=== PATIENT | female | born 1970 | race African-American/Black ===

== ENCOUNTER 2018-02-03 10:16 | Emergency (ER) | payer OTHER ==
[2018-02-03 12:20] LABS: Absolute Lymphocytes (CBC) 2.9 K/uL (0.7-4.9); Absolute Monocytes 0.7 K/uL (0.1-1.3); Absolute Neutrophil 9.2 K/uL (1.8-8.0); Eosinophils % 3.3 % (0-4.4); Hematocrit 40.4 % (36.0-45.0); Lymphocytes % 21.8 % (15.3-44.8); MCH 28.2 pg (27.0-35.0); MCV 86.5 fL (80-100); Monocytes % 5.2 % (3.3-12.3); RBC Red Blood Cell Count 4.67 M/uL (3.86-4.86)
[2018-02-03 12:21] LABS: Urine Blood 2+ (NEG); Urine Glucose NEGATIVE (NEG); Urine Protein 1+ (NEG); Urine Specific Gravity 1.025 (1.005-1.030)
[2018-02-03] MEDS ORDERED: NA CHLORIDE 0.9% 500 ML ONE (12:31)
[2018-02-03 12:46] LABS: Bicarbonate 29 mEq/L (21-31); Glucose Level 138 mg/dL (65-120); Potassium 3.8 mEq/L (3.6-5.0); Sodium Level 140 mEq/L (135-145)
[2018-02-03 12:52] LABS: ALT/SGPT 38 IU/L (10-60); AST/SGOT 28 IU/L (10-42); Albumin 4.3 g/dL (3.2-5.5); Alkaline Phosphatase 82 IU/L (42-121); BUN Blood Urea Nitrogen 13 mg/dL (6-20); Bilirubin Direct 0.1 mg/dL (0-0.2); Bilirubin Total 0.5 mg/dL (0.3-1.2); Creatine Phosphokinase 772 IU/L (22-269); Magnesium 1.8 mg/dL (1.8-2.5); Protein, Total 8.1 g/dL (6.0-8.3); Protime INR 1.03
[2018-02-03 12:54] LABS: CKMB Creatine Kinase MB 4.7 ng/ml (0.3-4.0)
--- NOTE | 2018-02-03 12:56 | RAD REPORT ---
EXAM DESCRIPTION: RAD - Chest Single View - 02/03/2018 12:38 pm CLINICAL HISTORY: Persistent cough, shortness of breath COMPARISON: December 09 TECHNIQUE: AP portable chest image was obtained 1225 hour . FINDINGS: Lungs are clear. Heart and vasculature are normal. No measurable pleural effusion and no p neumothorax. No gross bony abnormality seen. No acute aortic findings suspected. IMPRESSION: No acute cardiopulmonary process. No significant change from the comparison study.
--- NOTE | 2018-02-03 13:17 | EDPHYS ---
Physician Documentation [facility] Name: Sherri Best Age: 47 yrs Sex: Female : 1970 Arrival Date: 02/03/2018 Time: 10:17 Bed 15 Private MD: ED Physician Bay Olmstead HPI: 02/03 11:44 This 47 yrs old Black Female presents to ER via Ambulatory with complaints of Cough. leigh ann 11:44 The patient or guardian reports cough. Onset: The symptoms/episode began/occurred 2 leigh ann day(s) ago. Severity of symptoms: At their worst the symptoms were mild, in the emergency department the symptoms are unchanged. Modifying factors: The symptoms are alleviated by nothing, the symptoms are aggravated by nothing. Associated signs and symptoms: The patient has no apparent associated signs or symptoms. The patient has not experienced similar symptoms in the past. 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 - Social history:: Smoking status: Patient/guardian denies using tobacco. - Family history:: not pertinent. ROS: 11:44 Constitutional: Negative for fever, chills, and weight loss, Eyes: Negative for injury, leigh ann pain, redness, and discharge, ENT: Negative for injury, pain, and discharge, Neck: Negative for injury, pain, and swelling, Abdomen/GI: Negative for abdominal pain, nausea, vomiting, diarrhea, and constipation, Back: Negative for injury and pain, : Negative for injury, bleeding, discharge, and swelling, MS/Extremity: Negative for injury and deformity, Skin: Negative for injury, rash, and discoloration, Neuro: Negative for headache, weakness, numbness, tingling, and seizure. 11:44 Cardiovascular: Positive for chest pain. 11:44 Respiratory: Positive for cough, shortness of breath. Exam: 11:44 Constitutional: This is a well developed, well nourished patient who is awake, alert, leigh ann and in no acute distress. Head/Face: Normocephalic, atraumatic. Eyes: Pupils equal round and reactive to light, extra-ocular motions intact. Lids and lashes normal. Conjunctiva and sclera are non-icteric and not injected. Cornea within normal limits. Periorbital areas with no swelling, redness, or edema. ENT: Nares patent. No nasal discharge, no septal abnormalities noted. Tympanic membranes are normal and external auditory canals are clear. Oropharynx with no redness, swelling, or masses, exudates, or evidence of obstruction, uvula midline. Mucous membranes moist. Neck: Trachea midline, no thyromegaly or masses palpated, and no cervical lymphadenopathy. Supple, full range of motion without nuchal rigidity, or vertebral point tenderness. No Meningismus. Chest/axilla: Normal chest wall appearance and motion. Nontender with no deformity. No lesions are appreciated. Abdomen/GI: Soft, non-tender, with normal bowel sounds. No distension or tympany. No guarding or rebound. No evidence of tenderness throughout. Back: No spinal tenderness. No costovertebral tenderness. Full range of motion. Female : Normal external genitalia. Skin: Warm, dry with normal turgor. Normal color with no rashes, no lesions, and no evidence of cellulitis. MS/ Extremity: Pulses equal, no cyanosis. Neurovascular intact. Full, normal range of motion. Neuro: Awake and alert, GCS 15, oriented to person, place, time, and situation. Cranial nerves II-XII grossly intact. Motor strength 5/5 in all extremities. Sensory grossly intact. Cerebellar exam normal. Normal gait. Psych: Awake, alert, with orientation to person, place and time. Behavior, mood, and affect are within normal limits. 11:44 Cardiovascular: Rate: tachycardic, Rhythm: regular, Pulses: Pulses are 4+ in bilateral radial, brachial, femoral, popliteal, posterior tibial and and dorsalis pedis arteries.. Heart sounds: normal, Edema: is not appreciated, JVD: is not appreciated. Vital Signs: 10:29 BP 159 / 97; Pulse 109; Resp 20; Temp 97.8; Pulse Ox 98% on R/A; Weight 81.65 kg; aj Height 5 ft. 2 in. (157.48 cm); 11:29 BP 129 / 84; Pulse 91; Resp 19; Pulse Ox 99% on R/A; rb1 12:17 BP 122 / 88; Pulse 85; Resp 18; Pulse Ox 99% on R/A; rb1 13:15 BP 127 / 79; Pulse 71; Resp 14; Pulse Ox 100% on R/A; rb1 14:00 BP 132 / 80; Pulse 96; Resp 19; Pulse Ox 99% on R/A; rb1 10:29 Body Mass Index 32.92 (81.65 kg, 157.48 cm) aj MDM: 11:19 Patient medically screened. [facility] 11:46 Data reviewed: vital signs, nurses notes, lab test result(s), EKG, radiologic studies, leigh ann plain films. 02/03 11:44 Order name: Basic Metabolic Panel; Complete Time: 13:13 [facility] 02/03 11:44 Order name: BNP; Complete Time: 13:13 [facility] 02/03 11:44 Order name: CBC with Diff; Complete Time: 12:41 [facility] 02/03 11:44 Order name: Ckmb; Complete Time: 13:13 [facility] 02/03 11:44 Order name: CPK; Complete Time: 13:13 [facility] 02/03 11:44 Order name: LFT's; Complete Time: 13:13 [facility] 02/03 11:44 Order name: Magnesium; Complete Time: 13:13 [facility] 02/03 11:44 Order name: PT-INR; Complete Time: 13:13 [facility] 02/03 11:44 Order name: Ptt, Activated; Complete Time: 13:13 [facility] 02/03 11:44 Order name: Troponin (emerg Dept Use Only); Complete Time: 13:13 [facility] 02/03 11:44 Order name: XRAY Chest (1 view); Complete Time: 13:13 [facility] 02/03 11:44 Order name: Blood Culture Adult (2) [facility] 02/03 11:44 Order name: Flu; Complete Time: 12:41 [facility] 02/03 12:16 Order name: Urine Dipstick--Ancillary (enter results); Complete Time: 12:41 02/03 11:44 Order name: EKG; Complete Time: 11:45 [facility] 02/03 11:44 Order name: Cardiac monitoring; Complete Time: 12:21 leigh ann 02/03 11:44 Order name: EKG - Nurse/Tech; Complete Time: 12:12 leigh ann 02/03 11:44 Order name: IV Saline Lock; Complete Time: 12:12 [facility] 02/03 11:44 Order name: Labs collected and sent; Complete Time: 12:12 [facility] 02/03 11:44 Order name: O2 Per Protocol; Complete Time: 12:12 [facility] 02/03 11:44 Order name: O2 Sat Monitoring; Complete Time: 12:12 [facility] 02/03 11:44 Order name: Urine Dipstick-Ancillary (obtain specimen); Complete Time: 12:12 [facility] Administered Medications: 12:20 Drug: NS 0.9% 500 ml Route: IV; Rate: bolus; Site: right antecubital; rb1 13:00 Follow up: IV Status: Completed infusion rb1 14:00 Drug: Aspirin 81 mg Route: PO; rb1 14:00 Follow up: Response: Medication administered at discharge. rb1 14:00 Drug: Zithromax 500 mg Route: PO; rb1 14:00 Follow up: Response: Medication administered at discharge. rb1 Disposition: 02/03/18 13:16 Discharged to Home. Impression: Acute upper respiratory infection, unspecified, Cough, Other chest pain, Vomiting. - Condition is Stable. - Discharge Instructions: Nonspecific Chest Pain, Upper Respiratory Infection, Adult, Cool Mist Vaporizers, Upper Respiratory Infection, Adult, [id number], Cough, Adult, [id number], Aspirin and Your Heart, Cough, Adult. - Prescriptions for Cheratussin AC 10- 100 mg/5 mL Oral liquid - take 10 milliliter by ORAL route every 4 hours; 120 milliliter. Zithromax Z- Yaya 250 mg Oral Tablet - take 1 tablet by ORAL route as directed for 5 days Day 1 - take two (2) tablets one time. Day 2, 3, 4 , 5 take one (1) tablet once daily.; 6 tablet. Albuterol Sulfate 90 mcg/actuation - inhale 1-2 puff by INHALATION route every 4-6 hours; 1 Inhaler. Zofran 4 mg Oral Tablet - take 1 tablet by ORAL route every 12 hours As needed; 20 tablet. - Medication Reconciliation Form, Thank You Letter, Antibiotic Education, Prescription Opioid Use, Work release form form. - Follow up: Private Physician; When: 2 - 3 days; Reason: Recheck today's complaints, Continuance of care, Re-evaluation by your physician. - Problem is new. - Symptoms have improved. Signatures: Dispatcher [employer] EDMS Dan, Ana, RN RN aj Ishan, Bay, MD MD leigh ann Rouse, Sugey, RN RN rb1
--- NOTE | 2018-02-03 13:17 | ER ---
Nurse's Notes [facility] Name: Sherri Best Age: 47 yrs Sex: Female : 1970 Arrival Date: 02/03/2018 Time: 10:17 Bed 15 Private MD: Diagnosis: Acute upper respiratory infection, unspecified;Cough;Other chest pain;Vomiting Presentation: 02/03 10:28 Presenting complaint: Patient states: Cough for 1 month. Patient reports cough is aj triggering her to vomit. Transition of care: patient was not received from another setting of care. Onset of symptoms was January 2018. Care prior to arrival: None. 10:28 Method Of Arrival: Ambulatory aj 10:28 Acuity: LUIS A 4 aj Triage Assessment: 10:29 General: Appears in no apparent distress. comfortable, Behavior is calm, cooperative, aj appropriate for age. Pain: Denies pain. EENT: Reports nasal congestion nasal discharge. Neuro: Level of Consciousness is awake, alert, obeys commands, Oriented to person, place, time, situation. Cardiovascular: Capillary refill < 3 seconds in bilateral fingers Patient's skin is warm and dry. Respiratory: Reports cough that is pain with cough. Derm: Skin is intact, is healthy with good turgor, Skin is pink, warm \\T\\ dry. normal. 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 - Social history:: Smoking status: Patient/guardian denies using tobacco. - Family history:: not pertinent. Screenin:18 Abuse screen: Denies threats or abuse. Nutritional screening: No deficits noted. rb1 Tuberculosis screening: No symptoms or risk factors identified. Fall Risk None identified. Assessment: 11:18 General: Appears uncomfortable, Behavior is calm, cooperative, Denies fever. Neuro: rb1 Level of Consciousness is awake, alert, obeys commands, Oriented to person, place, time, situation. Cardiovascular: Capillary refill < 3 seconds is brisk in bilateral fingers. Respiratory: Reports cough that is Airway is patent Respiratory effort is even, unlabored, Respiratory pattern is regular, symmetrical. GI: Reports nausea, vomiting, vomits after coughing. : No signs and/or symptoms were reported regarding the genitourinary system. Derm: Skin is dry, Skin is normal, Skin temperature is warm. 11:18 Pain: Pain began a month ago. rb1 11:18 Pain: Complains of pain in chest Pain does not radiate. pt. stated, "it hurts when I rb1 cough.". 12:15 Reassessment: Patient appears in no apparent distress at this time. Patient and/or rb1 family updated on plan of care and expected duration. Pain level reassessed. Patient is alert, oriented x 3, equal unlabored respirations, skin warm/dry/pink. 13:10 Reassessment: Patient appears in no apparent distress at this time. No changes from [facility] previously documented assessment. 14:00 Reassessment: Patient appears in no apparent distress at this time. Patient and/or rb1 family updated on plan of care and expected duration. Pain level reassessed. Patient is alert, oriented x 3, equal unlabored respirations, skin warm/dry/pink. Vital Signs: 10:29 BP 159 / 97; Pulse 109; Resp 20; Temp 97.8; Pulse Ox 98% on R/A; Weight 81.65 kg; aj Height 5 ft. 2 in. (157.48 cm); 11:29 BP 129 / 84; Pulse 91; Resp 19; Pulse Ox 99% on R/A; rb1 12:17 BP 122 / 88; Pulse 85; Resp 18; Pulse Ox 99% on R/A; rb1 13:15 BP 127 / 79; Pulse 71; Resp 14; Pulse Ox 100% on R/A; rb1 14:00 BP 132 / 80; Pulse 96; Resp 19; Pulse Ox 99% on R/A; rb1 10:29 Body Mass Index 32.92 (81.65 kg, 157.48 cm) ED Course: 10:17 Patient arrived in ED. as 10:28 Triage completed. 10:29 Arm band placed on right wrist. Patient placed in waiting room, Patient notified of wait time. EKG completed in triage. Results shown to MD. 11:18 Patient has correct armband on for positive identification. Bed in low position. Call rb1 light in reach. Side rails up X 1. Pulse ox on. NIBP on. 11:18 Patient maintains SpO2 saturation greater than 95% on room air. rb1 11:19 Bay Olmstead MD is Attending Physician. leigh ann 11:43 Sugey Rouse, RN is Primary Nurse. rb1 12:03 Inserted saline lock: 20 gauge in right antecubital area, using aseptic technique. Blood collected. 12:12 Flu Sent. ss 12:12 Basic Metabolic Panel Sent. ss 12:13 BNP Sent. ss 12:13 CBC with Diff Sent. ss 12:13 CPK Sent. ss 12:13 Ckmb Sent. ss 12:13 LFT's Sent. ss 12:13 Magnesium Sent. ss 12:13 PT-INR Sent. ss 12:13 Ptt, Activated Sent. ss 12:13 Troponin (emerg Dept Use Only) Sent. ss 12:27 X-ray completed. Portable x-ray completed in exam room. jr1 12:28 XRAY Chest (1 view) In Process Unspecified. EDMS 14:00 No provider procedures requiring assistance completed. IV discontinued, intact, rb1 bleeding controlled, No redness/swelling at site. Pressure dressing applied. Administered Medications: 12:20 Drug: NS 0.9% 500 ml Route: IV; Rate: bolus; Site: right antecubital; rb1 13:00 Follow up: IV Status: Completed infusion rb1 14:00 Drug: Aspirin 81 mg Route: PO; rb1 14:00 Follow up: Response: Medication administered at discharge. rb1 14:00 Drug: Zithromax 500 mg Route: PO; rb1 14:00 Follow up: Response: Medication administered at discharge. rb1 Outcome: 13:16 Discharge ordered by . [facility] 14:00 Discharged to home ambulatory. rb1 14:00 Condition: stable 14:00 Discharge instructions given to patient, Instructed on discharge instructions, follow up and referral plans. medication usage, Demonstrated understanding of instructions, follow-up care, medications, Prescriptions given X 4. 14:00 Patient left the ED. rb1 Signatures: Dispatcher [employer] EDAR Ana Dan, RN Bay Orozco MD MD cha Ringgold, Jennifer jr1 Nesha Moralse Shelby, RN RN ss Sugey Rouse, RN RN rb1 Corrections: (The following items were deleted from the chart) 14:18 14:17 Patient left the ED. rb1 rb1
[2018-02-03] MEDS ORDERED: AZITHROMYCIN 250 MG TAB ONE (14:20)
[2018-02-03] MEDS ORDERED: ASPIRIN EC 81 MG TAB PO ONE (14:20)
--- NOTE | 2018-02-04 07:38 | EKG ---
Test Date: 2018-02-03 Test Time: 10:28:09 Residential Case Manager: ZAN MEASUREMENT RESULTS: Intervals: Rate: 97 NJ: 124 QRSD: 68 QT: 360 QTc: 457 [place]: P: 42 NJ: 124 QRS: 52 T: 27 INTERPRETIVE STATEMENTS: Normal sinus rhythm Normal ECG Compared to ECG 08/04/2017 07:08:06 T-wave abnormality no longer present Electronically Signed On 02-04-18 07:35:11 CDT by Bronson Victor
== END 2018-02-03 14:17 | disposition home or self-care (01) ==
LOC: ER 10:16
DX: J06.9 Acute upper respiratory infection, unspecified (principal); R07.89 Other chest pain; R11.10 Vomiting, unspecified; F41.9 Anxiety disorder, unspecified
CPT/HCPCS: 36415; 71045; 80048; 80076; 81003; 82550; 82553; 83735; 83880; 84484; 85025; 85610; 85730; 87040; 87804; 93005; 96360; 99284

== ENCOUNTER 2018-03-09 10:51 | Emergency (ER) | payer OTHER ==
--- NOTE | 2018-03-09 11:35 | ER ---
Nurse's Notes [facility] Name: Sherri Best Age: 47 yrs Sex: Female : 1970 Arrival Date: 03/09/2018 Time: 10:55 Bed Treatment Private MD: None, None Diagnosis: Impacted cerumen, right ear Presentation: 03/09 10:56 Presenting complaint: Patient states: R ear pain started Friday, denies discharges; 03/12;. Transition of care: patient was not received from another setting of care. Onset of symptoms was March 09, 2018. Initial Sepsis Screen: Does the patient meet any 2 criteria? No. Patient's initial sepsis screen is negative. Does the patient have a suspected source of infection? No. Patient's initial sepsis screen is negative. Care prior to arrival: None. 10:56 Method Of Arrival: Ambulatory 10:56 Acuity: LUIS A 4 hj Triage Assessment: 10:58 General: Appears in no apparent distress. uncomfortable, Behavior is calm, cooperative, hj appropriate for age. Pain: Complains of pain in right ear. EENT: Reports pain in right ear. 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 - Social history:: Smoking status: Patient/guardian denies using tobacco. Screenin:32 Abuse screen: Denies threats or abuse. Denies injuries from another. Nutritional iw screening: No deficits noted. Tuberculosis screening: No symptoms or risk factors identified. Fall Risk None identified. Assessment: 11:31 General: Appears in no apparent distress. Behavior is calm, cooperative. Pain: iw Complains of pain in right ear. Neuro: Level of Consciousness is awake, alert, Oriented to person, place, time, Moves all extremities. Full function. Cardiovascular: Patient's skin is warm and dry. Respiratory: Respiratory effort is even, unlabored, Respiratory pattern is regular. GI: No signs and/or symptoms were reported involving the gastrointestinal system. Derm: Skin is pink, warm \T\ dry. normal. Musculoskeletal: Range of motion: intact in all extremities. Vital Signs: 10:58 BP 126 / 76; Pulse 86; Resp 18; Temp 98.2(TE); Pulse Ox 100% on R/A; Weight 84.82 kg; hj Height 5 ft. 2 in. (157.48 cm); Pain 5/10; 10:58 Body Mass Index 34.20 (84.82 kg, 157.48 cm) hj ED Course: 10:55 Patient arrived in ED. mr 10:55 None, None is Private Physician. mr 10:57 Triage completed. hj 10:59 Arm band placed on right wrist. hj 11:18 Ric Garrett MD is Attending Physician. gs 11:31 Meka Murray, RN is Primary Nurse. iw 11:32 Patient has correct armband on for positive identification. iw 11:32 No provider procedures requiring assistance completed. Patient did not have IV access iw during this emergency room visit. 11:34 Lanette Garcia MD is Referral Physician. gs Administered Medications: No medications were administered Outcome: 11:34 Discharge ordered by MD. gs 11:54 Discharged to home ambulatory. iw 11:54 Condition: good 11:54 Discharge instructions given to patient, Instructed on discharge instructions, follow up and referral plans. Demonstrated understanding of instructions, follow-up care. 11:55 Patient left the ED. iw Signatures: Angie Anguiano mr Meka Murray, ALMA RN iw Pato Lopez RN RN Ric Garrett MD MD Corrections: (The following items were deleted from the chart) 10:59 10:58 Pulse 86bpm; Resp 18bpm; Pulse Ox 100% RA; Temp 98.2F Temporal; 84.82 kg; Height hj 5 ft. 2 in.; BMI: 34.2; Pain 5/10; hj 10:59 10:58 BP 130 / 87; Pulse 86bpm; Resp 18bpm; Pulse Ox 100% RA; Temp 98.2F Temporal; hj 84.82 kg; Height 5 ft. 2 in.; BMI: 34.2; Pain 5/10; hj
--- NOTE | 2018-03-09 11:36 | EDPHYS ---
Physician Documentation [facility] Name: Sherri Best Age: 47 yrs Sex: Female : 1970 Arrival Date: 03/09/2018 Time: 10:55 Bed Treatment Private MD: None, None ED Physician Ric Garrett HPI: 03/09 11:33 This 47 yrs old Black Female presents to ER via Ambulatory with complaints of Ear Pain. gs 11:33 The patient presents with pain. The complaints affect the right ear. Onset: The gs symptoms/episode began/occurred 3 day(s) ago. Modifying factors: The symptoms are alleviated by nothing, the symptoms are aggravated by nothing. Associated signs and symptoms: Pertinent negatives: sore throat, tinnitus. Severity of symptoms: At their worst the symptoms were moderate in the emergency department the symptoms are unchanged. The patient has experienced similar episodes in the past, a few times. 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 - Social history:: Smoking status: Patient/guardian denies using tobacco. ROS: 11:33 All other systems are negative. gs Exam: 11:33 Head/Face: Normocephalic, atraumatic. Eyes: Pupils equal round and reactive to light, gs extra-ocular motions intact. Lids and lashes normal. Conjunctiva and sclera are non-icteric and not injected. Cornea within normal limits. Periorbital areas with no swelling, redness, or edema. Neck: Trachea midline, no thyromegaly or masses palpated, and no cervical lymphadenopathy. Supple, full range of motion without nuchal rigidity, or vertebral point tenderness. No Meningismus. Chest/axilla: Normal chest wall appearance and motion. Nontender with no deformity. No lesions are appreciated. Cardiovascular: Regular rate and rhythm with a normal S1 and S2. No gallops, murmurs, or rubs. Normal PMI, no JVD. No pulse deficits. Respiratory: Lungs have equal breath sounds bilaterally, clear to auscultation and percussion. No rales, rhonchi or wheezes noted. No increased work of breathing, no retractions or nasal flaring. Abdomen/GI: Soft, non-tender, with normal bowel sounds. No distension or tympany. No guarding or rebound. No evidence of tenderness throughout. 11:33 Constitutional: The patient appears in no acute distress, alert, awake. 11:33 ENT: Ear canal(s): cerumen impaction, that is severe, that is hard, occluding the right ear canal, Posterior pharynx: is normal. Vital Signs: 10:58 BP 126 / 76; Pulse 86; Resp 18; Temp 98.2(TE); Pulse Ox 100% on R/A; Weight 84.82 kg; hj Height 5 ft. 2 in. (157.48 cm); Pain 5/10; 10:58 Body Mass Index 34.20 (84.82 kg, 157.48 cm) MDM: 11:24 Patient medically screened. 11:33 Differential diagnosis: acute otalgia, cerumen impaction. Data reviewed: vital signs, nurses notes. Counseling: I had a detailed discussion with the patient and/or guardian regarding: the need for outpatient follow up, an ENT specialist. Response to treatment: There is no appreciated change of the patient's symptoms at this time, and as a result, I will discharge patient. Administered Medications: No medications were administered Disposition: 03/09/18 11:34 Discharged to Home. Impression: Impacted cerumen, right ear. - Condition is Stable. - Discharge Instructions: Cerumen Impaction, Ear Drops, Adult. - Work release form, Medication Reconciliation Form, Thank You Letter, Antibiotic Education, Prescription Opioid Use form. - Follow up: Lanette Garcia MD; When: 2 - 3 days; Reason: Re-evaluation by your physician. Signatures: Meka Murray RN RN iw Pato Lopez RN RN hj Starr, Gregory, MD MD Corrections: (The following items were deleted from the chart) 11:55 11:34 03/09/2018 11:34 Discharged to Home. Impression: Impacted cerumen, right ear. iw Condition is Stable. Forms are Medication Reconciliation Form, Thank You Letter, Antibiotic Education, Prescription Opioid Use. Follow up: Lanette Garcia; When: 2 - 3 days; Reason: Re-evaluation by your physician. gs
== END 2018-03-09 11:55 | disposition home or self-care (01) ==
LOC: ER 10:51
DX: H61.21 Impacted cerumen, right ear (principal)
CPT/HCPCS: 99281

== ENCOUNTER 2018-05-04 05:46 | Emergency (ER) | payer OTHER ==
[2018-05-04] MEDS ORDERED: PHENAZOPYRIDINE 100MG TAB PO ONE (06:20)
[2018-05-04] MEDS ORDERED: DICYCLOMINE HCL 10 MG CAP ONE (06:20)
[2018-05-04] MEDS ORDERED: KETOROLAC 30 MG/ML INJ ONE (06:20)
[2018-05-04] MEDS ORDERED: ONDANSETRON 4 MG/2 ML VIAL ONE (06:20)
[2018-05-04] MEDS ORDERED: NA CHLORIDE 0.9% 1,000 ML ONE (06:20)
[2018-05-04 06:41] LABS: Absolute Lymphocytes (CBC) 2.7 K/uL (0.7-4.9); Absolute Neutrophil 8.8 K/uL (1.8-8.0); Basophils % 0.7 % (0-1.3); Eosinophils % 3.4 % (0-4.4); Lymphocytes % 21.1 % (15.3-44.8); MCV 87.3 fL (80-100); MPV 8.2 fL (7.6-11.3); Monocytes % 7.5 % (3.3-12.3); RBC Red Blood Cell Count 4.24 M/uL (3.86-4.86)
[2018-05-04 06:55] LABS: BUN Blood Urea Nitrogen 14 mg/dL (7-18); Bicarbonate 26 mmol/L (21-32); Calcium Oxalate Crystals- Ur MODERATE (NONE SEEN); Glucose Level 158 mg/dL (74-106); Lipase 84 U/L (73-393); Potassium 3.6 mmol/L (3.5-5.1); Sodium Level 140 mmol/L (136-145); Urine Amorphous Sediment 1+ /HPF (NONE SEEN); Urine Bacteria <20 /HPF (<20); Urine Culture Reflex Order REFLEXED; Urine Mucus 1+ /HPF (NONE SEEN)
[2018-05-04 06:56] LABS: Urine Blood 1+ (NEG); Urine Glucose NEGATIVE (NEG); Urine Protein NEGATIVE (NEG); Urine Specific Gravity 1.025 (1.005-1.030); Urine pH 6.5 (5.0-7.0)
--- NOTE | 2018-05-04 07:41 | RAD REPORT ---
EXAM DESCRIPTION: CT - Abdomen Pelvis Wo Contrast - 05/04/2018 7:26 am CLINICAL HISTORY: Abdominal pain, suprapubic pain, dysuria COMPARISON: CT study February 2009 TECHNIQUE: Axial [address] imaging of the abdomen and pelvis was performed without IV contrast. No IV contrast was given because of allergy, abnormal renal function, patient refusal or physician re quest. No oral contrast administered. All CT scans are performed using dose optimization technique as appropriate and may include automated exposure control or mA/KV adjustment according to patient size. FINDINGS: No suspicious findings in the lung bases. The liver, spleen and pancreas show no suspicious findings on non-contrast imaging. Gallbladder and b iliary tree are also without suspicious finding. No hydronephrosis or suspicious renal mass. No significant adrenal finding. Isodense renal masses an d pyelonephritis cannot be excluded in the absence of IV contrast. The urinary bladder is without sig nificant finding. No adrenal abnormality. No significant uterine abnormality. Right ovary and right adnexa are unremarkable. No gastric dilatation or gastric wall thickening. No small bowel abnormality. No colon dilatation or colon wall mass identifiable. No free air, free fluid or inflammatory stranding. A 19 millimeter area of hyperdensity is present measuring 1400 Hounsfield units. This is positioned between the left ovar y and the proximal sigmoid colon. This is new from the remote comparison. Etiology is nonspecific. Th is could be a fully calcified ovarian cyst or mass. Calcification and enlargement of a diverticulum w ould be possible. There is no stranding in this region. The full calcification pattern and absence of any soft tissue component would favor a benign etiology. No mass or bulky lymphadenopathy. Small left inguinal lymph nodes are present. No acute or destructive bone process identified. IMPRESSION: Non-contrast enhanced CT abdomen and pelvis imaging show no acute finding. A 19 millimeter homogeneous calcification has developed between the left ovary and sigmoid colon sinc e the 2008 study. No soft tissue mass component, stranding or other active process in this region. Et iology of this mass is not definitive but may be calcified ovarian cyst. Imaging characteristics are nonaggressive and benign etiology is very strongly favored. Full abdominal and pelvic assessment are limited in the absence of IV contrast.
[2018-05-04] MEDS ORDERED: MORPHINE 4 MG/ML SYR ONE (07:42)
--- NOTE | 2018-05-04 07:59 | ER ---
Nurse's Notes [facility] Name: Sherri Best Age: 47 yrs Sex: Female : 1970 Arrival Date: 05/04/2018 Time: 05:51 Bed 8 Private MD: Diagnosis: Viral Gastroenteritis;Nausea/Vomiting/Diarrhea;Dysuria;Calcified ovarian cyst Presentation: 05/04 06:08 Presenting complaint: Patient states: nausea and diarrhea since friday. Transition of rv care: patient was not received from another setting of care. Onset of symptoms was May 02, 2018 at 08:00. Risk Assessment: Do you want to hurt yourself or someone else? Patient reports no desire to harm self or others. Initial Sepsis Screen: Does the patient meet any 2 criteria? No. Patient's initial sepsis screen is negative. Does the patient have a suspected source of infection? No. Patient's initial sepsis screen is negative. Care prior to arrival: None. 06:08 Method Of Arrival: Ambulatory rv 06:08 Acuity: LUIS A 3 rv Triage Assessment: 06:11 General: Appears in no apparent distress. comfortable, Behavior is calm, cooperative. rv Pain: Complains of pain in abdomen Pain began 2-3 days ago. EENT: No deficits noted. Neuro: Level of Consciousness is awake, alert, obeys commands, Oriented to person, place, time, situation. Cardiovascular: Capillary refill < 3 seconds. Respiratory: Airway is patent. GI: Abdomen is round non-distended. : Reports burning with urination. Derm: Skin is intact. 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 - Social history:: Smoking status: Patient/guardian denies using tobacco, never smoked, Patient/guardian denies using alcohol, street drugs. - Ebola Screening: : Patient negative for fever greater than or equal to 101.5 degrees Fahrenheit, and additional compatible Ebola Virus Disease symptoms Patient denies exposure to infectious person Patient denies travel to an Ebola-affected area in the 21 days before illness onset. Screenin:11 Abuse screen: Denies threats or abuse. Denies injuries from another. Nutritional rv screening: No deficits noted. Tuberculosis screening: No symptoms or risk factors identified. Fall Risk None identified. Assessment: 06:13 GI: Bowel sounds present X 4 quads. Abd is soft and non tender X 4 quads. rv 07:09 General: Appears in no apparent distress. uncomfortable, Behavior is calm, cooperative, hj appropriate for age. Pain: Complains of pain in abdomen Pain currently is 4 out of 10 on a pain scale. Neuro: Level of Consciousness is awake, alert, obeys commands, Oriented to person, place, time, situation, Appropriate for age. Cardiovascular: Capillary refill < 3 seconds Patient's skin is warm and dry. Respiratory: Airway is patent Respiratory effort is even, unlabored, Respiratory pattern is regular, symmetrical. : No signs and/or symptoms were reported regarding the genitourinary system. EENT: No signs and/or symptoms were reported regarding the EENT system. Derm: No signs and/or symptoms reported regarding the dermatologic system. Musculoskeletal: No signs and/or symptoms reported regarding the musculoskeletal system. 07:37 Reassessment: pt complained of pain 4/10; MD notified; awaiting orders;. hj 08:08 Reassessment: Patient and/or family updated on plan of care and expected duration. Pain hj level reassessed. Patient is alert, oriented x 3, equal unlabored respirations, skin warm/dry/pink. D/C instruction given; awaiting for ride;. Vital Signs: 06:12 BP 113 / 97; Pulse 92; Resp 16; Pulse Ox 100% on R/A; Weight 81.65 kg (R); Height 5 ft. rv 2 in. (157.48 cm) (R); 06:39 Temp 98.1(O); rv 07:10 BP 131 / 86; Pulse 90; Resp 18; Pulse Ox 99% on R/A; hj 08:18 BP 133 / 83; Pulse 89; Resp 18; Temp 98.1(TE); Pulse Ox 100% on R/A; hj 06:12 Body Mass Index 32.92 (81.65 kg, 157.48 cm) rv ED Course: 05:51 Patient arrived in ED. es 06:05 Alvin Mendoza MD is Attending Physician. ps1 06:09 Triage completed. rv 06:13 Arm band placed on left wrist. rv 06:13 Patient has correct armband on for positive identification. Bed in low position. Call rv light in reach. Side rails up X 1. Pulse ox on. NIBP on. 06:14 Inserted saline lock: 20 gauge in right antecubital area, using aseptic technique. rv 06:46 Volodymyr Boateng, RN is Primary Nurse. bp 07:08 Primary Nurse role handed off by Volodymyr Boateng, ALMA ag 07:09 Pato Lopez, ALMA is Primary Nurse. hj 07:26 CT Abd/Pelvis - Without Cont In Process Unspecified. EDMS 07:26 CT completed. Patient tolerated procedure well. Patient moved back from CT. vr 08:15 No provider procedures requiring assistance completed. IV discontinued, intact, hj bleeding controlled, No redness/swelling at site. Pressure dressing applied. Administered Medications: 06:30 Drug: NS 0.9% 1000 ml Route: IV; Rate: 1 bolus; Site: right antecubital; rv 08:09 Follow up: IV Status: Completed infusion hj 06:30 Drug: TORadol 30 mg Route: IVP; Site: right antecubital; rv 06:56 Follow up: Response: No adverse reaction lp1 06:30 Drug: Bentyl 10 mg Route: PO; rv 06:56 Follow up: Response: No adverse reaction lp1 06:30 Drug: Zofran 4 mg Route: IVP; Site: right antecubital; rv 06:56 Follow up: Response: No adverse reaction lp1 06:30 Drug: Pyridium 100 mg Route: PO; rv 06:56 Follow up: Response: No adverse reaction lp1 07:38 Drug: morphine 4 mg Route: IVP; Site: right antecubital; hj 08:00 Follow up: Response: No adverse reaction; Pain is decreased hj Outcome: 07:58 Discharge ordered by MD. ps1 08:15 Discharged to home ambulatory, with family. hj 08:15 Condition: stable 08:15 Discharge instructions given to patient, Instructed on discharge instructions, follow up and referral plans. medication usage, Demonstrated understanding of instructions, follow-up care, medications, Prescriptions given X 3. 08:21 Patient left the ED. hj Signatures: Dispatcher [employer] EDMS Roseline Nelson Victoria vr Geovanna Card, RN RN lp1 Carina Rodriguez Henry RN RN hj Volodymyr Boateng, RN RN bp Alvin Mendoza MD MD ps1 Dieter Schwab RN RN rv
--- NOTE | 2018-05-04 07:59 | EDPHYS ---
Physician Documentation [facility] Name: Sherri Best Age: 47 yrs Sex: Female : 1970 Arrival Date: 05/04/2018 Time: 05:51 Bed 8 Private MD: ED Physician Alvin Mendoza HPI: 05/04 06:10 This 47 yrs old Black Female presents to ER via Ambulatory with complaints of Abdominal ps1 Pain, Nausea, Diarrhea, Pain With Urination. 06:10 onset was 2 days ago. Had 6 episodes of diarrhea and took and immodium and got better. ps1 Had recurrence of diarrhea last night. Associated with nausea and vomiting. Now having suprapubic pain and dysuria described as burning sensation. Pain as moderate. No fever or chills. . 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 - Social history:: Smoking status: Patient/guardian denies using tobacco, never smoked, Patient/guardian denies using alcohol, street drugs. - Ebola Screening: : Patient negative for fever greater than or equal to 101.5 degrees Fahrenheit, and additional compatible Ebola Virus Disease symptoms Patient denies exposure to infectious person Patient denies travel to an Ebola-affected area in the 21 days before illness onset. ROS: 06:10 Constitutional: Negative for fever, chills, and weight loss, Eyes: Negative for injury, ps1 pain, redness, and discharge, Cardiovascular: Negative for chest pain, palpitations, and edema, Respiratory: Negative for shortness of breath, cough, wheezing, and pleuritic chest pain, Back: Negative for injury and pain, Skin: Negative for injury, rash, and discoloration, Neuro: Negative for headache, weakness, numbness, tingling, and seizure. 06:10 Abdomen/GI: Positive for nausea, vomiting, and diarrhea, abdominal cramps. 06:10 : Positive for urinary symptoms, urinary frequency. Exam: 06:10 Constitutional: This is a well developed, well nourished patient who is awake, alert, ps1 and in no acute distress. Head/Face: Normocephalic, atraumatic. Eyes: Pupils equal round and reactive to light, extra-ocular motions intact. Lids and lashes normal. Conjunctiva and sclera are non-icteric and not injected. Chest/axilla: Normal chest wall appearance and motion. Nontender with no deformity. No lesions are appreciated. Cardiovascular: Regular rate and rhythm. No gallops, murmurs, or rubs. Normal PMI, no JVD. No pulse deficits. Respiratory: Lungs have equal breath sounds bilaterally, clear to auscultation and percussion. No rales, rhonchi or wheezes noted. No increased work of breathing, no retractions or nasal flaring. Abdomen/GI: Soft, non-tender, with normal bowel sounds. No distension or tympany. No guarding or rebound. No evidence of tenderness throughout. Skin: Warm, dry with normal turgor. Normal color with no rashes, no lesions, and no evidence of cellulitis. MS/ Extremity: Pulses equal, no cyanosis. Neurovascular intact. Full, normal range of motion. Neuro: Awake and alert, GCS 15, oriented to person, place, time, and situation. Cranial nerves II-XII grossly intact. Sensory grossly intact. Vital Signs: 06:12 BP 113 / 97; Pulse 92; Resp 16; Pulse Ox 100% on R/A; Weight 81.65 kg (R); Height 5 ft. rv 2 in. (157.48 cm) (R); 06:39 Temp 98.1(O); rv 07:10 BP 131 / 86; Pulse 90; Resp 18; Pulse Ox 99% on R/A; hj 08:18 BP 133 / 83; Pulse 89; Resp 18; Temp 98.1(TE); Pulse Ox 100% on R/A; hj 06:12 Body Mass Index 32.92 (81.65 kg, 157.48 cm) rv MDM: 07:06 Patient medically screened. ps1 08:00 Data reviewed: vital signs, nurses notes, lab test result(s), radiologic studies, CT ps1 scan. Counseling: I had a detailed discussion with the patient and/or guardian regarding: the historical points, exam findings, and any diagnostic results supporting the discharge/admit diagnosis, lab results, radiology results, to return to the emergency department if symptoms worsen or persist or if there are any questions or concerns that arise at home. Medication response:. Special discussion: Based on the patient's Hx, exam, and Dx evaluation, there is no indication for emergent surgery or inpatient Tx. It is understood by the patient/guardian that if the Sx's persist or worsen they need to return immediately for re-evaluation. 05/04 06:15 Order name: Basic Metabolic Panel; Complete Time: 07:07 ps1 05/04 06:15 Order name: CBC with Diff; Complete Time: 07:07 ps1 05/04 06:15 Order name: Lipase; Complete Time: 07:07 ps1 05/04 06:15 Order name: Urine Microscopic Only; Complete Time: 07:07 ps1 05/04 06:20 Order name: Urine Dipstick--Ancillary (enter results); Complete Time: 07:07 eb 05/04 06:20 Order name: Urine --Ancillary (enter results); Complete Time: 07:07 eb 05/04 06:56 Order name: Urine Culture EDMS 05/04 07:08 Order name: CT Abd/Pelvis - Without Cont; Complete Time: 07:56 ps1 05/04 06:15 Order name: IV Saline Lock; Complete Time: 06:15 ps1 02 06:15 Order name: Labs collected and sent; Complete Time: 06:15 ps1 02 06:15 Order name: Urine Dipstick-Ancillary (obtain specimen); Complete Time: 06:15 ps1 Administered Medications: 06:30 Drug: NS 0.9% 1000 ml Route: IV; Rate: 1 bolus; Site: right antecubital; rv 08:09 Follow up: IV Status: Completed infusion hj 06:30 Drug: TORadol 30 mg Route: IVP; Site: right antecubital; rv 06:56 Follow up: Response: No adverse reaction lp1 06:30 Drug: Bentyl 10 mg Route: PO; rv 06:56 Follow up: Response: No adverse reaction lp1 06:30 Drug: Zofran 4 mg Route: IVP; Site: right antecubital; rv 06:56 Follow up: Response: No adverse reaction lp1 06:30 Drug: Pyridium 100 mg Route: PO; rv 06:56 Follow up: Response: No adverse reaction lp1 07:38 Drug: morphine 4 mg Route: IVP; Site: right antecubital; hj 08:00 Follow up: Response: No adverse reaction; Pain is decreased Disposition: 05/04/18 07:58 Discharged to Home. Impression: Viral Gastroenteritis, Nausea/Vomiting/Diarrhea, Dysuria, Calcified ovarian cyst. - Condition is Stable. - Discharge Instructions: Viral Gastroenteritis, [id number]. - Prescriptions for Bentyl 10 mg Oral Capsule - take 1 capsule by ORAL route every 6 hours As needed; 40 capsule. Zofran 4 mg Oral Tablet - take 1 tablet by ORAL route every 12 hours As needed; 20 tablet. Bactrim DS 800- 160 mg Oral Tablet - take 1 tablet by ORAL route every 12 hours for 3 days; 6 tablet. - Work release form, Medication Reconciliation Form, Thank You Letter, Antibiotic Education, Prescription Opioid Use form. - Follow up: Private Physician; When: As needed; Reason: Recheck today's complaints, Continuance of care, Re-evaluation by your physician. Follow up: Emergency Department; When: As needed; Reason: Worsening of condition. - Problem is new. - Symptoms have improved. Signatures: Dispatcher [employer] EDMS Pato Lopez RN RN Alvin Mendoza MD MD ps1 Dieter Schwab RN RN rv Geovanna Card RN lp1 Corrections: (The following items were deleted from the chart) 08:21 07:58 05/04/2018 07:58 Discharged to Home. Impression: Viral Gastroenteritis; hj Nausea/Vomiting/Diarrhea; Dysuria; Calcified ovarian cyst. Condition is Stable. Forms are Medication Reconciliation Form, Thank You Letter, Antibiotic Education, Prescription Opioid Use. Follow up: Private Physician; When: As needed; Reason: Recheck today's complaints, Continuance of care, Re-evaluation by your physician. Follow up: Emergency Department; When: As needed; Reason: Worsening of condition. Problem is new. Symptoms have improved. ps1
== END 2018-05-04 08:21 | disposition home or self-care (01) ==
LOC: ER 05:46
DX: A08.4 Viral intestinal infection, unspecified (principal); R30.0 Dysuria; N83.299 Other ovarian cyst, unspecified side
CPT/HCPCS: 36415; 74176; 80048; 81003; 81015; 81025; 83690; 85025; 87086; 87088; 96361; 96374; 96375; 99284; J2405; J7030

== ENCOUNTER 2018-06-16 05:23 | Inpatient (IN) | payer OTHER ==
[2018-06-16] MEDS ORDERED: ONDANSETRON 4 MG/2 ML VIAL ONE ×2 (06:20→07:47)
[2018-06-16] MEDS ORDERED: PANTOPRAZOLE 40 MG INJ ONE (06:20)
[2018-06-16] MEDS ORDERED: NA CHLORIDE 0.9% 1,000 ML ONE ×2 (06:20→12:02)
[2018-06-16 06:32] LABS: Absolute Lymphocytes (CBC) 2.7 K/uL (0.7-4.9); Absolute Monocytes 0.8 K/uL (0.1-1.3); Basophils % 0.5 % (0-1.3); Eosinophils % 2.1 % (0-4.4); Hematocrit 38.8 % (36.0-45.0); Lymphocytes % 21.1 % (15.3-44.8); MCH 29.5 pg (27.0-35.0); MCV 86.4 fL (80-100); Monocytes % 6.4 % (3.3-12.3); RBC Red Blood Cell Count 4.49 M/uL (3.86-4.86)
[2018-06-16 06:49] LABS: ALT/SGPT 32 U/L (12-78); AST/SGOT 19 U/L (15-37); Albumin 3.7 g/dL (3.4-5.0); Alkaline Phosphatase 98 U/L (45-117); Amylase Level 48 U/L (25-115); BUN Blood Urea Nitrogen 13 mg/dL (7-18); Bicarbonate 29 mmol/L (21-32); Bilirubin Direct < 0.1 mg/dL (0-0.2); Bilirubin Total 0.3 mg/dL (0.2-1.0); Glucose Level 123 mg/dL (74-106); Lipase 115 U/L (73-393); Potassium 3.7 mmol/L (3.5-5.1); Protein, Total 7.9 g/dL (6.4-8.2); Sodium Level 140 mmol/L (136-145)
[2018-06-16 07:13] LABS: Urine Blood 1+ (NEG); Urine Glucose NEGATIVE (NEG); Urine Protein NEGATIVE (NEG); Urine Specific Gravity >1.030 (1.005-1.030); Urine pH 5.5 (5.0-7.0)
--- NOTE | 2018-06-16 08:20 | RAD REPORT ---
EXAM DESCRIPTION: CT - Abdomen Pelvis W Contrast - 06/16/2018 7:51 am CLINICAL HISTORY: Abdominal pain COMPARISON: CT study May 04, 2018 TECHNIQUE: Biphasic, helical CT imaging of the abdomen and pelvis was performed following 100 ml non -ionic IV contrast. Oral contrast was given. All CT scans are performed using dose optimization technique as appropriate and may include automated exposure control or mA/KV adjustment according to patient size. FINDINGS: No suspicious findings in the lung bases. The liver, spleen, and pancreas show no suspicious findings. Gallbladder is only partially filled. Ga llbladder wall appears thickened/edematous. This is a new finding from May 04. Stones and sludge ca n be occult. No biliary tree dilatation. Symmetric renal function is seen with no hydronephrosis or suspicious renal mass. No pyelonephritis o r acute renal parenchymal process. No urinary bladder abnormality. Uterus and ovaries show no new or suspicious findings. Large coarse calcification in the left adnexa has not changed. No dilated bowel loops or bowel wall thickening. Appendix is normal. No active GI process seen. No fr ee air, free fluid or inflammatory stranding. No hernia, mass or bulky lymphadenopathy. No adrenal a bnormality. No suspicious bony findings. IMPRESSION: Gallbladder wall thickening or edema evident. Gallstones can be occult. Biliary tree wit hin normal limits. Correlation is needed with any cholecystitis or right upper quadrant symptoms. Followup gallbladder s onography may be helpful. No other significant or suspicious findings. Exam is otherwise stable from May 04.
--- NOTE | 2018-06-16 09:03 | RAD REPORT ---
EXAM DESCRIPTION: US - Abdomen Exam Limited - 06/16/2018 8:41 am CLINICAL HISTORY: Right upper quadrant pain COMPARISON: CT study June 16 FINDINGS: In the fundus of the contracted gallbladder there are 3 clustered gallstone 6-11 mm in siz e. The contracted state makes it difficult to evaluate artifact from true gallbladder wall thickening . Gallbladder adams do appear to be edematous. There is no wall thickening or pericholecystic fluid. No common duct stone or biliary tree dilatation identified. IMPRESSION: Multi stone cholelithiasis. Gallbladder wall does appear to be edematous. Wall thicknes s is difficult to accurately assess due to contracted state. Collective CT and ultrasound findings are concerning for acute cholecystitis and need correlation wit h clinical and lab findings. No biliary tree abnormality identifiable.
--- NOTE | 2018-06-16 11:36 | ER ---
Nurse's Notes [facility] Name: Sherri Best Age: 47 yrs Sex: Female : 1970 Arrival Date: 06/16/2018 Time: 05:24 Bed 18 Private MD: Diagnosis: Cholecystitis;Cholelithiasis Presentation: 06/16 05:33 Presenting complaint: Patient states: "I started having stomach pain at about 0400 and jd3 feeling very nauseous.". Transition of care: patient was not received from another setting of care. Onset of symptoms was June 16, 2018. Risk Assessment: Do you want to hurt yourself or someone else? Patient reports no desire to harm self or others. Initial Sepsis Screen: Does the patient meet any 2 criteria? No. Patient's initial sepsis screen is negative. Does the patient have a suspected source of infection? No. Patient's initial sepsis screen is negative. Care prior to arrival: Medication(s) given: pt took a Bentyl and 81 mg Aspirin X 2 before arrival. 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 jd3 Historical: - Allergies: 05:34 NKA; jd3 - Home Meds: 05:34 aspirin 81 mg Oral chew [Active]; jd3 - PMHx: 05:34 Depression; jd3 - PSHx: 05:34 None; jd3 - Immunization history:: Adult Immunizations up to date. - Social history:: Smoking status: Patient/guardian denies using tobacco. - Ebola Screening: : Patient negative for fever greater than or equal to 101.5 degrees Fahrenheit, and additional compatible Ebola Virus Disease symptoms. Screenin:40 Abuse screen: Denies threats or abuse. Nutritional screening: No deficits noted. jd3 Tuberculosis screening: No symptoms or risk factors identified. Fall Risk Ambulatory Aid- None/Bed Rest/Nurse Assist (0 pts). Gait- Normal/Bed Rest/Wheelchair (0 pts) Mental Status- Oriented to own ability (0 pts). Total Pastor Fall Scale indicates No Risk (0-24 pts). Assessment: 05:39 General: Appears in no apparent distress. uncomfortable, Behavior is calm, cooperative, jd3 appropriate for age. Pain: Complains of pain in abdomen Pain currently is 5 out of 10 on a pain scale. Quality of pain is described as sharp, Pain began 1 hour ago. Is continuous, Also complains of nausea. Neuro: Level of Consciousness is awake, alert, obeys commands, Oriented to person, place, time, situation, Appropriate for age. Cardiovascular: Capillary refill < 3 seconds Patient's skin is warm and dry. Respiratory: Airway is patent Respiratory effort is even, unlabored, Respiratory pattern is regular, symmetrical, Denies cough, shortness of breath. GI: Abdomen is round Bowel sounds present X 4 quads. Abd is soft and non tender X 4 quads. Reports nausea. : No signs and/or symptoms were reported regarding the genitourinary system. EENT: No signs and/or symptoms were reported regarding the EENT system. Derm: Skin is intact, Skin is dry, Skin is normal, Skin temperature is warm. Musculoskeletal: Circulation, motion, and sensation intact. Range of motion: intact in all extremities. 06:38 Reassessment: Patient appears in no apparent distress at this time. Patient and/or jd3 family updated on plan of care and expected duration. Pain level reassessed. Patient is alert, oriented x 3, equal unlabored respirations, skin warm/dry/pink. 07:10 Reassessment: Patient appears in no apparent distress at this time. Patient and/or ch family updated on plan of care and expected duration. Pain level reassessed. Patient is alert, oriented x 3, equal unlabored respirations, skin warm/dry/pink. Patient states feeling better. Patient states symptoms have improved. 07:50 Reassessment: pt coughing and gagging in room, dry heaves. pt medicated per orders then ch sent to CT. 08:11 Reassessment: Patient appears in no apparent distress at this time. Patient and/or ch family updated on plan of care and expected duration. Pain level reassessed. Patient is alert, oriented x 3, equal unlabored respirations, skin warm/dry/pink. Patient states feeling better. Patient states symptoms have improved. nausea gone, states there is only a little pain now, around her belly button. 09:17 Reassessment: Patient appears in no apparent distress at this time. Patient and/or ch family updated on plan of care and expected duration. Pain level reassessed. Patient is alert, oriented x 3, equal unlabored respirations, skin warm/dry/pink. Patient states symptoms have not improved. 10:45 Reassessment: Patient appears in no apparent distress at this time. Patient and/or ch family updated on plan of care and expected duration. Pain level reassessed. Patient is alert, oriented x 3, equal unlabored respirations, skin warm/dry/pink. AWAITING DR. SHAFER TO COLT ASSESS PT. 12:08 Reassessment: Patient appears in no apparent distress at this time. No changes from ch previously documented assessment. Patient and/or family updated on plan of care and expected duration. Pain level reassessed. Patient is alert, oriented x 3, equal unlabored respirations, skin warm/dry/pink. Patient states feeling better. Patient states symptoms have improved. 12:57 Reassessment: Patient appears in no apparent distress at this time. Patient and/or ch family updated on plan of care and expected duration. Pain level reassessed. Patient is alert, oriented x 3, equal unlabored respirations, skin warm/dry/pink. Vital Signs: 05:34 BP 142 / 99; Pulse 71; Resp 16 S; Temp 97.8(O); Pulse Ox 99% on R/A; Weight 83.01 kg jd3 (R); Height 5 ft. 2 in. (157.48 cm) (R); Pain 5/10; 06:38 BP 131 / 77; Pulse 59; Resp 17 S; Pulse Ox 98% on R/A; jd3 07:10 BP 122 / 64; Pulse 71; Resp 16; Temp 98.3; Pulse Ox 99% on R/A; Pain 3/10; ch 08:10 BP 124 / 77; Pulse 76; Resp 15; Temp 98.5; Pulse Ox 99% on R/A; Pain 3/10; ch 09:17 BP 133 / 79; Pulse 67; Pulse Ox 100% on R/A; Pain 0/10; ch 10:45 BP 114 / 72; Pulse 70; Resp 15; Temp 98.3; Pulse Ox 99% on R/A; Pain 0/10; ch 12:09 BP 122 / 58; Pulse 65; Resp 14; Temp 98.6; Pulse Ox 99% on R/A; Pain 0/10; ch 05:34 Body Mass Index 33.47 (83.01 kg, 157.48 cm) jd3 10:45 PT SLEEPING IN ROOM NOW ED Course: 05:24 Patient arrived in ED. am2 05:27 Quirino Rowell RN is Primary Nurse. jd3 05:34 Triage completed. jd3 05:38 Arm band placed on. jd3 05:40 Patient has correct armband on for positive identification. Bed in low position. Call jd3 light in reach. Side rails up X 1. 05:50 [facility] kb 05:50 Ric Garrett MD is Attending Physician. kb 06:08 Inserted saline lock: 20 gauge in right antecubital area, using aseptic technique. jd3 Blood collected. 07:05 Primary Nurse role handed off by Quirino Rowell RN bd 07:51 CT Abd/Pelvis - W/Contrast In Process Unspecified. EDMS 07:54 CT completed. Patient tolerated procedure well. Patient moved to CT via wheelchair. vr Patient moved back from CT. Patient moved back from radiology. 08:04 Yi Cabezas, ALMA is Primary Nurse. ch 08:41 US Abdomen Limited In Process Unspecified. EDMS 11:35 Pato Shafer MD is Hospitalizing Provider. kb 12:57 No provider procedures requiring assistance completed. Patient admitted, IV remains in place. Administered Medications: 06:28 Drug: NS 0.9% 1000 ml Route: IV; Rate: 1000 ml; Site: right antecubital; jd3 08:11 Follow up: IV Status: Completed infusion; IV Intake: 1000ml ch 06:28 Drug: Zofran 4 mg Route: IVP; Site: right antecubital; jd3 08:11 Follow up: Response: No adverse reaction ch 06:28 Drug: ProTONIX 40 mg Route: IVP; Site: right antecubital; jd3 08:11 Follow up: Response: No adverse reaction ch 07:50 Drug: Zofran 4 mg Route: IVP; Site: right antecubital; ch 08:12 Follow up: Response: No adverse reaction; Marked relief of symptoms ch 12:11 Follow up: Response: No adverse reaction; Marked relief of symptoms ch 12:10 Drug: Zosyn 3.375 grams Route: IVPB; Infused Over: 60 mins; Site: right antecubital; ch 12:39 Follow up: IV Status: Completed infusion 12:11 Drug: NS 0.9% 1000 ml Route: IV; Rate: 125 ml/hr; Site: right antecubital; 12:39 Follow up: IV Status: Infusion continued upon transfer Intake: 08:11 IV: 1000ml; Total: 1000ml. Outcome: 11:35 Decision to Hospitalize by Provider. kb 12:57 Admitted to Med/surg accompanied by tech, via wheelchair, room 229, Report called to rn 12:57 Condition: stable 12:57 Instructed on the need for admit. 12:58 Patient left the ED. Signatures: Dispatcher [employer] EDMS Susu Lim, CAKE PUNCHER-C CAKE PUNCHER-Karen Nicholas Christina, RN RN Flores Ashton Amanda am2 Davies, Jonathon RN RN jd3 Corrections: (The following items were deleted from the chart) 05:39 05:33 Care prior to arrival: None. glen jd3
--- NOTE | 2018-06-16 11:36 | EDPHYS ---
Physician Documentation [facility] Name: Sherri Best Age: 47 yrs Sex: Female : 1970 Arrival Date: 06/16/2018 Time: 05:24 Bed 18 Private MD: ED Physician Ric Garrett HPI: 06/16 05:53 This 47 yrs old Black Female presents to ER via Ambulatory with complaints of Abdominal kb Pain, Nausea. 05:53 The patient presents with abdominal pain in the upper abdomen. Onset: The kb symptoms/episode began/occurred this morning, at 04:00. The symptoms do not radiate. Associated signs and symptoms: Pertinent positives: nausea, Pertinent negatives: chest pain, constipation, diarrhea, fever, vomiting. The symptoms are described as crampy. Modifying factors: The symptoms are alleviated by nothing, the symptoms are aggravated by pressure. Severity of pain: At its worst the pain was mild moderate in the emergency department the pain is unchanged. The patient has not experienced similar symptoms in the past. The patient has not recently seen a physician. 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 jd3 Historical: - Allergies: 05:34 NKA; jd3 - Home Meds: 05:34 aspirin 81 mg Oral chew [Active]; jd3 - PMHx: 05:34 Depression; jd3 - PSHx: 05:34 None; jd3 - Immunization history:: Adult Immunizations up to date. - Social history:: Smoking status: Patient/guardian denies using tobacco. - Ebola Screening: : Patient negative for fever greater than or equal to 101.5 degrees Fahrenheit, and additional compatible Ebola Virus Disease symptoms. ROS: 05:55 Constitutional: Negative for fever, chills, and weight loss, Cardiovascular: Negative kb for chest pain, palpitations, and edema, Respiratory: Negative for shortness of breath, cough, wheezing, and pleuritic chest pain, Back: Negative for injury and pain, : Negative for injury, bleeding, discharge, and swelling, MS/Extremity: Negative for injury and deformity, Skin: Negative for injury, rash, and discoloration, Neuro: Negative for headache, weakness, numbness, tingling, and seizure. 05:55 Abdomen/GI: Positive for abdominal pain, nausea, Negative for vomiting, diarrhea, constipation. Exam: 05:55 Constitutional: This is a well developed, well nourished patient who is awake, alert, kb and in no acute distress. Head/Face: Normocephalic, atraumatic. Chest/axilla: Normal chest wall appearance and motion. Nontender with no deformity. No lesions are appreciated. Cardiovascular: Regular rate and rhythm with a normal S1 and S2. No gallops, murmurs, or rubs. Normal PMI, no JVD. No pulse deficits. Respiratory: Lungs have equal breath sounds bilaterally, clear to auscultation and percussion. No rales, rhonchi or wheezes noted. No increased work of breathing, no retractions or nasal flaring. Back: No spinal tenderness. No costovertebral tenderness. Full range of motion. Skin: Warm, dry with normal turgor. Normal color with no rashes, no lesions, and no evidence of cellulitis. MS/ Extremity: Pulses equal, no cyanosis. Neurovascular intact. Full, normal range of motion. Neuro: Awake and alert, GCS 15, oriented to person, place, time, and situation. Cranial nerves II-XII grossly intact. Motor strength 5/5 in all extremities. Sensory grossly intact. Cerebellar exam normal. Normal gait. 05:55 Abdomen/GI: Inspection: abdomen appears normal, Bowel sounds: normal, in all quadrants, Palpation: soft, in all quadrants, mild abdominal tenderness, in the right lower quadrant and left lower quadrant, moderate abdominal tenderness, in the right upper quadrant and left upper quadrant. Vital Signs: 05:34 BP 142 / 99; Pulse 71; Resp 16 S; Temp 97.8(O); Pulse Ox 99% on R/A; Weight 83.01 kg jd3 (R); Height 5 ft. 2 in. (157.48 cm) (R); Pain 5/10; 06:38 BP 131 / 77; Pulse 59; Resp 17 S; Pulse Ox 98% on R/A; jd3 07:10 BP 122 / 64; Pulse 71; Resp 16; Temp 98.3; Pulse Ox 99% on R/A; Pain 3/10; ch 08:10 BP 124 / 77; Pulse 76; Resp 15; Temp 98.5; Pulse Ox 99% on R/A; Pain 3/10; ch 09:17 BP 133 / 79; Pulse 67; Pulse Ox 100% on R/A; Pain 0/10; ch 10:45 BP 114 / 72; Pulse 70; Resp 15; Temp 98.3; Pulse Ox 99% on R/A; Pain 0/10; ch 12:09 BP 122 / 58; Pulse 65; Resp 14; Temp 98.6; Pulse Ox 99% on R/A; Pain 0/10; ch 05:34 Body Mass Index 33.47 (83.01 kg, 157.48 cm) jd3 10:45 PT SLEEPING IN ROOM NOW ch MDM: 05:50 Patient medically screened. kb 05:55 Data reviewed: vital signs, nurses notes. Data interpreted: Pulse oximetry: on room air kb is 99 %. Interpretation: normal. 09:40 Physician consultation: Pato Morales MD was contacted at 09:40, regarding patient's kb condition, and will see patient in ED, shortly. 11:30 Physician consultation: Pato Morales MD in the emergency department to see patient at kb 11:30. 11:34 Counseling: I had a detailed discussion with the patient and/or guardian regarding: the kb historical points, exam findings, and any diagnostic results supporting the discharge/admit diagnosis, lab results, radiology results, the need for further work-up and treatment in the hospital. 06/16 05:53 Order name: Amylase, Serum; Complete Time: 07:06 kb 06/16 05:53 Order name: Basic Metabolic Panel; Complete Time: 07:06 kb 06/16 05:53 Order name: CBC with Diff; Complete Time: 07:06 kb 06/16 05:53 Order name: Hepatic Function; Complete Time: 07:06 kb 06/16 05:53 Order name: Lipase; Complete Time: 07:06 kb 06/16 06:18 Order name: Urine Dipstick--Ancillary (enter results); Complete Time: 07:20 mw2 06/16 06:18 Order name: Urine --Ancillary (enter results); Complete Time: 07:20 mw2 06/16 07:07 Order name: CT Abd/Pelvis - W/Contrast; Complete Time: 08:21 kb 06/16 08:22 Order name: US Abdomen Limited; Complete Time: 09:03 kb 06/16 05:53 Order name: Urine Test (obtain specimen); Complete Time: 06:28 kb 06/16 05:53 Order name: IV Saline Lock; Complete Time: 06:28 kb 06/16 05:53 Order name: Labs collected and sent; Complete Time: 06:28 kb 06/16 05:53 Order name: Urine Dipstick-Ancillary (obtain specimen); Complete Time: 06:28 kb Administered Medications: 06:28 Drug: NS 0.9% 1000 ml Route: IV; Rate: 1000 ml; Site: right antecubital; jd3 08:11 Follow up: IV Status: Completed infusion; IV Intake: 1000ml ch 06:28 Drug: Zofran 4 mg Route: IVP; Site: right antecubital; jd3 08:11 Follow up: Response: No adverse reaction ch 06:28 Drug: ProTONIX 40 mg Route: IVP; Site: right antecubital; jd3 08:11 Follow up: Response: No adverse reaction ch 07:50 Drug: Zofran 4 mg Route: IVP; Site: right antecubital; ch 08:12 Follow up: Response: No adverse reaction; Marked relief of symptoms ch 12:11 Follow up: Response: No adverse reaction; Marked relief of symptoms ch 12:10 Drug: Zosyn 3.375 grams Route: IVPB; Infused Over: 60 mins; Site: right antecubital; ch 12:39 Follow up: IV Status: Completed infusion ch 12:11 Drug: NS 0.9% 1000 ml Route: IV; Rate: 125 ml/hr; Site: right antecubital; ch 12:39 Follow up: IV Status: Infusion continued upon transfer ch Disposition: 06/16/18 11:35 Hospitalization ordered by Pato Morales for Inpatient Admission. Preliminary diagnosis are Cholecystitis, Cholelithiasis. - Bed requested for Telemetry/MedSurg (Inpatient). - Status is Inpatient Admission. ch - Condition is Stable. - Problem is new. - Symptoms are unchanged. UTI on Admission? No Addendum: 06/18/2018 18:38 Co-signature as Attending Physician, Ric Garrett MD. g s Signatures: Dispatcher [employer] EDSusu Mireles FNP-C FNP-Ckb Dirrim, Barbara bd Hammond, Christina, RN RN ch Starr, Gregory, MD MD gs Davies, Jonathon, RN RN jd3 Corrections: (The following items were deleted from the chart) 06/16 12:18 11:35 Hospitalization Ordered by Pato Morales MD for Inpatient Admission. Preliminary bd diagnosis is Cholecystitis; Cholelithiasis. Bed requested for Telemetry/MedSurg (Inpatient). Status is Inpatient Admission. Condition is Stable. Problem is new. Symptoms are unchanged. UTI on Admission? No. kb 12:58 12:18 06/16/2018 11:35 Hospitalization Ordered by Pato Morales MD for Inpatient ch Admission. Preliminary diagnosis is Cholecystitis; Cholelithiasis. Bed requested for Telemetry/MedSurg (Inpatient). Status is Inpatient Admission. Condition is Stable. Problem is new. Symptoms are unchanged. UTI on Admission? No. bd
[2018-06-16] MEDS ORDERED: PIPER/TAZO/NS 3.375gm 3.375 GM/100 ML BAG ONE (12:02)
[2018-06-16] MEDS: NA CHLORIDE 0.9% 1,000 ML IV SCH ×2 (13:03→20:19)
[2018-06-16] MEDS ORDERED: ACETAMINOPHEN 500 MG TAB PO PRN (13:03)
[2018-06-16] MEDS ORDERED: PIPER/TAZO/NS 3.375gm 3.375 GM/100 ML BAG IVPB SCH (13:03)
[2018-06-16] MEDS: MORPHINE 4 MG/ML SYR IV PRN ×2 (14:37→20:08)
[2018-06-16] MEDS: PIPER/TAZO/NS 3.375gm 3.375 GM/100 ML BAG IV SCH (17:18)
[2018-06-17] MEDS: MORPHINE 4 MG/ML SYR IV PRN (01:07)
[2018-06-17] MEDS: NA CHLORIDE 0.9% 1,000 ML IV SCH ×2 (01:07→13:03)
[2018-06-17] MEDS: PIPER/TAZO/NS 3.375gm 3.375 GM/100 ML BAG IV SCH ×2 (01:11→09:14)
[2018-06-17 05:22] LABS: Absolute Lymphocytes (CBC) 2.5 K/uL (0.7-4.9); Absolute Monocytes 0.7 K/uL (0.1-1.3); Absolute Neutrophil 6.6 K/uL (1.8-8.0); Basophils % 0.7 % (0-1.3); Eosinophils % 2.2 % (0-4.4); Hematocrit 37.4 % (36.0-45.0); Lymphocytes % 24.6 % (15.3-44.8); MCV 87.9 fL (80-100); MPV 8.3 fL (7.6-11.3); Monocytes % 6.8 % (3.3-12.3); RBC Red Blood Cell Count 4.25 M/uL (3.86-4.86)
[2018-06-17 05:40] LABS: Albumin 3.3 g/dL (3.4-5.0); Bilirubin Direct 0.1 mg/dL (0-0.2); Bilirubin Total 0.4 mg/dL (0.2-1.0); Potassium 3.8 mmol/L (3.5-5.1)
[2018-06-17] MEDS: ONDANSETRON 4 MG/2 ML VIAL IV PRN ×2 (06:06→13:38)
[2018-06-17] MEDS ORDERED: Ringers Lactate 1,000 ML IV ONE (09:16)
[2018-06-17] MEDS ORDERED: ROCURONIUM 50 MG/5 ML VIAL IV ONE (09:42)
[2018-06-17] MEDS ORDERED: MIDAZOLAM HCL 2 MG/2 ML INJ ONE (09:42)
[2018-06-17] MEDS ORDERED: PROPOFOL 200 MG/20 ML VIAL IV ONE (09:42)
[2018-06-17] MEDS ORDERED: FENTANYL CITR 100 MCG/2 ML ONE (09:42)
[2018-06-17] MEDS ORDERED: LIDOCAINE 1% MPF 5 ML VIAL ONE (09:42)
[2018-06-17] MEDS ORDERED: BUPIVACAINE 0.5% PF 10 ML VIAL ONE (09:47)
[2018-06-17] MEDS ORDERED: FENTANYL CITR 250 MCG/5 ML ONE (09:51)
[2018-06-17] MEDS ORDERED: LANO/MINERAL OIL/PETRO 3.5 GM ONE (10:20)
[2018-06-17] MEDS ORDERED: KETOROLAC 30 MG/ML INJ ONE (10:51)
[2018-06-17] MEDS ORDERED: GLYCOPYRROLATE 0.2 MG/ML SYR ONE (10:51)
[2018-06-17] MEDS ORDERED: NEOSTIGMINE 1 MG/ML -5 ML SYRINGE ONE (10:52)
[2018-06-17] MEDS ORDERED: ONDANSETRON HCL 40 MG/20 ML VIAL ONE (10:52)
--- NOTE | 2018-06-17 10:56 | P.BOP ---
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
[2018-06-17] MEDS ORDERED: HYDROCODONE/APAP 7.5/325 MG TAB PO PRN (11:18)
[2018-06-17] MEDS: MEPERIDINE HCL 50 MG/ML AMP ONE ×2 (11:33→11:40)
--- NOTE | 2018-06-17 20:23 | OP ---
Date of Procedure: 06/17/2018 Surgeon: Pato Morales MD Biztalk Developer: Hailey Patrick. Preoperative Diagnoses: Acute cholecystitis, symptomatic cholelithiasis. Postoperative Diagnoses: Acute cholecystitis, symptomatic cholelithiasis plus incarcerated umbilical hernia. Procedures: 1.Laparoscopic cholecystectomy. 2.Open repair of incarcerated umbilical hernia. Estimated Blood Loss: Less than 20 cc. Specimen: Gallbladder. Findings: The patient has incarcerated omentum and umbilical hernia,and also patient has above diagn osis for the gallbladder. Indications: This is a case of a 47-year-old patient, who comes to us with above diagnosis. Fully e xplained the benefits, alternatives, and risks of laparoscopic, possible open cholecystectomy, which include, but not limited to infection, bleeding, damage to adjacent structures, anesthesia complicati on, choledocholithiasis, bile leak, pancreatitis, MS, and even . She also understands this may not relieve any symptoms. She might need more than one surgical intervention. She understood, cameron d a consent. Description Of Procedure: The patient was brought to the operating room, placed in supine position. Anesthesia was done without complication. Abdominal area was prepped and draped in a sterile fashio n. Marcaine 0.5% injected for local anesthetic, followed by sharp incision of the skin in the infrau mbilical region. Incision was carried down to fascia, which was opened under direct vision. Periton eum was encountered, opened under direct vision. Vicryl #1 placed inside the fascia. We noticed at that moment, patient has an umbilical hernia with incarcerated omentum not allowing us to put the tro car in, so at that moment we proceeded to reduce carefully the omentum from umbilical hernia after re moving some adhesions. The sac was removed and the fascial edges were connected with the incision an d this allowed me then to place Vicryl #1 inside the fascia. Silvia trocar was carefully introduced. Pneumoperitoneum was obtained. I placed 3 more trocars, 5 mm each one of them in the right upper q uadrant under direct visualization. The patient has multiple adhesions of omentum to the liver that had to be lysed before the surgery started since it will start to rip off the liver capsule, so caref ully with Endo mitchell and Bovie cauterizer, we proceeded with that before the capsule was damaged. N o bleeding. At that moment, I put a grasper in the fundus of the gallbladder, another grasper in the infundibulum, retracted the gallbladder in the inferolateral fashion exposing the triangle of Calot and obtaining the critical view of safety. The cystic duct and cystic artery were clearly isolated f ree circumferentially and a connection between those and the gallbladder was clearly identified. I p roceeded to ligate those by using at least 3 clips proximal, 1 clip distal, ligation in middle. Same was done with the cystic artery. No bile leak. No bleeding. The gallbladder was removed from live r using Bovie cauterizer and removed from abdominal cavity using an EndoCatch through the umbilical i ncision. The area was inspected once again. Clips were intact. Gallbladder fossa was intact. No b ile leak. No bleeding. At that moment, I proceeded to remove the trocars under direct vision. Defl ated the pneumoperitoneum. Closed the fascia and umbilical hernia with #1 Vicryl. Irrigated subcuta neous tissue, closed that with 3-0 chromic and skin in a subcuticular fashion with 3-[address] julia-Strips on top. Sponge count and instrument counts were correct. The patient tolerated the proce dure well. The patient was sent to recovery room in stable condition. ADELE/BHARATH Voice ID: [id number] Report ID: [id number]
--- NOTE | 2018-06-17 20:23 | DS ---
Date of Discharge: 06/17/2018 Diagnoses: Acute cholecystitis, symptomatic cholelithiasis, and incarcerated umbilical hernia. Disposition: Home. Activity: As tolerated. No heavy lifting. Followup: Follow up in my office in 1 week. Call for appointment [phone]. Keep the area dry for 4 8 hours then shower. Keep Steri-Strips intact. GUY Voice ID: [id number] Report ID: [id number]
--- NOTE | 2018-06-17 20:56 | HP ---
Date of Admission: 06/16/2018 Diagnoses: Symptomatic cholelithiasis, acute cholecystitis. History Of Present Illness: This is a case of a 47-year-old patient, who has been complaining for ab dominal pain for about a week already, on and off epigastric and right upper quadrant pain and bloati ng, but this morning at 4 o'clock, she developed some abdominal pain to the point that togood basilio she decided to come to the ER since she was not getting better. She denies any dysuria, hematuria , hematochezia, or melena. Denies any recent travelling out of the country. Denies any family membe r sick at home. Review of Systems: Constitutional: Denies any fever, any chills. Respiratory: Denies any shortness of breath. Gastrointestinal: As above. Genitourinary: Denies any dysuria, hematuria. Allergies: NONE. Medical History: Depression. Surgical History: None. Medication: Aspirin and she took 2 of them this morning. She does not smoke. She does not drink al cohol. Physical Examination: General: The patient is awake and alert. HEENT: Pupils are equal and reactive, anicteric. Neck: Supple. Chest: Clear. Abdomen: Epigastric and right upper quadrant pain with Farr's sign positive. Breasts, Rectal, and Pelvic: Deferred. Extremities: Good capillary refill. Laboratory Data: Blood work shows WBC count of 12, hemoglobin of 13, platelets of 361, glucose 123, total bilirubin 0.3, lipase 115. UA: Nitrites and ketones are negative. Abdominal ultrasound inter preted by Dr. Erickson as multi-stone cholelithiasis with gallbladder wall edematous. CAT scan of the abdomen and pelvis interpreted by Dr. Erickson as gallbladder wall thickening with gallstones and ayo iary tree within normal limits. Assessment: This is a 47-year-old patient with acute cholecystitis, symptomatic cholelithiasis. Tad efits, alternatives, and risks of laparoscopic, possible open cholecystectomy were fully explained wh ich include, but are not limited to infection, bleeding, damage to adjacent structures, anesthesia co mplication, choledocholithiasis, bile leak, pancreatitis, [place], even . She also understands this may not relieve the symptoms. She might need more than one surgical intervention. HM/MARTHAL Voice ID: [id number]
--- NOTE | 2018-06-17 22:41 | OP ---
Date of Procedure: 06/17/2018 Surgeon: Pato Morales MD Moving Van Driver: Hailey Patrick. Preoperative Diagnoses: Acute cholecystitis, symptomatic cholelithiasis. Postoperative Diagnoses: Acute cholecystitis, symptomatic cholelithiasis. Procedure: Laparoscopic cholecystectomy. Estimated Blood Loss: Less than 10 cc. Specimen: Gallbladder. Anesthesia: General plus local. Indications: This is a case of a 47-year-old patient with acute cholecystitis, intractable abdominal pain with edematous gallbladder and stones. Benefits, alternatives, and risks of laparoscopic, poss ible open cholecystectomy were fully explained which include but are not limited to infection, bleedi ng, damage to adjacent structures, anesthesia complication, choledocholithiasis, bile leak, pancreati tis, AL, and even . She also understands this may not relieve any symptoms. She might need mor e than one surgical intervention. She understood. Signed consent. Description Of Procedure: The patient was brought to the operating room, placed in supine position. Anesthesia was without complication. Abdominal area was prepped and draped in a sterile fashion. M arcaine 0.5% injected for local anesthetic, followed by sharp incision of the skin in the infraumbili chata region. Incision was carried down to fascia, which was opened under direct vision. Peritoneum w as encountered, opened under direct vision. Vicryl #1 placed inside the fascia. Silvia trocar was c arefully introduced. No bleeding was obtained. I placed 3 more trocars in the right upper quadrant under direct visualization. The grasper was placed in the fundus of the gallbladder, another grasper in the infundibulum, retracted the gallbladder in the inferolateral fashion exposing the triangle of Calot and obtaining critical view of safety. The cystic duct and cystic artery were clearly isolate d free circumferentially and connection between those and the gallbladder was clearly identified. I proceeded to ligate those by using at least 2 clips proximal, 1 clip distally, ligation in middle. S sabi was done with the cystic artery. No bile leak. No bleeding. The gallbladder was removed from l iver using Bovie cauterizer and removed from abdominal cavity using EndoCatch through umbilical incis ion. The area was inspected once again. Clips were intact. Gallbladder fossa was intact. No bleed ing. At that moment, I proceeded to remove the trocars under direct vision. Deflated the pneumoperi toneum, closed the fascia with #1 Vicryl. Irrigated subcutaneous tissue, closed that with 3-0 chromi c and skin in a subcuticular fashion with 3-0 chromic and Steri-Strip on top. Sponge count and instr ument counts were correct. The patient tolerated the procedure well. The patient was sent to recove ry in stable condition. ADELE/BHARATH Voice ID: [id number] Report ID: [id number]
--- NOTE | 2018-06-17 22:46 | DS ---
Date of Discharge: 06/17/2018 Diagnoses: Acute cholecystitis, symptomatic cholelithiasis. Procedure: Laparoscopic cholecystectomy. If she tolerates diet today, she may be able to go home. Otherwise tomorrow morning, depends how she feels and how she is tolerating her pain. If she goes home, then she was advised to follow up in my office in 1 week. Call for appointment [phone]. Keep area dry for 48 hours, then may shower. Taye maribeth Steri-Strips intact. Medications: Tylenol No. 3 q.4 hours p.r.n. pain and Phenergan 25 p.o. q.6 hours p.r.n. nausea. Followup: Follow up in my office in 1 week. Call for appointment [phone]. GUY Voice ID: [id number] Report ID: [id number]
== END 2018-06-17 18:05 | disposition home or self-care (01) | DRG 418 ==
LOC: ER 05:23 → ERHOLD 12:14 → 2ND 12:44
PROVIDERS: ADMIT Surgery; ATTEND Surgery
PROC: 0WQF0ZZ Repair Abdominal Wall, Open Approach (ICD-10-PCS; 2018-06-17)
PROC: 0FT44ZZ Resection of Gallbladder, Percutaneous Endoscopic Approach (ICD-10-PCS; principal; 2018-06-17 11:00)
DX: K80.00 Calculus of gallbladder with acute cholecystitis without obstruction (principal); K42.0 Umbilical hernia with obstruction, without gangrene; F32.9 Major depressive disorder, single episode, unspecified; Z79.82 Long term (current) use of aspirin
CPT/HCPCS: 36415; 74177; 76705; 80048; 80076; 81003; 81025; 82150; 83690; 85025; 88304; 96361; 96365; 96375; 99285; C9113; J2175; J2250; J2405; J2543; J2710; J3010; J7030; Q9967

== ENCOUNTER 2018-07-07 12:54 | Emergency (ER) | payer OTHER ==
[2018-07-07] MEDS ORDERED: HYDROCODONE/APAP 5/325 MG TAB ONE (14:50)
--- NOTE | 2018-07-07 14:58 | RAD REPORT ---
EXAM DESCRIPTION: CT - Stone Protocol - 07/07/2018 2:41 pm CLINICAL HISTORY: Abdominal pain, periumbilical pain, recent cholecystectomy COMPARISON: Ultrasound June 16, CT study June 16 TECHNIQUE: CT imaging of the abdomen and pelvis was performed without IV contrast. No IV contrast wa s given because of allergy, abnormal renal function, patient refusal or physician request. Oral contr ast All CT scans are performed using dose optimization technique as appropriate and may include automated exposure control or mA/KV adjustment according to patient size. FINDINGS: No suspicious findings in the lung bases. The liver, spleen and pancreas show no suspicious findings. Cholecystectomy clips are present. No ayo iary tree dilatation. Trace amount of fluid or stranding in the gallbladder fossa is well within norm al limits for the recent surgical procedure. No hydronephrosis or suspicious renal mass. No urinary bladder abnormality. No significant adrenal fi nding. Isodense masses and pyelonephritis cannot be excluded in the absence of IV contrast. Uterus an d ovaries show no suspicious findings. No dilated bowel loops or bowel wall thickening. No free air, free fluid or inflammatory stranding. N o omental thickening, mass or bulky lymphadenopathy. No abdominal wall hematoma is seen. Postsurgical changes are seen from placement of instruments in the periumbilical soft tissues and in the right up per quadrant. At the umbilicus there is a small hernia 15 mm in diameter with a 5-6 mm neck. This is not clearly evident on the pre-surgical examination and may be a small hernia related to the recent l ifting injury. No suspicious bony findings. IMPRESSION: Patient has a small 15 millimeter diameter umbilical hernia with a 5 millimeter neck. No congestion or edema at this site. The umbilical hernia was not clearly seen on the pre-surgical examination and may be related to the r ecent lifting injury. No abdominal wall hematoma. No other acute findings seen. Full assessment is limited is the absence of IV contrast.
[2018-07-07 15:05] LABS: Absolute Lymphocytes (CBC) 2.8 K/uL (0.7-4.9); Absolute Monocytes 0.8 K/uL (0.1-1.3); Absolute Neutrophil 5.6 K/uL (1.8-8.0); Basophils % 0.9 % (0-1.3); Eosinophils % 8.1 % (0-4.4); Hematocrit 36.8 % (36.0-45.0); Lymphocytes % 28.2 % (15.3-44.8); MCH 29.8 pg (27.0-35.0); MCV 86.6 fL (80-100); MPV 8.3 fL (7.6-11.3); Monocytes % 7.8 % (3.3-12.3); RBC Red Blood Cell Count 4.25 M/uL (3.86-4.86)
[2018-07-07 15:15] LABS: Potassium 4.1 mmol/L (3.5-5.1)
--- NOTE | 2018-07-07 15:43 | EDPHYS ---
Physician Documentation [facility] Name: Sherri Best Age: 47 yrs Sex: Female : 1970 Arrival Date: 07/07/2018 Time: 12:58 Bed 5 Private MD: Pato Morales ED Physician Ric Garrett HPI: 07/07 16:45 This 47 yrs old Black Female presents to ER via Ambulatory with complaints of Post gs Surgical Pain. 16:45 The patient presents with abdominal pain in the lower abdomen. Onset: The gs symptoms/episode began/occurred acutely, just prior to arrival, lifted something heavy, had cholecystectomy 3 weeks ago. The symptoms do not radiate. Associated signs and symptoms: Pertinent negatives: nausea and vomiting, chest pain, constipation, diarrhea. The symptoms are described as sharp. Modifying factors: The symptoms are alleviated by nothing, the symptoms are aggravated by nothing. Severity of pain: At its worst the pain was moderate in the emergency department the pain is unchanged. The patient has not experienced similar symptoms in the past. 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 ROS: 16:45 All other systems are negative. gs Exam: 16:45 Head/Face: Normocephalic, atraumatic. Eyes: Pupils equal round and reactive to light, gs extra-ocular motions intact. Lids and lashes normal. Conjunctiva and sclera are non-icteric and not injected. Cornea within normal limits. Periorbital areas with no swelling, redness, or edema. ENT: Nares patent. No nasal discharge, no septal abnormalities noted. Tympanic membranes are normal and external auditory canals are clear. Oropharynx with no redness, swelling, or masses, exudates, or evidence of obstruction, uvula midline. Mucous membranes moist. Neck: Trachea midline, no thyromegaly or masses palpated, and no cervical lymphadenopathy. Supple, full range of motion without nuchal rigidity, or vertebral point tenderness. No Meningismus. Chest/axilla: Normal chest wall appearance and motion. Nontender with no deformity. No lesions are appreciated. Cardiovascular: Regular rate and rhythm with a normal S1 and S2. No gallops, murmurs, or rubs. Normal PMI, no JVD. No pulse deficits. Respiratory: Lungs have equal breath sounds bilaterally, clear to auscultation and percussion. No rales, rhonchi or wheezes noted. No increased work of breathing, no retractions or nasal flaring. Back: No spinal tenderness. No costovertebral tenderness. Full range of motion. Skin: Warm, dry with normal turgor. Normal color with no rashes, no lesions, and no evidence of cellulitis. MS/ Extremity: Pulses equal, no cyanosis. Neurovascular intact. Full, normal range of motion. Neuro: Awake and alert, GCS 15, oriented to person, place, time, and situation. Cranial nerves II-XII grossly intact. Motor strength 5/5 in all extremities. Sensory grossly intact. Cerebellar exam normal. Normal gait. 16:45 Constitutional: The patient appears alert, awake. 16:45 Abdomen/GI: Palpation: mild abdominal tenderness, in the suprapubic area, right lower quadrant and left lower quadrant, rebound tenderness, is not appreciated, Hernia: noted in the umbilical area, incarceration, is not appreciated, tenderness, is not appreciated. Vital Signs: 13:15 BP 137 / 90; Pulse 85; Resp 18; Temp 97.5; Pulse Ox 100% on R/A; Weight 84.37 kg; dm5 Height 5 ft. 2 in. (157.48 cm); Pain 5/10; 14:44 BP 116 / 86; Pulse 69; Resp 17; Pulse Ox 100% on R/A; hb 15:33 BP 115 / 79; Pulse 74; Resp 16; Pulse Ox 100% on R/A; hb 13:15 Body Mass Index 34.02 (84.37 kg, 157.48 cm) dm5 MDM: 14:24 Patient medically screened. gs 16:45 Differential diagnosis: bowel obstruction, non-specific abd pain, urinary tract gs infection, strain. Data reviewed: vital signs, nurses notes. Data reviewed: lab test result(s), radiologic studies. Counseling: I had a detailed discussion with the patient and/or guardian regarding: the historical points, exam findings, and any diagnostic results supporting the discharge/admit diagnosis. Counseling: I had a detailed discussion with the patient and/or guardian regarding: lab results, radiology results, the need for outpatient follow up. Physician consultation: Pato Morales MD and will see patient in office, tomorrow. 07/07 14:25 Order name: CBC with Diff; Complete Time: 15:41 07/07 14:25 Order name: Basic Metabolic Panel; Complete Time: 15:41 07/07 14:25 Order name: CT Stone Protocol; Complete Time: 15:02 07/07 14:56 Order name: Urine Dipstick--Ancillary (enter results) 07/07 14:56 Order name: Urine --Ancillary (enter results) 07/07 14:25 Order name: Urine Test (obtain specimen); Complete Time: 14:51 07/07 14:25 Order name: Urine Dipstick-Ancillary (obtain specimen); Complete Time: 14:51 Administered Medications: 14:51 Drug: [place] 5 mg-325 mg 1 tabs Route: PO; hb Disposition: 07/07/18 15:42 Discharged to Home. Impression: Umbilical hernia without obstruction or gangrene. - Condition is Stable. - Discharge Instructions: Hernia, Adult. - Work release form, Family Work Release, Medication Reconciliation Form, Thank You Letter, Antibiotic Education, Prescription Opioid Use form. - Follow up: Pato Morales MD; When: 2 - 3 days; Reason: Re-evaluation by your physician. Signatures: Dispatcher [facility] Nikole Altamirano, RN RN dm5 Edith Bai RN RN ss Baxter, Heather, ALMA MARQUEZ Ric Garrett MD MD Corrections: (The following items were deleted from the chart) 14:29 13:20 Abdomen Pelvis W Con+CT.RAD.BRZ ordered. [facility] 16:19 15:42 07/07/2018 15:42 Discharged to Home. Impression: Umbilical hernia without ss obstruction or gangrene. Condition is Stable. Forms are Medication Reconciliation Form, Thank You Letter, Antibiotic Education, Prescription Opioid Use. Follow up: Pato Morales; When: 2 - 3 days; Reason: Re-evaluation by your physician.
--- NOTE | 2018-07-07 15:43 | ER ---
Nurse's Notes [facility] Name: Sherri Best Age: 47 yrs Sex: Female : 1970 Arrival Date: 07/07/2018 Time: 12:58 Bed 5 Private MD: Pato Morales Diagnosis: Umbilical hernia without obstruction or gangrene Presentation: 07/07 13:14 Presenting complaint: Patient states: recently had gallbladder surgery. was lifting a dm5 trash bag greater than 20 lbs into dumpster. now having pain in umbilical area, pain rated 5/10. 13:14 Method Of Arrival: Ambulatory dm5 13:14 Acuity: LUIS A 3 dm5 Triage Assessment: 13:15 General: Appears in no apparent distress. uncomfortable, Behavior is calm, cooperative. dm5 Pain: Complains of pain in umbilical area Pain currently is 5 out of 10 on a pain scale. 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 Screenin:34 Abuse screen: Denies threats or abuse. Denies injuries from another. Nutritional hb screening: No deficits noted. Tuberculosis screening: No symptoms or risk factors identified. Fall Risk None identified. Assessment: 14:35 General: Appears in no apparent distress. Pain: Pain currently is 6 out of 10 on a pain hb scale. Neuro: Level of Consciousness is awake, alert, obeys commands, Oriented to person, place, time, situation. Cardiovascular: Capillary refill < 3 seconds Patient's skin is warm and dry. Respiratory: Airway is patent Trachea midline Respiratory effort is even, unlabored, Respiratory pattern is regular, symmetrical, Breath sounds are clear bilaterally. GI: Abdomen is round Bowel sounds present X 4 quads. Abd is soft X 4 quads Abdomen is tender to palpation diffusely. : No signs and/or symptoms were reported regarding the genitourinary system. EENT: No signs and/or symptoms were reported regarding the EENT system. Derm: Skin is intact, is healthy with good turgor. Musculoskeletal: No signs and/or symptoms reported regarding the musculoskeletal system. 15:30 Reassessment: Patient appears in no apparent distress at this time. No changes from hb previously documented assessment. Patient and/or family updated on plan of care and expected duration. Pain level reassessed. Patient is alert, oriented x 3, equal unlabored respirations, skin warm/dry/pink. Vital Signs: 13:15 BP 137 / 90; Pulse 85; Resp 18; Temp 97.5; Pulse Ox 100% on R/A; Weight 84.37 kg; dm5 Height 5 ft. 2 in. (157.48 cm); Pain 5/10; 14:44 BP 116 / 86; Pulse 69; Resp 17; Pulse Ox 100% on R/A; hb 15:33 BP 115 / 79; Pulse 74; Resp 16; Pulse Ox 100% on R/A; hb 13:15 Body Mass Index 34.02 (84.37 kg, 157.48 cm) dm5 ED Course: 12:58 Patient arrived in ED. sb2 12:59 Pato Morales MD is Private Physician. sb2 13:15 Triage completed. dm5 13:15 Arm band placed on right wrist. Patient placed in waiting room. dm5 14:22 Ric Garrett MD is Attending Physician. gs 14:41 CT Stone Protocol In Process Unspecified. EDMS 14:43 Lacy Devlin, RN is Primary Nurse. hb 15:42 Pato Morales MD is Referral Physician. 16:19 No provider procedures requiring assistance completed. IV discontinued, intact, ss bleeding controlled, No redness/swelling at site. Pressure dressing applied. Administered Medications: 14:51 Drug: [place] 5 mg-325 mg 1 tabs Route: PO; hb Outcome: 15:42 Discharge ordered by MD. gs 16:19 Discharged to home ambulatory. ss 16:19 Condition: good 16:19 Discharge instructions given to patient, Instructed on discharge instructions, follow up and referral plans. Demonstrated understanding of instructions, follow-up care. 16:19 Patient left the ED. ss Signatures: Dispatcher [employer] [facility] Nikole Altamirano RN RN dm5 Edith Bai RN RN Lacy Devlin, RN RN hb Ric Garrett MD MD Zoey Tse sb2 Corrections: (The following items were deleted from the chart) 15:33 14:44 BP 115 / 79; Pulse 74bpm; Resp 16bpm; Pulse Ox 100% RA; hb hb
[2018-07-07 17:28] LABS: Urine Blood TRACE (NEG); Urine Glucose NEGATIVE (NEG); Urine Protein NEGATIVE (NEG); Urine pH 6.5 (5.0-7.0)
== END 2018-07-07 16:19 | disposition home or self-care (01) ==
LOC: ER 12:54
DX: K42.9 Umbilical hernia without obstruction or gangrene (principal)
CPT/HCPCS: 36415; 74176; 76377; 80048; 81003; 81025; 85025; 99283

== ENCOUNTER 2018-07-22 08:42 | Emergency (ER) | payer OTHER ==
[2018-07-22] MEDS ORDERED: HYDROCODONE/APAP 5/325 MG TAB ONE (09:11)
--- NOTE | 2018-07-22 11:50 | RAD REPORT ---
EXAM DESCRIPTION: CT - Head Brain Wo Cont - 07/22/2018 9:27 am CLINICAL HISTORY: Fall, head injury COMPARISON: CT head August 2017 TECHNIQUE: Axial 5 mm thick images of the head were obtained without IV contrast. All CT scans are performed using dose optimization technique as appropriate and may include automated exposure control or mA/KV adjustment according to patient size. FINDINGS: No intracranial hemorrhage, mass, edema or shift of mid-line structures. No acute infarcti on changes seen. No abnormal extra-axial fluid collections. Ventricles are normal. No atrophy or critical care cns [place] ischemic change. There are physiologic calcifications present. Mastoid air cells and visualized portions of the paranasal sinuses are clear. No acute bony findings. IMPRESSION: Negative non-contrast CT head examination.
--- NOTE | 2018-07-22 12:44 | EDPHYS ---
Physician Documentation [facility] Name: Sherri Best Age: 47 yrs Sex: Female : 1970 Arrival Date: 07/22/2018 Time: 08:44 Bed 10 Private MD: ED Physician Bobo Toure HPI: 07/22 09:04 This 47 yrs old Black Female presents to ER via Unassigned with complaints of Fall rn Injury. 09:04 Details of fall: The patient fell from an upright position, while walking. Onset: The rn symptoms/episode began/occurred yesterday. Associated injuries: The patient sustained injury to the head, neck injury, upper back injury, injury to the low back. Severity of symptoms: At their worst the symptoms were mild, in the emergency department the symptoms are unchanged. The patient has not experienced similar symptoms in the past. Reports slipped and fell backward yesterday at [place], refused EMS transport because she didn't have a ride for her son, denies LOC, reports headache and "all of back hurts".. - Family history:: not pertinent. - Hospitalizations: : No recent hospitalization is reported. ROS: 09:04 Constitutional: Negative for fever, chills, and weight loss, Eyes: Negative for injury, rn pain, redness, and discharge, Neck: Negative for swelling Cardiovascular: Negative for chest pain, palpitations, and edema, Respiratory: Negative for shortness of breath, cough, wheezing, and pleuritic chest pain, Abdomen/GI: Negative for abdominal pain, nausea, vomiting, diarrhea, and constipation, Back: + injury and pain MS/Extremity: Negative for injury and deformity, Skin: Negative for injury, rash, and discoloration, Neuro: + headache Exam: 09:04 Constitutional: This is a well developed, well nourished patient who is awake, alert, rn and in no acute distress. Head/Face: Normocephalic, atraumatic. Eyes: Pupils equal round and reactive to light, extra-ocular motions intact. Lids and lashes normal. Conjunctiva and sclera are non-icteric and not injected. Cornea within normal limits. Periorbital areas with no swelling, redness, or edema. Neck: Trachea midline, no thyromegaly or masses palpated, and no cervical lymphadenopathy. Supple, full range of motion without nuchal rigidity, or vertebral point tenderness. No Meningismus. Chest/axilla: Normal chest wall appearance and motion. Nontender with no deformity. No lesions are appreciated. Respiratory: Lungs have equal breath sounds bilaterally, clear to auscultation and percussion. No rales, rhonchi or wheezes noted. No increased work of breathing, no retractions or nasal flaring. Abdomen/GI: Soft, non-tender, with normal bowel sounds. No distension or tympany. No guarding or rebound. No evidence of tenderness throughout. Back: No spinal tenderness, + perispinal tenderness from neck to lumbar region Skin: Warm, dry with normal turgor. Normal color with no rashes, no lesions, and no evidence of cellulitis. MS/ Extremity: Pulses equal, no cyanosis. Neurovascular intact. Full, normal range of motion. Equal circumference. Neuro: Awake and alert, GCS 15, oriented to person, place, time, and situation. Cranial nerves II-XII grossly intact. Motor strength 5/5 in all extremities. Sensory grossly intact. Cerebellar exam normal. Normal gait. Ambulatory to room without assistance Vital Signs: 11:29 BP 139 / 85; Pulse 75; Resp 17; Pulse Ox 98% on R/A; dh3 MDM: 09:04 Patient medically screened. rn 12:39 Differential diagnosis: closed head injury, contusion, fracture, sprain, strain. Data rn reviewed: vital signs, nurses notes, radiologic studies, CT scan, plain films, and as a result, I will discharge patient. Counseling: I had a detailed discussion with the patient and/or guardian regarding: the historical points, exam findings, and any diagnostic results supporting the discharge/admit diagnosis, radiology results, the need for outpatient follow up, to return to the emergency department if symptoms worsen or persist or if there are any questions or concerns that arise at home. Special discussion: Based on the patient's history, exam and DX evaluation, there is no indication for emergent intervention or inpatient TX. It is understood by the patient/guardian that if the SXs persist or worsen they need to return immediately for re-evaluation. I discussed with the patient/guardian in detail that at this point there is no indication for admission to the hospital. It is understood, however, that if the symptoms persist or worsen the patient needs to return immediately for re-evaluation. 07/22 11:55 Order name: CT; Complete Time: 11:56 EDMS Administered Medications: No medications were administered Disposition: 07/22/18 12:43 Discharged to Home. Impression: Contusion of back wall of thorax, Contusion of lower back and pelvis, Superficial injury of head. - Condition is Stable. - Discharge Instructions: Contusion, Head Injury, Adult. - Work release form, Medication Reconciliation Form, Thank You Letter, Antibiotic Education, Prescription Opioid Use form. - Follow up: Private Physician; When: As needed; Reason: Recheck today's complaints, Re-evaluation by your physician. - Problem is new. - Symptoms have improved. Signatures: Meka Murray RN RN iw Bobo Toure MD MD creative intern: (The following items were deleted from the chart) 13:10 12:43 07/22/2018 12:43 Discharged to Home. Impression: Contusion of back wall of iw thorax; Contusion of lower back and pelvis; Superficial injury of head. Condition is Stable. Forms are Medication Reconciliation Form, Thank You Letter, Antibiotic Education, Prescription Opioid Use. Follow up: Private Physician; When: As needed; Reason: Recheck today's complaints, Re-evaluation by your physician. Problem is new. Symptoms have improved. rn
--- NOTE | 2018-07-22 12:44 | ER ---
Nurse's Notes [facility] Name: Sherri Best Age: 47 yrs Sex: Female : 1970 Arrival Date: 07/22/2018 Time: 08:44 Bed 10 Private MD: Diagnosis: Contusion of back wall of thorax;Contusion of lower back and pelvis;Superficial injury of head - Family history:: not pertinent. - Hospitalizations: : No recent hospitalization is reported. Vital Signs: 07/22 11:29 BP 139 / 85; Pulse 75; Resp 17; Pulse Ox 98% on R/A; dh3 ED Course: 08:44 Patient arrived in ED. mr 09:04 Bobo Toure MD is Attending Physician. rn 10:37 Vicente Chairez RN is Primary Nurse. zeus Administered Medications: No medications were administered Outcome: 12:43 Discharge ordered by . rn 13:10 Patient left the ED. iw Signatures: Angie Anguiano Irene, Bobo Reyes RN, MD MD rn Leal, Jahala, RN RN jlMónica Santos [facility]
--- NOTE | 2018-07-22 13:16 | RAD REPORT ---
EXAM DESCRIPTION: RAD - C Spine Ap/Lat - 07/22/2018 9:55 am CLINICAL HISTORY: Slip and fall, neck pain COMPARISON: None. FINDINGS: Cervical bodies are normal in height and alignment. No fracture or acute bony process seen . Mild disc space narrowing and endplate spurring seen at C5-6. No facet joint degenerative change or alignment abnormality. There is no prevertebral soft tissue thickening or other suspicious soft tissue finding. IMPRESSION: Mild degenerative change at the C5-6 disc level. No acute finding.
--- NOTE | 2018-07-22 13:19 | RAD REPORT ---
EXAM DESCRIPTION: RAD - Thoracic Spine Ap/Lat - 07/22/2018 9:56 am CLINICAL HISTORY: Slip and fall, back pain COMPARISON: October 2016 FINDINGS: AP & lateral views of the thoracic spine were obtained. Thoracic bodies are normal in heig ht and normal in AP alignment. There is no lateral subluxation. Patient has a very minimal left conve x curvature at the thoracolumbar junction. This could be a true minimal scoliosis, posture artifact o r possibly related to muscle spasm. Mild endplate spurring seen throughout the thoracic spine. Degene rative change and minimal concavity to superior endplate of a lower thoracic vertebrae is not clearly different from 2016. Acute compression fracture not currently identifiable and no destructive bone p rocess seen. No paraspinal masses are identified. IMPRESSION: Thoracic spine degenerative changes are present as detailed. No acute compression fract ure seen and no significant change from 2016. If the patient has continued, unexplained thoracic symptoms, MR imaging could be utilized to assess f or radiographically occult bony injury. Minimal left convex curvature at the thoracolumbar junction could be posture artifact, minimal scolio sis or secondary to muscle spasm.
--- NOTE | 2018-07-22 13:20 | RAD REPORT ---
EXAM DESCRIPTION: RAD - Lumbar Spine 3 Views - 07/22/2018 9:55 am CLINICAL HISTORY: Slip and fall, back pain COMPARISON: CT imaging June 2018 FINDINGS: A three-view lumbar spine examination was performed. Lumbar bodies are normal in height an d alignment. No fracture or acute bony process seen. No disc space narrowing. No significant facet katie int abnormality. No pars defects seen. Patient does appear to have some minimal facet degenerative ch sumi at L4-5 and L5-S1. Dense left adnexal calcification is seen matching the CT finding. IMPRESSION: No compression fracture or acute lumbar spine finding. Minimal facet degenerative change at L4-5 and L5-S1.
== END 2018-07-22 13:10 | disposition home or self-care (01) ==
LOC: ER 08:42
DX: S00.90XA Unspecified superficial injury of unspecified part of head, initial encounter (principal); S20.229A Contusion of unspecified back wall of thorax, initial encounter; S30.0XXA Contusion of lower back and pelvis, initial encounter; W01.0XXA Fall on same level from slipping, tripping and stumbling without subsequent striking against object, initial encounter; Y93.89 Activity, other specified; Y92.511 Restaurant or cafe as the place of occurrence of the external cause
CPT/HCPCS: 70450; 72040; 72070; 72100

== ENCOUNTER 2018-12-18 11:18 | Emergency (ER) | payer OTHER ==
--- NOTE | 2018-12-18 12:16 | RAD REPORT ---
EXAM DESCRIPTION: Amado Chairez (2 Views)12/18/2018 12:09 pm CLINICAL HISTORY: Cough COMPARISON: February 2018 FINDINGS: The lungs appear clear of acute infiltrate. The heart is normal size IMPRESSION: No acute abnormalities displayed
--- NOTE | 2018-12-18 12:20 | EDPHYS ---
Physician Documentation [facility] Name: Sherri Best Age: 48 yrs Sex: Female : 1970 Arrival Date: 12/18/2018 Time: 11:22 Bed 11 Private MD: ED Physician Bay Olmstead HPI: 12/18 12:03 This 48 yrs old Black Female presents to ER via Ambulatory with complaints of Cough. jr8 12:03 The patient or guardian reports cough, that is intermittent, described as mild, with no jr8 sputum. Onset: The symptoms/episode began/occurred acutely, 1 week(s) ago. Severity of symptoms: At their worst the symptoms were mild, in the emergency department the symptoms are unchanged. Modifying factors: The symptoms are alleviated by nothing, the symptoms are aggravated by nothing. Associated signs and symptoms: Pertinent positives: sore throat, vomiting. The patient has not experienced similar symptoms in the past. The patient has not recently seen a physician. Historical: - Allergies: 11:24 NKA; sv - PMHx: 11:24 Depression; sv - Ebola Screening: : No symptoms or risks identified at this time. ROS: 12:03 Eyes: Negative for injury, pain, redness, and discharge, Neck: Negative for injury, jr8 pain, and swelling, Cardiovascular: Negative for chest pain, palpitations, and edema, Abdomen/GI: Negative for abdominal pain, nausea, diarrhea, and constipation. Positive for vomiting Back: Negative for injury and pain, MS/Extremity: Negative for injury and deformity, Skin: Negative for injury, rash, and discoloration, Neuro: Negative for headache, weakness, numbness, tingling, and seizure. 12:03 ENT: Positive for sore throat. 12:03 Respiratory: Positive for cough, Negative for dyspnea on exertion, shortness of breath, sputum production, wheezing. Exam: 12:03 Eyes: Pupils equal round and reactive to light, extra-ocular motions intact. Lids and jr8 lashes normal. Conjunctiva and sclera are non-icteric and not injected. Cornea within normal limits. Periorbital areas with no swelling, redness, or edema. ENT: Nares patent. No nasal discharge, no septal abnormalities noted. Tympanic membranes are normal and external auditory canals are clear. Oropharynx with no redness, swelling, or masses, exudates, or evidence of obstruction, uvula midline. Mucous membranes moist. Neck: Trachea midline, no thyromegaly or masses palpated, and no cervical lymphadenopathy. Supple, full range of motion without nuchal rigidity, or vertebral point tenderness. No Meningismus. Cardiovascular: Regular rate and rhythm with a normal S1 and S2. No gallops, murmurs, or rubs. Normal PMI, no JVD. No pulse deficits. Abdomen/GI: Soft, non-tender, with normal bowel sounds. No distension or tympany. No guarding or rebound. No evidence of tenderness throughout. Back: No spinal tenderness. No costovertebral tenderness. Full range of motion. Skin: Warm, dry with normal turgor. Normal color with no rashes, no lesions, and no evidence of cellulitis. MS/ Extremity: Pulses equal, no cyanosis. Neurovascular intact. Full, normal range of motion. Neuro: Awake and alert, GCS 15, oriented to person, place, time, and situation. Cranial nerves II-XII grossly intact. Motor strength 5/5 in all extremities. Sensory grossly intact. Cerebellar exam normal. Normal gait. 12:03 Respiratory: the patient does not display signs of respiratory distress, Respirations: normal, symetrical, no use of accessory muscles, no grunting, no evidence of nasal flaring, no prolonged exhalations, no pursed lip breathing, no retractions, no shallow respirations, no splinting, no tachypnea, Breath sounds: wheezing: expiratory that is mild, is heard in the left posterior lower lobe. Vital Signs: 11:24 BP 146 / 87; Pulse 104; Resp 18; Temp 98.2; Pulse Ox 97% ; Weight 81.65 kg; Height 5 sv ft. 2 in. (157.48 cm); 11:24 Body Mass Index 32.92 (81.65 kg, 157.48 cm) sv MDM: 11:28 Patient medically screened. jr8 12:16 Data reviewed: vital signs, nurses notes, lab test result(s), radiologic studies, plain jr8 films. 12:19 Data interpreted: Pulse oximetry: on room air is 97 %. Interpretation: normal. jr8 Counseling: I had a detailed discussion with the patient and/or guardian regarding: the historical points, exam findings, and any diagnostic results supporting the discharge/admit diagnosis, lab results, radiology results, the need for outpatient follow up, a family practitioner, to return to the emergency department if symptoms worsen or persist or if there are any questions or concerns that arise at home. 12/18 11:26 Order name: Flu; Complete Time: 12:03 sv 12/18 11:26 Order name: Strep; Complete Time: 11:48 sv 12/18 11:45 Order name: XRAY Chest Pa And Lat (2 Views); Complete Time: 12:19 jr8 12/18 11:48 Order name: Throat Culture EDMS Administered Medications: No medications were administered Disposition: 12/18/18 12:19 Discharged to Home. Impression: Acute bronchitis. - Condition is Stable. - Discharge Instructions: Acute Bronchitis, Adult. - Prescriptions for Prednisone 20 mg Oral Tablet - take 1 tablet by ORAL route once daily for 5 days; 5 tablet. Albuterol Sulfate 90 mcg/actuation - inhale 1-2 puff by INHALATION route every 4-6 hours; 1 Inhaler. Guaifenesin AC 10- 100 mg/5 mL Oral Liquid - take 10 milliliter by ORAL route every 4 hours As needed; 240 milliliter. - Medication Reconciliation Form, Thank You Letter, Antibiotic Education, Prescription Opioid Use form. - Follow up: Private Physician; When: 2 - 3 days; Reason: Recheck today's complaints, Continuance of care, Re-evaluation by your physician. - Problem is new. - Symptoms have improved. Addendum: 12/21/2018 05:28 Co-signature as Attending Physician, Bay Olmstead MD I agree with the assessment and c barrios plan of care. Signatures: Dispatcher [employer] EDLanette Gabriel RN RN sv Anderson, Corey, MD MD cha Calderon, Audri RN RN aa5 Abdiel Resendiz PA PA jr8 Corrections: (The following items were deleted from the chart) 12/18 12:38 12:19 12/18/2018 12:19 Discharged to Home. Impression: Acute bronchitis. Condition is aa5 Stable. Forms are Medication Reconciliation Form, Thank You Letter, Antibiotic Education, Prescription Opioid Use. Follow up: Private Physician; When: 2 - 3 days; Reason: Recheck today's complaints, Continuance of care, Re-evaluation by your physician. Problem is new. Symptoms have improved. jr8
--- NOTE | 2018-12-18 12:20 | ER ---
Nurse's Notes [facility] Name: Sherri Best Age: 48 yrs Sex: Female : 1970 Arrival Date: 12/18/2018 Time: 11: Bed 11 Private MD: Diagnosis: Acute bronchitis Presentation: 12/18 11:23 Presenting complaint: Patient states: productive clear cough x 1 week. Transition of sv care: patient was not received from another setting of care. Onset of symptoms was December 11, 2018. Care prior to arrival: None. 11:23 Method Of Arrival: Ambulatory sv 11:23 Acuity: LUIS A 4 sv 11:40 Risk Assessment: Do you want to hurt yourself or someone else? Patient reports no aa5 desire to harm self or others. Initial Sepsis Screen: Does the patient meet any 2 criteria? No. Patient's initial sepsis screen is negative. Does the patient have a suspected source of infection? No. Patient's initial sepsis screen is negative. Historical: - Allergies: 11:24 NKA; sv - PMHx: 11:24 Depression; sv - Ebola Screening: : No symptoms or risks identified at this time. Screenin:40 Abuse screen: Denies threats or abuse. Nutritional screening: No deficits noted. aa5 Tuberculosis screening: No symptoms or risk factors identified. Fall Risk None identified. Assessment: 11:40 General: Appears comfortable, Behavior is calm, cooperative. Pain: Denies pain. Neuro: aa5 Level of Consciousness is awake, alert, obeys commands, Oriented to person, place, time, situation. Cardiovascular: Heart tones S1 S2 present Rhythm is regular. Respiratory: Airway is patent Respiratory effort is even, unlabored, Respiratory pattern is regular, symmetrical, Breath sounds are clear bilaterally. GI: No signs and/or symptoms were reported involving the gastrointestinal system. : No signs and/or symptoms were reported regarding the genitourinary system. EENT: No signs and/or symptoms were reported regarding the EENT system. Musculoskeletal: Range of motion: intact in all extremities. 11:40 Derm: Skin is dry, Skin is normal, Skin temperature is warm. aa5 12:35 Neuro: Level of Consciousness is awake, alert, obeys commands, Oriented to person, aa5 place, time, situation. Respiratory: Airway is patent Respiratory effort is even, unlabored, Respiratory pattern is regular, symmetrical. Derm: Skin is dry, Skin is normal, Skin temperature is warm. Vital Signs: 11:24 BP 146 / 87; Pulse 104; Resp 18; Temp 98.2; Pulse Ox 97% ; Weight 81.65 kg; Height 5 sv ft. 2 in. (157.48 cm); 11:24 Body Mass Index 32.92 (81.65 kg, 157.48 cm) sv ED Course: 11:22 Patient arrived in ED. mr 11:23 Triage completed. sv 11:25 Arm band placed on. sv 11:28 Abdiel Resendiz PA is PHCP. jr8 11:28 Bay Olmstead MD is Attending Physician. jr8 11:32 Karolyn Kitchen, RN is Primary Nurse. aa5 11:40 Patient has correct armband on for positive identification. aa5 11:54 Throat Culture Sent. sv 12:10 XRAY Chest Pa And Lat (2 Views) In Process Unspecified. EDMS 12:35 No provider procedures requiring assistance completed. Patient did not have IV access aa5 during this emergency room visit. Administered Medications: No medications were administered Outcome: 12:19 Discharge ordered by . jr8 12:35 Discharged to home ambulatory. aa5 12:35 Condition: good 12:35 Discharge instructions given to patient, Instructed on discharge instructions, follow up and referral plans. medication usage, Demonstrated understanding of instructions, follow-up care, medications, Prescriptions given X 3. 12:38 Patient left the ED. aa5 Signatures: Dispatcher [employer] EDMS Lanette Abreu RN RN Janette Anguiano mr Karolyn Kitchen RN RN aa5 Abdiel Resendiz PA PA jr8 Corrections: (The following items were deleted from the chart) 11:25 11:24 Pulse 104bpm; Resp 18bpm; Pulse Ox 97%; Temp 98.2F; 81.65 kg; Height 5 ft. 2 in.; sv BMI: 32.9; sv 13:14 11:40 Derm: Skin is pink, warm \T\ dry. aa5 aa5
== END 2018-12-18 12:38 | disposition home or self-care (01) ==
LOC: ER 11:18
DX: J20.9 Acute bronchitis, unspecified (principal)
CPT/HCPCS: 71046; 87070; 87081; 87804; 99283

== ENCOUNTER 2019-10-05 07:41 | Emergency (ER) | payer OTHER, SELFPAY ==
[2019-10-05] MEDS ORDERED: BENZONATATE 100 MG CAP PO ONE (08:22)
--- NOTE | 2019-10-05 08:22 | EDPHYS ---
Physician Documentation [facility] Name: Sherri Best Age: 48 yrs Sex: Female : 1970 Arrival Date: 10/05/2019 Time: 07:43 Bed 8 Private MD: ED Physician Bobo Toure HPI: 10/05 08:13 This 48 yrs old Black Female presents to ER via Ambulatory with complaints of Runny la1 Nose, Cough, Vomiting. 08:13 The patient or guardian reports cough, that is constant, described as moderate. Onset: la1 The symptoms/episode began/occurred 1 week(s) ago. Severity of symptoms: At their worst the symptoms were mild. Modifying factors: The symptoms are alleviated by nothing, the symptoms are aggravated by nothing. Associated signs and symptoms: Pertinent positives: vomiting. The patient has experienced similar episodes in the past. Pt reports persistent cough for one week, tried OTC meds without relief, denies fever or productive cough. Historical: - Allergies: 07:52 No Known Allergies; ss - Home Meds: 07:52 None [Active]; ss - PMHx: 07:52 Anxiety; ss - PSHx: 07:52 Cholecystectomy; ; uterine ablation; ss - Immunization history:: Adult Immunizations up to date. - Social history:: Smoking status: Patient/guardian denies using tobacco. - Ebola Screening: : Patient denies exposure to infectious person Patient denies travel to an Ebola-affected area in the 21 days before illness onset. ROS: 08:14 Constitutional: Negative for fever, chills, and weight loss, Eyes: Negative for injury, la1 pain, redness, and discharge, ENT: Negative for injury, pain, and discharge, Neck: Negative for injury, pain, and swelling, Cardiovascular: Negative for chest pain, palpitations, and edema, Respiratory: positive for cough Abdomen/GI: Negative for abdominal pain, nausea, diarrhea, and constipation, positive for post-tussive emesis MS/Extremity: Negative for injury and deformity, Neuro: Negative for headache, weakness, numbness, tingling, and seizure. Exam: 08:15 Constitutional: This is a well developed, well nourished patient who is awake, alert, la1 and in no acute distress. Head/Face: Normocephalic, atraumatic. Eyes: Pupils equal round and reactive to light, extra-ocular motions intact. ENT: cerumen obstructing view of right TMexternal auditory canals are clear. Oropharynx with no redness, swelling, or masses, exudates, or evidence of obstruction, uvula midline. Mucous membranes moist. Chest/axilla: Normal chest wall appearance and motion. Nontender with no deformity. No lesions are appreciated. Cardiovascular: Regular rate and rhythm with a normal S1 and S2. No gallops, murmurs, or rubs. Normal PMI, no JVD. No pulse deficits. Respiratory: Lungs have equal breath sounds bilaterally, clear to auscultation and percussion. No rales, rhonchi or wheezes noted. No increased work of breathing, no retractions or nasal flaring. Pt coughing persitently in room Abdomen/GI: Soft, non-tender, with normal bowel sounds. No distension or tympany. No guarding or rebound. No evidence of tenderness throughout. Vital Signs: 07:52 BP 142 / 87; Pulse 93; Resp 17; Pulse Ox 97% on R/A; Weight 81.65 kg; Height 5 ft. 2 ss in. (157.48 cm); Pain 6/10; 07:57 Temp 97.7(TE); ss 07:52 Body Mass Index 32.92 (81.65 kg, 157.48 cm) ss MDM: 07:54 Patient medically screened. la1 08:16 Differential Diagnosis: Bronchitis Influenza Upper Respiratory Infection Viral Syndrome la1 Pneumonia. Data reviewed: vital signs, nurses notes, and as a result, I will discharge patient. Data interpreted: Pulse oximetry: on room air is 97 %. Interpretation: normal. Counseling: I had a detailed discussion with the patient and/or guardian regarding: the historical points, exam findings, and any diagnostic results supporting the discharge/admit diagnosis, lab results, the need for outpatient follow up, a family practitioner, to return to the emergency department if symptoms worsen or persist or if there are any questions or concerns that arise at home. Administered Medications: 08:20 Drug: Tessalon Perle 200 mg Route: PO; sg 08:24 Follow up: Response: No adverse reaction; Medication administered at discharge. sv Disposition: 14:09 Co-signature as Attending Physician, Bobo Toure MD. rn Disposition: 10/05/19 08:21 Discharged to Home. Impression: Acute bronchitis. - Condition is Stable. - Discharge Instructions: Acute Bronchitis, Adult, Rehydration, Adult. - Prescriptions for Zofran 4 mg Oral Tablet - take 1 tablet by ORAL route every 12 hours As needed; 6 tablet. Tessalon Perles 100 mg Oral Capsule - take 1 capsule by ORAL route every 8 hours As needed; 15 capsule. Guaifenesin AC 10- 100 mg/5 mL Oral Liquid - take 10 milliliter by ORAL route every 4 hours As needed; 240 milliliter. - Medication Reconciliation Form, Thank You Letter form. - Follow up: Private Physician; When: 2 - 3 days; Reason: Recheck today's complaints, Re-evaluation by your physician. Follow up: Emergency Department; When: As needed; Reason: Trouble breathing, Worsening of condition. - Problem is new. - Symptoms are unchanged. Signatures: Lanette Abreu RN Shubham Davis RN RN sg Nieto, Roman, MD MD rn Smirch, Shelby, RN RN Willie Rivera, GENERAL DENTIST-C GENERAL DENTIST-Cla1 Corrections: (The following items were deleted from the chart) 08:24 08:21 10/05/2019 08:21 Discharged to Home. Impression: Acute bronchitis. Condition is sv Stable. Prescriptions for Zofran 4 mg Oral Tablet - take 1 tablet by ORAL route every 12 hours As needed; 6 tablet, Tessalon Perles 100 mg Oral Capsule - take 1 capsule by ORAL route every 8 hours As needed; 15 capsule, Guaifenesin AC 10-100 mg/5 mL Oral Liquid - take 10 milliliter by ORAL route every 4 hours As needed; 240 milliliter. and Forms are Medication Reconciliation Form, Thank You Letter, Antibiotic Education, Prescription Opioid Use. Follow up: Private Physician; When: 2 - 3 days; Reason: Recheck today's complaints, Re-evaluation by your physician. Follow up: Emergency Department; When: As needed; Reason: Trouble breathing, Worsening of condition. Problem is new. Symptoms are unchanged. la1
--- NOTE | 2019-10-05 08:22 | ER ---
Nurse's Notes [facility] Name: Sherri Best Age: 48 yrs Sex: Female : 1970 Arrival Date: 10/05/2019 Time: 07:43 Bed 8 Private MD: Diagnosis: Acute bronchitis Presentation: 10/05 07:49 Presenting complaint: Patient states: cough, runny nose and itchy throat x 1 week. ss Transition of care: patient was not received from another setting of care. Onset of symptoms was September 27, 2019. Risk Assessment: Do you want to hurt yourself or someone else? Patient reports no desire to harm self or others. Initial Sepsis Screen: Does the patient meet any 2 criteria? No. Patient's initial sepsis screen is negative. Does the patient have a suspected source of infection? No. Patient's initial sepsis screen is negative. Care prior to arrival: None. 07:49 Method Of Arrival: Ambulatory ss 07:49 Acuity: LUIS A 4 ss Historical: - Allergies: 07:52 No Known Allergies; ss - Home Meds: 07:52 None [Active]; ss - PMHx: 07:52 Anxiety; ss - PSHx: 07:52 Cholecystectomy; ; uterine ablation; ss - Immunization history:: Adult Immunizations up to date. - Social history:: Smoking status: Patient/guardian denies using tobacco. - Ebola Screening: : Patient denies exposure to infectious person Patient denies travel to an Ebola-affected area in the 21 days before illness onset. Screenin:55 Abuse screen: Denies threats or abuse. Denies injuries from another. Nutritional sv screening: No deficits noted. Tuberculosis screening: No symptoms or risk factors identified. Fall Risk None identified. Assessment: 07:58 General: Appears in no apparent distress. comfortable, well developed, Behavior is sv calm, cooperative, appropriate for age. Pain: Denies pain. Neuro: Level of Consciousness is awake, alert, obeys commands, Oriented to person, place, time, situation, Moves all extremities. Full function Gait is steady. Respiratory: Reports cough that is non-productive, dry, persistent Airway is patent Respiratory effort is even, unlabored, Respiratory pattern is regular, symmetrical. EENT: Reports nasal discharge that is watery "itchy throat". Derm: Skin is normal. 08:23 Reassessment: Patient appears in no apparent distress at this time. No changes from sv previously documented assessment. Patient and/or family updated on plan of care and expected duration. Pain level reassessed. Patient is alert, oriented x 3, equal unlabored respirations, skin warm/dry/pink. Vital Signs: 07:52 BP 142 / 87; Pulse 93; Resp 17; Pulse Ox 97% on R/A; Weight 81.65 kg; Height 5 ft. 2 ss in. (157.48 cm); Pain 6/10; 07:57 Temp 97.7(TE); ss 07:52 Body Mass Index 32.92 (81.65 kg, 157.48 cm) ED Course: 07:43 Patient arrived in ED. rg4 07:43 Willie Rivera FNP-C is [facility]. la1 07:43 Bobo Toure MD is Attending Physician. la1 07:50 Triage completed. ss 07:52 Arm band placed on left wrist. ss 07:54 Lanette Abreu RN is Primary Nurse. sv 07:55 Patient has correct armband on for positive identification. Bed in low position. Call sv light in reach. Door closed. Head of bed elevated. 08:01 Awaiting ED provider evaluation. sv 08:23 No provider procedures requiring assistance completed. Patient did not have IV access sv during this emergency room visit. Administered Medications: 08:20 Drug: Tessalon Perle 200 mg Route: PO; sg 08:24 Follow up: Response: No adverse reaction; Medication administered at discharge. sv Outcome: 08:21 Discharge ordered by . la1 08:24 Discharged to home ambulatory. sv 08:24 Condition: stable 08:24 Discharge instructions given to patient, Instructed on discharge instructions, follow up and referral plans. medication usage, Demonstrated understanding of instructions, follow-up care, medications, Prescriptions given X 3. 08:24 Patient left the ED. sv Signatures: Lanette Abreu RN RN Shubham Moneg RN RN Edith Bai RN RN Willie Rivera FNP-C FNP-Nicole Aldana rg4 Corrections: (The following items were deleted from the chart) 07:53 07:49 Acuity: LUIS A 5 [facility]
[2019-10-05 09:33] VITALS: BP 142/87; O2SAT 97
[2019-10-05 09:53] VITALS: TEMP 97.7
== END 2019-10-05 08:24 | disposition home or self-care (01) ==
LOC: ER 07:41
DX: J20.9 Acute bronchitis, unspecified (principal)
CPT/HCPCS: 99283

== ENCOUNTER 2019-10-11 08:37 | Emergency (ER) | payer SELFPAY ==
[2019-10-11] MEDS ORDERED: HYDROCODONE/CHLORPHEN 5 ML/OSYR ONE (09:20)
--- NOTE | 2019-10-11 10:45 | RAD REPORT ---
EXAM DESCRIPTION: RAD - Chest Pa And Lat (2 Views) - 10/11/2019 10:16 am CLINICAL HISTORY: COUGH Chest pain. COMPARISON: Chest Pa And Lat (2 Views) dated 12/18/2018; Chest Single View dated 02/03/2018; Chest Pa A nd Lat (2 Views) dated 12/09/2017; Chest Pa And Lat (2 Views) dated 10/03/2017 FINDINGS: The lungs are clear. The heart is mildly prominent in size. No displaced fractures.
--- NOTE | 2019-10-11 10:55 | ER ---
Nurse's Notes [facility] Name: Sherri Best Age: 48 yrs Sex: Female : 1970 Arrival Date: 10/11/2019 Time: 08:39 Bed 23 Private MD: Diagnosis: Cough Presentation: 10/11 09:05 Presenting complaint: Patient states: Friday I was here for cough and vomiting. I was ca1 prescribed cough medicine and Zofran. I am still coughing and it's been going on for 3 weeks now. I feel like I throw up from coughing and sometime it's hard to breathe. Denies fever and abdominal pain. Reports sweats and chills and feeling sick. Transition of care: patient was not received from another setting of care. Onset of symptoms was October 11, 2019. Risk Assessment: Do you want to hurt yourself or someone else? Patient reports no desire to harm self or others. Initial Sepsis Screen: Does the patient meet any 2 criteria? No. Patient's initial sepsis screen is negative. Does the patient have a suspected source of infection? No. Patient's initial sepsis screen is negative. Care prior to arrival: None. 09:05 Method Of Arrival: Ambulatory ca1 09:05 Acuity: LUIS A 3 ca1 Triage Assessment: 09:12 General: Appears in no apparent distress. comfortable, Behavior is calm, cooperative, ca1 appropriate for age. Pain: Complains of pain in throat Pain currently is 6 out of 10 on a pain scale. EENT: Throat is clear. Neuro: Level of Consciousness is awake, alert, obeys commands, Oriented to person, place, time, situation. Cardiovascular: Heart tones S1 S2 present Capillary refill < 3 seconds Pulses are all present. Edema is absent. Respiratory: Reports cough that is Airway is patent Respiratory effort is even, unlabored, Respiratory pattern is regular, symmetrical, Breath sounds are clear bilaterally. GI: Abdomen is round non-distended, Bowel sounds present X 4 quads. Abd is soft and non tender X 4 quads. Reports vomiting. : No deficits noted. No signs and/or symptoms were reported regarding the genitourinary system. Derm: Skin is intact, is healthy with good turgor, Skin is pink, warm \T\ dry. Musculoskeletal: Circulation, motion, and sensation intact. Capillary refill < 3 seconds, Range of motion: intact in all extremities. 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 - Social history:: Smoking status: Patient/guardian denies using tobacco. - Ebola Screening: : Patient negative for fever greater than or equal to 101.5 degrees Fahrenheit, and additional compatible Ebola Virus Disease symptoms Patient denies exposure to infectious person Patient denies travel to an Ebola-affected area in the 21 days before illness onset No symptoms or risks identified at this time. - Family history:: not pertinent. - Hospitalizations: : No recent hospitalization is reported. Screenin:15 Abuse screen: Denies threats or abuse. Denies injuries from another. Nutritional ca1 screening: No deficits noted. Tuberculosis screening: No symptoms or risk factors identified. Fall Risk None identified. Assessment: 09:15 Reassessment: See triage notes. Pain: Complains of pain in throat. GI: Abdomen is round ca1 non-distended, Bowel sounds present X 4 quads. Abd is soft and non tender X 4 quads. 10:04 Reassessment: Pt transported to [facility] via wheelchair. ca1 10:17 Reassessment: Patient appears in no apparent distress at this time. Patient is alert, ca1 oriented x 3, equal unlabored respirations, skin warm/dry/pink. 11:02 Reassessment: Patient appears in no apparent distress at this time. Patient is alert, ca1 oriented x 3, equal unlabored respirations, skin warm/dry/pink. Vital Signs: 09:12 BP 152 / 86; Pulse 105; Resp 19 S; Temp 97.6(TE); Pulse Ox 97% on R/A; Weight 81.65 kg ca1 (R); Height 5 ft. 2 in. (157.48 cm) (R); Pain 6/10; 10:18 BP 147 / 88; Pulse 78; Resp 16 S; Pulse Ox 98% on R/A; ca1 11:02 BP 154 / 90; Pulse 73; Resp 17 S; Pulse Ox 97% on R/A; ca1 09:12 Body Mass Index 32.92 (81.65 kg, 157.48 cm) ca1 ED Course: 08:39 Patient arrived in ED. as 08:56 Libby Burroughs, RN is Primary Nurse. ca1 08:59 Bobo Toure MD is Attending Physician. rn 09:08 Triage completed. ca1 09:12 Arm band placed on right wrist. ca1 09:15 Patient has correct armband on for positive identification. Placed in gown. Bed in low ca1 position. Call light in reach. Side rails up X 1. Pulse ox on. NIBP on. 09:15 No provider procedures requiring assistance completed. Patient did not have IV access ca1 during this emergency room visit. 09:17 Flu Sent. ca1 09:17 Strep Sent. ca1 10:16 XRAY Chest Pa And Lat (2 Views) In Process Unspecified. EDMS Administered Medications: 09:20 Drug: Tussionex Pennkinetic ER 5 ml Route: PO; ca1 10:50 Follow up: Response: No adverse reaction; No adverse reaction. coughing decreased ca1 Outcome: 10:54 Discharge ordered by MD. rn 11:03 Discharged to home ambulatory. ca1 11:03 Condition: stable 11:03 Discharge instructions given to patient, Instructed on discharge instructions, follow up and referral plans. medication usage, Demonstrated understanding of instructions, follow-up care, medications, Prescriptions given X 2. 11:04 Patient left the ED. ca1 Signatures: Dispatcher [employer] EDMS Nesha Morales Roman, MD MD rn Acob, Cheryl, RN RN ca1
--- NOTE | 2019-10-11 10:55 | EDPHYS ---
Physician Documentation [facility] Name: Sherri Best Age: 48 yrs Sex: Female : 1970 Arrival Date: 10/11/2019 Time: 08:39 Bed 23 Private MD: ED Physician Bobo Toure HPI: 10/11 09:14 This 48 yrs old Black Female presents to ER via Ambulatory with complaints of Cough, rn Vomiting. 09:14 The patient or guardian reports cough. Onset: The symptoms/episode began/occurred 2 rn week(s) ago. Severity of symptoms: At their worst the symptoms were moderate, in the emergency department the symptoms are unchanged. Modifying factors: The symptoms are alleviated by nothing, the symptoms are aggravated by exertion. Associated signs and symptoms: Pertinent negatives: chest pain, fever, rhinorrhea. The patient has experienced similar episodes in the past. Reports cough, congestion, for 2-3 weeks, multiple episodes of bronchitis in past, denies asthma or smoking/smoking exposure. Reports seen earlier last week, cough medication not helping. . 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 - Social history:: Smoking status: Patient/guardian denies using tobacco. - Ebola Screening: : Patient negative for fever greater than or equal to 101.5 degrees Fahrenheit, and additional compatible Ebola Virus Disease symptoms Patient denies exposure to infectious person Patient denies travel to an Ebola-affected area in the 21 days before illness onset No symptoms or risks identified at this time. - Family history:: not pertinent. - Hospitalizations: : No recent hospitalization is reported. ROS: 09:14 Constitutional: Negative for fever, chills, and weight loss, Eyes: Negative for injury, rn pain, redness, and discharge, Neck: Negative for injury, pain, and swelling, Cardiovascular: Negative for chest pain, palpitations, and edema, Respiratory: Negative for wheezing, and pleuritic chest pain, Abdomen/GI: Negative for abdominal pain, diarrhea, and constipation, MS/Extremity: Negative for injury and deformity, Skin: Negative for injury, rash, and discoloration, Neuro: Negative for headache, weakness, numbness, tingling, and seizure. Exam: 09:14 Constitutional: This is a well developed, well nourished patient who is awake, alert, rn and in no acute distress. Persistent coughing episodes. No stridor. Ambulatory to room without difficulty or assistance. Head/Face: Normocephalic, atraumatic. Eyes: Pupils equal round and reactive to light, extra-ocular motions intact. Lids and lashes normal. Conjunctiva and sclera are non-icteric and not injected. Cornea within normal limits. Periorbital areas with no swelling, redness, or edema. ENT: dry MM, no swelling or stridor Neck: Trachea midline, no thyromegaly or masses palpated, and no cervical lymphadenopathy. Supple, full range of motion without nuchal rigidity, or vertebral point tenderness. Cardiovascular: Tachycardic, regular, no murmur Respiratory: Diminished breath sounds bilateral bases. + frequent coughing. NO retractions. Abdomen/GI: soft, non-tender Skin: Warm, dry with normal turgor. Normal color with no rashes, no lesions, and no evidence of cellulitis. MS/ Extremity: Pulses equal, no cyanosis. Neurovascular intact. Full, normal range of motion. Equal circumference. Neuro: Awake and alert, GCS 15, oriented to person, place, time, and situation. Cranial nerves II-XII grossly intact. Motor strength 5/5 in all extremities. Sensory grossly intact. Cerebellar exam normal. Normal gait. Vital Signs: 09:12 BP 152 / 86; Pulse 105; Resp 19 S; Temp 97.6(TE); Pulse Ox 97% on R/A; Weight 81.65 kg ca1 (R); Height 5 ft. 2 in. (157.48 cm) (R); Pain 6/10; 10:18 BP 147 / 88; Pulse 78; Resp 16 S; Pulse Ox 98% on R/A; ca1 11:02 BP 154 / 90; Pulse 73; Resp 17 S; Pulse Ox 97% on R/A; ca1 09:12 Body Mass Index 32.92 (81.65 kg, 157.48 cm) ca1 MDM: 08:59 Patient medically screened. rn 10:53 Differential Diagnosis: Bronchitis Influenza Upper Respiratory Infection Sinusitis rn Allergic Rhinitis Viral Syndrome Pneumonia. Data reviewed: vital signs, nurses notes, lab test result(s), radiologic studies, plain films, and as a result, I will discharge patient. Counseling: I had a detailed discussion with the patient and/or guardian regarding: the historical points, exam findings, and any diagnostic results supporting the discharge/admit diagnosis, lab results, radiology results, the need for outpatient follow up, to return to the emergency department if symptoms worsen or persist or if there are any questions or concerns that arise at home. Response to treatment: the patient's symptoms have mildly improved after treatment, and as a result, I will discharge patient. Special discussion: I discussed with the patient/guardian in detail that at this point there is no indication for admission to the hospital. It is understood, however, that if the symptoms persist or worsen the patient needs to return immediately for re-evaluation. ED course: Pt improved, flu/strep neg, cxr clear, told patient could be infectious/viral vs allergic/acid related, recommended allergy treatment and acid meds as well as pcp f/u. . 10/11 09:06 Order name: Flu; Complete Time: 10:51 rn 10/11 09:06 Order name: Strep; Complete Time: 10:51 rn 10/11 09:06 Order name: XRAY Chest Pa And Lat (2 Views); Complete Time: 10:51 rn 10/11 10:00 Order name: Throat Culture EDMS Administered Medications: 09:20 Drug: Tussionex Pennkinetic ER 5 ml Route: PO; ca1 10:50 Follow up: Response: No adverse reaction; No adverse reaction. coughing decreased ca1 Disposition: 10/11/19 10:54 Discharged to Home. Impression: Cough. - Condition is Stable. - Discharge Instructions: Allergies, Adult, Cough, Adult. - Prescriptions for Zithromax Z- Yaya 250 mg Oral Tablet - take 1 tablet by ORAL route as directed for 5 days Day 1 - take two (2) tablets one time. Day 2, 3, 4 , 5 take one (1) tablet once daily.; 6 tablet. Guaifenesin AC 10- 100 mg/5 mL Oral Liquid - take 10 milliliter by ORAL route every 4 hours As needed; 240 milliliter. - Medication Reconciliation Form, Thank You Letter, Antibiotic Education, Prescription Opioid Use form. - Follow up: Private Physician; When: As needed; Reason: Recheck today's complaints, Re-evaluation by your physician. - Problem is new. - Symptoms have improved. Signatures: Dispatcher [employer] Bobo Upton MD MD rn Acob, ALMA Souza RN ca1 Corrections: (The following items were deleted from the chart) 11:04 10:54 10/11/2019 10:54 Discharged to Home. Impression: Cough. Condition is Stable. ca1 Forms are Medication Reconciliation Form, Thank You Letter, Antibiotic Education, Prescription Opioid Use. Follow up: Private Physician; When: As needed; Reason: Recheck today's complaints, Re-evaluation by your physician. Problem is new. Symptoms have improved. rn
[2019-10-11 11:51] VITALS: TEMP 97.6
[2019-10-11 11:55] VITALS: BP 154/90; O2SAT 97
== END 2019-10-11 11:04 | disposition home or self-care (01) ==
LOC: ER 08:37
DX: R05 Cough (principal)
CPT/HCPCS: 71046; 87070; 87081; 87804; 99284

== ENCOUNTER 2019-11-09 08:11 | Emergency (ER) | payer SELFPAY ==
[2019-11-09] MEDS ORDERED: FLUCONAZOLE 100 MG TAB ONE (09:01)
--- NOTE | 2019-11-09 09:21 | EDPHYS ---
Physician Documentation [facility] Name: Sherri Best Age: 48 yrs Sex: Female : 1970 Arrival Date: 11/09/2019 Time: 08:13 Bed 15 Private MD: None, None ED Physician Davi Garcia HPI: 11/09 09:10 This 48 yrs old Black Female presents to ER via Ambulatory with complaints of Pain With jmm Urination. 09:10 The patient presents with urinary symptoms, dysuria, urgency. Onset: The jmm symptoms/episode began/occurred gradually, 4 day(s) ago. Modifying factors: The symptoms are alleviated by the symptoms are aggravated by sexual intercourse. Associated signs and symptoms: Pertinent positives: cramping, Pertinent negatives: vomiting. This is a 48 year old female with a history of depression that presents to the ED with complaints of painful urination, vaginal irritation with painful intercourse for the past 4 days. Denies vomiting or flank pain. . 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 - Social history:: Smoking status: Patient/guardian denies using tobacco. - Ebola Screening: : Patient negative for fever greater than or equal to 101.5 degrees Fahrenheit, and additional compatible Ebola Virus Disease symptoms Patient denies exposure to infectious person Patient denies travel to an Ebola-affected area in the 21 days before illness onset No symptoms or risks identified at this time. ROS: 09:10 Constitutional: Negative for fever, chills, and weight loss, Cardiovascular: Negative jmm for chest pain, palpitations, and edema, Respiratory: Negative for shortness of breath, cough, wheezing, and pleuritic chest pain. 09:10 : Positive for urinary symptoms. 09:10 All other systems are negative. Exam: 09:10 Constitutional: This is a well developed, well nourished patient who is awake, alert, jmm and in no acute distress. Head/Face: atraumatic. Eyes: EOMI, no conjunctival erythema appreciated ENT: Moist Mucus Membranes Neck: Trachea midline, Supple Chest/axilla: Normal chest wall appearance and motion. Cardiovascular: Regular rate and rhythm. No edema appreciated Respiratory: Normal respirations, no respiratory distress appreciated 09:10 Skin: General appearance color normal MS/ Extremity: Moves all extremities, no obvious deformities appreciated, no edema noted to the lower extremities Neuro: Awake and alert, normal gait Psych: Behavior is normal, Mood is normal, Patient is cooperative and pleasant 09:10 Abdomen/GI: Inspection: abdomen appears normal, Bowel sounds: normal, Palpation: soft, mild abdominal tenderness, in the suprapubic area. Vital Signs: 08:29 BP 150 / 89; Pulse 94; Resp 16; Temp 97.9; Pulse Ox 100% on R/A; Weight 81.65 kg; iw Height 5 ft. 2 in. (157.48 cm); 09:29 BP 131 / 69; Pulse 96; Resp 18; Temp 98.0(O); Pulse Ox 100% on R/A; Pain 6/10; rb1 08:29 Body Mass Index 32.92 (81.65 kg, 157.48 cm) iw MDM: 08:54 Patient medically screened. [facility] 09:18 Data reviewed: vital signs, nurses notes. Counseling: I had a detailed discussion with [facility] the patient and/or guardian regarding: the historical points, exam findings, and any diagnostic results supporting the discharge/admit diagnosis. 09:18 Data reviewed: lab test result(s). Counseling: I had a detailed discussion with the [facility] patient and/or guardian regarding: lab results, the need for outpatient follow up, to return to the emergency department if symptoms worsen or persist or if there are any questions or concerns that arise at home. ED course: Patient is alert and non toxic in appearance in the ED. Patient given strict return precautions for fever, increased pain, vomiting, flank pain, ect. Patient understood and agrees with the plan of care.. 11/09 08:55 Order name: Urine Culture [facility] 11/09 09:29 Order name: Urine Dipstick--Ancillary (enter results); Complete Time: 09:37 bd 11/09 08:37 Order name: Urine Dipstick-Ancillary (obtain specimen); Complete Time: 08:55 [facility] Administered Medications: 09:00 Drug: DiFLUcan 150 mg Route: PO; rb1 09:40 Follow up: Response: No adverse reaction rb1 09:40 Drug: Rocephin (cefTRIAXone) 1 grams Route: IM; Site: right gluteus; rb1 09:55 Follow up: Response: No adverse reaction rb1 Disposition: 10:46 Co-signature as Attending Physician, Davi Garcia MD I agree with the assessment and kdr plan of care. Disposition: 11/09/19 09:20 Discharged to Home. Impression: Urinary tract infection, site not specified. - Condition is Stable. - Discharge Instructions: Urinary Tract Infection, Adult. - Prescriptions for Cephalexin 500 mg Oral Capsule - take 1 capsule by ORAL route every 12 hours for 10 days; 20 capsule. Ultracet 37.5- 325 mg Oral Tablet - take 1 tablet by ORAL route every 6 hours - for up to 5 days; do not exceed 8 tablets per day.; 20 tablet. - Medication Reconciliation Form, Thank You Letter, Antibiotic Education, Prescription Opioid Use form. - Follow up: Private Physician; When: 2 - 3 days; Reason: Recheck today's complaints, Continuance of care, Re-evaluation by your physician. Signatures: Dispatcher [employer] EDMS Davi Garcia MD MD kdr Mickail, Joel, PA PA jmm Williams, Irene, ALMA RN iw Sugey Rouse, RN RN rb1 Corrections: (The following items were deleted from the chart) 09:57 09:20 11/09/2019 09:20 Discharged to Home. Impression: Urinary tract infection, site rb1 not specified. Condition is Stable. Forms are Medication Reconciliation Form, Thank You Letter, Antibiotic Education, Prescription Opioid Use. Follow up: Private Physician; When: 2 - 3 days; Reason: Recheck today's complaints, Continuance of care, Re-evaluation by your physician. alfonso
--- NOTE | 2019-11-09 09:21 | ER ---
Nurse's Notes [facility] Name: Sherri Best Age: 48 yrs Sex: Female : 1970 Arrival Date: 11/09/2019 Time: 08:13 Bed 15 Private MD: None, None Diagnosis: Urinary tract infection, site not specified Presentation: 11/09 08:27 Presenting complaint: Patient states: thinks she might have UTI, is having burning with iw urination and itching since Friday. Transition of care: patient was not received from another setting of care. Onset of symptoms was November 06, 2019. Risk Assessment: Do you want to hurt yourself or someone else? Patient reports no desire to harm self or others. Initial Sepsis Screen: Does the patient meet any 2 criteria? No. Patient's initial sepsis screen is negative. Does the patient have a suspected source of infection? No. Patient's initial sepsis screen is negative. Care prior to arrival: None. 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 - Social history:: Smoking status: Patient/guardian denies using tobacco. - Ebola Screening: : Patient negative for fever greater than or equal to 101.5 degrees Fahrenheit, and additional compatible Ebola Virus Disease symptoms Patient denies exposure to infectious person Patient denies travel to an Ebola-affected area in the 21 days before illness onset No symptoms or risks identified at this time. Screenin:35 Abuse screen: Denies threats or abuse. Nutritional screening: No deficits noted. rb1 Tuberculosis screening: No symptoms or risk factors identified. Fall Risk None identified. Assessment: 08:35 General: Appears in no apparent distress. comfortable, Behavior is calm, cooperative. rb1 Neuro: Level of Consciousness is awake, alert, obeys commands, Oriented to person, place, time, situation. Cardiovascular: Capillary refill < 3 seconds is brisk in bilateral fingers. Respiratory: Airway is patent Respiratory effort is even, unlabored, Respiratory pattern is regular, symmetrical. : Reports burning with urination. Derm: Skin is dry, Skin is normal, Skin temperature is warm. 08:35 General: Pt. reports pain with sexual intercourse.. Pain: Complains of pain in rb1 suprapubic area Pain currently is 6 out of 10 on a pain scale. 09:45 Reassessment: Discharge pending due to shot time. rb1 Vital Signs: 08:29 BP 150 / 89; Pulse 94; Resp 16; Temp 97.9; Pulse Ox 100% on R/A; Weight 81.65 kg; iw Height 5 ft. 2 in. (157.48 cm); 09:29 BP 131 / 69; Pulse 96; Resp 18; Temp 98.0(O); Pulse Ox 100% on R/A; Pain 6/10; rb1 08:29 Body Mass Index 32.92 (81.65 kg, 157.48 cm) ED Course: 08:13 Patient arrived in ED. 5 08:13 None, None is Private Physician. [facility] 08:16 Jose Wharton PA is PHCP. [facility] 08:16 Davi Garcia MD is Attending Physician. [facility] 08:28 Triage completed. iw 08:29 Arm band placed on. iw 08:35 Patient has correct armband on for positive identification. Bed in low position. Call rb1 light in reach. Side rails up X 1. Pulse ox on. NIBP on. 08:49 Sugey Rouse, RN is Primary Nurse. rb1 09:56 No provider procedures requiring assistance completed. Patient did not have IV access rb1 during this emergency room visit. Administered Medications: 09:00 Drug: DiFLUcan 150 mg Route: PO; rb1 09:40 Follow up: Response: No adverse reaction rb1 09:40 Drug: Rocephin (cefTRIAXone) 1 grams Route: IM; Site: right gluteus; rb1 09:55 Follow up: Response: No adverse reaction rb1 Outcome: 09:20 Discharge ordered by . [facility] 09:56 Discharged to home ambulatory. rb1 09:56 Condition: stable 09:56 Discharge instructions given to patient, Instructed on discharge instructions, follow up and referral plans. medication usage, Demonstrated understanding of instructions, follow-up care, medications, Prescriptions given X 2. 09:57 Patient left the ED. rb1 Signatures: Jose Wharton PA PA jmm Williams, Irene, RN RN iw Sugey Rouse RN RN rb1 Mónica Garcia 3 Monique Crystal 5 Corrections: (The following items were deleted from the chart) 09:26 08:45 Diet: Patient given a regular meal tray. formerly [facility]3
[2019-11-09 09:35] LABS: Urine Blood 1+ (NEG); Urine Glucose TRACE (NEG); Urine Protein NEGATIVE (NEG)
[2019-11-09] MEDS ORDERED: CEFTRIAXONE 1000 MG/VIAL ONE (09:39)
[2019-11-09 10:09] VITALS: O2SAT 100
[2019-11-09 10:27] VITALS: BP 131/69; TEMP 98
== END 2019-11-09 09:57 | disposition home or self-care (01) ==
LOC: ER 08:11
DX: N39.0 Urinary tract infection, site not specified (principal)
CPT/HCPCS: 81003; 87086; 87088; 96372; 99283

== ENCOUNTER 2020-12-12 12:03 | Emergency (ER) | payer OTHER, SELFPAY ==
[2020-12-12 13:23] LABS: Urine Blood 1+ (NEG); Urine Glucose 2+ (NEG); Urine Protein NEGATIVE (NEG); Urine Specific Gravity 1.025 (1.005-1.030); Urine pH 5.5 (5.0-7.0)
[2020-12-12] MEDS ORDERED: NA CHLORIDE 0.9% 1,000 ML ONE (15:24)
--- NOTE | 2020-12-12 15:24 | RAD REPORT ---
EXAM DESCRIPTION: RAD - Chest Single View - 12/12/2020 3:06 pm CLINICAL HISTORY: COUGH COMPARISON: Two view chest October 2019 TECHNIQUE: AP portable chest image was obtained 12/12/2020 3:06 pm . FINDINGS: Lungs are clear. Heart and vasculature are normal. No measurable pleural effusion and no p neumothorax. No acute bony abnormality seen. No acute aortic findings suspected. IMPRESSION: No acute cardiopulmonary process. No significant change from comparison study.
[2020-12-12 15:27] LABS: Protime INR 0.98
[2020-12-12 15:31] LABS: Absolute Lymphocytes (CBC) 3.7 K/uL (0.7-4.9); Basophils % 0.7 % (0-1.3); Lymphocytes % 30.8 % (15.3-44.8); MPV 8.7 fL (7.6-11.3); RBC Red Blood Cell Count 4.69 M/uL (3.86-4.86)
[2020-12-12 15:58] LABS: ALT/SGPT 48 U/L (12-78); AST/SGOT 23 U/L (15-37); Albumin 3.8 g/dL (3.4-5.0); Alkaline Phosphatase 122 U/L (45-117); BUN Blood Urea Nitrogen 13 mg/dL (7-18); Bicarbonate 29 mmol/L (21-32); Bilirubin Direct 0.1 mg/dL (0-0.2); Bilirubin Total 0.3 mg/dL (0.2-1.0); Glucose Level 135 mg/dL (74-106); Magnesium 2.1 mg/dL (1.8-2.4); Potassium 3.7 mmol/L (3.5-5.1); Protein, Total 8.4 g/dL (6.4-8.2); Sodium Level 140 mmol/L (136-145); Troponin (Emerg Dept Use Only) < 0.02 ng/mL (0.0-0.045)
[2020-12-12 16:00] LABS: NT PRO-BNP < 5 pg/mL (<125)
[2020-12-12] MEDS ORDERED: ONDANSETRON 4 MG/2 ML VIAL ONE (16:48)
[2020-12-12] MEDS ORDERED: FAMOTIDINE 20 MG/2 ML VIAL IV ONE (16:48)
[2020-12-12] MEDS ORDERED: KETOROLAC 30 MG/ML INJ ONE (16:48)
--- NOTE | 2020-12-12 17:48 | RAD REPORT ---
EXAM DESCRIPTION: CT - Chest Abdomen Pelvis W Cont - 12/12/2020 5:29 pm CLINICAL HISTORY: Abdominal distention;Chest pain, flank pain COMPARISON: Chest Single View dated 12/12/2020; Stone Protocol dated 07/07/2018 TECHNIQUE: Following dynamic enhancement using 100 milliliters nonionic IV contrast, axial imaging o f the chest, abdomen and pelvis was performed. Biphasic technique was utilized through the abdomen. Oral contrast was administered. All CT scans are performed using dose optimization technique as appropriate and may include automated exposure control or mA/KV adjustment according to patient size. FINDINGS: Lungs are clear of mass and infiltrate. No pleural effusion, pleural thickening or pneumot horax. No significant aortic or pulmonary arterial tree finding. Mediastinal and hilar regions show n o mass or abnormal lymphadenopathy. No chest wall mass or axillary lymphadenopathy. Liver size has not change from prior imaging. There is diffuse fatty infiltration. No suspicious live r parenchymal finding. Portal vein enhances normally. Spleen and pancreas show no suspicious findings . Cholecystectomy clips are present. No biliary tree dilatation. Symmetric renal function is seen wit h no mass or hydronephrosis. No adrenal abnormalities. No acute uterine finding. No acute ovarian or adnexal process. There is a 2 centimeter densely calcified mass in the left adnexum probably ovarian or paraovarian in origin. Etiology is uncertain. 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 No dilated bowel loops or focal bowel wall thickening. No acute GI findings seen. Sigmoid diverticulo sis is minimal. Appendix is normal. No free air, free fluid or inflammatory stranding. No acute or destructive bony process. No significant vascular findings. IMPRESSION: CT chest, abdomen and pelvis imaging shows no acute or emergent finding. Nonacute findings are detailed in the body of the report. No significant change from July 2018 C T abdomen and pelvis.
--- NOTE | 2020-12-12 17:54 | ER ---
Nurse's Notes [facility] Name: Sherri Best Age: 50 yrs Sex: Female : 1970 Arrival Date: 12/12/2020 Time: 12:09 Bed 14 Private MD: Diagnosis: Chest pain, unspecified-wall;Abdominal tenderness;Type 2 diabetes mellitus Presentation: 12/12 12:26 Chief complaint: Patient states: Sent by Kassandra Pederson for further eval. Left flank pain with hb blood in urine for 2 months. Fingerstick 210 in triage. BP was elevated in the office today. Coronavirus screen: Client denies travel out of the [place] in the last 14 days. At this time, the client does not indicate any symptoms associated with coronavirus-19. Ebola Screen: Patient denies travel to an Ebola-affected area in the 21 days before illness onset. Initial Sepsis Screen: Does the patient meet any 2 criteria? No. Patient's initial sepsis screen is negative. Does the patient have a suspected source of infection? Yes: Acute abdominal pain. Risk Assessment: Do you want to hurt yourself or someone else? Patient reports no desire to harm self or others. Onset of symptoms was October 11, 2020. 12:26 Method Of Arrival: Ambulatory hb 12:26 Acuity: LUIS A 3 hb Historical: - Allergies: 12:28 NKA; hb - PMHx: 12:28 Depression; Hypertension; Diabetes - NIDDM; hb - PSHx: 12:28 Cholecystectomy; ; uterine ablation; hb - Immunization history:: Flu vaccine is not up to date. - Social history:: Smoking status: Patient denies any tobacco usage or history of. Screenin:07 Abuse screen: Denies threats or abuse. Nutritional screening: No deficits noted. vg1 Tuberculosis screening: No symptoms or risk factors identified. Fall Risk No fall in past 12 months (0 pts). No secondary diagnosis (0 pts). No IV (0 pts). Ambulatory Aid- None/Bed Rest/Nurse Assist (0 pts). Gait- Normal/Bed Rest/Wheelchair (0 pts) Mental Status- Oriented to own ability (0 pts). Total Pastor Fall Scale indicates No Risk (0-24 pts). Assessment: 14:05 General: Appears in no apparent distress. uncomfortable, Behavior is calm, cooperative. vg1 Pain: Complains of pain in left flank pain Pain currently is 7 out of 10 on a pain scale. Pain began for about two months. Noted to be grimacing, guarding. Neuro: Level of Consciousness is awake, alert, obeys commands, Oriented to person, place, time, situation. Cardiovascular: Patient's skin is warm and dry. Respiratory: Airway is patent Respiratory effort is even, unlabored, Respiratory pattern is regular, symmetrical. GI: No signs and/or symptoms were reported involving the gastrointestinal system. : Reports burning with urination, urinary frequency, blood in urine. EENT: No signs and/or symptoms were reported regarding the EENT system. Derm: Skin is intact, is healthy with good turgor. Musculoskeletal: Circulation, motion, and sensation intact. 15:22 Reassessment: Patient appears in no apparent distress at this time. No changes from vg1 previously documented assessment. Patient and/or family updated on plan of care and expected duration. Pain level reassessed. Patient is alert, oriented x 3, equal unlabored respirations, skin warm/dry/pink. 16:42 Reassessment: Patient appears in no apparent distress at this time. No changes from vg1 previously documented assessment. Patient and/or family updated on plan of care and expected duration. Pain level reassessed. Patient is alert, oriented x 3, equal unlabored respirations, skin warm/dry/pink. Vital Signs: 12:26 BP 165 / 96; Pulse 89; Resp 17; Temp 98.1; Pulse Ox 100% ; Weight 84.37 kg; Height 5 hb ft. 2 in. (157.48 cm); Pain 7/10; 14:07 BP 144 / 100; Pulse 90; Resp 16; Pulse Ox 100% on R/A; vg1 15:00 BP 118 / 83; Pulse 84; Resp 16; Pulse Ox 100% on R/A; vg1 16:00 BP 132 / 88; Pulse 86; Resp 16; Pulse Ox 98% on R/A; vg1 17:00 BP 126 / 88; Pulse 80; Resp 16; Pulse Ox 100% on R/A; vg1 18:00 BP 133 / 79; Pulse 84; Resp 16; Pulse Ox 100% on R/A; vg1 12:26 Body Mass Index 34.02 (84.37 kg, 157.48 cm) hb ED Course: 12:09 Patient arrived in ED. as 12:28 Triage completed. hb 12:28 Arm band placed on. hb 13:10 UA collection ok'd by Dr. Olmstead. hb 13:53 Bay Olmstead MD is Attending Physician. leigh ann 13:54 Flores Saab, RN is Primary Nurse. vg1 14:08 Patient has correct armband on for positive identification. Bed in low position. Call vg1 light in reach. Side rails up X 1. 15:04 Initial lab(s) drawn, by me, sent to lab. Inserted saline lock: 20 gauge in right jp3 forearm, using aseptic technique. Blood collected. Patient maintains SpO2 saturation greater than 95% on room air. 15:06 XRAY Chest (1 view) In Process Unspecified. EDMS 15:15 EKG done, by ED staff, reviewed by Bay Olmstead MD. jp3 17:29 CT Chest, Abdomen, Pelvis - W/Contrast In Process Unspecified. EDMS 17:53 Madie Zhang DO is Referral Physician. leigh ann 18:45 No provider procedures requiring assistance completed. IV discontinued, intact, vg1 bleeding controlled, No redness/swelling at site. Pressure dressing applied. Administered Medications: 15:16 Drug: NS 0.9% 1000 ml Route: IV; Rate: 125 ml/hr; Site: right forearm; vg1 18:47 Follow up: IV Status: Completed infusion; IV Intake: 400ml vg1 16:41 Drug: TORadol 30 mg Route: IVP; Site: right forearm; vg1 18:47 Follow up: Response: No adverse reaction; Pain is decreased vg1 16:42 Drug: Zofran (Ondansetron) 4 mg Route: IVP; Site: right forearm; vg1 18:47 Follow up: Response: No adverse reaction vg1 16:42 Drug: Pepcid 20 mg Route: IVP; Site: right forearm; vg1 18:47 Follow up: Response: No adverse reaction vg1 Intake: 18:47 IV: 400ml; Total: 400ml. vg1 Outcome: 17:53 Discharge ordered by . leigh ann 18:45 Discharged to home ambulatory. vg1 18:45 Condition: stable 18:45 Discharge instructions given to patient, Instructed on discharge instructions, follow up and referral plans. medication usage, Demonstrated understanding of instructions, follow-up care, medications, Prescriptions given X 3. 18:46 Patient left the ED. vg1 Signatures: Dispatcher [employer] EDMS Bay Olmstead MD MD cha Martinez, Amelia as Baxter, Heather, RN RN Josh Torres jp3 Flores Saab RN RN vg1
--- NOTE | 2020-12-12 17:54 | EDPHYS ---
Physician Documentation [facility] Name: Sherri Best Age: 50 yrs Sex: Female : 1970 Arrival Date: 12/12/2020 Time: 12:09 Bed 14 Private MD: CHELA Physician Bay Olmstead HPI: 12/12 16:20 This 50 yrs old Black Female presents to ER via Ambulatory with complaints of Urinary leigh ann Problem, High Blood Sugar, Blood Pressure Problem. 16:20 The patient or guardian reports hyperglycemia. Onset: The symptoms/episode leigh ann began/occurred 3 day(s) ago. Associated signs and symptoms: Pertinent positives: nausea, polydipsia. Current symptoms: In the emergency department the patient's symptoms are unchanged from the initial presentation, despite home interventions. The patient has not experienced similar symptoms in the past. Historical: - Allergies: 12: NKA; hb - PMHx: 12:28 Depression; Hypertension; Diabetes - NIDDM; hb - PSHx: 12:28 Cholecystectomy; ; uterine ablation; hb - Immunization history:: Flu vaccine is not up to date. - Social history:: Smoking status: Patient denies any tobacco usage or history of. ROS: 16:22 Constitutional: Negative for fever, chills, and weight loss, Eyes: Negative for injury, leigh ann pain, redness, and discharge, ENT: Negative for injury, pain, and discharge, Neck: Negative for injury, pain, and swelling, Respiratory: Negative for shortness of breath, cough, wheezing, and pleuritic chest pain, Back: Negative for injury and pain, : Negative for injury, bleeding, discharge, and swelling, MS/Extremity: Negative for injury and deformity, Skin: Negative for injury, rash, and discoloration, Neuro: Negative for headache, weakness, numbness, tingling, and seizure, Psych: Negative for depression, anxiety, suicide ideation, homicidal ideation, and hallucinations, Allergy/Immunology: Negative for hives, rash, and allergies, Endocrine: Negative for neck swelling, polydipsia, polyuria, polyphagia, and marked weight changes, Hematologic/Lymphatic: Negative for swollen nodes, abnormal bleeding, and unusual bruising. 16:22 Cardiovascular: Positive for chest pain, of the chest. 16:22 Abdomen/GI: Positive for abdominal pain, of the right upper quadrant, left upper quadrant, right lower quadrant and left lower quadrant. Exam: 16:22 Constitutional: This is a well developed, well nourished patient who is awake, alert, leigh ann and in no acute distress. Head/Face: Normocephalic, atraumatic. Eyes: Pupils equal round and reactive to light, extra-ocular motions intact. Lids and lashes normal. Conjunctiva and sclera are non-icteric and not injected. Cornea within normal limits. Periorbital areas with no swelling, redness, or edema. ENT: Nares patent. No nasal discharge, no septal abnormalities noted. Tympanic membranes are normal and external auditory canals are clear. Oropharynx with no redness, swelling, or masses, exudates, or evidence of obstruction, uvula midline. Mucous membranes moist. Neck: Trachea midline, no thyromegaly or masses palpated, and no cervical lymphadenopathy. Supple, full range of motion without nuchal rigidity, or vertebral point tenderness. No Meningismus. Cardiovascular: Regular rate and rhythm with a normal S1 and S2. No gallops, murmurs, or rubs. Normal PMI, no JVD. No pulse deficits. Abdomen/GI: Soft, non-tender, with normal bowel sounds. No distension or tympany. No guarding or rebound. No evidence of tenderness throughout. Back: No spinal tenderness. No costovertebral tenderness. Full range of motion. Female : Normal external genitalia. 16:22 Chest/axilla: Inspection: normal, Palpation: tenderness, that is mild, that is moderate, of the right breast and left breast, Axilla: are normal, Breasts: are normal, no acute changes, Lymph nodes: lymphadenopathy is not appreciated. 16:28 ECG was reviewed by the Attending Physician. [facility] Vital Signs: 12:26 BP 165 / 96; Pulse 89; Resp 17; Temp 98.1; Pulse Ox 100% ; Weight 84.37 kg; Height 5 hb ft. 2 in. (157.48 cm); Pain 7/10; 14:07 BP 144 / 100; Pulse 90; Resp 16; Pulse Ox 100% on R/A; vg1 15:00 BP 118 / 83; Pulse 84; Resp 16; Pulse Ox 100% on R/A; vg1 16:00 BP 132 / 88; Pulse 86; Resp 16; Pulse Ox 98% on R/A; vg1 17:00 BP 126 / 88; Pulse 80; Resp 16; Pulse Ox 100% on R/A; vg1 18:00 BP 133 / 79; Pulse 84; Resp 16; Pulse Ox 100% on R/A; vg1 12:26 Body Mass Index 34.02 (84.37 kg, 157.48 cm) hb MDM: 13:53 Patient medically screened. leigh ann 16:24 Differential diagnosis: abnormal EKG, acute myocardial infarction, anxiety, chest wall leigh ann pain, cholecystitis, Cholelithiasis costochondritis, hyperglycemia, gastritis, hiatal hernia. HEART Score: History: Slightly Suspicious (0), ECG: Normal (0), Age: > 45 and < 65 years (1), Risk Factors: > or = 3 Risk factors for atherosclerotic disease (2), [Hypercholesterolemia] [Hypertension] [DM] [+ Family HX] [Obesity] Troponin: < or = 1 x Normal Limit (0). The patient was given aspirin in the Emergency Department. The patient's deep vein thrombosis risk score was calculated as follows: Total Score: 0. This patient was found to be at low risk for a deep vein thrombosis by using the Well's assessment criteria. The patient's pulmonary embolism risk score was calculated as follows: Total Score: 0-2 points. This patient was found to be at low risk for a pulmonary embolism by using the Well's assessment criteria. APRIL Risk Score: 1 - Three or more CAD risk factors, [Family Hx], [HTN], [Elevated Cholesterol], [DM], TOTAL SCORE =. Data reviewed: vital signs, nurses notes, lab test result(s), EKG, radiologic studies, CT scan, plain films. Data interpreted: secured entrance monitor: rate is 84 beats/min, rhythm is regular, with no ectopy, Pulse oximetry: on room air is 100 %. Test interpretation: by ED physician or midlevel provider: ECG, plain radiologic studies. Counseling: I had a detailed discussion with the patient and/or guardian regarding: the historical points, exam findings, and any diagnostic results supporting the discharge/admit diagnosis, lab results, radiology results, the need for outpatient follow up, for definitive care, an senior architect/design manager. 12/12 12:48 Order name: Glucose, Ancillary Testing; Complete Time: 14:38 EDWI 12/12 13:15 Order name: Urine Dipstick--Ancillary (enter results) 12/12 13:16 Order name: Urine Dipstick-Ancillary; Complete Time: 14:38 EDMS 12/12 14:41 Order name: Basic Metabolic Panel [facility] 12/12 14:41 Order name: CBC with Diff; Complete Time: 16:19 [facility] 12/12 14:41 Order name: LFT's; Complete Time: 16:19 [facility] 12/12 14:41 Order name: Magnesium; Complete Time: 16:19 [facility] 12/12 14:41 Order name: NT PRO-BNP; Complete Time: 16:19 [facility] 12/12 14:41 Order name: PT-INR; Complete Time: 16:19 [facility] 12/12 14:41 Order name: Troponin (emerg Dept Use Only); Complete Time: 16:19 [facility] 12/12 14:41 Order name: XRAY Chest (1 view); Complete Time: 16:19 [facility] 12/12 14:41 Order name: Basic Metabolic Panel; Complete Time: 16:19 EDMS 12/12 16:19 Order name: CT Chest, Abdomen, Pelvis - W/Contrast; Complete Time: 17:52 [facility] 12/12 14:41 Order name: EKG; Complete Time: 14:42 [facility] 12/12 14:41 Order name: Cardiac monitoring; Complete Time: 15:16 [facility] 12/12 14:41 Order name: EKG - Nurse/Tech; Complete Time: 15:16 [facility] 12/12 14:41 Order name: IV Saline Lock; Complete Time: 15:16 [facility] 12/12 14:41 Order name: Labs collected and sent; Complete Time: 15:16 [facility] 12/12 14:41 Order name: O2 Per Protocol; Complete Time: 14:56 [facility] 12/12 14:41 Order name: O2 Sat Monitoring; Complete Time: 14:56 [facility] EC:28 Rate is 76 beats/min. Rhythm is regular. QRS [place] is Normal. TN interval is normal. QRS leigh ann interval is normal. QT interval is normal. No Q waves. T waves are Normal. No ST changes noted. Clinical impression: Normal ECG and No evidence of ischemia. Interpreted by me. Reviewed by me. Administered Medications: 15:16 Drug: NS 0.9% 1000 ml Route: IV; Rate: 125 ml/hr; Site: right forearm; vg1 18:47 Follow up: IV Status: Completed infusion; IV Intake: 400ml vg1 16:41 Drug: TORadol 30 mg Route: IVP; Site: right forearm; vg1 18:47 Follow up: Response: No adverse reaction; Pain is decreased vg1 16:42 Drug: Zofran (Ondansetron) 4 mg Route: IVP; Site: right forearm; vg1 18:47 Follow up: Response: No adverse reaction vg1 16:42 Drug: Pepcid 20 mg Route: IVP; Site: right forearm; vg1 18:47 Follow up: Response: No adverse reaction vg1 Disposition: 12/12/20 17:53 Discharged to Home. Impression: Chest pain, unspecified - wall, Abdominal tenderness, Type 2 diabetes mellitus. - Condition is Stable. - Discharge Instructions: Abdominal Pain, Adult, Nonspecific Chest Pain, Chest Wall Pain, Nausea and Vomiting, Adult, Abdominal Pain, Adult, [id number], Nonspecific Chest Pain, [id number], Aspirin and Your Heart. - Prescriptions for Bentyl 20 mg Oral Tablet - take 1 tablet by ORAL route every 6 hours As needed; 20 tablet. Pepcid 20 mg Oral Tablet - take 1 tablet by ORAL route every 12 hours for 10 days; 20 tablet. Tylenol- Codeine #3 300-30 mg Oral Tablet - take 2 tablets by ORAL route every 6 hours As needed; 20 tablet. - Medication Reconciliation Form, Thank You Letter, Antibiotic Education, Prescription Opioid Use form. - Follow up: Private Physician; When: 2 - 3 days; Reason: Recheck today's complaints, Continuance of care, Re-evaluation by your physician. Follow up: Madie Zhang; When: 2 - 3 days; Reason: Recheck today's complaints, Re-evaluation by your physician. - Problem is new. - Symptoms have improved. Signatures: Dispatcher [employer] Bay Donald MD MD cha Baxter, Heather, Flores Orellana RN, RN RN vg1 Corrections: (The following items were deleted from the chart) 18:46 17:53 12/12/2020 17:53 Discharged to Home. Impression: Chest pain, unspecified - wall; vg1 Abdominal tenderness; Type 2 diabetes mellitus. Condition is Stable. Discharge Instructions: Abdominal Pain, Adult, Nonspecific Chest Pain, Chest Wall Pain, Nausea and Vomiting, Adult, Abdominal Pain, Adult, [id number], Nonspecific Chest Pain, [id number], Aspirin and Your Heart. Prescriptions for Bentyl 20 mg Oral Tablet - take 1 tablet by ORAL route every 6 hours As needed; 20 tablet, Pepcid 20 mg Oral Tablet - take 1 tablet by ORAL route every 12 hours for 10 days; 20 tablet, Tylenol-Codeine #3 300-30 mg Oral Tablet - take 2 tablets by ORAL route every 6 hours As needed; 20 tablet. and Forms are Medication Reconciliation Form, Thank You Letter, Antibiotic Education, Prescription Opioid Use. Follow up: Private Physician; When: 2 - 3 days; Reason: Recheck today's complaints, Continuance of care, Re-evaluation by your physician. Follow up: Madie Zhang; When: 2 - 3 days; Reason: Recheck today's complaints, Re-evaluation by your physician. Problem is new. Symptoms have improved. leigh ann
[2020-12-12 18:52] VITALS: TEMP 98.1
[2020-12-12 18:57] VITALS: O2SAT 100
[2020-12-12 18:58] VITALS: BP 133/79
--- NOTE | 2020-12-13 11:55 | EKG ---
Test Date: 2020-12-12 Test Time: 15:10:53 Material Engineer: ANGELA MEASUREMENT RESULTS: Intervals: Rate: 76 NC: 142 QRSD: 74 QT: 410 QTc: 461 [place]: P: 48 NC: 142 QRS: 60 T: 27 INTERPRETIVE STATEMENTS: Normal sinus rhythm Normal ECG Compared to ECG 02/03/2018 10:28:09 No significant changes Electronically Signed On 12-13-20 11:53:32 TRANSPORTATION MODELER by Bronson Victor
== END 2020-12-12 18:46 | disposition home or self-care (01) ==
LOC: ER 12:03
DX: R07.89 Other chest pain (principal); R10.819 Abdominal tenderness, unspecified site; E11.9 Type 2 diabetes mellitus without complications; I10 Essential (primary) hypertension
CPT/HCPCS: 85025; 80048; 36415; 83735; 85610; 82947; 80076; 81003; 84484; 83880; 71260; 74177; 71045; Q9967; J7030; J2405; 93005; 96361; 96374; 96375; 99284

== ENCOUNTER 2020-12-29 01:32 | Emergency (ER) | payer OTHER ==
[2020-12-29] MEDS ORDERED: ONDANSETRON 4 MG (ODT) TAB ONE (02:09)
[2020-12-29] MEDS ORDERED: ACETAMINOPHEN 325 MG TABLET ONE (02:52)
[2020-12-29 03:55] LABS: SARS-COV-2 RT PCR NEGATIVE (NEGATIVE)
[2020-12-29] MEDS ORDERED: HYDROCODONE/CHLORPHEN 5 ML/OSYR ONE (04:04)
[2020-12-29] MEDS ORDERED: NA CHLORIDE 0.9% 1,000 ML ONE ×2 (05:08→05:25)
[2020-12-29 05:34] LABS: Absolute Lymphocytes (CBC) 3.7 K/uL (0.7-4.9); Hematocrit 38.9 % (36.0-45.0); Lymphocytes % 19.6 % (15.3-44.8); MPV 8.5 fL (7.6-11.3)
[2020-12-29 05:38] LABS: Protime INR 1.06
[2020-12-29 05:51] LABS: ALT/SGPT 50 U/L (12-78); AST/SGOT 20 U/L (15-37); Albumin 3.6 g/dL (3.4-5.0); Alkaline Phosphatase 147 U/L (45-117); BUN Blood Urea Nitrogen 20 mg/dL (7-18); Bicarbonate 26 mmol/L (21-32); Bilirubin Direct < 0.1 mg/dL (0-0.2); Bilirubin Total 0.2 mg/dL (0.2-1.0); Glucose Level 246 mg/dL (74-106); Lipase 96 U/L (73-393); Magnesium 1.9 mg/dL (1.8-2.4); Potassium 3.6 mmol/L (3.5-5.1); Protein, Total 8.2 g/dL (6.4-8.2); Sodium Level 136 mmol/L (136-145); Troponin (Emerg Dept Use Only) < 0.02 ng/mL (0.0-0.045)
[2020-12-29 05:52] LABS: NT PRO-BNP < 5 pg/mL (<125)
[2020-12-29] MEDS ORDERED: dexAMETHasone 10 MG/ML VIAL ONE (06:15)
[2020-12-29] MEDS ORDERED: IPRATROPIUM BROM 0.5MG/2.5ML ONE (06:16)
[2020-12-29] MEDS ORDERED: NA CHLORIDE 0.9% 250 ML ONE (06:16)
[2020-12-29] MEDS ORDERED: AZITHROMYCIN 500 MG INJ IVPB ONE (06:16)
[2020-12-29] MEDS ORDERED: LEVALBUTEROL 1.25 MG/3 ML NEB ONE (06:16)
[2020-12-29] MEDS ORDERED: FAMOTIDINE 20 MG/2 ML VIAL IV ONE (06:17)
[2020-12-29] MEDS ORDERED: CEFTRIAXONE/SWI 1gm 1 GM/10 ML SYR ONE (06:17)
--- NOTE | 2020-12-29 07:57 | RAD REPORT ---
EXAM DESCRIPTION: RAD - Chest Single View - 12/29/2020 2:03 am CLINICAL HISTORY: COUGH COMPARISON: Portable December 12 TECHNIQUE: AP portable chest image was obtained 12/29/2020 2:03 am . FINDINGS: Lung volumes are low. No mass or consolidations seen. Interstitial pattern is stable but m ildly prominent. This could potentially mask minimal interstitial edema or infiltrate. Heart and vasc ulature are normal. No measurable pleural effusion and no pneumothorax. No acute bony abnormality see n. No acute aortic findings suspected. IMPRESSION: No acute cardiopulmonary process. Stable baseline interstitial pattern could potentially mask minimal edema or infiltrate.
--- NOTE | 2020-12-29 09:43 | EDPHYS ---
Physician Documentation [facility] Name: Sherri Best Age: 50 yrs Sex: Female : 1970 Arrival Date: 12/29/2020 Time: 01:35 Bed 15 Private MD: ED Physician Davi Garcia HPI: 12/29 04:49 This 50 yrs old Black Female presents to ER via Ambulatory with complaints of Cough, leigh ann Vomiting, Sore Throat, Headache. 04:49 The patient or guardian reports cough, difficulty breathing. Onset: The leigh ann symptoms/episode began/occurred 3 day(s) ago. Severity of symptoms: At their worst the symptoms were mild, in the emergency department the symptoms are unchanged. Modifying factors: The symptoms are alleviated by nothing, the symptoms are aggravated by nothing. The patient has not experienced similar symptoms in the past. Historical: - Allergies: 01:46 NKA; sg - PMHx: :46 Depression; Diabetes - NIDDM; Hypertension; sg - PSHx: 01:46 Cholecystectomy; ; uterine ablation; sg - Social history:: Smoking status: Patient denies any tobacco usage or history of. ROS: 04:50 Constitutional: Negative for fever, chills, and weight loss, Eyes: Negative for injury, leigh ann pain, redness, and discharge, ENT: Negative for injury, pain, and discharge, Neck: Negative for injury, pain, and swelling, Abdomen/GI: Negative for abdominal pain, nausea, vomiting, diarrhea, and constipation, Back: Negative for injury and pain, : Negative for injury, bleeding, discharge, and swelling, MS/Extremity: Negative for injury and deformity, Skin: Negative for injury, rash, and discoloration, Neuro: Negative for headache, weakness, numbness, tingling, and seizure, Psych: Negative for depression, anxiety, suicide ideation, homicidal ideation, and hallucinations, Allergy/Immunology: Negative for hives, rash, and allergies, Endocrine: Negative for neck swelling, polydipsia, polyuria, polyphagia, and marked weight changes, Hematologic/Lymphatic: Negative for swollen nodes, abnormal bleeding, and unusual bruising. 04:50 Cardiovascular: Positive for chest pain, with cough, of the chest, palpitations. 04:50 Respiratory: Positive for cough, with no reported sputum, dyspnea on exertion, shortness of breath, at rest. Exam: 04:50 Constitutional: This is a well developed, well nourished patient who is awake, alert, leigh ann and in no acute distress. Head/Face: Normocephalic, atraumatic. Eyes: Pupils equal round and reactive to light, extra-ocular motions intact. Lids and lashes normal. Conjunctiva and sclera are non-icteric and not injected. Cornea within normal limits. Periorbital areas with no swelling, redness, or edema. ENT: Nares patent. No nasal discharge, no septal abnormalities noted. Tympanic membranes are normal and external auditory canals are clear. Oropharynx with no redness, swelling, or masses, exudates, or evidence of obstruction, uvula midline. Mucous membranes moist. Neck: Trachea midline, no thyromegaly or masses palpated, and no cervical lymphadenopathy. Supple, full range of motion without nuchal rigidity, or vertebral point tenderness. No Meningismus. Chest/axilla: Normal chest wall appearance and motion. Nontender with no deformity. No lesions are appreciated. Cardiovascular: Regular rate and rhythm with a normal S1 and S2. No gallops, murmurs, or rubs. Normal PMI, no JVD. No pulse deficits. Abdomen/GI: Soft, non-tender, with normal bowel sounds. No distension or tympany. No guarding or rebound. No evidence of tenderness throughout. Back: No spinal tenderness. No costovertebral tenderness. Full range of motion. MS/ Extremity: Pulses equal, no cyanosis. Neurovascular intact. Full, normal range of motion. Neuro: Awake and alert, GCS 15, oriented to person, place, time, and situation. Cranial nerves II-XII grossly intact. Motor strength 5/5 in all extremities. Sensory grossly intact. Cerebellar exam normal. Normal gait. Psych: Awake, alert, with orientation to person, place and time. Behavior, mood, and affect are within normal limits. 04:50 Cardiovascular: Rate: tachycardic, Rhythm: regular, Pulses: Pulses are 4+ in bilateral radial, brachial, femoral, popliteal, posterior tibial and and dorsalis pedis arteries.. Heart sounds: normal, normal S1and S2, no S3 or S4, no murmur, no rub, no gallop, Edema: is not appreciated, JVD: is not appreciated. 04:50 Respiratory: the patient does not display signs of respiratory distress, Respirations: normal, Breath sounds: are clear throughout, no bronchial sounds, no decreased breath sounds, no rales, rhonchi, no stridor, no wheezing, Respiratory rate: 20 05:28 ECG was reviewed by the Attending Physician. [facility] Vital Signs: 01:47 Pulse 114; Resp 20; Temp 98.9; Pulse Ox 99% on R/A; sg 02:31 BP 147 / 97; em 05:26 BP 140 / 92; Pulse 117; Resp 18; Pulse Ox 99% on R/A; em 06:42 BP 138 / 83; Pulse 98; Resp 18; Pulse Ox 100% on R/A; Pain 0/10; em 09:02 BP 117 / 75; Pulse 100; Resp 19 S; Pulse Ox 97% on R/A; iw MDM: 01:45 Patient medically screened. leigh ann 04:52 Differential diagnosis: bronchitis, flu, URI, arrythmia, dehydration. Antibiotic leigh ann administration: Not indicated. Differential Diagnosis: Bronchitis Influenza Upper Respiratory Infection Asthma Exacerbation Viral Syndrome Pneumonia. Data reviewed: vital signs, nurses notes, lab test result(s), EKG, radiologic studies, CT scan, plain films. Data interpreted: athletic monitor: rate is 114 beats/min, rhythm is regular, Pulse oximetry: on room air is 99 %. Test interpretation: by ED physician or midlevel provider: ECG, plain radiologic studies. Counseling: I had a detailed discussion with the patient and/or guardian regarding: the historical points, exam findings, and any diagnostic results supporting the discharge/admit diagnosis, lab results, radiology results. 12/29 01:44 Order name: Strep; Complete Time: 04:33 [facility] 12/29 02:15 Order name: Flu 12/29 03:28 Order name: Throat Culture [facility] 12/29 03:55 Order name: COVID-19/FLU A+B; Complete Time: 04:33 [facility] 12/29 04:47 Order name: Basic Metabolic Panel [facility] 12/29 04:47 Order name: CBC with Diff [facility] 12/29 04:47 Order name: LFT's [facility] 12/29 04:47 Order name: Magnesium [facility] 12/29 04:47 Order name: NT PRO-BNP [facility] 12/29 04:47 Order name: PT-INR; Complete Time: 05:47 [facility] 12/29 04:47 Order name: Troponin (emerg Dept Use Only); Complete Time: 05:54 [facility] 12/29 04:47 Order name: Basic Metabolic Panel; Complete Time: 05:54 [facility] 12/29 01:44 Order name: Chest Single View XRAY 12/29 04:47 Order name: CBC with Automated Diff; Complete Time: 05:38 [facility] 12/29 04:47 Order name: Liver (Hepatic) Function; Complete Time: 05:54 [facility] 12/29 04:47 Order name: Magnesium; Complete Time: 05:54 [facility] 12/29 04:47 Order name: NT PRO-BNP; Complete Time: 05:54 [facility] 12/29 04:48 Order name: Blood Culture Adult (2) [facility] 12/29 04:48 Order name: Lipase [facility] 12/29 04:48 Order name: Lipase; Complete Time: 05:54 [facility] 12/29 04:49 Order name: CT Chest For PE Angio [facility] 12/29 04:47 Order name: EKG; Complete Time: 04:48 [facility] 12/29 04:47 Order name: Cardiac monitoring; Complete Time: 05:05 [facility] 12/29 04:47 Order name: EKG - Nurse/Tech; Complete Time: 05:05 [facility] 12/29 04:47 Order name: IV Saline Lock; Complete Time: 05:24 [facility] 12/29 04:47 Order name: Labs collected and sent; Complete Time: 05:24 [facility] 12/29 04:47 Order name: O2 Per Protocol; Complete Time: 05:07 [facility] 12/29 04:47 Order name: O2 Sat Monitoring; Complete Time: 05:07 [facility] EC:28 Rate is 116 beats/min. Rhythm is regular. QRS [place] is Normal. MD interval is normal. [facility] QRS interval is normal. QT interval is normal. No Q waves. T waves are Normal. No ST changes noted. Clinical impression: Sinus tachycardia and No evidence of ischemia. Interpreted by me. Reviewed by me. Administered Medications: 01:55 Drug: Zofran (Ondansetron) 4 mg Route: PO; em 02:40 Follow up: Response: No adverse reaction em 02:40 Drug: Tylenol 650 mg Route: PO; em 05:06 Follow up: Response: No adverse reaction; Marked relief of symptoms; Pain is decreased em 04:01 Drug: Tussionex Pennkinetic ER 5 ml Route: PO; em 05:06 Follow up: Response: No adverse reaction; Marked relief of symptoms em 05:16 Drug: NS 0.9% 1000 ml Route: IV; Rate: 1 bolus; Site: right forearm; em 06:43 Follow up: IV Status: Completed infusion; IV Intake: 1000ml em 06:35 Drug: Decadron - Dexamethasone 10 mg Route: IVP; Site: right forearm; em 06:43 Follow up: Response: No adverse reaction em 06:39 Drug: Xopenex 1.25 mg Route: Inhalation; em 06:39 Drug: AtroVENT Aerosol 0.5 mg Route: Inhalation; em 06:40 Drug: Rocephin 1 grams Route: IV; Rate: per protocol; Site: right forearm; em 06:43 Follow up: Response: No adverse reaction; IV Status: Completed infusion; IV Intake: 10mlem 06:40 Drug: Pepcid 20 mg Route: IVP; Site: right forearm; em 06:43 Follow up: Response: No adverse reaction em 06:41 Drug: Zithromax 500 mg Route: IVPB; Infused Over: 1 hrs; Site: right forearm; em Disposition: 12/29/20 09:43 Discharged to Home. Impression: Cough, Acute upper respiratory infection, unspecified, Type 2 diabetes mellitus, Elevated white blood cell count. - Condition is Stable. - Discharge Instructions: Type 2 Diabetes Mellitus, Diagnosis, Adult, Upper Respiratory Infection, Adult, Cool Mist Vaporizer, Upper Respiratory Infection, Adult, [id number], Cough, Adult. - Prescriptions for Guaifenesin AC 10- 100 mg/5 mL Oral Liquid - take 10 milliliters by ORAL route every 4 hours As needed; 160 milliliter. dexamethasone 2 mg Oral tablet - take 1 tablet by ORAL route 2 times per day; 10 tablet. Pepcid 20 mg Oral Tablet - take 1 tablet by ORAL route every 12 hours for 15 days; 20 tablet. Zithromax 500 mg Oral Tablet - take 1 tablet by ORAL route once daily for 4 days; 4 tablet. Albuterol Sulfate 90 mcg/actuation Inhalation - inhale 2 puff by INHALATION route every 4-6 hours; 1 Inhaler. - Medication Reconciliation Form, Thank You Letter, Antibiotic Education, Prescription Opioid Use form. - Follow up: Private Physician; When: 2 - 3 days; Reason: Recheck today's complaints, Continuance of care, Re-evaluation by your physician. Follow up: Garry Ricks; When: 2 - 3 days; Reason: Recheck today's complaints, Continuance of care, Re-evaluation by your physician. - Problem is new. - Symptoms have improved. Signatures: Dispatcher [employer] EDDE Shubham Monge RN RN sg Anderson, Corey, MD MD cha Rittger, Kevin, MD MD kdr Munoz, Edgar, RN RN em Williams, Irene, RN RN iw Corrections: (The following items were deleted from the chart) 02:55 01:45 CORONAVIRUS+MR.LAB.BRZ ordered. [facility] EDDE 02:55 02:15 Influenza Screen (A ordered. [facility] 10:28 09:43 12/29/2020 09:43 Discharged to Home. Impression: Cough; Acute upper respiratory iw infection, unspecified; Type 2 diabetes mellitus; Elevated white blood cell count. Condition is Stable. Discharge Instructions: Type 2 Diabetes Mellitus, Diagnosis, Adult, Upper Respiratory Infection, Adult, Cool Mist Vaporizer, Upper Respiratory Infection, Adult, [id number], Cough, Adult. Prescriptions for Guaifenesin AC 10-100 mg/5 mL Oral Liquid - take 10 milliliters by ORAL route every 4 hours As needed; 160 milliliter, dexamethasone 2 mg Oral tablet - take 1 tablet by ORAL route 2 times per day; 10 tablet, Pepcid 20 mg Oral Tablet - take 1 tablet by ORAL route every 12 hours for 15 days; 20 tablet, Zithromax 500 mg Oral Tablet - take 1 tablet by ORAL route once daily for 4 days; 4 tablet, Albuterol Sulfate 90 mcg/actuation Inhalation - inhale 2 puff by INHALATION route every 4-6 hours; 1 Inhaler. and Forms are Medication Reconciliation Form, Thank You Letter, Antibiotic Education, Prescription Opioid Use. Follow up: Private Physician; When: 2 - 3 days; Reason: Recheck today's complaints, Continuance of care, Re-evaluation by your physician. Follow up: Garry Ricks; When: 2 - 3 days; Reason: Recheck today's complaints, Continuance of care, Re-evaluation by your physician. Problem is new. Symptoms have improved. kdr
--- NOTE | 2020-12-29 09:43 | ER ---
Nurse's Notes [facility] Name: Sherri Best Age: 50 yrs Sex: Female : 1970 Arrival Date: 12/29/2020 Time: 01:35 Bed 15 Private MD: Diagnosis: Cough;Acute upper respiratory infection, unspecified;Type 2 diabetes mellitus;Elevated white blood cell count Presentation: 12/29 01:47 Chief complaint: Patient states: For about 3 days now I have had headache, vomiting and sg sore throat with a cough that just will not go away. I have been taking OTC things at home to help with getting rid of the symptoms with no relief at this time. pt denies any other symptoms for triage at this time. Coronavirus screen: Client presents with at least one sign or symptom that may indicate coronavirus-19. Standard/surgical mask placed on the client. Provider contacted for isolation considerations. The client reports previous COVID testing was negative. Date of collection: November 04, 2020. Ebola Screen: Patient negative for fever greater than or equal to 101.5 degrees Fahrenheit, and additional compatible Ebola Virus Disease symptoms Patient denies exposure to infectious person. Patient denies travel to an Ebola-affected area in the 21 days before illness onset. No symptoms or risks identified at this time. Initial Sepsis Screen: Does the patient meet any 2 criteria? No. Patient's initial sepsis screen is negative. Initial Sepsis Screen: Does the patient have a suspected source of infection? Yes: Productive cough/pneumonia. Risk Assessment: Do you want to hurt yourself or someone else? Patient reports no desire to harm self or others. 01:47 Acuity: LUIS A 3 sg 01:47 Method Of Arrival: Ambulatory sg Historical: - Allergies: 01:46 NKA; sg - PMHx: 01:46 Depression; Diabetes - NIDDM; Hypertension; sg - PSHx: 01:46 Cholecystectomy; ; uterine ablation; sg - Social history:: Smoking status: Patient denies any tobacco usage or history of. Screenin:52 Abuse screen: Denies threats or abuse. Nutritional screening: No deficits noted. em Tuberculosis screening: No symptoms or risk factors identified. Fall Risk None identified. Assessment: 01:55 General: Appears in no apparent distress. uncomfortable, Behavior is calm, cooperative, em appropriate for age, Denies fever. Pain: Complains of pain in face. Neuro: Level of Consciousness is awake, alert, obeys commands, Oriented to person, place, time, situation, Reports headache. Cardiovascular: Capillary refill < 3 seconds Patient's skin is warm and dry. Respiratory: Reports cough that is hacking, persistent pain with cough Airway is patent Respiratory effort is even, unlabored, Respiratory pattern is regular, symmetrical. GI: Abdomen is flat, Reports nausea, vomiting. Derm: Skin is intact, is healthy with good turgor, Skin is pink, warm \T\ dry. Musculoskeletal: Capillary refill < 3 seconds, Range of motion: intact in all extremities. 04:30 Reassessment: Patient appears in no apparent distress at this time. Patient and/or em family updated on plan of care and expected duration. Pain level reassessed. Patient is alert, oriented x 3, equal unlabored respirations, skin warm/dry/pink. Patient states feeling better. Patient states symptoms have improved. Vital Signs: 01:47 Pulse 114; Resp 20; Temp 98.9; Pulse Ox 99% on R/A; sg 02:31 BP 147 / 97; em 05:26 BP 140 / 92; Pulse 117; Resp 18; Pulse Ox 99% on R/A; em 06:42 BP 138 / 83; Pulse 98; Resp 18; Pulse Ox 100% on R/A; Pain 0/10; em 09:02 BP 117 / 75; Pulse 100; Resp 19 S; Pulse Ox 97% on R/A; iw ED Course: 01:35 Patient arrived in ED. bp1 01:40 Arm band placed on. sg 01:42 Bay Olmstead MD is Attending Physician. leigh ann 01:44 Jose Angel Cordova, ALMA is Primary Nurse. em 01:49 Triage completed. sg 01:52 Patient has correct armband on for positive identification. Bed in low position. Call em light in reach. 02:02 Chest Single View XRAY In Process Unspecified. EDMS 05:15 Inserted saline lock: 22 gauge in right forearm, using aseptic technique. Blood em collected. 05:15 Initial lab(s) drawn, by me, sent to lab. First set of blood cultures drawn by me. em 06:25 CT Chest For PE Angio In Process Unspecified. EDMS 09:43 Garry Ricks MD is Referral Physician. kdr 09:58 Attending Physician role handed off by Bay Olmstead MD kdr 09:58 Davi Garcia MD is Attending Physician. kdr 10:23 No provider procedures requiring assistance completed. IV discontinued, intact, ec1 bleeding controlled. Administered Medications: 01:55 Drug: Zofran (Ondansetron) 4 mg Route: PO; em 02:40 Follow up: Response: No adverse reaction em 02:40 Drug: Tylenol 650 mg Route: PO; em 05:06 Follow up: Response: No adverse reaction; Marked relief of symptoms; Pain is decreased em 04:01 Drug: Tussionex Pennkinetic ER 5 ml Route: PO; em 05:06 Follow up: Response: No adverse reaction; Marked relief of symptoms em 05:16 Drug: NS 0.9% 1000 ml Route: IV; Rate: 1 bolus; Site: right forearm; em 06:43 Follow up: IV Status: Completed infusion; IV Intake: 1000ml em 06:35 Drug: Decadron - Dexamethasone 10 mg Route: IVP; Site: right forearm; em 06:43 Follow up: Response: No adverse reaction em 06:39 Drug: Xopenex 1.25 mg Route: Inhalation; em 06:39 Drug: AtroVENT Aerosol 0.5 mg Route: Inhalation; em 06:40 Drug: Rocephin 1 grams Route: IV; Rate: per protocol; Site: right forearm; em 06:43 Follow up: Response: No adverse reaction; IV Status: Completed infusion; IV Intake: 10mlem 06:40 Drug: Pepcid 20 mg Route: IVP; Site: right forearm; em 06:43 Follow up: Response: No adverse reaction em 06:41 Drug: Zithromax 500 mg Route: IVPB; Infused Over: 1 hrs; Site: right forearm; em Intake: 06:43 IV: 1000ml; Total: 1000ml. em 06:43 IV: 10ml; Total: 1010ml. em Outcome: 09:43 Discharge ordered by . kdr 10:23 Discharged to home ec1 10:23 Condition: stable 10:23 Discharge instructions given to patient, Instructed on discharge instructions, follow up and referral plans. Demonstrated understanding of instructions, follow-up care, medications, Prescriptions given X X 5 10:28 Patient left the ED. iw Signatures: Dispatcher [employer] EDMS Mariposa Shubham, RN RN marlene Olmstead, MD MD leigh ann [place] Kevin, MD MD kdr Munoz, Edgar, RN RN Meka Allen RN RN iw [place], Brittany bp1 Cruz, Emily, RN RN ec1
--- NOTE | 2020-12-29 10:32 | RAD REPORT ---
EXAM DESCRIPTION: CT - Chest For Pe Angio - 12/29/2020 7:06 am CLINICAL HISTORY: The patient is 50 years old and is Female; Chest pain;Dyspnea TECHNIQUE: Axial computed tomographic angiography images of the chest with intravenous contrast. S agittal and coronal reformatted images were created and reviewed. This CT exam was performed using one or more of the following dose reduction techniques: automated exposure control, adjustment of t he mA and/or kV according to patient size, and/or use of iterative reconstruction technique. MIP re constructed images were created and reviewed. COMPARISON: No relevant prior studies available. FINDINGS: Pulmonary arteries: Unremarkable. No pulmonary embolism. Aorta: No acute findings. No thoracic aortic aneurysm. Lungs: Subtle groundglass changes in the right upper lobe. There are three groundglass nodular f oci within the left lower lobe measuring up to 7 mm. No mass. Pleural space: Unremarkable. No significant effusion. No pneumothorax. Heart: Unremarkable. No cardiomegaly. No significant pericardial effusion. No evidence of RV dysfunction. Bones/joints: No acute fracture. No dislocation. Soft tissues: Unremarkable. Lymph nodes: Unremarkable. No enlarged lymph nodes. IMPRESSION: 1. No evidence of pulmonary embolism. 2. Subtle groundglass changes in the right upper lobe. There are three groundglass nodular foci wit hin the left lower lobe measuring up to 7 mm. Findings are nonspecific, but are concerning for a mu ltifocal infectious process. Electronically signed by: Tru Barlow MD 12/29/2020 6:56 AM RAIL PROJECT ENGINEER Due to temporary technical issues with the PACS/Fluency reporting system, reports are being signed by the in house radiologist without review as a courtesy to ensure prompt reporting. The interpreting r adiologist is fully responsible for the content of the report.
[2020-12-29 10:46] VITALS: TEMP 98.9
[2020-12-29 10:50] VITALS: BP 117/75; O2SAT 97
--- NOTE | 2020-12-30 07:57 | EKG ---
Test Date: 2020-12-29 Test Time: 04:57:23 Train Announcer: SABAS MEASUREMENT RESULTS: Intervals: Rate: 116 ME: 124 QRSD: 68 QT: 344 QTc: 478 [place]: P: 58 ME: 124 QRS: 69 T: 60 INTERPRETIVE STATEMENTS: Sinus tachycardia Otherwise normal ECG Compared to ECG 12/12/2020 15:10:53 Sinus rhythm no longer present Electronically Signed On 12-30-20 07:54:45 [employer] by Bronson Victor
== END 2020-12-29 10:28 | disposition home or self-care (01) ==
LOC: ER 01:32
DX: J06.9 Acute upper respiratory infection, unspecified (principal); Z20.822 Contact with and (suspected) exposure to COVID-19; D72.829 Elevated white blood cell count, unspecified; E11.9 Type 2 diabetes mellitus without complications; I10 Essential (primary) hypertension
CPT/HCPCS: 96361; 93005; 87040 ×2; 87070; 85025; 80048; 36415; 83735; 85610; 80076; 87081; 84484; 83690; 83880; 0240U; 71275; 71045; 96375; 96374; 99284; Q9967; J0456; J1100; J0696; J7050; J7030 ×2

== ENCOUNTER 2021-03-20 16:11 | Emergency (ER) | payer OTHER ==
--- OUTSIDE RECORDS SUMMARY | 2021-03-20 16:14 | XMS REPORT | Continuity of Care Document ---
:1970 Author Organization [facility] t Address [address] [place] [address] Care Team Providers Name Role Phone Ismael Cabrales Attending Clinician Problems This patient has no known problems. Allergies, Adverse Reactions, Alerts This patient has no known allergies or adverse reactions. Medications This patient has no known medications. Procedures This patient has no known procedures. Encounters Start End Encounter Admission Attending Care Care Encounter Source Date/Time Date/Time Type Type Clinicians Facility Department ID 2021-01-02 2021-01-02 Emergency TIMMY Yeung [id number] 11:56:00 20:07:00 Rehana Lara [id number] [place] [id number] [place] [id number] Results This patient has no known results.
[2021-03-20 17:52] LABS: Urine Blood 1+ (Negative); Urine Glucose 3+ (Negative); Urine Protein Trace (Negative); Urine Specific Gravity 1.025 (1.005-1.030); Urine pH 5.5 (5.0-7.0)
[2021-03-20] MEDS ORDERED: HYDROCODONE/APAP 5/325 MG TAB ONE (20:47)
[2021-03-20] MEDS ORDERED: DIAZEPAM 5 MG TABLET ONE (20:47)
[2021-03-20] MEDS ORDERED: FLUCONAZOLE 100 MG TAB ONE (22:08)
[2021-03-20] MEDS ORDERED: CEFTRIAXONE 250 MG/VIAL ONE (22:09)
[2021-03-20] MEDS ORDERED: AZITHROMYCIN 250 MG TAB ONE (22:09)
--- NOTE | 2021-03-20 22:22 | ER ---
Nurse's Notes [facility] Name: Sherri Best Age: 50 yrs Sex: Female : 1970 Arrival Date: 03/20/2021 Time: 16:13 Bed 17 Private MD: Diagnosis: Dysuria Presentation: 03/20 17:35 Chief complaint: Patient states: Vaginal itching and soreness x 4 days, reports it jl7 feels like sores down there when applying creams, OTC medications are not working. Coronavirus screen: Client denies travel out of the [place] in the last 14 days. At this time, the client does not indicate any symptoms associated with coronavirus-19. Ebola Screen: No symptoms or risks identified at this time. Initial Sepsis Screen: Does the patient meet any 2 criteria? No. Patient's initial sepsis screen is negative. Does the patient have a suspected source of infection? No. Patient's initial sepsis screen is negative. Risk Assessment: Do you want to hurt yourself or someone else? Patient reports no desire to harm self or others. Onset of symptoms was March 16, 2021. 17:35 Method Of Arrival: Ambulatory 7 17:35 Acuity: LUIS A 4 jl7 Triage Assessment: 22:33 General: Appears in no apparent distress. General: Behavior is calm, cooperative. Pain: wh Denies pain. RN SURGICAL PCU: 17:37 LMP N/A - ablation jl7 Historical: - Allergies: 17:37 NKA; jl7 - Home Meds: 17:37 aspirin 81 mg Oral chew [Active]; jl7 - PMHx: 17:37 Depression; Diabetes - NIDDM; Hypertension; jl7 - PSHx: 17:37 Cholecystectomy; ; uterine ablation; jl7 - Immunization history:: Adult Immunizations not up to date. - Social history:: Smoking status: Patient denies any tobacco usage or history of. Screenin:02 Abuse screen: Denies threats or abuse. Denies injuries from another. Nutritional wh screening: No deficits noted. Tuberculosis screening: No symptoms or risk factors identified. Fall Risk None identified. Vital Signs: 17:35 BP 164 / 110; Pulse 98; Resp 16; Temp 98.3; Pulse Ox 99% ; Weight 86.18 kg; Height 5 jl7 ft. 2 in. (157.48 cm); Pain 8/10; 20:03 BP 149 / 84; Pulse 78; Resp 18; Pulse Ox 100% ; 21:57 BP 147 / 81; Pulse 74; Resp 16; Pulse Ox 100% on R/A; 17:35 Body Mass Index 34.75 (86.18 kg, 157.48 cm) 7 ED Course: 16:13 Patient arrived in ED. as 17:37 Triage completed. [facility] 17:37 Arm band placed on right wrist. Patient placed in waiting room, Patient notified of [facility] wait time. 19:30 Jose Wharton PA is PHCP. [facility] 19:30 Bobo Toure MD is Attending Physician. [facility] 19:31 Osvaldo Mast, RN is Primary Nurse. 19:52 Attending Physician role handed off by Bobo Toure MD [facility] 19:52 Bay Olmstead MD is Attending Physician. [facility] 20:02 No apparent distress. 20:02 Patient has correct armband on for positive identification. 20:02 No provider procedures requiring assistance completed. 21:20 chaperoned Jose ORNELAS during a vaginal examine. 2 22:35 Patient did not have IV access during this emergency room visit. Administered Medications: 20:29 Drug: Valium (diazepam) 5 mg Route: PO; 20:30 Drug: [place] (HYDROcodone-acetaminophen) 5 mg-325 mg 1 tabs Route: PO; 21:53 Drug: Rocephin (cefTRIAXone) 250 mg Route: IM; Site: right ventrogluteal; 21:53 Drug: AZITHromycin 1 grams Route: PO; 21:53 Drug: DiFLUcan (fluconazole) 150 mg Route: PO; Outcome: 22:21 Discharge ordered by . [facility] 22:34 Discharged to home ambulatory. 22:34 Condition: good 22:34 Discharge instructions given to patient, Prescriptions given X 2. 22:35 Patient left the ED. Signatures: Bay Olmstead MD MD cha Mickail, Joel, PA PA jmm Martinez, Amelia as Leal, Jahala, RN RN [facility] Osvaldo Mast, ALMA RN Wilfrido El mw2
--- NOTE | 2021-03-20 22:22 | EDPHYS ---
Physician Documentation [facility] Name: Sherri Best Age: 50 yrs Sex: Female : 1970 Arrival Date: 03/20/2021 Time: 16:13 Bed 17 Private MD: Bay Hartmann HPI: 03/20 20:02 This 50 yrs old Black Female presents to ER via Ambulatory with complaints of Vaginal jmm Discharge, Vaginal Itching. 20:02 The patient presents with urinary symptoms. Onset: The symptoms/episode began/occurred jmm gradually, 1 week(s) ago. Modifying factors: The symptoms are alleviated by nothing, the symptoms are aggravated by nothing. Associated signs and symptoms: Pertinent positives: dysuria, Pertinent negatives: fever. Patient complains of 1 week of burning urination and vaginal itching. Denies abnormal discharge. . CLERK GUIDE: 17:37 LMP N/A - ablation jl7 Historical: - Allergies: 17:37 NKA; jl7 - Home Meds: 17:37 aspirin 81 mg Oral chew [Active]; jl7 - PMHx: 17:37 Depression; Diabetes - NIDDM; Hypertension; jl7 - PSHx: 17:37 Cholecystectomy; ; uterine ablation; jl7 - Immunization history:: Adult Immunizations not up to date. - Social history:: Smoking status: Patient denies any tobacco usage or history of. ROS: 20:02 Constitutional: Negative for fever, chills, and weight loss, Cardiovascular: Negative jmm for chest pain, palpitations, and edema, Respiratory: Negative for shortness of breath, cough, wheezing, and pleuritic chest pain. 20:02 : Positive for urinary symptoms. 20:02 All other systems are negative. Exam: 20:02 Constitutional: This is a well developed, well nourished patient who is awake, alert, jmm and in no acute distress. Head/Face: atraumatic. Eyes: EOMI, no conjunctival erythema appreciated ENT: Moist Mucus Membranes Neck: Trachea midline, Supple Chest/axilla: Normal chest wall appearance and motion. Cardiovascular: Regular rate and rhythm. No edema appreciated Respiratory: Normal respirations, no respiratory distress appreciated Abdomen/GI: Non distended, soft Back: Normal ROM 20:02 : Pelvic Exam: External exam: is normal, Speculum exam: normal findings. 20:02 Skin: Appearance: Color: normal in color. 20:02 Neuro: Orientation: is normal, Mentation: is normal, Memory: is normal. 20:02 Psych: Behavior/mood is pleasant, cooperative. Vital Signs: 17:35 BP 164 / 110; Pulse 98; Resp 16; Temp 98.3; Pulse Ox 99% ; Weight 86.18 kg; Height 5 7 ft. 2 in. (157.48 cm); Pain 8/10; 20:03 BP 149 / 84; Pulse 78; Resp 18; Pulse Ox 100% ; wh 21:57 BP 147 / 81; Pulse 74; Resp 16; Pulse Ox 100% on R/A; wh 17:35 Body Mass Index 34.75 (86.18 kg, 157.48 cm) jl7 MDM: 20:02 Patient medically screened. [facility] 22:20 Data reviewed: vital signs, nurses notes. Counseling: I had a detailed discussion with mark the patient and/or guardian regarding: the historical points, exam findings, and any diagnostic results supporting the discharge/admit diagnosis, lab results, the need for outpatient follow up, to return to the emergency department if symptoms worsen or persist or if there are any questions or concerns that arise at home. 03/20 17:52 Order name: Urine Dipstick-Ancillary; Complete Time: 20:07 [facility] 03/20 20:09 Order name: GC (GONORR/CHLAMYDIA) Probe [facility] 03/20 20:09 Order name: Wet Prep [facility] 03/20 21:40 Order name: Wet Prep; Complete Time: 21:41 [facility] 03/20 20:09 Order name: Pelvic Exam Setup [facility] 03/20 20:36 Order name: Gown patient [facility] Administered Medications: 20:29 Drug: Valium (diazepam) 5 mg Route: PO; 20:30 Drug: [place] (HYDROcodone-acetaminophen) 5 mg-325 mg 1 tabs Route: PO; 21:53 Drug: Rocephin (cefTRIAXone) 250 mg Route: IM; Site: right ventrogluteal; wh 21:53 Drug: AZITHromycin 1 grams Route: PO; 21:53 Drug: DiFLUcan (fluconazole) 150 mg Route: PO; Disposition: 03/21 16:49 Co-signature as Attending Physician, Bay Olmstead MD I agree with the assessment and leigh ann plan of care. Disposition: 03/20/21 22:21 Discharged to Home. Impression: Dysuria. - Condition is Stable. - Discharge Instructions: Dysuria. - Prescriptions for Hydroxyzine HCl 25 mg Oral Tablet - take 1 tablet by ORAL route every 6 hours As needed; 12 tablet. Bactrim DS 800- 160 mg Oral Tablet - take 1 tablet by ORAL route every 12 hours for 7 days; 14 tablet. - Medication Reconciliation Form, Thank You Letter, Antibiotic Education, Prescription Opioid Use, Work release form form. - Follow up: Private Physician; When: 2 - 3 days; Reason: Recheck today's complaints, Continuance of care, Re-evaluation by your physician. Signatures: Dispatcher [employer] EDBay Bauer MD MD cha Mickail, Joel, PA PA jmm Leal, Jahala, RN RN jl7 Osvaldo Mast RN RN wh Corrections: (The following items were deleted from the chart) 03/20 22:35 22:21 03/20/2021 22:21 Discharged to Home. Impression: Dysuria. Condition is Stable. wh Forms are Medication Reconciliation Form, Thank You Letter, Antibiotic Education, Prescription Opioid Use. Follow up: Private Physician; When: 2 - 3 days; Reason: Recheck today's complaints, Continuance of care, Re-evaluation by your physician. alfonso
[2021-03-20 22:39] VITALS: TEMP 98.3
[2021-03-20 22:41] VITALS: O2SAT 100
[2021-03-20 22:42] VITALS: BP 147/81
[2021-03-24 00:54] LABS: C.trachomatis RNA,TMA Not Detected (Not Detected)
== END 2021-03-20 22:35 | disposition home or self-care (01) ==
LOC: ER 16:11
DX: R30.0 Dysuria (principal); I10 Essential (primary) hypertension; E11.9 Type 2 diabetes mellitus without complications; Z79.82 Long term (current) use of aspirin
CPT/HCPCS: 87210; 81003; 87590; 87490; J0696; 96372; 99283

== ENCOUNTER 2021-03-30 16:18 | Emergency (ER) | payer OTHER ==
--- OUTSIDE RECORDS SUMMARY | 2021-03-30 16:22 | XMS REPORT | Continuity of Care Document ---
:1970 Author Organization [facility] t Address [address] [place] [address] Care Team Providers Name Role Phone Ismael Cabralse Attending Clinician Problems This patient has no known problems. Allergies, Adverse Reactions, Alerts This patient has no known allergies or adverse reactions. Medications This patient has no known medications. Procedures This patient has no known procedures. Encounters Start End Encounter Admission Attending Care Care Encounter Source Date/Time Date/Time Type Type Clinicians Facility Department ID 2021-01-02 2021-01-02 Emergency TIMMY Yeung [id number] 11:56:00 20:07:00 Rehana Lara [id number] [place] [id number] [place] [id number] Results This patient has no known results.
[2021-03-30] MEDS ORDERED: ONDANSETRON 4 MG (ODT) TAB ONE (17:02)
[2021-03-30] MEDS ORDERED: ACETAMINOPHEN 500 MG TAB ONE (17:02)
[2021-03-30 19:57] LABS: Arterial Blood Carboxyhemoglob 1.2 % (0-1.5); Blood Gas Oxyhemoglobin 91.9 % (94-97); Blood O2 Saturation 94.1 % (92-98.5)
[2021-03-30] MEDS ORDERED: NA CHLORIDE 0.9% 1,000 ML ONE (20:02)
[2021-03-30] MEDS ORDERED: METOCLOPRAMIDE 10 MG/2mL INJ ONE (20:02)
[2021-03-30] MEDS ORDERED: DIPHENHYDRAMINE 50 MG/ML VIAL ONE (20:02)
[2021-03-30 20:38] LABS: Absolute Lymphocytes (CBC) 3.3 K/uL (0.7-4.9); Basophils % 1.1 % (0-1.3); Hematocrit 38.2 % (36.0-45.0); Lymphocytes % 22.9 % (15.3-44.8); MPV 8.8 fL (7.6-11.3); RBC Red Blood Cell Count 4.51 M/uL (3.86-4.86)
--- NOTE | 2021-03-30 20:55 | RAD REPORT ---
EXAM DESCRIPTION: [place] Single View03/30/2021 8:47 pm CLINICAL HISTORY: Cough COMPARISON: December 2020 FINDINGS: The lungs appear clear of acute infiltrate. The heart is normal size IMPRESSION: No acute abnormalities displayed
[2021-03-30 21:16] LABS: Urine Blood 1+ (Negative); Urine Glucose 3+ (Negative); Urine Protein 1+ (Negative)
[2021-03-30 23:08] LABS: Protime INR 1.02
[2021-03-30 23:18] LABS: ALT/SGPT 59 U/L (12-78); AST/SGOT 31 U/L (15-37); Albumin 3.5 g/dL (3.4-5.0); Alkaline Phosphatase 124 U/L (45-117); BUN Blood Urea Nitrogen 11 mg/dL (7-18); Bicarbonate 31 mmol/L (21-32); Bilirubin Direct < 0.1 mg/dL (0-0.2); Bilirubin Total 0.4 mg/dL (0.2-1.0); Glucose Level 227 mg/dL (74-106); Lipase 61 U/L (73-393); Magnesium 2.2 mg/dL (1.8-2.4); NT PRO-BNP 10 pg/mL (<125); Protein, Total 7.7 g/dL (6.4-8.2); Sodium Level 140 mmol/L (136-145); Troponin (Emerg Dept Use Only) < 0.02 ng/mL (0.0-0.045)
--- NOTE | 2021-03-31 00:14 | ER ---
Nurse's Notes [facility] Name: Sherri Best Age: 50 yrs Sex: Female : 1970 Arrival Date: 03/30/2021 Time: 16:20 Bed 14 Private MD: Diagnosis: Chemical Inhalation;Upper Respiratory Infection;Diabetes with Hyperglycemia Presentation: 03/30 16:35 Chief complaint: Patient states: Cough, sore throat, N/V, BATRES since Friday after being ll1 exposed to smoke or gas at work. No known fever. Coronavirus screen: Client denies travel out of the [place] in the last 14 days. cough unrelated to allergies, headache, nausea, shortness of breath, sore throat, vomiting. Client presents with at least one sign or symptom that may indicate coronavirus-19. Standard/surgical mask placed on the client. Ebola Screen: Patient denies travel to an Ebola-affected area in the 21 days before illness onset. Initial Sepsis Screen: Does the patient meet any 2 criteria? HR > 90 bpm. No. Patient's initial sepsis screen is negative. Does the patient have a suspected source of infection? Yes: Productive cough/pneumonia. Risk Assessment: Do you want to hurt yourself or someone else? Patient reports no desire to harm self or others. Onset of symptoms was March 26, 2021. 16:35 Method Of Arrival: Ambulatory 1 16:35 Acuity: LUIS A 3 ll1 Historical: - Allergies: 16:37 NKA; ll1 - PMHx: 16:37 Depression; Diabetes - NIDDM; Hypertension; ll1 - PSHx: 16:37 Cholecystectomy; ; uterine ablation; ll1 - Immunization history:: Flu vaccine is not up to date. - Social history:: Smoking status: Patient denies any tobacco usage or history of. Screenin:23 Abuse screen: Denies threats or abuse. Nutritional screening: No deficits noted. ea Tuberculosis screening: No symptoms or risk factors identified. Fall Risk None identified. Assessment: 19:30 General: Appears in no apparent distress. Behavior is calm, cooperative, appropriate ea for age. Pain: Complains of pain in headache. Neuro: Level of Consciousness is awake, alert, obeys commands, Oriented to person, place, time. Cardiovascular: Patient's skin is warm and dry. Respiratory: Airway is patent Respiratory effort is even, unlabored, Respiratory pattern is regular, symmetrical. Derm: Skin is pink, warm \T\ dry. 21:05 Reassessment: Patient and/or family updated on plan of care and expected duration. Pain ea level reassessed. Patient is alert, oriented x 3, equal unlabored respirations, skin warm/dry/pink. 23:31 Reassessment: Patient and/or family updated on plan of care and expected duration. Pain ea level reassessed. Patient is alert, oriented x 3, equal unlabored respirations, skin warm/dry/pink. 03/31 00:23 Reassessment: Patient and/or family updated on plan of care and expected duration. Pain ea level reassessed. Patient is alert, oriented x 3, equal unlabored respirations, skin warm/dry/pink. Patient states feeling better. Vital Signs: 03/30 16:35 BP 164 / 98; Pulse 120; Resp 17; Temp 98.3; Pulse Ox 100% ; Weight 90.72 kg; Height 5 ll1 ft. 2 in. (157.48 cm); Pain 7/10; 21:00 BP 144 / 87; Pulse 86; Resp 19; Pulse Ox 98% ; ea 22:52 Temp 98.5; ea 03/31 00:23 BP 132 / 70; Pulse 80; Resp 18; Pulse Ox 98% ; ea 03/30 16:35 Body Mass Index 36.58 (90.72 kg, 157.48 cm) ll1 ED Course: 03/30 16:20 Patient arrived in ED. bp1 16:37 Triage completed. ll1 16:37 Arm band placed on. ll1 17:23 Davi Garcia MD is Attending Physician. kdr 19:19 Jeff Bonner MD is Attending Physician. 7 19:23 Ginger Sanders, ALMA is Primary Nurse. ea 19:23 Patient has correct armband on for positive identification. Bed in low position. Call ea light in reach. Side rails up X2. 19:50 Inserted saline lock: 20 gauge in right antecubital area, using aseptic technique. ea Blood collected. 20:47 XRAY Chest (1 view) In Process Unspecified. EDMS 03/31 00:24 No provider procedures requiring assistance completed. IV discontinued, intact, ea bleeding controlled, No redness/swelling at site. Pressure dressing applied. Administered Medications: 03/30 16:45 Drug: Tylenol 1000 mg Route: PO; ll1 16:45 Drug: Zofran (Ondansetron) 4 mg Route: PO; ll1 20:00 Follow up: Response: No adverse reaction ea : Drug: NS 0.9% 1000 ml Route: IV; Rate: 1000 ml; Site: right antecubital; ea 20: Drug: Reglan (metoCLOPramide) 10 mg Route: IVP; Site: right antecubital; ea 20:30 Follow up: Response: No adverse reaction ea 20: Drug: Benadryl (diphenhydrAMINE) 25 mg Route: IVP; Site: right antecubital; ea 20:30 Follow up: Response: No adverse reaction ea Outcome: 03/31 00:13 Discharge ordered by . mhChantel 00:24 Discharged to home ambulatory, with family. ea 00:24 Condition: stable 00:24 Discharge instructions given to patient, Instructed on discharge instructions, follow up and referral plans. medication usage, Demonstrated understanding of instructions, follow-up care, medications, Prescriptions given X 5 00:26 Patient left the ED. ea Signatures: Dispatcher [employer] EDMS Davi Garcia MD MD kdr Antunez, Elena, RN RN ea Lewis, Lynsay, RN RN [facility] Nicci Baker Maurice, MD MD [facility]
--- NOTE | 2021-03-31 00:14 | EDPHYS ---
Physician Documentation [facility] Name: Sherri Best Age: 50 yrs Sex: Female : 1970 Arrival Date: 03/30/2021 Time: 16:20 Bed 14 Private MD: ED Physician Jeff Bonner HPI: 03/30 20:00 This 50 yrs old Black Female presents to ER via Ambulatory with complaints of Cough, mh7 Headache, Nausea, Chemical Inhalation. 20:00 The patient or guardian reports cough, that is intermittent, described as moderate, mh7 with no sputum, headache, nausea, sore throat. 20:01 Onset: The symptoms/episode began/occurred 4 day(s) ago. Severity of symptoms: At their mh7 worst the symptoms were moderate, 4 day(s) ago, in the emergency department the symptoms are unchanged. Modifying factors: The symptoms are alleviated by nothing, the symptoms are aggravated by nothing. Associated signs and symptoms: Pertinent positives: nausea, sore throat, headache, Pertinent negatives: chest pain, diarrhea, ear ache, fever, rhinorrhea, vomiting. States that she was exposed to some unknown chemical gas by inhalation at work 4 days ago and has since developed cough, headache, nausea, sore throat.. Historical: - Allergies: 16:37 NKA; ll1 - PMHx: 16:37 Depression; Diabetes - NIDDM; Hypertension; ll1 - PSHx: 16:37 Cholecystectomy; ; uterine ablation; ll1 - Immunization history:: Flu vaccine is not up to date. - Social history:: Smoking status: Patient denies any tobacco usage or history of. ROS: 20:01 Constitutional: Negative for fever, chills, and weight loss, Eyes: Negative for injury, mh7 pain, redness, and discharge, Neck: Negative for injury, pain, and swelling, Cardiovascular: Negative for chest pain, palpitations, and edema, Back: Negative for injury and pain, : Negative for injury, bleeding, discharge, and swelling, MS/Extremity: Negative for injury and deformity, Skin: Negative for injury, rash, and discoloration, Psych: Negative for depression, anxiety, suicide ideation, homicidal ideation, and hallucinations, Allergy/Immunology: Negative for hives, rash, and allergies, Endocrine: Negative for neck swelling, polydipsia, polyuria, polyphagia, and marked weight changes, Hematologic/Lymphatic: Negative for swollen nodes, abnormal bleeding, and unusual bruising. Exam: 20:01 Constitutional: This is a well developed, well nourished patient who is awake, alert, mh7 and in no acute distress. Head/Face: Normocephalic, atraumatic. Eyes: Pupils equal round and reactive to light, extra-ocular motions intact. Lids and lashes normal. Conjunctiva and sclera are non-icteric and not injected. Cornea within normal limits. Periorbital areas with no swelling, redness, or edema. ENT: Nares patent. No nasal discharge, no septal abnormalities noted. Tympanic membranes are normal and external auditory canals are clear. Oropharynx with no redness, swelling, or masses, exudates, or evidence of obstruction, uvula midline. Mucous membranes moist. Neck: Trachea midline, no thyromegaly or masses palpated, and no cervical lymphadenopathy. Supple, full range of motion without nuchal rigidity, or vertebral point tenderness. No Meningismus. Chest/axilla: Normal chest wall appearance and motion. Nontender with no deformity. No lesions are appreciated. 20:01 Respiratory: Lungs have equal breath sounds bilaterally, clear to auscultation and percussion. No rales, rhonchi or wheezes noted. No increased work of breathing, no retractions or nasal flaring. Abdomen/GI: Soft, non-tender, with normal bowel sounds. No distension or tympany. No guarding or rebound. No evidence of tenderness throughout. Back: No spinal tenderness. No costovertebral tenderness. Full range of motion. Skin: Warm, dry with normal turgor. Normal color with no rashes, no lesions, and no evidence of cellulitis. MS/ Extremity: Pulses equal, no cyanosis. Neurovascular intact. Full, normal range of motion. Neuro: Awake and alert, GCS 15, oriented to person, place, time, and situation. Cranial nerves II-XII grossly intact. Motor strength 5/5 in all extremities. Sensory grossly intact. Cerebellar exam normal. Normal gait. Psych: Awake, alert, with orientation to person, place and time. Behavior, mood, and affect are within normal limits. 20:01 Cardiovascular: Rate: tachycardic, Rhythm: regular, Pulses: no pulse deficits are appreciated, Heart sounds: normal, normal S1and S2, Edema: is not appreciated, JVD: is not appreciated. Vital Signs: 16:35 BP 164 / 98; Pulse 120; Resp 17; Temp 98.3; Pulse Ox 100% ; Weight 90.72 kg; Height 5 ll1 ft. 2 in. (157.48 cm); Pain 7/10; 21:00 BP 144 / 87; Pulse 86; Resp 19; Pulse Ox 98% ; ea 22:52 Temp 98.5; ea 03/31 00:23 BP 132 / 70; Pulse 80; Resp 18; Pulse Ox 98% ; ea 03/30 16:35 Body Mass Index 36.58 (90.72 kg, 157.48 cm) ll1 MDM: 00:10 Differential Diagnosis: Obstructed Airway Bronchitis Upper Respiratory Infection mh7 Pharyngitis Asthma Exacerbation Viral Syndrome Pneumonia Other Chemical Pneumonitis. Data reviewed: vital signs, nurses notes, old medical records, lab test result(s), cardiac enzymes, CBC, electrolytes, urinalysis, UPT: negative EKG, radiologic studies, plain films. Data interpreted: Pulse oximetry: on room air is 98 %. Interpretation: normal. Counseling: I had a detailed discussion with the patient and/or guardian regarding: the historical points, exam findings, and any diagnostic results supporting the discharge/admit diagnosis, the presence of at least one elevated blood pressure reading (>120/80) during this emergency department visit, lab results, radiology results, the need for outpatient follow up, to return to the emergency department if symptoms worsen or persist or if there are any questions or concerns that arise at home. Response to treatment: the patient's symptoms have markedly improved after treatment. 00:13 Patient medically screened. [facility] 03/30 19:35 Order name: Basic Metabolic Panel; Complete Time: 00:06 [facility] 03/30 19:35 Order name: CBC with Diff; Complete Time: 20:48 [facility] 03/30 19:35 Order name: LFT's; Complete Time: 00:06 [facility] 03/30 19:35 Order name: Magnesium; Complete Time: 00:06 [facility] 03/30 19:35 Order name: NT PRO-BNP; Complete Time: 00:06 [facility] 03/30 19:35 Order name: PT-INR; Complete Time: 00:06 [facility] 03/30 19:35 Order name: Troponin (emerg Dept Use Only); Complete Time: 00:06 [facility] 03/30 19:36 Order name: Lipase [facility] 03/30 19:36 Order name: Arterial Blood Gas [facility] 03/30 19:37 Order name: Lipase; Complete Time: 00:06 [facility] 03/30 19:37 Order name: ABG Arterial Blood Gas; Complete Time: 20:48 [facility] 03/30 20:01 Order name: Rapid Strep; Complete Time: 21:49 [facility] 03/30 21:16 Order name: Urine Dipstick-Ancillary [facility] 03/30 19:35 Order name: XRAY Chest (1 view); Complete Time: 21:24 [facility] 03/30 19:35 Order name: EKG; Complete Time: 19:35 [facility] 03/30 19:35 Order name: Cardiac monitoring; Complete Time: 20:46 [facility] 03/30 19:35 Order name: EKG - Nurse/Tech; Complete Time: 20:46 [facility] 03/30 19:35 Order name: IV Saline Lock; Complete Time: 20:27 [facility] 03/30 19:35 Order name: Labs collected and sent; Complete Time: 20:27 [facility] 03/30 19:35 Order name: O2 Per Protocol; Complete Time: 20:27 [facility] 03/30 21:16 Order name: Urine Dipstick-Ancillary; Complete Time: 21:24 [facility] 03/30 21:26 Order name: Urine --Ancillary (enter results); Complete Time: 21:49 [facility] 03/30 21:30 Order name: Throat Culture [facility] 03/30 21:51 Order name: SARS-COV-2 RT PCR; Complete Time: 22:02 [facility] 03/30 19:35 Order name: O2 Sat Monitoring; Complete Time: 20:27 [facility] 03/30 19:35 Order name: Urine Dipstick-Ancillary (obtain specimen); Complete Time: 21:16 [facility] 03/30 19:35 Order name: Urine Test (obtain specimen); Complete Time: 21:16 [facility] Administered Medications: 03/30 16:45 Drug: Tylenol 1000 mg Route: PO; ll1 16:45 Drug: Zofran (Ondansetron) 4 mg Route: PO; ll1 20:00 Follow up: Response: No adverse reaction ea 20:26 Drug: NS 0.9% 1000 ml Route: IV; Rate: 1000 ml; Site: right antecubital; ea 20:26 Drug: Reglan (metoCLOPramide) 10 mg Route: IVP; Site: right antecubital; ea 20:30 Follow up: Response: No adverse reaction ea 20: Drug: Benadryl (diphenhydrAMINE) 25 mg Route: IVP; Site: right antecubital; ea 20:30 Follow up: Response: No adverse reaction ea Disposition: 03/31/21 00:13 Discharged to Home. Impression: Chemical Inhalation, Upper Respiratory Infection, Diabetes with Hyperglycemia. - Condition is Stable. - Discharge Instructions: Upper Respiratory Infection, Adult, [id number], Hyperglycemia, [id number], Chemical Inhalation Injury, Adult. - Prescriptions for Zofran ODT 4 mg Oral tablet,disintegrating - place 1 tablet by TRANSLINGUAL route every 8 hours As needed; 6 tablet. Tessalon Perles 100 mg Oral Capsule - take 1 capsule by ORAL route every 8 hours As needed; 15 capsule. Metformin 500 mg Oral Tablet - take 1 tablet by ORAL route 2 times per day . Then take 1 tablet with morning meals AND evening meals; 30 tablet. Zithromax Z- Yaya 250 mg Oral Tablet - take 1 tablet by ORAL route as directed for 5 days Day 1 - take two (2) tablets one time. Day 2, 3, 4 , 5 take one (1) tablet once daily.; 6 tablet. Albuterol Sulfate 90 mcg/actuation - inhale 1-2 puff by INHALATION route every 4-6 hours; 1 Inhaler. - Work release form, Medication Reconciliation Form, Thank You Letter, Antibiotic Education, Prescription Opioid Use form. - Follow up: Private Physician; When: 1 - 2 days; Reason: Worsening of condition, Recheck today's complaints, Continuance of care, Re-evaluation by your physician. - Problem is new. - Symptoms have improved. Signatures: Dispatcher [employer] Ginger Ibrahim, Linda Sylvester RN, ea, RN RN ll1 Jeff Bonner MD MD mh7 Corrections: (The following items were deleted from the chart) 21:08 19:38 CORONAVIRUS+MR.LAB.BRZ ordered. [facility] 03/31 00:26 00:13 03/31/2021 00:13 Discharged to Home. Impression: Chemical Inhalation; Upper ea Respiratory Infection; Diabetes with Hyperglycemia. Condition is Stable. Forms are Medication Reconciliation Form, Thank You Letter, Antibiotic Education, Prescription Opioid Use. Follow up: Private Physician; When: 1 - 2 days; Reason: Worsening of condition, Recheck today's complaints, Continuance of care, Re-evaluation by your physician. Problem is new. Symptoms have improved. mh7
[2021-03-31 00:34] VITALS: TEMP 98.5; O2SAT 98
[2021-03-31 00:35] VITALS: BP 132/70
--- NOTE | 2021-03-31 07:47 | EKG ---
Test Date: 2021-03-30 Test Time: 20:40:42 Inspector Electromechanical: DAMIEN MEASUREMENT RESULTS: Intervals: Rate: 81 ID: [id number] QRSD: 72 QT: 396 QTc: 460 [place]: P: 52 ID: [id number] QRS: 45 T: 39 INTERPRETIVE STATEMENTS: Normal sinus rhythm Nonspecific T wave abnormality Prolonged QT Abnormal ECG Compared to ECG 12/29/2020 04:57:23 T-wave abnormality now present Prolonged QT interval now present Sinus tachycardia no longer present Electronically Signed On 03-31-21 07:46:10 CDT by Bronson Victor
== END 2021-03-31 00:26 | disposition home or self-care (01) ==
LOC: ER 16:18
DX: J06.9 Acute upper respiratory infection, unspecified (principal); E11.65 Type 2 diabetes mellitus with hyperglycemia; T59.91XA Toxic effect of unspecified gases, fumes and vapors, accidental (unintentional), initial encounter; F32.9 Major depressive disorder, single episode, unspecified; I10 Essential (primary) hypertension; Z20.822 Contact with and (suspected) exposure to COVID-19
CPT/HCPCS: 93005; 87070; 85025; 80048; 36415; 83735; 81025; 85610; 80076; 87081; 81003; 84484; 83690; 83880; 71045; 82805; 96375; 96374; 99284; U0003; J2765; J1200; J7030

== ENCOUNTER 2021-05-30 13:19 | Observation (INO) | payer OTHER ==
--- OUTSIDE RECORDS SUMMARY | 2021-05-30 13:21 | XMS REPORT | Continuity of Care Document ---
:1970 Author Organization [facility] t Address [address] [place] [address] Care Team Providers Name Role Phone Ismael [...] Department ID 2021-01-02 2021-01-02 Emergency TIMMY Yeung [id number] 11:56:00 20:07:00 Rehana Lara [id number] [place] [id number] [place] [id number] [id number] Results This patient has no known results.
[2021-05-30 14:38] LABS: Urine Blood Trace-intact (Negative); Urine Glucose 2+ (Negative); Urine Protein 2+ (Negative); Urine Specific Gravity >=1.030 (1.005-1.030); Urine pH 5.5 (5.0-7.0)
[2021-05-30 15:18] LABS: Urine Specific Gravity/Preg >1.030 (1.005-1.030)
[2021-05-30] MEDS ORDERED: NA CHLORIDE 0.9% 1,000 ML ONE ×2 (16:48→21:17)
[2021-05-30 17:00] LABS: Absolute Lymphocytes (CBC) 2.6 K/uL (0.7-4.9); Basophils % 0.9 % (0-1.3); Hematocrit 41.4 % (36.0-45.0); Lymphocytes % 28.1 % (15.3-44.8); MPV 8.5 fL (7.6-11.3); RBC Red Blood Cell Count 4.82 M/uL (3.86-4.86)
--- NOTE | 2021-05-30 17:06 | RAD REPORT ---
EXAM DESCRIPTION: RAD - Chest Single View - 05/30/2021 4:50 pm CLINICAL HISTORY: Cough;Dyspnea COMPARISON: Chest Single View dated 03/30/2021; Chest Single View dated 12/29/2020; Chest Single View dated 12/12/2020; Chest Pa And Lat (2 Views) dated 10/11/2019 FINDINGS: Increased prominence of the pulmonary interstitium. The heart size is within normal limits .No acute osseous abnormality. No significant pleural effusions or pneumothorax. IMPRESSION: Increased prominence of the pulmonary interstitium may reflect vascular congestion. No e vidence of micaela pulmonary edema or consolidative airspace disease.
[2021-05-30] MEDS ORDERED: HYDROCODONE/CHLORPHEN 5 ML/OSYR ONE (17:07)
[2021-05-30 17:26] LABS: Albumin 3.3 g/dL (3.4-5.0); Bilirubin Direct 0.1 mg/dL (0-0.2); Bilirubin Total 0.4 mg/dL (0.2-1.0); Potassium 3.9 mmol/L (3.5-5.1); Protein, Total 8.1 g/dL (6.4-8.2)
--- NOTE | 2021-05-30 17:36 | EDPHYS ---
Physician Documentation [facility] Name: Sherri Best Age: 50 yrs Sex: Female : 1970 Arrival Date: 05/30/2021 Time: 13:25 Bed 18 Private MD: ED Physician Bobo Toure HPI: 05/30 16:22 This 50 yrs old Black Female presents to ER via Unassigned with complaints of Cough, rn nausea/Vomiting, High Blood Sugar. 16:22 The patient or guardian reports cough, that is intermittent, described as moderate, rn with no sputum. Onset: The symptoms/episode began/occurred 2 week(s) ago. Severity of symptoms: At their worst the symptoms were moderate, in the emergency department the symptoms are unchanged. Modifying factors: The symptoms are alleviated by nothing, the symptoms are aggravated by nothing. Associated signs and symptoms: Pertinent positives: nausea, vomiting, Pertinent negatives: chest pain. The patient has not experienced similar symptoms in the past. The patient has not recently seen a physician. Patient reports 2 weeks of not feeling well, mainly cough/congestion/nausea/vomiting/diarrhea. Diarrhea has improved. No blood in stool. Reports generalized weakness and fatigue. States [id number] medication not helping.. 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 - Family history:: not pertinent. - Social history:: Smoking status: Patient reports the use of cigarette tobacco products. - Hospitalizations: : No recent hospitalization is reported. ROS: 16:22 Constitutional: Negative for fever, positive for chills Eyes: Negative for injury, rn pain, redness, and discharge, ENT: Positive congestion Neck: Negative for injury, pain, and swelling, Cardiovascular: Negative for chest pain, palpitations, and edema, Respiratory: Positive for cough Abdomen/GI: Negative for abdominal pain, and constipation, Back: Negative for injury and pain, : Negative for injury, bleeding, discharge, and swelling, MS/Extremity: Negative for injury and deformity, Skin: Negative for injury, rash, and discoloration, Neuro: Negative for headache, numbness, tingling, and seizure. Exam: 16:22 Constitutional: This is a well developed, well nourished patient who is awake, alert, rn frequent coughing Head/Face: Normocephalic, atraumatic. Eyes: Pupils equal round and reactive to light, extra-ocular motions intact. Lids and lashes normal. Conjunctiva and sclera are non-icteric and not injected. Cornea within normal limits. Periorbital areas with no swelling, redness, or edema. ENT: Dry mucous membranes, no stridor Cardiovascular: Regular rate and rhythm. No pulse deficits. Respiratory: Positive for mild tachypnea no retractions Abdomen/GI: Soft, non-tender Skin: Warm, dry no evidence of cellulitis MS/ Extremity: Pulses equal, no cyanosis. Neurovascular intact. Full, normal range of motion. Equal circumference. Neuro: Awake and alert, GCS 15, oriented to person, place, time, and situation. Cranial nerves II-XII grossly intact. Motor strength 5/5 in all extremities. Sensory grossly intact. Cerebellar exam normal. Vital Signs: 14:27 BP 127 / 79; Pulse 71; Resp 20; Temp 98.1; Pulse Ox 100% on R/A; Weight 86.18 kg (R); kg Height 5 ft. 2 in. (157.48 cm); Pain 0/10; 16:58 BP 128 / 86; Pulse 102; Resp 19; Pulse Ox 98% on R/A; tw2 17:39 BP 128 / 88; Pulse 96; Resp 22; Pulse Ox 98% on R/A; tw2 18:29 BP 138 / 94; Pulse 103; Resp 22; Pulse Ox 100% on R/A; tw2 14:27 Body Mass Index 34.75 (86.18 kg, 157.48 cm) kg MDM: 16:14 Patient medically screened. rn 17:32 Differential Diagnosis: Bronchitis Upper Respiratory Infection Viral Syndrome Pneumonia rn Other COVID. Data reviewed: vital signs, nurses notes, lab test result(s), radiologic studies, plain films, and as a result, I will admit patient. Counseling: I had a detailed discussion with the patient and/or guardian regarding: the historical points, exam findings, and any diagnostic results supporting the discharge/admit diagnosis, lab results, radiology results, the need for further work-up and treatment in the hospital. Response to treatment: the patient's symptoms have mildly improved after treatment, and as a result, I will admit patient. Admission orders: after a detailed discussion of the patient's condition and case, the admit orders are written by me. ED course: Covid positive, hyperglycemia, no anion gap. Still short of breath and mild tachypnea, will admit to Dr. Tello.. 05/30 14:33 Order name: Glucose, Ancillary Testing; Complete Time: 16:14 EDPA 05/30 14:38 Order name: Urine Dipstick-Ancillary; Complete Time: 16:14 EDPA 05/30 14:56 Order name: Urine --Ancillary (enter results); Complete Time: 16:14 bd 05/30 16:17 Order name: COVID-19 : Document "Date of Symptom Onset" if Symptomatic. 05/30 16:20 Order name: CBC with Diff; Complete Time: 17:28 05/30 16:20 Order name: Basic Metabolic Panel; Complete Time: 17:28 05/30 16:20 Order name: Procalcitonin; Complete Time: 18:40 05/30 16:20 Order name: Flu; Complete Time: 17:25 05/30 16:20 Order name: Blood Culture Adult (2) 05/30 16:20 Order name: LFT's; Complete Time: 17:28 05/30 16:20 Order name: Lipase; Complete Time: 17:28 05/30 17:28 Order name: SARS-COV-2 RT PCR; Complete Time: 17:29 [facility] 05/30 18:18 Order name: CRP em1 05/30 16:20 Order name: IV Start; Complete Time: 16:43 05/30 16:20 Order name: XRAY Chest (1 view); Complete Time: 17:25 05/30 21:01 Order name: Glucose, Ancillary Testing EDPA 05/31 04:37 Order name: CBC with Automated Diff EDPA 05/31 04:52 Order name: Comprehensive Metabolic Panel EDPA 05/31 04:52 Order name: C-Reactive Protein EDPA 05/31 04:52 Order name: Magnesium EDPA 05/31 04:56 Order name: Hemoglobin A1c EDPA 05/31 07:54 Order name: Glucose, Ancillary Testing EDPA 05/31 12:07 Order name: Glucose, Ancillary Testing EDPA 05/31 17:02 Order name: Glucose, Ancillary Testing EDMS Administered Medications: 16:30 Drug: NS 0.9% 1000 ml Route: IV; Rate: 1000 ml; Site: left antecubital; tw2 18:20 Follow up: Response: No adverse reaction; IV Status: Completed infusion; IV Intake: tw2 1000ml 16:48 Drug: Tussionex Pennkinetic ER (chlorpheniramine-hydrocodone) Suspension 5 ml Route: PO;tw2 17:40 Follow up: Response: No adverse reaction; Other; Other - cough has decreased tw2 18:55 Drug: Insulin Regular Human 5 units {Co-Signature: vg1 (Flores Saab RN).} Route: tw2 Sub-Q; Site: right upper arm; Disposition Summary: 05/30/21 17:36 Hospitalization Ordered Hospitalization Status: Observation rn Provider: Cayden Tello rn Condition: Stable rn Problem: new rn Symptoms: are unchanged rn Bed/Room Type: Standard rn Location: [facility] ER HOLD(05/30/21 19:21) tl1 Room Assignment: ERHOLD-(05/30/21 19:21) tl1 Diagnosis - SARS-associated coronavirus as the cause of diseases classified elsewhere rn - Hyperglycemia, unspecified rn - Dehydration rn Forms: - Medication Reconciliation Form rn - SBAR form rn Signatures: Dispatcher [employer] [facility] Bobo Toure MD MD rn Smirch, Shelby RN RN Maeve Cooper RN RN tl1 Tana Jackson RN RN tw2 Flores Saab RN vg1 Corrections: (The following items were deleted from the chart) 16:19 16:17 CORONAVIRUS ordered. [facility] : 17:36 Telemetry/MedSurg (observation) rn tl1 19: 17:36 rn tl1
--- NOTE | 2021-05-30 17:36 | ER ---
Nurse's Notes [facility] Name: Sherri Best Age: 50 yrs Sex: Female : 1970 Arrival Date: 05/30/2021 Time: 13:25 Bed 18 Private MD: Diagnosis: SARS-associated coronavirus as the cause of diseases classified elsewhere;Hyperglycemia, unspecified;Dehydration Presentation: 05/30 13:56 Chief complaint: EMS states: N/V and high blood sugar. Pt is diabetic, but states she ss does not take her medications because she does not have a doctor. 13:56 Acuity: LUIS A 3 ss 13:57 Care prior to arrival: Medication(s) given: Normal saline infusion, 500 mL, IV ss initiated. 20 GA, in the left forearm. 16:57 Coronavirus screen: Client presents with at least one sign or symptom that may indicate tw2 coronavirus-19. Standard/surgical mask placed on the client. Provider contacted for isolation considerations. Ebola Screen: Patient denies travel to an Ebola-affected area in the 21 days before illness onset. Initial Sepsis Screen: Does the patient meet any 2 criteria? No. Patient's initial sepsis screen is negative. Does the patient have a suspected source of infection? No. Patient's initial sepsis screen is negative. Risk Assessment: Do you want to hurt yourself or someone else? Patient reports no desire to harm self or others. Onset of symptoms was May 30, 2021. 16:57 Method Of Arrival: EMS: [facility] tw2 [employer]EF[employer] CLAIMS TAKER: 14:27 LMP 05/30/2021 kg Historical: - Allergies: 13:56 NKA; ss - PMHx: 13:56 Depression; Diabetes - NIDDM; Hypertension; ss - Immunization history:: Adult Immunizations. - Family history:: not pertinent. - Social history:: Smoking status: Patient reports the use of cigarette tobacco products. - Hospitalizations: : No recent hospitalization is reported. Screenin:29 Abuse screen: Denies threats or abuse. Denies injuries from another. Nutritional kg screening: No deficits noted. Tuberculosis screening: No symptoms or risk factors identified. Fall Risk None identified. Assessment: 16:16 Reassessment: provider at bedside at this time. tw2 16:40 General: Appears in no apparent distress. obese, Behavior is calm, cooperative, tw2 appropriate for age. Pain: Complains of pain in abdomen ("from coughing so much its spasming". Neuro: Level of Consciousness is awake, alert, obeys commands, Oriented to person, place, time, situation. Cardiovascular: Patient's skin is warm and dry. Respiratory: Reports shortness of breath at rest cough that is non-productive, dry, hacking, persistent. GI: Abdomen is round non-distended, Reports cramping, "from coughing and its spasming". : No signs and/or symptoms were reported regarding the genitourinary system. EENT: No signs and/or symptoms were reported regarding the EENT system. EENT: Reports nasal congestion nasal discharge. Derm: No signs and/or symptoms reported regarding the dermatologic system. Musculoskeletal: Range of motion: intact in all extremities. 17:40 Reassessment: Patient appears in no apparent distress at this time. No changes from tw2 previously documented assessment. Patient and/or family updated on plan of care and expected duration. Pain level reassessed. Patient is alert, oriented x 3, equal unlabored respirations, skin warm/dry/pink. 18:30 Reassessment: Patient appears in no apparent distress at this time. No changes from tw2 previously documented assessment. Patient and/or family updated on plan of care and expected duration. Pain level reassessed. Patient is alert, oriented x 3, equal unlabored respirations, skin warm/dry/pink. pt states "cough is doing better", pt given sandwich and drink at this time, NAD, on phone with family. Vital Signs: 14:27 BP 127 / 79; Pulse 71; Resp 20; Temp 98.1; Pulse Ox 100% on R/A; Weight 86.18 kg (R); kg Height 5 ft. 2 in. (157.48 cm); Pain 0/10; 16:58 BP 128 / 86; Pulse 102; Resp 19; Pulse Ox 98% on R/A; tw2 17:39 BP 128 / 88; Pulse 96; Resp 22; Pulse Ox 98% on R/A; tw2 18:29 BP 138 / 94; Pulse 103; Resp 22; Pulse Ox 100% on R/A; tw2 14:27 Body Mass Index 34.75 (86.18 kg, 157.48 cm) kg ED Course: 13:25 Patient arrived in ED. ss 13:56 Triage completed. ss 14:29 Patient has correct armband on for positive identification. kg 14:30 Maintain EMS IV. Dressing intact. Good blood return noted. Site clean \\T\\ dry. Gauge \\T\\ kg site: 20 Right forearm. 16:14 Bobo Toure MD is Attending Physician. rn 16:16 Tana Jackson, RN is Primary Nurse. tw2 16:30 Inserted saline lock: 20 gauge in left antecubital area, using aseptic technique. Blood tw2 collected. 16:58 Arm band placed on. tw2 17:13 XRAY Chest (1 view) In Process Unspecified. EDMS 17:35 Cayden Tello is Hospitalizing Provider. rn 18:29 CRP Sent. tw2 19:09 Report given to ALMA Callahan. tw2 Administered Medications: 16:30 Drug: NS 0.9% 1000 ml Route: IV; Rate: 1000 ml; Site: left antecubital; tw2 18:20 Follow up: Response: No adverse reaction; IV Status: Completed infusion; IV Intake: tw2 1000ml 16:48 Drug: Tussionex Pennkinetic ER (chlorpheniramine-hydrocodone) Suspension 5 ml Route: PO;tw2 17:40 Follow up: Response: No adverse reaction; Other; Other - cough has decreased tw2 18:55 Drug: Insulin Regular Human 5 units {Co-Signature: vg1 (Flores Saab RN).} Route: tw2 Sub-Q; Site: right upper arm; Intake: 18:20 IV: 1000ml; Total: 1000ml. tw2 Outcome: 17:36 Decision to Hospitalize by Provider. rn 05/31 19:14 Patient left the ED. bb Signatures: Dispatcher [employer] EDPA Danielle Jerez RN RN bb Bobo Toure MD MD rn Smirch, Shelby, RN RN Tana Jackson RN RN tw2 Joleen Walton RN RN kg Flores Saab RN vg1 Corrections: (The following items were deleted from the chart) 05/30 14:31 14:27 BP 127 / 79; Pulse 71bpm; Resp 20bpm; Pulse Ox 100% RA; Temp 98.1F; 77.11 kg kg Reported; Height 5 ft. 0 in.; BMI: 33.2; Pain 0/10; kg
[2021-05-30] MEDS ORDERED: INSULIN -REGULAR HUMAN 50 UNIT/0.5 ML ML ONE ×2 (19:15→21:17)
--- NOTE | 2021-05-30 19:18 | P.HP ---
Certification for Inpatient Patient admitted to: Observation With expected LOS: <2 Midnights Patient will require the following post-hospital care: None Practitioner: I am a practitioner with admitting privileges, knowledge of patient current condition, hospital course, and medical plan of care. Services: Services provided to patient in accordance with Admission requirements found in Title 42 Section 412.3 of the Code of Federal Regulations Patient History Date of Service: 05/30/21 Primary Care Provider: Gume goodwin Reason for admission: Dehydration, hyperglycemia History of Present Illness: 50-year-old -Filipino female with history of diabetes mellitus type 2, hypertension presents emergency department for shortness of breath, nausea, vomiting. Patient reports feeling unwell over the course of the last 2 weeks. Patient was evaluated in the emergency department, labs were significant for blood sugar of 332 specific gravity of urine greater than 1.03 patient tested positive for Covid. Patient with unreliable follow-up, is subjectively short of breath with noted tachypnea. ED beverages to enter observation for further evaluation and management. Allergies No Known Drug Allergies Allergy (Verified 06/16/18 14:29) Unknown Home Medications: Dicyclomine HCl 10 mg PO Q6H PRN 06/16/18 Escitalopram [Lexapro*] 1 tab PO DAILY 06/16/18 Codeine/APAP [Tylenol W/Codeine #3 tab] 1 tab PO Q4HP PRN #30 tab 06/17/18 Sulfamethoxazole/Trimethoprim [Bactrim Ds Tablet] 1 each PO BID #10 tablet 06/17/18 - Past Medical/Surgical History Diabetic: No -: depression -: Hypertension -: Diabetes mellitus type 2 -: uterine ablasion Psychosocial/ Personal History: Patient lives at home with her children, currently unemployed - Family History Mother -: Hypertension - Social History Smoking Status: Never smoker Alcohol use: Yes CD- Drugs: No Caffeine use: Yes Place of Residence: Home Review of Systems 10-point ROS is otherwise unremarkable Respiratory: Cough, Shortness of Breath Gastrointestinal: Nausea, Vomiting, Abdominal Pain Physical Examination - Physical Exam General: Alert, In no apparent distress, Oriented x3 HEENT: Atraumatic, PERRLA, Mucous membr. moist/pink, EOMI, Sclerae nonicteric Neck: Supple, 2+ carotid pulse no bruit, No LAD, Without JVD or thyroid abnormality Respiratory: Clear to auscultation bilaterally, Normal air movement Cardiovascular: Regular rate/rhythm, Normal S1 S2 Gastrointestinal: Normal bowel sounds, No tenderness Musculoskeletal: No tenderness Integumentary: No rashes Neurological: Normal speech, Normal strength at 5/5 x4 extr, Normal tone, Normal affect Lymphatics: No axilla or inguinal lymphadenopathy - Studies Laboratory Data (last 24 hrs) 05/30/21 16:35: Sodium 139, Potassium 3.9, BUN 12, Creatinine 0.98, Glucose 245 H, Total Bilirubin 0.4, AST 61 H, ALT 87 H, Alkaline Phosphatase 94, Lipase 71 L 05/30/21 16:35: WBC 9.30, Hgb 13.8, Hct 41.4, Plt Count 227 Microbiology Data (last 24 hrs): 05/30/21 14:20 Nasopharnyx Influenza Type A Antigen Screen - Final 05/30/21 14:20 Nasopharnyx Influenza Type B Antigen Screen - Final Assessment and Plan - Plan Assessment: Tachypnea, dyspnea, cough secondary to COVID-19 pneumonia Nausea/vomiting/dehydration secondary to above Diabetes type 2 with hyperglycemia Hypertension Plan: Tachypnea, dyspnea, cough secondary to COVID-19 pneumonia: Patient saturating well on room air to 9800%, will hold off on steroids given hyperglycemia. Continue with oral supplementation. Daily room saturations, if patient does well overnight can likely go home tomorrow. Patient reports having symptoms over the course of the last 2 weeks. Nausea/vomiting/dehydration secondary to above: Continue with gentle hydration, as needed antiemetics. Diabetes type 2 with hyperglycemia: AC at bedtime Accu-Chek, sliding scales and therapy. A1c with morning labs. Initiate Lantus 10 units subcutaneous nightly. Patient need to follow-up and establish with primary care doctor. Patient not currently taking any medications for her diabetes. Hypertension: Continue home medications. Adjust as necessary. DVT PPX: Lovenox Code status: Full Discharge Plan: Home Plan to discharge in: 24 Hours - Advance Directives Does patient have a Living Will: No Does patient have a Durable POA for Healthcare: No - Code Status/Comfort Care Code Status Assessed: Yes (Full code) Critical Care: No Time Spent Managing Pts Care (In Minutes): 55
[2021-05-30 20:19] VITALS: O2SAT 98; BMI 31.7
[2021-05-30] MEDS ORDERED: GLUCAGON 1 MG/VIAL IM PRN (20:27)
[2021-05-30] MEDS: NA CHLORIDE 0.9% 1,000 ML IV SCH (20:27)
[2021-05-30] MEDS ORDERED: D50W 25 GM/50 ML SYRINGE IV PRN (20:27)
[2021-05-30] MEDS ORDERED: BENZONATATE 100 MG CAP PO PRN (20:27)
[2021-05-30] MEDS ORDERED: ONDANSETRON 4 MG/2 ML VIAL IV PRN (20:27)
[2021-05-30] MEDS: INSULIN -REGULAR HUMAN 50 UNIT/0.5 ML ML SQ SCH (21:00)
[2021-05-30] MEDS: ASCORBIC ACID 500 MG TABLET PO SCH (21:00)
[2021-05-30] MEDS ORDERED: INSULIN GLARGINE 100 UNITS/ML SQ SCH (21:00)
[2021-05-30] MEDS ORDERED: INSULIN GLARGINE 100 UNITS/ML SQ ONE (21:16)
[2021-05-30] MEDS ORDERED: ASCORBIC ACID 500 MG TABLET ONE (21:16)
[2021-05-30] MEDS ORDERED: BENZONATATE 100 MG CAP PO ONE (21:26)
[2021-05-31 04:36] LABS: Absolute Lymphocytes (CBC) 3.3 K/uL (0.7-4.9); Basophils % 0.5 % (0-1.3); Hematocrit 35.3 % (36.0-45.0); MPV 8.2 fL (7.6-11.3)
[2021-05-31] MEDS ORDERED: HYDROCODONE/CHLORPHEN 5 ML/OSYR PO ONE (04:40)
[2021-05-31 04:51] LABS: Albumin 2.7 g/dL (3.4-5.0); Bilirubin Total 0.4 mg/dL (0.2-1.0); C-Reactive Protein 87.7 mg/L (<3.00); Magnesium 1.9 mg/dL (1.8-2.4); Potassium 3.6 mmol/L (3.5-5.1); Protein, Total 6.6 g/dL (6.4-8.2)
[2021-05-31] MEDS ORDERED: HYDROCODONE/CHLORPHEN 5 ML/OSYR ONE (05:06)
[2021-05-31] MEDS: INSULIN -REGULAR HUMAN 50 UNIT/0.5 ML ML SQ SCH ×3 (07:30→16:30)
[2021-05-31] MEDS ORDERED: INSULIN -REGULAR HUMAN 50 UNIT/0.5 ML ML ONE ×3 (08:09→17:16)
[2021-05-31] MEDS ORDERED: ASPIRIN EC 81 MG TAB PO SCH (09:00)
[2021-05-31] MEDS: ASCORBIC ACID 500 MG TABLET PO SCH ×3 (09:00→17:00)
[2021-05-31] MEDS ORDERED: POTASSIUM CL SA 10 MEQ TAB PO ONE ×2 (09:00→09:58)
[2021-05-31] MEDS ORDERED: ZINC SULFATE 220 MG CAP PO SCH (09:00)
[2021-05-31] MEDS ORDERED: ENOXAPARIN 40 MG/0.4 ML SQ SCH (09:00)
[2021-05-31] MEDS ORDERED: VITAMIN D 1000 UNIT TAB PO SCH (09:00)
[2021-05-31] MEDS ORDERED: THIAMINE HCL 100 MG TABLET PO SCH (09:00)
[2021-05-31] MEDS: NA CHLORIDE 0.9% 1,000 ML IV SCH (09:47)
[2021-05-31] MEDS ORDERED: ASPIRIN EC 81 MG TAB PO ONE (09:58)
[2021-05-31] MEDS ORDERED: ZINC SULFATE 220 MG CAP ONE (09:58)
[2021-05-31] MEDS ORDERED: ASCORBIC ACID 500 MG TABLET ONE ×3 (09:58→17:38)
[2021-05-31] MEDS ORDERED: NA CHLORIDE 0.9% 1,000 ML ONE (09:59)
[2021-05-31] MEDS ORDERED: ENOXAPARIN 40 MG/0.4 ML SQ ONE (09:59)
[2021-05-31] MEDS ORDERED: VITAMIN D 1000 UNIT TAB ONE (10:43)
[2021-05-31] MEDS ORDERED: THIAMINE HCL 100 MG TABLET ONE (10:43)
[2021-05-31] MEDS ORDERED: ACETAMINOPHEN 500 MG TAB PO PRN (12:08)
[2021-05-31] MEDS ORDERED: ACETAMINOPHEN 500 MG TAB ONE (12:36)
[2021-05-31] MEDS ORDERED: ONDANSETRON 4 MG/2 ML VIAL ONE (12:50)
--- NOTE | 2021-05-31 15:01 | P.DS ---
Admission Date: 05/30/21 Discharge Date: 05/31/21 Primary Care Provider: Gume goodwin Disposition: ROUTINE DISCHARGE Discharge Condition: FAIR Reason for Admission: Dehydration, hyperglycemia - Problems (1) Type 2 diabetes mellitus with hyperglycemia Current Visit: Yes Status: Acute (2) COVID-19 Current Visit: Yes Status: Acute Brief History of Present Illness: 50-year-old -Gabonese female with history of diabetes mellitus type 2, hypertension presents emergency department for shortness of breath, nausea, vomiting. Patient reports feeling unwell over the course of the last 2 weeks. Patient was evaluated in the emergency department, labs were significant for blood sugar of 332. Patient tested positive for Covid. Patient not hypoxic. She was hospitalized for further management. Hospital Course: Patient placed under observation and blood sugar managed with Lantus insulin. She was not hypoxic, not febrile. Blood sugar levels improved and currently within normal range. She is clinically stable for discharge. Patient informed to return to the ED should she experienced more shortness of breath. Her hemoglobin A1c is 11.6. She is prescribed Lantus insulin for glucose management. Vital Signs/Physical Exam: Temp Pulse Resp BP Pulse Ox 98.8 F 92 H 22 H 115/77 99 05/31/21 04:00 05/31/21 12:00 05/31/21 12:00 05/31/21 12:00 05/31/21 12:00 General: Alert, In no apparent distress, Oriented x3 Neck: JVD not distended Respiratory: Other (Nonlabored breathing) Cardiovascular: No edema, Regular rate/rhythm Gastrointestinal: Non-distended Musculoskeletal: No swelling Integumentary: No rashes Neurological: Normal strength at 5/5 x4 extr Laboratory Data at Discharge: WBC 7.80 K/uL (4.3-10.9) D 05/31/21 04:24 Hgb 11.9 g/dL (12.0-15.0) L 05/31/21 04:24 Hct 35.3 % (36.0-45.0) L 05/31/21 04:24 Plt Count 212 K/uL (152-406) 05/31/21 04:24 Sodium 141 mmol/L (136-145) 05/31/21 04:24 Potassium 3.6 mmol/L (3.5-5.1) 05/31/21 04:24 BUN 11 mg/dL (7-18) 05/31/21 04:24 Creatinine 0.82 mg/dL (0.55-1.3) 05/31/21 04:24 Glucose 176 mg/dL (74-106) H 05/31/21 04:24 Magnesium 1.9 mg/dL (1.8-2.4) 05/31/21 04:24 Total Bilirubin 0.4 mg/dL (0.2-1.0) 05/31/21 04:24 AST 40 U/L (15-37) H 05/31/21 04:24 ALT 65 U/L (12-78) 05/31/21 04:24 Alkaline Phosphatase 77 U/L (45-117) 05/31/21 04:24 Lipase 71 U/L (73-393) L 05/30/21 16:35 Home Medications: Ascorbic Acid [Vitamin C*] 500 mg PO QID #120 tablet 05/31/21 Aspirin [Aspirin EC] 162 mg PO DAILY #60 tablet. 05/31/21 Benzonatate [Tessalon Perle*] 100 mg PO TID PRN #30 cap 05/31/21 Codeine/APAP [Tylenol #3*] 1 tab PO Q4HP PRN #30 tab 05/31/21 Dicyclomine HCl 10 mg PO Q6H PRN #30 05/31/21 Escitalopram [Lexapro*] 1 tab PO DAILY #30 tab 05/31/21 Insulin Glargine Human [Lantus*] 10 units SQ BEDTIME #10 ml 05/31/21 Ivermectin 15 mg PO Q48H #10 tablet 05/31/21 Thiamine HCl [Vitamin B-1*] 200 mg PO DAILY #60 tablet 05/31/21 Zinc Sulfate [Zinc Sulfate*] 220 mg PO DAILY #30 cap 05/31/21 New Medications: Codeine/APAP [Tylenol #3*] 1 tab PO Q4HP PRN #30 tab PRN Reason: Pain Aspirin [Aspirin EC] 162 mg PO DAILY #60 tablet. Dicyclomine HCl 10 mg PO Q6H PRN #30 PRN Reason: Pain Ivermectin 15 mg PO Q48H #10 tablet Insulin Glargine Human [Lantus*] 10 units SQ BEDTIME #10 ml Escitalopram [Lexapro*] 1 tab PO DAILY #30 tab Benzonatate [Tessalon Perle*] 100 mg PO TID PRN #30 cap PRN Reason: Cough Thiamine HCl [Vitamin B-1*] 200 mg PO DAILY #60 tablet Ascorbic Acid [Vitamin C*] 500 mg PO QID #120 tablet Zinc Sulfate [Zinc Sulfate*] 220 mg PO DAILY #30 cap Physician Discharge Instructions: Please return to the emergency department if you become more short of breath. Diet: ADA Activity: Ad jia Followup: NONE,NONE [Primary Care Provider] - 1-2 Weeks
[2021-05-31 16:30] VITALS: BP 115/62; TEMP 98.9
== END 2021-05-31 19:06 | disposition home or self-care (01) ==
LOC: ER 13:19 → ERHOLD 19:08
PROVIDERS: ADMIT Internal Medicine; ATTEND Internal Medicine
DX: E11.65 Type 2 diabetes mellitus with hyperglycemia (principal); U07.1 COVID-19; E86.0 Dehydration; R11.2 Nausea with vomiting, unspecified; I10 Essential (primary) hypertension; F32.9 Major depressive disorder, single episode, unspecified; F17.210 Nicotine dependence, cigarettes, uncomplicated; Z82.49 Family history of ischemic heart disease and other diseases of the circulatory system
CPT/HCPCS: 96361; 87040 ×2; 85025 ×2; 80048; 36415; 83735; 81025; 82947 ×5; 80076; 81003; 83036; 83690; 80053; 84145; 86140 ×2; 87804 ×2; 71045; 96360; 96372; 99284; U0003; J1650; J1815; J7030 ×3; J2405; G0378 ×3

== ENCOUNTER 2022-03-29 08:35 | Day surgery (SDC) | payer OTHER ==
[2022-03-29 09:18] LABS: MPV 7.5 fL (7.6-11.3)
[2022-03-29 09:20] VITALS: BMI 32.9
[2022-03-29 09:25] LABS: Protime INR 1.02
[2022-03-29 12:15] LABS: CSF Glucose 72 mg/dL (40-70)
--- NOTE | 2022-03-29 12:37 | RAD REPORT ---
EXAM DESCRIPTION: RAD - Lumbar Puncture For Dx - 03/29/2022 11:26 am CLINICAL HISTORY: Headache and memory loss COMPARISON: None FINDINGS: The risks, benefits and alternatives to the procedure were explained to the patient and in formed consent obtained. The patient was placed prone into the fluoroscopy suite. The skin and subcutaneous tissues were anest hetized with lidocaine. Under fluoroscopic guidance a 22 gauge spinal needle was advanced into the th ecal sac at L3-4 level 10 cc of clear CSF was removed and sent to the lab Fluoroscopy time 0.6 minutes One fluoroscopic spot image obtained IMPRESSION: Lumbar puncture
[2022-03-29 12:40] LABS: Appearance CLEAR (CLEAR); Body Fluid Source CSF; Color of fluid Colorless (COLORLESS); Fluid Total Volume 11 ml
[2022-03-29 12:41] LABS: Body Fluid WBC 1 /mm^3
[2022-03-29 14:15] VITALS: BP 136/82; TEMP 98; O2SAT 100
== END 2022-03-29 13:20 | disposition home or self-care (01) ==
LOC: DS 08:35 → EDSTATUS 10:00 → DS 13:20
PROVIDERS: ATTEND Psychiatry & Neurology Neurology with Special Qualifications in Child Neurology
PROC: 009U3ZX Drainage of Spinal Canal, Percutaneous Approach, Diagnostic (ICD-10-PCS; principal; 2022-03-29)
DX: A53.0 Latent syphilis, unspecified as early or late (principal); F03.90 Unspecified dementia, unspecified severity, without behavioral disturbance, psychotic disturbance, mood disturbance, and anxiety
CPT/HCPCS: 36415; 77003; 82945; 84157; 85049; 85610; 85730; 87015; 87116; 87206; 88108; 89050

== ENCOUNTER 2022-08-24 03:19 | Emergency (ER) | payer OTHER, SELFPAY ==
--- OUTSIDE RECORDS SUMMARY | 2022-08-24 03:22 | XMS REPORT | Continuity of Care Document ---
:1970 Author Organization [facility] t Address [address] [place] [address] Care Team Providers Name Role Phone Rehana Cabrales Attending Clinician Problems This patient has no known problems. Allergies, Adverse Reactions, Alerts Allergy Allergy Status Severity Reaction(s) Onset Inactive Treating Comm ents Source Name Type Date Date Clinician NO KNOWN Drug Active [facility] ALLERGIE Class [facility] Medications This patient has no known medications. Procedures This patient has no known procedures. Encounters Start End Encounter Admission Attending Care Care Encounter Source Date/Time Date/Time Type Type Clinicians Facility Department ID 2021-01-02 2021-01-02 Emergency TIMMY Yeung [id number] 11:56:00 20:07:00 Rehana Lara [id number] [place] [id number] [place] [id number] 2021-01-02 2021-01-02 Emergency X RUST ERT [id number] 11:32:00 11:32:00 [facility] Results This patient has no known results.
--- NOTE | 2022-08-24 04:30 | EDPHYS ---
Physician Documentation [facility] Name: Sherri Best Age: 51 yrs Sex: Female : 1970 Arrival Date: 08/24/2022 Time: 03:23 Bed 6 Private MD: ED Physician Sly Hay HPI: 08/24 03:48 This 51 yrs old Black Female presents to ER via EMS with complaints of Cough. ms3 03:48 51-year-old female with past medical history of diabetes presents for cough that began ms3 on Friday. Patient states she vomited 2 times yesterday. Patient describes her discomfort as a 7/10 and aching. Patient endorses headache, runny nose, chills. Patient denies fevers. Patient denies alleviating or inciting factors.. Historical: - Allergies: 03:25 NKA; jb4 - Home Meds: 03:25 aspirin 81 mg Oral chew [Active]; jb4 - PMHx: 03:25 Diabetes - NIDDM; Depression; Hypertension; jb4 - Immunization history:: Adult Immunizations up to date. - Social history:: Smoking status: unknown. ROS: 03:48 Eyes: Negative for injury, pain, redness, and discharge, Neck: Negative for injury, ms3 pain, and swelling, Cardiovascular: Negative for chest pain, and palpitations. Respiratory: Negative for shortness of breath, cough, wheezing, and pleuritic chest pain, Abdomen/GI: Negative for abdominal pain, nausea, vomiting, diarrhea, and constipation, MS/Extremity: Negative for injury and deformity, Skin: Negative for injury, rash, and discoloration, Allergy/Immunology: Negative for hives, rash, and allergies. 03:48 Constitutional: Positive for chills. 03:48 All other systems are negative. Exam: 03:48 Constitutional: This is a well developed, well nourished patient who is awake, alert, ms3 and in no acute distress. Head/Face: Normocephalic, atraumatic. Neck: Trachea midline, no cervical lymphadenopathy. Supple, full range of motion without nuchal rigidity, or vertebral point tenderness. No Meningismus. Chest/axilla: Normal chest wall appearance and motion. Nontender with no deformity. Cardiovascular: Regular rate and rhythm with a normal S1 and S2. No gallops, murmurs, or rubs. Normal PMI, no JVD. No pulse deficits. Respiratory: Lungs have equal breath sounds bilaterally, clear to auscultation and percussion. No rales, rhonchi or wheezes noted. No increased work of breathing, no retractions or nasal flaring. Abdomen/GI: Soft, non-tender, with normal bowel sounds. No distension or tympany. No guarding or rebound. No evidence of tenderness throughout. Back: No spinal tenderness. No costovertebral tenderness. Full range of motion. 03:48 ENT: External ear(s): Nose: External nose: no obvious acute abnormality, Nasal septum: Nasal mucosa: edematous, Turbinates: are normal, nasal drainage, that is minimal, and is seen coming from both nares, that is clear. Vital Signs: 03:23 BP 146 / 87; Pulse 97; Resp 16; Temp 98.8(O); Pulse Ox 97% on R/A; Weight 81.65 kg (R); jb4 Height 5 ft. 2 in. (157.48 cm) (R); 03:23 Body Mass Index 32.92 (81.65 kg, 157.48 cm) jb4 MDM: 03:32 Patient medically screened. ms3 03:48 Data reviewed: vital signs, nurses notes. ms3 04:27 Differential Diagnosis: Bronchitis Influenza Upper Respiratory Infection. Counseling: I ms3 had a detailed discussion with the patient and/or guardian regarding: the historical points, exam findings, and any diagnostic results supporting the discharge/admit diagnosis, lab results, the need for outpatient follow up, to return to the emergency department if symptoms worsen or persist or if there are any questions or concerns that arise at home. ED course: Discussed labs with patient. Patient to follow-up with primary care physician in 2 to 3 days. Patient understands agrees with plan. All questions were answered. Return precautions discussed include worsening symptoms, or any other concerns. On reevaluation patient is alert oriented x4, in no apparent distress, nontoxic-appearing, ambulatory Emergency Department. 08/24 03:32 Order name: SARS-COV-2 RT PCR (Document "Date of Onset" if Symptomatic); Complete Time: jb4 04:25 08/24 03:32 Order name: Flu; Complete Time: :25 jb4 08/24 03:32 Order name: Strep; Complete Time: 04:25 jb4 08/24 04:27 Order name: Throat Culture EDMS Administered Medications: 04:28 Drug: Tessalon Perle (benzonatate) 200 mg Route: PO; ha1 04:38 Follow up: Response: No adverse reaction; Medication administered at discharge. jb4 Disposition Summary: 08/24/22 04:29 Discharge Ordered Location: Home ms3 Condition: Stable ms3 Diagnosis - Cough ms3 - Acute upper respiratory infection, unspecified ms3 Followup: ms3 - With: Jose Kyle DO - When: 2 - 3 days - Reason: Recheck today's complaints Discharge Instructions: - Discharge Summary Sheet ms3 - Viral Respiratory Infection, [id number] ms3 - Cough, Adult ms3 Forms: - Medication Reconciliation Form ms3 - Thank You Letter ms3 - Antibiotic Education ms3 - Prescription Opioid Use ms3 Prescriptions: - benzonatate 200 mg Oral Capsule - take 1 capsule by ORAL route 3 times per day as needed; 20 capsule; Refills: 0, ms3 Product Selection Permitted Signatures: Dispatcher [employer] EDMS Nate Alvarado, RN RN jb4 Sly Hay DO DO ms3 Jailyn Briceno, RN RN ha1
--- NOTE | 2022-08-24 04:30 | ER ---
Nurse's Notes [facility] Name: Sherri Best Age: 51 yrs Sex: Female : 1970 Arrival Date: 08/24/2022 Time: 03:23 Bed 6 Private MD: Diagnosis: Cough;Acute upper respiratory infection, unspecified Presentation: 08/24 03:23 Chief complaint: EMS states: PT reports cough and congestion for the past 3 days. has jb4 been taking Robitussin to help with symptoms. Coronavirus screen: Client presents with at least one sign or symptom that may indicate coronavirus-19. Standard/surgical mask placed on the client. Provider contacted for isolation considerations. Ebola Screen: No symptoms or risks identified at this time. Initial Sepsis Screen: Does the patient meet any 2 criteria? HR > 90 bpm. Yes Does the patient have a suspected source of infection? No. Patient's initial sepsis screen is negative. Risk Assessment: Do you want to hurt yourself or someone else? Patient reports no desire to harm self or others. Onset of symptoms was August 21, 2022. 03:23 Method Of Arrival: [facility] jb4 03:23 Acuity: LUIS A 4 jb4 Historical: - Allergies: 03:25 NKA; jb4 - Home Meds: 03:25 aspirin 81 mg Oral chew [Active]; jb4 - PMHx: 03:25 Diabetes - NIDDM; Depression; Hypertension; jb4 - Immunization history:: Adult Immunizations up to date. - Social history:: Smoking status: unknown. Screenin:35 Abuse screen: Denies threats or abuse. Nutritional screening: No deficits noted. jb4 Tuberculosis screening: No symptoms or risk factors identified. Fall Risk None identified. Assessment: 03:34 General: Appears in no apparent distress. uncomfortable, Behavior is calm, cooperative, jb4 appropriate for age. Pain: Denies pain. Neuro: Level of Consciousness is awake, alert, obeys commands, Oriented to person, place, time, situation. Cardiovascular: Patient's skin is warm and dry. Respiratory: Reports cough that is persistent Airway is patent Respiratory effort is even, unlabored, Respiratory pattern is regular, symmetrical. GI: No signs and/or symptoms were reported involving the gastrointestinal system. : No signs and/or symptoms were reported regarding the genitourinary system. EENT: No signs and/or symptoms were reported regarding the EENT system. Derm: Skin is intact, Skin is pink, warm \T\ dry. Musculoskeletal: Circulation, motion, and sensation intact. Range of motion: intact in all extremities. 04:36 Reassessment: Patient appears in no apparent distress at this time. Patient and/or jb4 family updated on plan of care and expected duration. Pain level reassessed. Patient is alert, oriented x 3, equal unlabored respirations, skin warm/dry/pink. Vital Signs: 03:23 BP 146 / 87; Pulse 97; Resp 16; Temp 98.8(O); Pulse Ox 97% on R/A; Weight 81.65 kg (R); jb4 Height 5 ft. 2 in. (157.48 cm) (R); 03:23 Body Mass Index 32.92 (81.65 kg, 157.48 cm) jb4 ED Course: 03:23 Patient arrived in ED. jb4 03:25 Triage completed. jb4 03:25 Arm band placed on right wrist. jb4 03:32 Sly Hay DO is Attending Physician. ms3 03:35 Patient has correct armband on for positive identification. Bed in low position. Call jb4 light in reach. Side rails up X 1. Client placed on continuous cardiac and pulse oximetry monitoring. NIBP monitoring applied. 03:35 No provider procedures requiring assistance completed. Patient did not have IV access jb4 during this emergency room visit. 04:22 Nate Alvarado RN is Primary Nurse. jb4 04:29 Jose Kyle DO is Referral Physician. ms3 Administered Medications: 04:28 Drug: Tessalon Perle (benzonatate) 200 mg Route: PO; ha1 04:38 Follow up: Response: No adverse reaction; Medication administered at discharge. jb4 Medication: 04:36 VIS not applicable for this client. jb4 Outcome: 04:29 Discharge ordered by . ms3 04:37 Discharged to home ambulatory. jb4 04:37 Condition: stable 04:37 Discharge instructions given to patient, Instructed on discharge instructions, follow up and referral plans. medication usage, Demonstrated understanding of instructions, follow-up care, medications, Prescriptions given X 1. 04:39 Patient left the ED. jb4 Signatures: Nate Alvarado RN RN jb4 Sly Hay DO DO ms3 Jailyn Briceno, RN RN ha1
[2022-08-24] MEDS ORDERED: BENZONATATE 100 MG CAP PO ONE (04:31)
[2022-08-24 04:45] VITALS: BP 146/87; TEMP 98.8; O2SAT 97
== END 2022-08-24 04:39 | disposition home or self-care (01) ==
LOC: ER 03:19
DX: J06.9 Acute upper respiratory infection, unspecified (principal); Z20.822 Contact with and (suspected) exposure to COVID-19; I10 Essential (primary) hypertension; Z79.82 Long term (current) use of aspirin
CPT/HCPCS: 87070; 87081; 87804; 99283; U0003

== ENCOUNTER 2022-08-24 18:06 | Emergency (ER) | payer SELFPAY ==
--- OUTSIDE RECORDS SUMMARY | 2022-08-24 18:12 | XMS REPORT | Continuity of Care Document ---
:1970 Author Organization [facility] t Address [address] [place] [address] Care Team Providers Name Role Phone Rehana Cabrales Attending Clinician Problems This patient has no known problems. Allergies, Adverse Reactions, Alerts Allergy Allergy Status Severity Reaction(s) Onset Inactive Treating Comm ents Source Name Type Date Date Clinician NO KNOWN Drug Active [facility] ALLERGIE Class [facility] Medications This patient has no known medications. Procedures This patient has no known procedures. Encounters Start End Encounter Admission Attending Care Care Encounter Source Date/Time Date/Time Type Type Clinicians Facility Department ID 2021-01-02 2021-01-02 Emergency Anjana [facility] [id number] 11:56:00 20:07:00 Rehana Lara [id number] [place] [id number] [place] [id number] 2021-01-02 2021-01-02 Emergency X [facility] ERT [id number] [facility] 11:32:00 11:32:00 [facility] Results This patient has no known results.
[2022-08-24] MEDS ORDERED: dexAMETHasone 10 MG/ML VIAL ONE (18:26)
[2022-08-24] MEDS ORDERED: AZITHROMYCIN 250 MG TAB ONE (18:26)
--- NOTE | 2022-08-24 18:50 | ER ---
Nurse's Notes [facility] Name: Sherri Best Age: 51 yrs Sex: Female : 1970 Arrival Date: 08/24/2022 Time: 18:08 Bed 11 Private MD: Diagnosis: Acute pharyngitis, unspecified Presentation: 08/24 18:11 Chief complaint: Persistent cough x 1 week. Seen in ED last night, has not started hb Tessalon yet. Coronavirus screen: Client presents with at least one sign or symptom that may indicate coronavirus-19. Standard/surgical mask placed on the client. Provider contacted for isolation considerations. Ebola Screen: No symptoms or risks identified at this time. Risk Assessment: Do you want to hurt yourself or someone else? Patient reports no desire to harm self or others. Onset of symptoms was August 16, 2022. 18:11 Method Of Arrival: Ambulatory hb 18:11 Acuity: LUIS A 4 hb 19:06 Initial Sepsis Screen: Does the patient meet any 2 criteria? No. Patient's initial kb3 sepsis screen is negative. Does the patient have a suspected source of infection? No. Patient's initial sepsis screen is negative. 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 - Social history:: Smoking status: Patient denies any tobacco usage or history of. Screenin:43 Abuse screen: Denies threats or abuse. Denies injuries from another. Nutritional kb3 screening: No deficits noted. Tuberculosis screening: No symptoms or risk factors identified. Fall Risk None identified. Assessment: 18:20 General: Appears in no apparent distress. ill, Behavior is calm, cooperative, Received kb3 care of pt from triage. Pt was seen at 0400 this morning for cough, received prescription for Tessalon Perles. Unknown if she filled prescription but patient reports cough and feeling unwell continues. . 18:20 Pain: Complains of pain in head and chest Pain does not radiate. Pain currently is 8 kb3 out of 10 on a pain scale. Quality of pain is described as aching. GI: Abdomen is round Reports Pt reports coughing so hard that she has vomited twice. Vital Signs: 18:11 BP 150 / 109; Pulse 110; Resp 20; Temp 97.7; Pulse Ox 100% on R/A; Weight 81.65 kg; hb Height 5 ft. 2 in. (157.48 cm); Pain 3/10; 19:05 BP 148 / 98; Pulse 102; Resp 20; Pulse Ox 99% ; kb3 18:11 Body Mass Index 32.92 (81.65 kg, 157.48 cm) hb ED Course: 18:08 Patient arrived in ED. as 18:13 Triage completed. hb 18:13 Arm band placed on. 18:15 Yvonne Carmichael, RN is Primary Nurse. kb3 18:16 Jose Wharton PA is PHCP. [facility] 18:16 Boob Toure MD is Attending Physician. [facility] 18:43 Patient has correct armband on for positive identification. Bed in low position. Call kb3 light in reach. 18:43 No provider procedures requiring assistance completed. Patient did not have IV access kb3 during this emergency room visit. Administered Medications: 18:29 Drug: Decadron (dexamethasone) 10 mg Route: IM; Site: left ventrogluteal; kb3 19:07 Follow up: Response: No adverse reaction kb3 18:29 Drug: Zithromax (azithromycin) 500 mg Route: PO; kb3 19:07 Follow up: Response: No adverse reaction kb3 Medication: 18:43 VIS not applicable for this client. kb3 Outcome: 18:49 Discharge ordered by . [facility] 19:06 Discharged to home ambulatory. kb3 19:06 Condition: stable 19:06 Discharge instructions given to patient, Instructed on discharge instructions, follow up and referral plans. medication usage, Demonstrated understanding of instructions, follow-up care, medications, Prescriptions given X 3. 19:07 Patient left the ED. kb3 Signatures: Jose Wharton PA PA jmm Martinez, Amelia as Baxter, Heather, RN RN Yvonne Carmichael, ALMA RN kb3 Corrections: (The following items were deleted from the chart) 18:17 18:11 Chief complaint: Persistent cough x 1 week. Seen in ED last weekend, reports hb cough is getting worse and not responding to OTC meds. hb 18:18 18:11 Acuity: LUIS A 3 hb hb
--- NOTE | 2022-08-24 18:50 | EDPHYS ---
Physician Documentation [facility] Name: Sherri Best Age: 51 yrs Sex: Female : 1970 Arrival Date: 08/24/2022 Time: 18:08 Bed 11 Private MD: ED Physician Bobo Toure HPI: 08/24 18:17 This 51 yrs old Black Female presents to ER via Ambulatory with complaints of Cough. jmm 18:17 The patient or guardian reports cough. Onset: The symptoms/episode began/occurred jmm gradually, 1 week(s) ago. Modifying factors: The symptoms are alleviated by nothing, the symptoms are aggravated by animal dander. 81-year-old female with history of diabetes mellitus, hypertension, depression the presents emerged part with complaints of ongoing cough for over a week. Complains of body aches and fatigue. Was seen earlier this morning and given Tessalon Perles. Patient did not fill the prescription but states symptoms are getting worse. 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 - Social history:: Smoking status: Patient denies any tobacco usage or history of. ROS: 18:17 Constitutional: Positive for body aches. jmm 18:17 ENT: Positive for sore throat. 18:17 Respiratory: Positive for cough. 18:17 All other systems are negative. Exam: 18:17 Constitutional: This is a well developed, well nourished patient who is awake, alert, jmm and in no acute distress. Head/Face: atraumatic. Eyes: EOMI, no conjunctival erythema appreciated 18:17 Neck: Trachea midline, Supple Chest/axilla: Normal chest wall appearance and motion. Cardiovascular: Regular rate and rhythm. No edema appreciated Respiratory: Normal respirations, no respiratory distress appreciated Abdomen/GI: Non distended Back: Normal ROM Skin: General appearance color normal MS/ Extremity: Moves all extremities, no obvious deformities appreciated, no edema noted to the lower extremities Neuro: Awake and alert Psych: Behavior is normal, Mood is normal, Patient is cooperative and pleasant 18:17 ENT: Posterior pharynx: erythema, that is mild. Vital Signs: 18:11 BP 150 / 109; Pulse 110; Resp 20; Temp 97.7; Pulse Ox 100% on R/A; Weight 81.65 kg; hb Height 5 ft. 2 in. (157.48 cm); Pain 3/10; 19:05 BP 148 / 98; Pulse 102; Resp 20; Pulse Ox 99% ; kb3 18:11 Body Mass Index 32.92 (81.65 kg, 157.48 cm) hb MDM: 18:17 Patient medically screened. [facility] 18:48 Data reviewed: vital signs, nurses notes. Counseling: I had a detailed discussion with [facility] the patient and/or guardian regarding: the historical points, exam findings, and any diagnostic results supporting the discharge/admit diagnosis, the need for outpatient follow up, to return to the emergency department if symptoms worsen or persist or if there are any questions or concerns that arise at home. ED course: Throat culture was sent. Will prescribe oral antibiotics for acute pharyngitis.. Administered Medications: 18:29 Drug: Decadron (dexamethasone) 10 mg Route: IM; Site: left ventrogluteal; kb3 19:07 Follow up: Response: No adverse reaction kb3 18:29 Drug: Zithromax (azithromycin) 500 mg Route: PO; kb3 19:07 Follow up: Response: No adverse reaction kb3 Disposition: 08/25 07:15 Co-signature as Attending Physician, Bobo Toure MD. rn Disposition Summary: 08/24/22 18:49 Discharge Ordered Location: Home [facility] Condition: Stable [facility] Diagnosis - Acute pharyngitis, unspecified [facility] Followup: [facility] - With: Private Physician - When: 1 - 2 days - Reason: Recheck today's complaints, Continuance of care, Re-evaluation by your physician Discharge Instructions: - Discharge Summary Sheet [facility] - Pharyngitis [facility] Forms: - Medication Reconciliation Form [facility] - Thank You Letter [facility] - Antibiotic Education [facility] - Prescription Opioid Use [facility] - Work release form Prescriptions: - promethazine-DM - take 10 milliliters by ORAL route every 6 hours; 200 milliliter; Refills: 0, [facility] Product Selection Permitted - Zithromax Z-Yaya 250 mg Oral Tablet - take 1 tablet by ORAL route as directed for 5 days Day 1 - take two (2) tablets jm one time. Day 2, 3, 4 , 5 take one (1) tablet once daily.; 6 tablet; Refills: 0, Product Selection Permitted - albuterol sulfate 90 mcg/actuation Inhalation HFA aerosol inhaler - inhale 2 puff by INHALATION route every 4-6 hours As needed; 1 Pump; Refills: jmm 0, Product Selection Permitted Signatures: Jose Wharton PA PA jm Bobo Toure MD MD rn Baxter, Heather, RN RN Yvonne Carmichael RN RN kb3
[2022-08-24 19:16] VITALS: TEMP 97.7
[2022-08-24 19:23] VITALS: BP 148/98; O2SAT 99
== END 2022-08-24 19:07 | disposition home or self-care (01) ==
LOC: ER 18:06
DX: J02.9 Acute pharyngitis, unspecified (principal); R05.9 Cough, unspecified; I10 Essential (primary) hypertension
CPT/HCPCS: 96372; 99283; J1100

== ENCOUNTER 2022-10-05 15:26 | Emergency (ER) | payer SELFPAY ==
--- OUTSIDE RECORDS SUMMARY | 2022-10-05 15:29 | XMS REPORT | Continuity of Care Document ---
:1970 Author Organization [facility] t Address [address] [place] [address] Care Team Providers Name Role Phone Rehana Cabrales Attending Clinician Problems This patient has no known problems. Allergies, Adverse Reactions, Alerts Allergy Allergy Status Severity Reaction(s) Onset Inactive Treating Comm ents Source Name Type Date Date Clinician NO KNOWN Drug Active [facility] ALLERGIE Class [facility] Medications This patient has no known medications. Procedures This patient has no known procedures. Encounters Start End Encounter Admission Attending Care Care Encounter Source Date/Time Date/Time Type Type Clinicians Facility Department ID 2021-01-02 2021-01-02 Emergency Anjana [facility] [id number] 11:56:00 20:07:00 Rehana Lara [id number] [place] [id number] [place] [id number] 2021-01-02 2021-01-02 Emergency X [facility] ERT [id number] [facility] 11:32:00 11:32:00 [facility] Results This patient has no known results.
[2022-10-05 16:32] LABS: Absolute Lymphocytes (CBC) 3.4 K/uL (0.7-4.9); Hematocrit 38.4 % (36.0-45.0); MCV 86.6 fL (80-100); MPV 8.1 fL (7.6-11.3); RBC Red Blood Cell Count 4.43 M/uL (3.86-4.86)
[2022-10-05 16:38] LABS: Albumin 3.5 g/dL (3.4-5.0)
[2022-10-05 16:45] LABS: Potassium 3.5 mmol/L (3.5-5.1)
[2022-10-05 16:46] LABS: Bilirubin Total 0.3 mg/dL (0.2-1.0); Protein, Total 7.7 g/dL (6.4-8.2); Troponin High Sensitivity 4.2 pg/mL (<58.9)
[2022-10-05 17:13] LABS: SARS-COV-2 RT PCR NEGATIVE (NEGATIVE)
[2022-10-05] MEDS ORDERED: PROMETHAZINE 25 MG TABLET ONE (17:18)
[2022-10-05] MEDS ORDERED: DIAZEPAM 2 MG TABLET ONE (17:18)
--- NOTE | 2022-10-05 17:27 | RAD REPORT ---
EXAM DESCRIPTION: Amado Jain And Radha (2 Views)10/05/2022 4:44 pm CLINICAL HISTORY: Cough COMPARISON: 2020 FINDINGS: The lungs appear clear of acute infiltrate. The heart is normal size IMPRESSION: No acute abnormalities displayed
[2022-10-05] MEDS ORDERED: CEFTRIAXONE 1000 MG/VIAL ONE (18:33)
--- NOTE | 2022-10-05 18:43 | ER ---
Nurse's Notes [facility] Name: Sherri Best Age: 51 yrs Sex: Female : 1970 Arrival Date: 10/05/2022 Time: 15:27 Bed Treatment Private MD: Diagnosis: Bronchitis, not specified as acute or chronic;Leukocytosis Presentation: 10/05 15:51 Chief complaint: Patient states: headaches for past 3 days, coming and going, taking iw aspirin, and now I fell like I'm not breathing like it should be ,and then when i lay down I feel like my heart is racing and I also have a cough. Coronavirus screen: Client presents with at least one sign or symptom that may indicate coronavirus-19. Ebola Screen: Patient negative for fever greater than or equal to 101.5 degrees Fahrenheit, and additional compatible Ebola Virus Disease symptoms Patient denies exposure to infectious person. Patient denies travel to an Ebola-affected area in the 21 days before illness onset. No symptoms or risks identified at this time. Initial Sepsis Screen: Does the patient meet any 2 criteria? No. Patient's initial sepsis screen is negative. Does the patient have a suspected source of infection? No. Patient's initial sepsis screen is negative. Risk Assessment: Do you want to hurt yourself or someone else? Patient reports no desire to harm self or others. Onset of symptoms was October 04, 2022. 15:51 Method Of Arrival: Ambulatory iw 15:51 Acuity: LUIS A 3 iw Historical: - Allergies: 15:53 NKA; iw - Home Meds: 15:53 out of insulin and BP meds [Active]; iw - PMHx: 15:53 Depression; Diabetes - NIDDM; Hypertension; iw - PSHx: 15:53 uterine ablation; section; Cholecystectomy; iw - Immunization history:: Client reports receiving the 2nd dose of the Covid vaccine. - Social history:: Smoking status: . Screenin:28 Abuse screen: Denies threats or abuse. Denies injuries from another. Nutritional iw screening: No deficits noted. Tuberculosis screening: No symptoms or risk factors identified. Fall Risk None identified. Assessment: 17:27 Reassessment: Patient appears in no apparent distress at this time. Patient and/or iw family updated on plan of care and expected duration. Pain level reassessed. Patient is alert, oriented x 3, equal unlabored respirations, skin warm/dry/pink. Vital Signs: 15:51 BP 152 / 90; Pulse 102; Resp 18; Temp 97.4; Pulse Ox 100% ; Weight 81.65 kg; Height 5 iw ft. 2 in. (157.48 cm); 17:18 BP 129 / 78; Pulse 89; Resp 16; Pulse Ox 98% on R/A; iw 18:37 BP 123 / 83; Pulse 78; Resp 16; Pulse Ox 98% on R/A; iw 15:51 Body Mass Index 32.92 (81.65 kg, 157.48 cm) iw ED Course: 15:27 Patient arrived in ED. rg4 15:53 Triage completed. iw 15:55 Arm band placed on. iw 16:07 Minnie Swann FNP-C is PHCP. snw 16:07 Bay Olmstead MD is Attending Physician. snw 16:22 Patient has correct armband on for positive identification. mm9 16:22 CMP Sent. mm9 16:22 CBC with Diff Sent. mm9 16:22 Troponin High Sensitivity Sent. mm9 16:22 COVID-19/FLU A+B/RSV Sent. mm9 16:28 Inserted saline lock: 22 gauge in left antecubital area, using aseptic technique. zm 16:45 Chest Pa And Lat (2 Views) XRAY In Process Unspecified. EDMS 17:18 Meka Murray, RN is Primary Nurse. iw Administered Medications: 17:18 Drug: Promethazine 25 mg Route: PO; iw 17:45 Follow up: Response: No adverse reaction iw 17:18 Drug: Valium (diazepam) 2 mg Route: PO; iw 18:00 Follow up: Response: No adverse reaction iw 18:37 Drug: Rocephin - (cefTRIAXone) 1 grams Route: IVPB; Infused Over: 30 mins; Site: left iw antecubital; 18:50 Follow up: IV Status: Completed infusion iw Outcome: 18:42 Discharge ordered by . snw 18:59 Patient left the ED. iw Signatures: Dispatcher [employer] EDMS Minnie Swann FNP-C RN MEDICAL SURGICAL-[facility] Meka Murray, ALMA RN Nicole Saab rg4 Jannet Morales Maria mm9
--- NOTE | 2022-10-05 18:43 | EDPHYS ---
Physician Documentation [facility] Name: Sherri Best Age: 51 yrs Sex: Female : 1970 Arrival Date: 10/05/2022 Time: 15:27 Bed Treatment Private MD: ED Physician Bay Olmstead HPI: 10/05 16:47 This 51 yrs old Black Female presents to ER via Ambulatory with complaints of Cough, snw Breathing Difficulty, Headache. 16:47 The patient or guardian reports cough, flu symptoms, low-grade fever, myalgias. Onset: snw The symptoms/episode began/occurred suddenly, 3 day(s) ago, and became persistent. Severity of symptoms: At their worst the symptoms were moderate. Associated signs and symptoms: Pertinent positives: nausea, BATRES. It is unknown whether or not the patient has had similar symptoms in the past. The patient has not recently seen a physician. Historical: - Allergies: 15:53 NKA; iw - Home Meds: 15:53 out of insulin and BP meds [Active]; iw - PMHx: 15:53 Depression; Diabetes - NIDDM; Hypertension; iw - PSHx: 15:53 uterine ablation; section; Cholecystectomy; iw - Immunization history:: Client reports receiving the 2nd dose of the Covid vaccine. - Social history:: Smoking status: . ROS: 16:46 Eyes: Negative for injury, pain, redness, and discharge, ENT: Negative for injury, snw pain, and discharge, Neck: Negative for injury, pain, and swelling, Cardiovascular: Negative for chest pain, palpitations, and edema. 16:46 Abdomen/GI: Negative for abdominal pain, nausea, vomiting, diarrhea, and constipation, Back: Negative for injury and pain, : Negative for injury, bleeding, discharge, and swelling. 16:46 MS/Extremity: Negative for injury and deformity, Skin: Negative for injury, rash, and discoloration. 16:46 Constitutional: Positive for body aches, malaise. 16:46 Respiratory: Positive for cough, shortness of breath. 16:46 Neuro: Positive for headache. Exam: 16:46 Constitutional: This is a well developed, well nourished patient who is awake, alert, snw and in no acute distress. Head/Face: Normocephalic, atraumatic. Eyes: Pupils equal round and reactive to light, extra-ocular motions intact. Lids and lashes normal. Conjunctiva and sclera are non-icteric and not injected. Cornea within normal limits. Periorbital areas with no swelling, redness, or edema. ENT: Nares patent. No nasal discharge, no septal abnormalities noted. Tympanic membranes are normal and external auditory canals are clear. Oropharynx with no redness, swelling, or masses, exudates, or evidence of obstruction, uvula midline. Mucous membranes moist. Neck: Trachea midline, no thyromegaly or masses palpated, and no cervical lymphadenopathy. Supple, full range of motion without nuchal rigidity, or vertebral point tenderness. No Meningismus. Chest/axilla: Normal chest wall appearance and motion. Nontender with no deformity. No lesions are appreciated. 16:46 Respiratory: Lungs have equal breath sounds bilaterally, clear to auscultation and percussion. No rales, rhonchi or wheezes noted. No increased work of breathing, no retractions or nasal flaring. Abdomen/GI: Soft, non-tender, with normal bowel sounds. No distension or tympany. No guarding or rebound. No evidence of tenderness throughout. Back: No spinal tenderness. No costovertebral tenderness. Full range of motion. Skin: Warm, dry with normal turgor. Normal color with no rashes, no lesions, and no evidence of cellulitis. MS/ Extremity: Pulses equal, no cyanosis. Neurovascular intact. Full, normal range of motion. Neuro: Awake and alert, GCS 15, oriented to person, place, time, and situation. Cranial nerves II-XII grossly intact. Motor strength 5/5 in all extremities. Sensory grossly intact. Cerebellar exam normal. Normal gait. 16:46 Cardiovascular: Rate: tachycardic, Rhythm: regular. Vital Signs: 15:51 BP 152 / 90; Pulse 102; Resp 18; Temp 97.4; Pulse Ox 100% ; Weight 81.65 kg; Height 5 iw ft. 2 in. (157.48 cm); 17:18 BP 129 / 78; Pulse 89; Resp 16; Pulse Ox 98% on R/A; iw 18:37 BP 123 / 83; Pulse 78; Resp 16; Pulse Ox 98% on R/A; iw 15:51 Body Mass Index 32.92 (81.65 kg, 157.48 cm) iw MDM: 16:07 Patient medically screened. snw 18:44 Data reviewed: vital signs, nurses notes. Data interpreted: Pulse oximetry: on room air snw is 98 %. Interpretation: normal. Counseling: I had a detailed discussion with the patient and/or guardian regarding: the historical points, exam findings, and any diagnostic results supporting the discharge/admit diagnosis, the presence of at least one elevated blood pressure reading (>120/80) during this emergency department visit, radiology results, the need for outpatient follow up, to return to the emergency department if symptoms worsen or persist or if there are any questions or concerns that arise at home. Response to treatment: the patient's symptoms have markedly improved after treatment. Special discussion: I have referred the patient to see his PCP for further evaluation of high blood pressure. Based on the history and exam findings, there is no indication for further emergent testing or inpatient evaluation. I discussed with the patient/guardian the need to see the primary care provider for further evaluation of the symptoms. 10/05 16:07 Order name: COVID-19/FLU A+B/RSV; Complete Time: 17:18 snw 10/05 16:07 Order name: Troponin High Sensitivity; Complete Time: 16:59 snw 10/05 16:07 Order name: CBC with Diff; Complete Time: 16:45 snw 10/05 16:07 Order name: CMP; Complete Time: 16:59 snw 10/05 16:07 Order name: Chest Pa And Lat (2 Views) XRAY; Complete Time: 17:44 snw 10/05 16:07 Order name: EKG; Complete Time: 16:07 snw 10/05 16:07 Order name: EKG - Nurse/Tech; Complete Time: 17:27 snw Administered Medications: 17:18 Drug: Promethazine 25 mg Route: PO; iw 17:45 Follow up: Response: No adverse reaction iw 17:18 Drug: Valium (diazepam) 2 mg Route: PO; iw 18:00 Follow up: Response: No adverse reaction iw 18:37 Drug: Rocephin - (cefTRIAXone) 1 grams Route: IVPB; Infused Over: 30 mins; Site: left iw antecubital; 18:50 Follow up: IV Status: Completed infusion iw Disposition: 10/06 08:11 Co-signature as Attending Physician, Bay Olmstead MD I agree with the assessment and leigh ann plan of care. Disposition Summary: 10/05/22 18:42 Discharge Ordered Location: Home snw Condition: Stable snw Diagnosis - Bronchitis, not specified as acute or chronic snw - Leukocytosis snw Followup: snw - With: Emergency Department - When: As needed - Reason: Worsening of condition Followup: snw - With: Private Physician - When: 2 - 3 days - Reason: Recheck today's complaints, Continuance of care, Re-evaluation by your physician Discharge Instructions: - Discharge Summary Sheet snw - Cool Mist Vaporizer snw - Cough, Adult snw - Leukocytosis snw Forms: - Medication Reconciliation Form snw - Thank You Letter snw - Antibiotic Education snw - Prescription Opioid Use snw - Work release form snw Prescriptions: - Tessalon Perles 100 mg Oral Capsule - take 1 capsule by ORAL route every 8 hours As needed; 15 capsule; Refills: 0, snw Product Selection Permitted - Pepcid 20 mg Oral Tablet - take 1 tablet by ORAL route once daily; 20 tablet; Refills: 0, Product snw Selection Permitted - Zithromax 500 mg Oral Tablet - take 1 tablet by ORAL route once daily for 5 days; 5 tablet; Refills: 0, snw Product Selection Permitted Signatures: Dispatcher [employer] Bay Donald MD MD cha Waters, Shelly, BLENDER HELPER-C BLENDER HELPER-Josew Meka Murray, RN RN iw
[2022-10-05 19:19] VITALS: TEMP 97.4
[2022-10-05 19:24] VITALS: O2SAT 98
[2022-10-05 19:30] VITALS: BP 123/83
--- NOTE | 2022-10-07 13:50 | EKG ---
Test Date: 2022-10-05 Test Time: 16:53:10 Gym Teacher: BENJAMIN MEASUREMENT RESULTS: Intervals: Rate: 88 FL: 134 QRSD: 72 QT: 362 QTc: 438 [place]: P: 60 FL: 134 QRS: 60 T: 51 INTERPRETIVE STATEMENTS: Normal sinus rhythm Nonspecific T wave abnormality Abnormal ECG Compared to ECG 03/30/2021 20:40:42 Prolonged QT interval no longer present T-wave abnormality still present Electronically Signed On 10-07-22 13:49:21 DYE LAB TECHNICIAN by Peña Cruz
== END 2022-10-05 18:59 | disposition home or self-care (01) ==
LOC: ER 15:26
DX: J40 Bronchitis, not specified as acute or chronic (principal); D72.829 Elevated white blood cell count, unspecified; E11.9 Type 2 diabetes mellitus without complications; I10 Essential (primary) hypertension; Z20.822 Contact with and (suspected) exposure to COVID-19
CPT/HCPCS: 0241U; 36415; 71046; 80053; 84484; 85025; 93005; 96374; 99284; Q0169

== ENCOUNTER 2023-06-19 21:52 | Emergency (ER) | payer SELFPAY ==
--- OUTSIDE RECORDS SUMMARY | 2023-06-19 21:56 | XMS REPORT | Continuity of Care Document ---
:1970 Author Organization [facility] t Address [address] [place] [address] [address] [place] [address] Care Team Providers Name Role Phone PCP, PATIENT DOES NOT HAVE A Primary Care Physician UnavailRAJ Shah Attending Clinician Unavailable Raj Rowe NP Attending Clinician Rehana Cabrales Attending Clinician Problems This patient has no known problems. Allergies, Adverse Reactions, Alerts Allergy Allergy Status Severity Reaction(s) Onset Inactive Treating Comm ents Source Name Type Date Date Clinician NO KNOWN Drug Active Univers ALLERGIE Class it[facility] of [facility] [place] Social History Social Habit Start Date Stop Date Quantity Comments Source Sex Assigned At [birth year] [facility] 00:00:00 00:00:00 Medical Branch Smoking Status Start Date Stop Date Source Tobacco smoking consumption [facility] Branch Medications Ordered Filled Start Stop Current Ordering Indication Dosage Frequency Signature Comments Components Source Medication Medication Date Date Medication? Clinician (SIG) Name Name acetaminoph No 650mg 650 mg, U nivers en 05-05 Oral, ity of (TYLENOL) 12:00: 12:02 [place] 650 00 :00 dose, On Medic al mg 05/05/23 Branch at 0700, ELDA Vital Signs Vital Name Observation Time Observation Value Comments Source Systolic blood 2023-05-05 11:00:00 108 mm[Hg] Univer sity of pressure [facility] Diastolic blood 2023-05-05 11:00:00 70 mm[Hg] Unive rsity of pressure [facility] Heart rate 2023-05-05 11:00:00 84 /min [facility] Body temperature 2023-05-05 11:00:00 36.61 [facility]ille [facility] Respiratory rate 2023-05-05 11:00:00 14 /min [facility] Oxygen saturation in 2023-05-05 11:00:00 98 /min [facility] Arterial blood by [facility] Pulse oximetry [place] [facility] height 2023-05-04 22:15:00 62 cm [facility] Body weight 2023-05-04 22:15:00 81.647 kg [facility] BMI 2023-05-04 22:15:00 212.41 kg/m2 [facility] Procedures Procedure Date / Time Performing Clinician Source Performed POCT GLUCOSE(AGE 2023-05-05 07:54:00 Raj Rowe [facility] >30DAYS) [facility] POCT GLUCOSE (AUTOMATED) 2023-05-05 07:49:00 Raj Rowe Un [facility] ASSIGNMENT OF BENEFITS 2023-05-04 23:34:08 Doctor Unassigned, No [facility] Name [facility] CONSENT/REFUSAL FOR 2023-05-04 23:33:38 Doctor Unassigned, No Un [facility] DIAGNOSIS AND TREATMENT Name [facility] TROPONIN I 2023-05-04 22:56:00 Raj Rowe [facility] COMP. METABOLIC PANEL 2023-05-04 22:56:00 [facility] ([id number] SALICYLATE 2023-05-04 22:56:00 Raj Rowe [facility] ETHANOL 2023-05-04 22:56:00 Raj Rowe [facility] CBC WITH DIFF 2023-05-04 22:56:00 Raj Rowe [facility] GLYCOSYLATED HEMOGLOBIN 2023-05-04 22:56:00 Raj Rowe Uni [facility] (A1C) [facility] URINALYSIS 2023-05-04 22:56:00 aRj Rowe [facility] COVID-19 (ID NOW RAPID 2023-05-04 22:56:00 Raj Rowe [facility] TESTING) [facility] URINE DRUG (IMMUNOASSAY) 2023-05-04 22:56:00 Raj Rowe [facility] - COMPREHENSIVE DRUG [facility] SCREEN W/O REFLEX Encounters Start End Encounter Admission Attending Care Care Encounter Source Date/Time Date/Time Type Type Clinicians Facility Department ID 2023-05-05 Outpatient [facility] [id number] [place] 00:29:13 [id number] [facility] 2023-05-04 Outpatient [facility] [id number] [place] 22:17:26 [id number] [facility] 2023-05-04 2023-05-05 Emergency X [facility] ERT [id number] Univers 17:20:00 08:28:00 RAJ [facility] 2023-05-04 2023-05-[address] [facility] [id number] Univers 17:20:00 08:28:00 Raj GARNICA [id number] [facility] [id number] [facility] [id number] [address] 2021-01-02 2021-01-02 Emergency [facility] [id number] 11:56:00 20:07:00 Rehana S Jane [id number] [place] [id number] [place] [address] [id number] [facility] 2021-01-02 2021-01-02 Emergency X [facility] ERT [id number] Univers 11:32:00 11:32:00 [facility] Results Test Description Test Time Test Comments Results Result Comments Source POCT GLUCOSE(AGE >30DAYS) 2023-05-05 07:54:00 Test Item Value Reference Range Interpretation Comme nts POCT Glu (age>30days) (test code = 3342) 217 mg/dL 70-110 A Lab Interpretation (test code = 52474-9) [facility]2023-05-05 07:51:17 Test Item Value Reference Range Interpretation Comments POCT GLU (test code = 8395394854) 217 mg/dL 70-110 H Lab Interpretation (test code = Abnormal 96949-3) [facility] Hem[facility] (A1C)2023-05-05 05:37:24 Test Item Value Reference Range Interpretation Comments HGB A1C (test code = 8.3 % 4.0-5.7 H 4548-4) JAYANT (test code = JAYANT) Reference RangesNormal: <5.7%Prediabetes: 5.7 - 6.4%Diabetes: > 6.5% Lab Interpretation (test Abnormal code = 91754-8) [facility] [id number] 23:42:11 Test Item Value Reference Range Interpretation Comments TROPONIN I (test code = 0.000 ng/mL <=0.034 3024382210) JAYANT (test code = JAYANT) Reference (Normal) Range (defined by the 99th percentile reference limit): <= 0.034 ng/mL Note: Cardiac troponin begins to rise 3-4 hours after the onset of ischemia. Repeat in 4-6 hours if the sample was drawn within 3-4 hours of the onset of the symptom and found normal. Diagnosis of myocardial injury is made with acute changes in cTn concentrations with at least one serial sample above the 99th percentile upper reference limit (URL), taken together with the patient's clinical presentation. Biotin has been reported to cause a negative bias, interpret results relative to patient's use of biotin. Lab Interpretation Normal (test code = 57777-6) [facility]ET[facility]INOPHEN2023-07-02 23:38:15 Test Item Value Reference Range Interpretation Comments ACETAMINOP (test code = 10.0-30.0 L [id number]) JAYANT (test code = JAYANT) Toxic: Greater than 200 ug/mL @ 4 hour post ingestion or greater than 50 ug/mL @ 12 hour post ingestion Lab Interpretation (test Abnormal code = 08631-2) [facility]AL[facility]ATE2023-07-02 23:38:10 SALICYLATE<10mg/L05/04/2023 6:38 PM [facility]: ? Analgesic and Antipyretic Use ? 20- 100 mg/L ? ? Anti-Inflammatory Use ? 100-250 mg/L Toxic Range: ? Greater than 300 mg/LUnLake Granbury Medical CenterETHANOL2023-07-02 23:27:37ALCOHOL<10mg/dL05/04/2023 6:27 PM [facility]<10 Vqedbbyw01-328 Toxic>100 Depression of SENIOR SAS PROGRAMMER>400 Fatalities ReportedUnLake Granbury Medical CenterCOMP. METABOLIC PANEL (99920)2023-05-04 23:24:32 Test Item Value Reference Range Interpretation Comments NA (test code = 140 mmol/L 135-145 9035304575) K (test code = 3.8 mmol/L 3.5-5.0 7883969212) CL (test code = 101 mmol/L 98-108 3656707864) CO2 TOTAL (test code = 26 mmol/L 23-31 7193242063) AGAP (test code = 13 2-16 9087212614) BUN (test code = 15 mg/dL 7-23 9252414549) GLUCOSE (test code = 264 mg/dL 70-110 H 7423889365) CREATININE (test code = 0.97 mg/dL 0.50-1.04 1243021626) TOTAL BILI (test code = 0.5 mg/dL 0.1-1.0 7331720496) CALCIUM (test code = 9.5 mg/dL 8.6-10.6 6944740972) T PROTEIN (test code = 7.2 g/dL 6.3-8.2 4876631733) ALBUMIN (test code = 4.2 g/dL 3.5-5.0 5806321643) ALK PHOS (test code = 123 U/L 34-122 H 8931259197) ALTv (test code = 42 U/L 5-35 H 1742-6) AST(SGOT) (test code = 34 U/L 13-40 8966043710) eGFR (test code = 60.3 mL/min/1.73m2 8370951032) JAYANT (test code = JAYANT) Association of Glomerular Filtration Rate (GFR) and Staging of Kidney Disease* + --+ --+ ------+| GFR (mL/min/1.73 m2) ?| With Kidney Damage ?| ?Without Kidney Damage+ --------+ --------+ +| ?>90 ?| ?Stage one ?| ? Normal ?+ ---+ ---+ -------+| ?60-89 ?| ?Stage two ?| ? Decreased GFR ? + --+ --+ ------+| ?30-59 ?| ?Stage three ?| ? Stage three ? + --+ --+ ------+| ?15-29 ?| ?Stage four ? | ? Stage four ?+ ---+ ---+ -------+| ?<15 (or dialysis) ? ?| ?Stage five ? | ? Stage five ?+ ---+ ---+ -------+ *Each stage assumes the associated GFR level has been in effect for at least three months. ?Stages 1 to 5, with or without kidney disease, indicate chronic kidney disease. Notes: Determination of stages one and two (with eGFR >59mL/min/1.73 m2) requires estimation of kidney damage for at least three months as defined by structural or functional abnormalities of the kidney, manifested by either:Pathological abnormalities or Markers of kidney damage (including abnormalities in the composition of the blood or urine or abnormalities in imaging tests). Lab Interpretation Abnormal (test code = 67849-1) [facility] WITH [id number] 23:13:09 Test Item Value Reference Range Interpretation Comments WBC (test code = 12.51 See_Comment H [Automated 9258-2) message] The sy stem which generated this result transmitted reference range : 4.30 - 11.10 10*3/?L. The reference range was not used to interpret this result as normal/abnormal . RBC (test code = 4.29 See_Comment [Automated 034-9) message] The sy stem which generated this result transmitted reference range : 3.93 - 5.25 10*6/?L. The reference range was not used to interpret this result as normal/abnormal . HGB (test code = 12.5 g/dL 11.6-15.0 718-7) HCT (test code = 37.1 % 35.7-45.2 4544-3) MCV (test code = 86.5 fL 80.6-95.5 787-2) MCH (test code = 29.1 pg 25.9-32.8 785-6) MCHC (test code = 33.7 g/dL 31.6-35.1 786-4) RDW-SD (test code = 41.4 fL 39.0-49.9 68583-7) RDW-CV (test code = 13.3 % 12.0-15.5 788-0) PLT (test code = 354 See_Comment [Automated 777-3) message] The sy stem which generated this result transmitted reference range : 166 - 358 10*3/ ?L. The reference r sumi was not used to interpret this result as normal/abnormal . MPV (test code = 10.2 fL 9.5-12.9 99359-5) NRBC/100 WBC (test 0.0 See_Comment [Automat ed code = 4436299541) message] The system which generated this result transmitted reference range : 0.0 - 10.0 /100 WBCs. The refer ence range was not u sed to interpret th is result as normal/abnormal . NRBC x10^3 (test code See_Comment [Auto mated = 4332241911) message] The s ystem which generated this result transmitted reference range : 10*3/?L. The reference range was not used to interpret this result as normal/abnormal . GRAN MAT (NEUT) % 65.5 % (test code = 770-8) IMM GRAN % (test code 0.40 % = 1730011597) LYMPH % (test code = 26.3 % 736-9) MONO % (test code = 5.7 % 5905-5) EOS % (test code = 1.6 % 713-8) BASO % (test code = 0.5 % 706-2) GRAN MAT x10^3(ANC) 8.20 10*3/uL 1.88-7.09 H (test code = 8142938235) IMM GRAN x10^3 (test 0.05 10*3/uL 0.00-0.06 code = 4986273864) LYMPH x10^3 (test code 3.29 10*3/uL 1.32-3.29 = 731-0) MONO x10^3 (test code 0.71 10*3/uL 0.33-0.92 = 742-7) EOS x10^3 (test code = 0.20 10*3/uL 0.03-0.39 711-2) BASO x10^3 (test code 0.06 10*3/uL 0.01-0.07 = 704-7) Lab Interpretation Abnormal (test code = 84147-2) [facility]"
[2023-06-20] MEDS ORDERED: TETRACAINE HCL 0.5% 4ML OPTH ONE (00:37)
[2023-06-20] MEDS ORDERED: FLUORESCEIN SODIUM 1 MG/WRAP ONE (00:38)
[2023-06-20] MEDS ORDERED: IBUPROFEN 400 MG TAB ONE (00:47)
[2023-06-20] MEDS ORDERED: HYDROCODONE/APAP 7.5/325 MG TAB ONE (00:48)
--- NOTE | 2023-06-20 01:25 | EDPHYS ---
Physician Documentation [facility] Name: Sherri Best Age: 52 yrs Sex: Female : 1970 Arrival Date: 06/19/2023 Time: 21:52 Bed 12 Private MD: ED Physician Davi Garcia HPI: 06/19 23:00 This 52 yrs old Black Female presents to ER via EMS with complaints of Fall. cp 23:00 Details of fall: The patient fell from a height, table. Onset: The symptoms/episode cp began/occurred just prior to arrival. Associated injuries: The patient sustained upper back injury, pain, injury to the low back, pain, left shoulder, painful injury. Severity of symptoms: in the emergency department the symptoms are unchanged, despite EMS interventions. Patient is a 52-year-old female with a past medical history significant for [id number] diabetes, hypertension who presents to the emergency department after reported fall while standing on a table at work. Patient reports she was standing on the table and felt like she got something in her eyes, lost her balance and fell backwards off the table and onto a cushion [place]. Patient comes in complaining of foreign body sensation in her eyes and pain to her neck and back and left shoulder. No recent reported loss of consciousness. Historical: - Allergies: 22:12 NKA; pf1 - PMHx: 22:12 Depression; Diabetes - NIDDM; Hypertension; Anxiety; pf1 - PSHx: 22:13 section; Cholecystectomy; uterine ablation; pf1 - Immunization history:: Adult Immunizations up to date, Client reports receiving the 2nd dose of the Covid vaccine, Last tetanus immunization: < 10 years ago Flu vaccine is not up to date. - Social history:: Smoking status: Patient denies any tobacco usage or history of. Patient/guardian denies using alcohol, street drugs. ROS: 23:05 Constitutional: Negative for body aches, chills, fever, poor PO intake. cp 23:05 Eyes: Positive for foreign body sensation. cp 23:05 Neck: Positive for pain with movement. 23:05 Cardiovascular: Negative for chest pain, palpitations. 23:05 Respiratory: Negative for cough, shortness of breath, wheezing. 23:05 Abdomen/GI: Negative for abdominal pain, vomiting, diarrhea, constipation. 23:05 Back: Positive for pain at rest, pain with movement. 23:05 Neuro: Negative for altered mental status, dizziness, headache, loss of consciousness, syncope, weakness. 23:05 All other systems are negative. Exam: 23:10 Head/Face: Normocephalic, atraumatic. cp 23:10 Constitutional: The patient appears in no acute distress, alert, awake, non-diaphoretic, non-toxic, well developed, well nourished, uncomfortable. 23:10 Eyes: Periorbital structures: appear normal, Pupils: equal, round, and reactive to light and accomodation, Extraocular movements: intact throughout, Conjunctiva: normal, no exudate, no injection, Corneas: abrasion, is not appreciated, foreign body, is not appreciated, a fluorescein strip employed to appreciate the findings, Sclera: no appreciated abnormality, Lids and lashes: appear normal, bilaterally. 23:10 ENT: External ear(s): are unremarkable, Nose: is normal, Mouth: Lips: moist, Oral mucosa: pink and intact, moist, Posterior pharynx: is normal, airway is patent, no erythema. 23:10 Neck: C-spine: crepitus, is not appreciated, ROM/movement: pain, that is mild, with any movement, limited range of motion, is not appreciated. 23:10 Chest/axilla: Inspection: normal, Palpation: is normal, no crepitus, no tenderness. 23:10 Cardiovascular: Rate: normal, Rhythm: regular. 23:10 Respiratory: the patient does not display signs of respiratory distress, Respirations: normal, no use of accessory muscles, no retractions, labored breathing, is not present, Breath sounds: are clear throughout, no decreased breath sounds, no stridor, no wheezing. 23:10 Abdomen/GI: Inspection: abdomen appears normal, Palpation: abdomen is soft and non-tender, in all quadrants. 23:10 Back: pain, that is moderate, of the thoracic area and lumbar area, ROM is painful, with all movement, Straight leg raises: of both lower extremities does not illicit pain. 23:10 Musculoskeletal/extremity: Extremities: noted in the left shoulder: pain, tenderness, ROM: full passive range of motion, in the left shoulder, Pulses: noted to be 2+ in the left radial artery, the left hand and left arm Sensation intact. 23:10 Neuro: Orientation: to person, place \T\ time. Mentation: is normal, Cerebellar function: is grossly normal, Motor: moves all fours, strength is normal, Sensation: is normal. Vital Signs: 22:03 BP 152 / 96; Pulse 87; Resp 16; Temp 98.1; Pulse Ox 99% on R/A; Weight 81.65 kg; Height pf1 5 ft. 2 in. ; Pain 6/10; 06/20 00:35 Pulse 78; Resp 20; Pulse Ox 97% on R/A; kl 01:32 BP 136 / 72; Pulse 68; Resp 16; Pulse Ox 96% on R/A; kl 06/19 22:03 Body Mass Index 32.92 (81.65 kg, 157.48 cm) pf1 06/19 22:03 Pain Scale: Adult pf1 MDM: 06/19 22:06 Patient medically screened. 06/20 01:23 Data reviewed: vital signs, nurses notes, radiologic studies, CT scan, plain films. cp 01:23 Differential diagnosis: closed head injury, contusion, fracture, multiple trauma. cp Consideration of Admission/Observation Escalation of care including admission/observation considered. I considered the following discharge prescriptions or medication management in the emergency department Medications were administered in the Emergency Department. See MAR. Counseling: I had a detailed discussion with the patient and/or guardian regarding the historical points, exam findings, and any diagnostic results supporting the discharge/admit diagnosis, lab results, radiology results, to return to the emergency department if symptoms worsen or persist or if there are any questions or concerns that arise at home. Response to treatment: the patient's symptoms have markedly improved after treatment, and as a result, I will discharge patient. 06/19 22:52 Order name: CT Head C Spine cp 06/19 22:52 Order name: XRAY Shoulder LEFT 2 view cp 06/19 22:52 Order name: CT Thoracic Spine Wo Cont cp 06/19 22:52 Order name: CT Lumbar Spine Wo Con cp 06/20 00:08 Order name: Visual Acuity cp 06/20 00:19 Order name: Eye Tray; Complete Time: 00:24 cp 06/20 00:19 Order name: Fluoresene Opth strip; Complete Time: 00:31 cp Administered Medications: 00:39 Drug: Ibuprofen PO 800 mg Route: PO; kl 01:32 Follow up: Response: No adverse reaction; Marked relief of symptoms kl 00:39 Drug: Hydrocodone-Acetaminophen PO (7.5 mg-325 mg) 1 tabs Route: PO; kl 01:32 Follow up: Response: No adverse reaction; Marked relief of symptoms kl 00:51 Drug: Tetracaine Ophthalmic Drops 0.5 % 1 drops Route: Ophthalmic; Site: both eyes; kl Disposition Summary: 06/20/23 01:24 Discharge Ordered Location: Home cp Problem: new cp Symptoms: have improved cp Condition: Stable cp Diagnosis - Dorsalgia, unspecified cp - Cervicalgia cp - Pain in left shoulder cp Followup: cp - With: Private Physician - When: 2 - 3 days - Reason: Recheck today's complaints Discharge Instructions: - Discharge Summary Sheet cp - Acute Back Pain, Adult cp - Shoulder Pain cp - Shoulder Range of Motion Exercises cp - Heat Therapy cp - Neck Exercises cp Forms: - Medication Reconciliation Form cp - Thank You Letter cp - Antibiotic Education cp - Prescription Opioid Use cp - Patient Portal Instructions cp - Leadership Thank You Letter cp - Work release form rv1 Prescriptions: - Cyclobenzaprine 10 mg Oral Tablet - take 1 tablet by ORAL route every 8 hours As needed; 30 tablet; Refills: 0, cp Product Selection Permitted - Diclofenac Sodium 75 mg Oral Tablet Sustained Release - take 1 tablet by ORAL route 2 times per day; 30 tablet; Refills: 0, Product cp Selection Permitted Signatures: Dispatcher [employer] EDMS Germania Weber RN RN kl Page, Corey, PA PA cp Finley, Pamala, RN RN pf1 Corrections: (The following items were deleted from the chart) 06/21 01:06/20 23:10 Constitutional: The patient appears in no acute distress, alert, awake, cp non-diaphoretic, non-toxic, well developed, well nourished, uncomfortable, cp 06/21 01:06/20 23:10 Head/Face: Normocephalic, atraumatic. cp cp 06/21 01:06/20 23:10 Eyes: Periorbital structures: appear normal, Pupils: equal, round, and cp reactive to light and accomodation, Extraocular movements: intact throughout, Conjunctiva: normal, no exudate, no injection, Corneas: abrasion, is not appreciated, foreign body, is not appreciated, a fluorescein strip employed to appreciate the findings, Sclera: no appreciated abnormality, Lids and lashes: appear normal, bilaterally, cp 06/21 01:06/20 23:10 ENT: External ear(s): are unremarkable, Nose: is normal, Mouth: Lips: cp moist, Oral mucosa: pink and intact, moist, Posterior pharynx: is normal, airway is patent, no erythema, cp 06/21 01:06/20 23:10 Neck: C-spine: crepitus, is not appreciated, ROM/movement: pain, that is cp mild, with any movement, limited range of motion, is not appreciated, cp 06/21 01:06/20 23:10 Chest/axilla: Inspection: normal, Palpation: is normal, no crepitus, no cp tenderness, cp 06/21 01:06/20 23:10 Cardiovascular: Rate: normal, Rhythm: regular, cp cp 06/21 01:06/20 23:10 Respiratory: the patient does not display signs of respiratory distress, cp Respirations: normal, no use of accessory muscles, no retractions, labored breathing, is not present, Breath sounds: are clear throughout, no decreased breath sounds, no stridor, no wheezing, cp 06/21 01:06/20 23:10 Abdomen/GI: Inspection: abdomen appears normal, Palpation: abdomen is soft cp and non-tender, in all quadrants, cp 06/21 01:06/20 23:10 Back: pain, that is moderate, of the thoracic area and lumbar area, ROM is cp painful, with all movement, Straight leg raises: of both lower extremities does not illicit pain, cp 06/21 01:06/20 23:10 Neuro: Orientation: to person, place \T\ time. Mentation: is normal, cp Cerebellar function: is grossly normal, Motor: moves all fours, strength is normal, Sensation: is normal, cp 06/21 01:06/20 23:10 Musculoskeletal/extremity: Extremities: noted in the left shoulder: pain, cp tenderness, ROM: full passive range of motion, in the left shoulder, Pulses: noted to be 2+ in the left radial artery, the left hand and left arm Sensation intact. cp
--- NOTE | 2023-06-20 01:25 | ER ---
Nurse's Notes [facility] Name: Sherri Best Age: 52 yrs Sex: Female : 1970 Arrival Date: 06/19/2023 Time: 21:52 Bed 12 Private MD: Diagnosis: Dorsalgia, unspecified;Cervicalgia;Pain in left shoulder Presentation: 06/19 22:03 Chief complaint: Patient states: Patient C/O back pain and left shoulder pain of 6 with pf1 right eye discomfort,onset 2100. 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 Patient stated feels like something got into her right eye while cleaning the vents. 22:03 Coronavirus screen: Vaccine status: Patient reports receiving the 2nd dose of the covid pf1 vaccine. Client denies travel out of the [place] in the last 14 days. At this time, the client does not indicate any symptoms associated with coronavirus-19. Ebola Screen: Patient negative for fever greater than or equal to 101.5 degrees Fahrenheit, and additional compatible Ebola Virus Disease symptoms. Initial Sepsis Screen: Does the patient meet any 2 criteria? No. Patient's initial sepsis screen is negative. Does the patient have a suspected source of infection? No. Patient's initial sepsis screen is negative. Risk Assessment: Do you want to hurt yourself or someone else? Patient reports no desire to harm self or others. 22:03 Method Of Arrival: EMS: [facility] pf1 22:03 Acuity: LUIS A 3 pf1 22:03 Care prior to arrival: Medication(s) given: Motrin, 800 mg, CREATIVE INTERN. pf1 Historical: - Allergies: 22:12 NKA; pf1 - PMHx: 22:12 Depression; Diabetes - NIDDM; Hypertension; Anxiety; pf1 - PSHx: 22:13 section; Cholecystectomy; uterine ablation; pf1 - Immunization history:: Adult Immunizations up to date, Client reports receiving the 2nd dose of the Covid vaccine, Last tetanus immunization: < 10 years ago Flu vaccine is not up to date. - Social history:: Smoking status: Patient denies any tobacco usage or history of. Patient/guardian denies using alcohol, street drugs. Screenin:14 [facility] ED Fall Risk Assessment (Adult) History of falling in the last 3 months, pf1 including since admission Yes- single mechanical fall (1 pt) Confusion or Disorientation No (0 pts) Intoxicated or Sedated No (0 pts) Impaired Gait No (0 pts) Mobility Assist Device Used No (0 pt) Altered Elimination No (0 pt) Score/Fall Risk Level 0 - 2 = Low Risk Oriented to surroundings, Maintained a safe environment, Educated pt \T\ family on fall prevention, incl call for assistance when getting out of bed, Assessed \T\ reinforced patient's understanding of fall precautions, Provided non-skid footwear, Hourly rounding (assess needs \T\ fall precautionary measures) done, Used ambulatory aids as needed (educated on \T\ assisted with), Used gait belt as appropriate. Abuse screen: Denies threats or abuse. Nutritional screening: No deficits noted. Tuberculosis screening: No symptoms or risk factors identified. Assessment: 06/20 00:32 General: Appears uncomfortable, Behavior is calm, cooperative. Pain: Complains of pain kl in face and right eye Pain currently is 7 out of 10 on a pain scale. Quality of pain is described as aching. Neuro: No deficits noted. Cardiovascular: No deficits noted. Respiratory: No deficits noted. GI: No deficits noted. No signs and/or symptoms were reported involving the gastrointestinal system. : No deficits noted. No signs and/or symptoms were reported regarding the genitourinary system. Musculoskeletal: Reports pain in back. 00:33 Reassessment: visual acuity 20/40 left eye 20/100 right eye. kl 01:32 Reassessment: Patient appears in no apparent distress at this time. Patient states kl feeling better. Patient states symptoms have improved. Vital Signs: 06/19 22:03 BP 152 / 96; Pulse 87; Resp 16; Temp 98.1; Pulse Ox 99% on R/A; Weight 81.65 kg; Height pf1 5 ft. 2 in. ; Pain 6/10; 06/20 00:35 Pulse 78; Resp 20; Pulse Ox 97% on R/A; kl 01:32 BP 136 / 72; Pulse 68; Resp 16; Pulse Ox 96% on R/A; kl 06/19 22:03 Body Mass Index 32.92 (81.65 kg, 157.48 cm) pf1 06/19 22:03 Pain Scale: Adult pf1 ED Course: 06/19 22:03 Patient arrived in ED. rv1 22:03 Bay Ni PA is PHCP. cp 22:03 Davi Garcia MD is Attending Physician. cp 22:12 Triage completed. pf1 23:39 XRAY Shoulder LEFT 2 view In Process Unspecified. EDMS 23:56 CT Head C Spine In Process Unspecified. EDMS 23:56 CT Thoracic Spine Wo Cont In Process Unspecified. EDMS 23:56 CT Lumbar Spine Wo Con In Process Unspecified. EDMS 0818 00:34 Patient has correct armband on for positive identification. Bed in low position. Call light in reach. 00:34 Door closed. Noise minimized. Warm blanket given. kl 00:34 No provider procedures requiring assistance completed. visual acuity. kl 01:32 IV discontinued, intact, bleeding controlled, No redness/swelling at site. Pressure kl dressing applied. Administered Medications: 00:39 Drug: Ibuprofen PO 800 mg Route: PO; kl 01:32 Follow up: Response: No adverse reaction; Marked relief of symptoms kl 00:39 Drug: Hydrocodone-Acetaminophen PO (7.5 mg-325 mg) 1 tabs Route: PO; kl 01:32 Follow up: Response: No adverse reaction; Marked relief of symptoms kl 00:51 Drug: Tetracaine Ophthalmic Drops 0.5 % 1 drops Route: Ophthalmic; Site: both eyes; kl Medication: 00:33 VIS not applicable for this client. kl Outcome: 01:24 Discharge ordered by . cp 01:32 Discharged to home ambulatory. kl 01:32 Condition: improved 01:32 Discharge instructions given to patient, Instructed on discharge instructions, follow up and referral plans. medication usage, Demonstrated understanding of instructions, follow-up care, medications, Prescriptions given X 2. 01:33 Patient left the ED. kl Signatures: Dispatcher [employer] EDMS Germania Weber RN RN kl Page, Corey, PA PA cp Finley, Pamala, RN RN pf1 Sugey Sanchez rv1
[2023-06-20 01:57] VITALS: TEMP 98.1
[2023-06-20 01:59] VITALS: BP 136/72; O2SAT 96
--- NOTE | 2023-06-20 18:17 | RAD REPORT ---
EXAM DESCRIPTION: RAD - Shoulder Left 2 View - 06/19/2023 11:37 pm CLINICAL HISTORY: PAIN TECHNIQUE: 2 views of the left shoulder are submitted. COMPARISON: None available for comparison FINDINGS: Bones: No acute fracture or dislocation. Joints: Joint spaces are unremarkable. Soft tissues: No radiopaque foreign bodies. IMPRESSION: Normal radiographic appearance of the left shoulder. Electronically signed by: Abhijeet Ba MD 06/19/2023 11:54 PM CDT Due to temporary technical issues with the PACS/Fluency reporting system, reports are being signed by the in house radiologists without review as a courtesy to insure prompt reporting. The interpreting radiologist is fully responsible for the content of the report.
--- NOTE | 2023-06-20 18:21 | RAD REPORT ---
EXAM DESCRIPTION: CT - Head C Spine Mpr Wo Con - 06/20/2023 1:01 am CLINICAL HISTORY: 52 years Female fall COMPARISON: None TECHNIQUE: Images were obtained in axial, sagittal, and coronal planes. This exam was performed according to our departmental dose-optimization program which includes use of Automated Exposure Control, adjustment of the mA and/or kV according to patient size and/or use of i terative reconstruction technique. FINDINGS: CT brain: Ventricular system appears normal. No abnormal areas of increased attenuation se en. No extra-axial fluid collections noted. No evidence for skull fracture. Symmetric aeration mastoi d air cells bilaterally. Unremarkable paranasal sinuses. CT cervical spine: Height of the vertebral bodies is intact. Satisfactory alignment articular facets. Moderate anterior osteophyte formation C5-6. Intact odontoid and predental space. Intact occipital c ondyles. Prevertebral soft tissues appear normal. Intact C1. Posterior elements intact on all levels. No abnormality lung apices bilaterally. Straightening cervical spine. No focal disc protrusion seen. IMPRESSION: No acute intracranial abnormality. No evidence for hemorrhage, mass lesion, or large acu te infarction. No acute fracture or subluxation involving the cervical spine. Moderate degenerative change C5-6. Fin dings indicating muscle spasm. Electronically signed by: Marga Cooper MD 06/20/2023 12:26 AM CDT Due to temporary technical issues with the PACS/Fluency reporting system, reports are being signed by the in house radiologists without review as a courtesy to insure prompt reporting. The interpreting radiologist is fully responsible for the content of the report.
--- NOTE | 2023-06-20 18:26 | RAD REPORT ---
EXAM DESCRIPTION: CT - Thoracic Spine W/o Cont - 06/20/2023 1:00 am CLINICAL HISTORY: 52 years Female fall COMPARISON: Radiographs of the thoracic spine dated July 22, 2018. TECHNIQUE: Images were obtained in axial, sagittal, and coronal planes. No intravenous contrast was administered. This exam was performed according to our departmental dose-optimization program which includes use of Automated Exposure Control, adjustment of the mA and/or kV according to patient size and/or use of i terative reconstruction technique. FINDINGS: Height of the vertebral bodies is intact. Satisfactory alignment articular facets. Mild an terior and lateral osteophyte formation mid thoracic spine. Mild dorsal kyphosis. Posterior elements intact on all levels. No paraspinal soft tissue swelling. Costovertebral junctions intact all levels. No focal disc protrusion. No abnormality visualized lung bilaterally. IMPRESSION: No acute fracture or subluxation seen. Mild osteoarthritic change. Electronically signed by: Marga Cooper MD 06/20/2023 12:16 AM CDT Due to temporary technical issues with the PACS/Fluency reporting system, reports are being signed by the in house radiologists without review as a courtesy to insure prompt reporting. The interpreting radiologist is fully responsible for the content of the report.
--- NOTE | 2023-06-20 18:30 | RAD REPORT ---
EXAM DESCRIPTION: CT - Spine Lumbar Wo Con - 06/20/2023 1:01 am CLINICAL HISTORY: 52 years Female PAIN COMPARISON: Radiograph of the lumbar spine dated July 22, 2018. TECHNIQUE: Images were obtained in axial, sagittal, and coronal planes. This exam was performed according to our departmental dose-optimization program which includes use of Automated Exposure Control, adjustment of the mA and/or kV according to patient size and/or use of iterative reconstruction technique. FINDINGS: Height of the vertebral bodies is intact. Satisfactory alignment articular facets. Transve rse processes intact all levels. Posterior elements intact for level. No sacral fracture. No bony bonny rowing of the spinal canal at any level. No focal disc protrusion. Sclerotic changes sacroiliac joints bilaterally. IMPRESSION: No acute fracture or subluxation seen. Marked degenerative changes sacroiliac joints ayo aterally. No evidence for spinal stenosis. Electronically signed by: Marga Cooper MD 06/20/2023 12:20 AM CDT Due to temporary technical issues with the PACS/Fluency reporting system, reports are being signed by the in house radiologists without review as a courtesy to insure prompt reporting. The interpreting radiologist is fully responsible for the content of the report.
== END 2023-06-20 01:33 | disposition home or self-care (01) ==
LOC: ER 21:52
DX: M54.9 Dorsalgia, unspecified (principal); M54.2 Cervicalgia; M25.512 Pain in left shoulder
CPT/HCPCS: 70450; 72125; 72128; 72131; 99284

== ENCOUNTER 2023-08-25 20:19 | Emergency (ER) | payer SELFPAY ==
--- OUTSIDE RECORDS SUMMARY | 2023-08-25 20:22 | XMS REPORT | Continuity of Care Document ---
:1970 Author Organization [facility] t Address [address] [facility] [address] [place] [address] Care Team Providers Name Role Phone PCP, PATIENT DOES NOT HAVE A Primary Care Physician Unavaila RAJ Pitts Attending Clinician Unavailable Raj Rowe NP Attending Clinician Rehana Cabrales Attending Clinician Problems This patient has no known problems. Allergies, Adverse Reactions, Alerts Allergy Allergy Status Severity Reaction(s) Onset Inactive Treating Comm ents Source Name Type Date Date Clinician NO KNOWN Drug Active [facility] [place] [facility] Social History Social Habit Start Date Stop Date Quantity Comments Source Sex Assigned At [birth year] [facility] 00:00:00 00:00:00 Medical Branch Smoking Status Start Date Stop Date Source Tobacco smoking consumption [facility] Medical unknown Branch Medications Ordered Filled Start Stop Current [...] 11:00:00 108 mm[Hg] Univer sity of pressure [facility] Diastolic blood 2023-05-05 11:00:00 70 mm[Hg] [facility] Heart rate 2023-05-05 11:00:00 84 /min [facility] Body temperature 2023-05-05 11:00:00 36.61 [facility] Respiratory rate 2023-05-05 11:00:00 14 /min [facility] Oxygen saturation in 2023-05-05 11:00:00 98 /min [facility] blood by [facility] Pulse oximetry [place] Body height 2023-05-04 22:15:00 62 cm [facility] Body weight 2023-05-04 22:15:00 81.647 kg [facility] BMI 2023-05-04 22:15:00 212.41 kg/m2 [facility] Procedures Procedure Date / Time Performing Clinician Source Performed POCT GLUCOSE(AGE 2023-05-05 07:54:00 Raj Rowe [facility] >30DAYS) [facility] POCT GLUCOSE (AUTOMATED) 2023-05-05 07:49:00 Raj Rowe [address] [facility] ASSIGNMENT OF BENEFITS 2023-05-04 23:34:08 Doctor Unassigned, No [facility] Name [facility] CONSENT/REFUSAL FOR 2023-05-04 23:33:38 Doctor Unassigned, No Un [facility] DIAGNOSIS AND TREATMENT Name [facility] TROPONIN I 2023-05-04 22:56:00 Raj Rowe [facility] COMP. METABOLIC PANEL 2023-05-04 22:56:00 Raj Rowe [facility] ([id number]) [facility] SALICYLATE 2023-05-04 22:56:00 Raj Rowe [facility] ETHANOL 2023-05-04 22:56:00 Raj Rowe [facility] CBC WITH DIFF 2023-05-04 22:56:00 Raj Rowe [facility] GLYCOSYLATED HEMOGLOBIN 2023-05-04 22:56:00 Raj Rowe [facility] (A1C) [facility] URINALYSIS 2023-05-04 22:56:00 Raj Rowe [facility] COVID-19 (ID NOW RAPID 2023-05-04 22:56:00 Raj Rowe [facility] TESTING) [facility] URINE DRUG (IMMUNOASSAY) 2023-05-04 22:56:00 Raj Rowe [facility] - COMPREHENSIVE DRUG Medical [facility] SCREEN W/O REFLEX Encounters Start End Encounter Admission Attending Care Care Encounter Source Date/Time Date/Time Type Type Clinicians Facility Department ID 2023-05-05 Outpatient [facility] [id number] [place] 00:29:13 [id number] Health 2023-05-04 Outpatient [facility] [id number] [place] 22:17:26 [id number] [facility] 2023-05-04 2023-05-05 Emergency X [facility] ERT [id number] Univers 17:20:00 08:28[facility] 2023-05-05 Emergency [facility] [id number] Univers 17:20:00 08:28:00 Raj GARNICA [id number] [facility] [id number] [facility] [id number] [address] 2021-01-02 2021-01-02 Emergency [facility] [id number] 11:56:00 20:07:00 Rehana S Jane [id number] [facility] [id number] [place] [address] [id number] [facility] 2021-01-02 2021-01-02 Emergency X [facility] ERT [id number] Univers 11:32:00 11:32:00 [facility] Results Test Description Test Time Test Comments Results Result Comments Source POCT GLUCOSE(AGE >30DAYS) 2023-05-05 07:54:00 Test Item Value Reference Range Interpretation Comme nts POCT Glu (age>30days) (test code = 3342) 217 mg/dL 70-110 A Lab Interpretation (test code = 82464-2) [facility]normal [facility]2023-05-05 07:51:17 Test Item Value Reference Range Interpretation Comments POCT GLU (test code = 0284521765) 217 mg/dL 70-110 H Lab Interpretation (test code = Abnormal 23986-5) [facility] (A1C)2023-05-05 05:37:24 Test Item Value Reference Range Interpretation Comments HGB A1C (test code = 8.3 % 4.0-5.7 H 4548-4) JAYANT (test code = JAYANT) Reference RangesNormal: <5.7%Prediabetes: 5.7 - 6.4%Diabetes: > 6.5% Lab Interpretation (test Abnormal code = 76935-4) [facility] [id number] 23:42:11 Test Item Value Reference Range Interpretation Comments TROPONIN I (test code = 0.000 ng/mL <=0.034 5360245546) JAYANT (test code = JAYANT) Reference (Normal) [...] biotin. Lab Interpretation Normal (test code = 02326-3) [facility] CenterACET[facility]INOPHEN2023-07-02 23:38:15 Test Item Value Reference Range Interpretation Comments ACETAMINOP (test code = 10.0-30.0 L [id number]) JAYANT (test code = JAYANT) Toxic: Greater than 200 ug/mL @ 4 hour post ingestion or greater than 50 ug/mL @ 12 hour post ingestion Lab Interpretation (test Abnormal code = 44189-9) [facility] Center[facility]AL[facility]ATE2023-07-02 23:38:10 SALICYLATE<10mg/L05/04/2023 6:38 PM [facility]: ? Analgesic and Antipyretic Use ? 20- 100 mg/L ? ? Anti-Inflammatory Use ? 100-250 mg/L Toxic Range: ? Greater than 300 mg/[address]CH[facility] [address] HospitalETHANOL2023-07-02 23:27:37ALCOHOL<10mg/dL05/04/2023 6:27 PM [facility]<10 [id number] Toxic>100 Depression of [employer]>[address] [facility] HospitalCOMP. METABOLIC PANEL (31498)2023-05-04 23:24:32 Test Item Value Reference Range Interpretation Comments NA (test code = 140 mmol/L 135-145 9268621690) K (test code = 3.8 mmol/L 3.5-5.0 5388883164) CL (test code = 101 mmol/L 98-108 6400635312) CO2 TOTAL (test code = 26 mmol/L 23-31 2928849308) AGAP (test code = 13 2-16 1581826370) BUN (test code = 15 mg/dL 7-23 3625901632) GLUCOSE (test code = 264 mg/dL 70-110 H 6750188002) CREATININE (test code = 0.97 mg/dL 0.50-1.04 9304467746) TOTAL BILI (test code = 0.5 mg/dL 0.1-1.8 1793403407) CALCIUM (test code = 9.5 mg/dL 8.6-10.6 8446790293) T PROTEIN (test code = 7.2 g/dL 6.3-8.2 3048355854) ALBUMIN (test code = 4.2 g/dL 3.5-5.0 9226590835) ALK PHOS (test code = 123 U/L 34-122 H 1313187043) ALTv (test code = 42 U/L 5-35 H 1742-6) AST(SGOT) (test code = 34 U/L 13-40 6761525537) eGFR (test code = 60.3 mL/min/1.73m2 9707381005) JAYANT (test code = JAYANT) Association of [...] tests). Lab Interpretation Abnormal (test code = 23835-6) [facility] WITH [id number] 23:13:09 Test Item Value Reference Range Interpretation Comments WBC (test code = 12.51 See_Comment H [Automated 1036-2) message] The sy stem which generated this result transmitted reference range : 4.30 - 11.10 10*3/?L. The reference range was not used to interpret this result as normal/abnormal . RBC (test code = 4.29 See_Comment [Automated 124-5) message] The sy stem which generated this [...] RDW-SD (test code = 41.4 fL 39.0-49.9 95306-9) RDW-CV (test code = 13.3 % 12.0-15.5 788-0) PLT (test code = 354 See_Comment [Automated 777-3) message] The sy stem which generated this result transmitted reference range : 166 - 358 10*3/ ?L. The reference r sumi was not used to interpret this result as normal/abnormal . MPV (test code = 10.2 fL 9.5-12.9 83902-4) NRBC/100 WBC (test 0.0 See_Comment [Automat ed code = 5829153466) message] The system which generated this result transmitted reference range : 0.0 - 10.0 /100 WBCs. The refer ence range was not u sed to interpret th is result as normal/abnormal . NRBC x10^3 (test code See_Comment [Auto mated = 0852364974) message] The s ystem which generated this result transmitted reference range : 10*3/?L. The reference range was not used to interpret this result as normal/abnormal . GRAN MAT (NEUT) % 65.5 % (test code = 770-8) IMM GRAN % (test code 0.40 % = 2909563178) LYMPH % (test code = 26.3 % 736-9) MONO % (test code = 5.7 % 5905-5) EOS % (test code = 1.6 % 713-8) BASO % (test code = 0.5 % 706-2) GRAN MAT x10^3(ANC) 8.20 10*3/uL 1.88-7.09 H (test code = 4148822033) IMM GRAN x10^3 (test 0.05 10*3/uL 0.00-0.06 code = 3643882747) LYMPH x10^3 (test code 3.29 10*3/uL 1.32-3.29 = 731-0) MONO x10^3 (test code 0.71 10*3/uL 0.33-0.92 = 742-7) EOS x10^3 (test code = 0.20 10*3/uL 0.03-0.39 711-2) BASO x10^3 (test code 0.06 10*3/uL 0.01-0.07 = 704-7) Lab Interpretation Abnormal (test code = 89646-6) [facility]"
[2023-08-25 20:54] LABS: Hematocrit 37.4 % (36.0-45.0); Lymphocytes % 29.7 % (15.3-44.8); MCV 85.6 fL (80-100); MPV 7.8 fL (7.6-11.3); Platelets 393 thou/uL (152-406); RBC Red Blood Cell Count 4.37 M/uL (3.86-4.86)
[2023-08-25 20:59] LABS: Protime INR 1.04
[2023-08-25 21:05] LABS: ALT/SGPT 41 U/L (13-56); AST/SGOT 17 U/L (15-37); Albumin 3.4 g/dL (3.4-5.0); Alkaline Phosphatase 133 U/L (45-117); BUN Blood Urea Nitrogen 16 mg/dL (7-18); Bicarbonate 29 mEq/L (21-32); Bilirubin Total 0.2 mg/dL (0.2-1.0); Glomerular Filtration Rate 69 ml/min (=/>90); Glucose Level 176 mg/dL (74-106); Magnesium 1.9 mg/dL (1.6-2.4); Potassium 3.7 mEq/L (3.5-5.1); Protein, Total 7.8 g/dL (6.4-8.2); Sodium Level 137 mEq/L (136-145); Troponin High Sensitivity 3.3 pg/mL (<58.9)
[2023-08-25] MEDS ORDERED: METOCLOPRAMIDE 10 MG/2mL INJ ONE (21:05)
[2023-08-25] MEDS ORDERED: DIPHENHYDRAMINE 50 MG/ML VIAL ONE (21:05)
[2023-08-25] MEDS ORDERED: KETOROLAC 30 MG/ML INJ ONE (21:05)
[2023-08-25] MEDS ORDERED: NA CHLORIDE 0.9% 1,000 ML ONE (21:06)
--- NOTE | 2023-08-25 21:09 | RAD REPORT ---
EXAM DESCRIPTION: [place] Single View08/25/2023 8:43 pm CLINICAL HISTORY: Syncope COMPARISON: 2021 FINDINGS: The lungs appear clear of acute infiltrate. The heart is normal size IMPRESSION: No acute abnormalities displayed
[2023-08-25 21:10] LABS: Bilirubin Direct < 0.1 mg/dL (0-0.2); Bilirubin Indirect, Calculated ND mg/dL (0.2-0.8); NT PRO-BNP < 5 pg/mL (<125)
--- NOTE | 2023-08-25 22:27 | RAD REPORT ---
EXAM DESCRIPTION: CT - Head C Spine Mpr Wo Con - 08/25/2023 9:52 pm CLINICAL HISTORY: Syncope Head and neck injury status post fall. Head and neck pain COMPARISON: June 2023 TECHNIQUE: Computed axial tomography of the head and cervical spine was obtained. Sagittal and coronal reconstruction was performed. All CT scans are performed using dose optimization technique as appropriate and may include automated exposure control or mA/KV adjustment according to patient size. FINDINGS: An intracranial bleed is not seen. The ventricles are normal in caliber. No significant hypodensity within the brain. An extra-axial fluid collection is not noted. Fluid within the visualized sinuses and mastoids is not seen A cervical fracture is not visualized. No dislocation is noted. IMPRESSION: No acute intracranial abnormality is seen. A cervical fracture is not visualized. If the patient continues to have symptoms to suggest intracranial /spinal cord pathology then MRI wou ld be recommended
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
--- NOTE | 2023-08-25 23:41 | ER ---
Nurse's Notes [facility] Name: Sherri Best Age: 52 yrs Sex: Female : 1970 Arrival Date: 08/25/2023 Time: 20:19 Bed 15 Private MD: Diagnosis: Syncope and collapse, uncontrolled diabetes, acute tension type headache, hyperglycemia associated with type 2 diabetes. Presentation: 08/25 20:29 Chief complaint: Patient states: I was walking home, got dizzy and fell. EMS states: Pt jb4 walked into a hotel and was found on the ground. BGL was 252. Coronavirus screen: At this time, the client does not indicate any symptoms associated with coronavirus-19. Ebola Screen: No symptoms or risks identified at this time. Initial Sepsis Screen: Does the patient meet any 2 criteria? No. Patient's initial sepsis screen is negative. Does the patient have a suspected source of infection? No. Patient's initial sepsis screen is negative. Risk Assessment: Do you want to hurt yourself or someone else? Patient reports no desire to harm self or others. Onset of symptoms was August 25, 2023. Transition of care: patient was not received from another setting of care. 20:29 Method Of Arrival: EMS: [facility] jb4 20:29 Acuity: LUIS A 3 jb4 Historical: - Allergies: 20:31 NKA; jb4 - PMHx: 20:31 Anxiety; Depression; Diabetes - NIDDM; Hypertension; jb4 - PSHx: 20:31 section; Cholecystectomy; uterine ablation; jb4 - Immunization history:: Adult Immunizations not up to date. - Social history:: Smoking status: Patient denies any tobacco usage or history of. - Family history:: not pertinent. Screenin:15 [facility] ED Fall Risk Assessment (Adult) History of falling in the last 3 months, jb4 including since admission Yes- single mechanical fall (1 pt) Confusion or Disorientation No (0 pts) Score/Fall Risk Level 0 - 2 = Low Risk. Abuse screen: Denies threats or abuse. Nutritional screening: No deficits noted. Tuberculosis screening: No symptoms or risk factors identified. Assessment: 20:37 General: Appears in no apparent distress. comfortable, Behavior is calm, cooperative, jb4 appropriate for age, anxious. Pain: Complains of pain in scalp and back Pain does not radiate. Pain currently is 7 out of 10 on a pain scale. Neuro: Level of Consciousness is awake, alert, obeys commands, Oriented to person, place, time, situation, Correspondence Review Clerk are equal bilaterally Moves all extremities. Full function Speech is normal, Facial symmetry appears normal, Pupils are PERRLA, Intact. Cardiovascular: Patient's skin is warm and dry. Respiratory: Airway is patent Respiratory effort is even, unlabored, Respiratory pattern is regular, symmetrical. GI: No signs and/or symptoms were reported involving the gastrointestinal system. : No signs and/or symptoms were reported regarding the genitourinary system. EENT: No signs and/or symptoms were reported regarding the EENT system. Derm: Skin is intact, Skin is dry, Skin is normal, Skin temperature is warm. Musculoskeletal: Circulation, motion, and sensation intact. Range of motion: intact in all extremities. 22:00 Reassessment: Patient appears in no apparent distress at this time. Patient and/or jb4 family updated on plan of care and expected duration. Pain level reassessed. Patient is alert, oriented x 3, equal unlabored respirations, skin warm/dry/pink. 23:00 Reassessment: Patient appears in no apparent distress at this time. Patient and/or jb4 family updated on plan of care and expected duration. Pain level reassessed. Patient is alert, oriented x 3, equal unlabored respirations, skin warm/dry/pink. 23:59 Reassessment: Patient appears in no apparent distress at this time. Patient and/or jb4 family updated on plan of care and expected duration. Pain level reassessed. Patient is alert, oriented x 3, equal unlabored respirations, skin warm/dry/pink. Vital Signs: 20:29 BP 140 / 88; Pulse 87; Resp 16; Temp 98.3; Pulse Ox 98% on R/A; Weight 83.01 kg (R); jb4 Height 5 ft. 2 in. (R); Pain 6/10; 21:15 BP 123 / 95; Pulse 88; Resp 16; Pulse Ox 99% on R/A; jb4 23:50 BP 138 / 89; Pulse 89; Resp 16; Pulse Ox 97% on R/A; jb4 20:29 Body Mass Index 33.47 (83.01 kg, 157.48 cm) jb4 20:29 Pain Scale: Adult jb4 ED Course: 20:23 Patient arrived in ED. 20:23 Luiz White MD is Attending Physician. sp4 20:27 Nate Alvarado, RN is Primary Nurse. jb4 20:31 Triage completed. jb4 20:31 Arm band placed on right wrist. jb4 20:37 Initial lab(s) drawn, by oh, sent to lab. Inserted saline lock: 18 gauge in right jb4 antecubital area, using aseptic technique. Blood collected. 20:45 XRAY Chest (1 view) In Process Unspecified. EDMS 21:15 Patient has correct armband on for positive identification. Bed in low position. Call jb4 light in reach. Side rails up X 1. Client placed on continuous cardiac and pulse oximetry monitoring. NIBP monitoring applied. groundwater monitoring technician on. 21:54 CT Head C Spine In Process Unspecified. EDMS 08/26 00:01 No provider procedures requiring assistance completed. IV discontinued, intact, jb4 bleeding controlled, No redness/swelling at site. Pressure dressing applied. Administered Medications: 08/25 21:02 Drug: Ketorolac IVP 30 mg IVP once Route: IVP; Site: right antecubital; jb4 21:02 Drug: NS 0.9% IV 1000 ml IV at 1 bolus Per protocol; 1000 mL bolus Route: IV; Rate: 1 jb4 bolus; Site: right antecubital; 21:02 Drug: diphenhydrAMINE IVP 25 mg IVP once Route: IVP; Site: right antecubital; jb4 21:02 Drug: metoCLOPramide IVP 10 mg IVP once; over 1 to 2 minutes Route: IVP; Site: right jb4 antecubital; 21:02 Not Given (Physician Discretion): clonidine0.2 mg PO once jb4 Outcome: 23:41 Discharge ordered by . sp4 08/26 00:01 Discharged to home ambulatory, with family, jb Condition: stable Discharge instructions given to patient, Instructed on discharge instructions, follow up and referral plans. medication usage, Demonstrated understanding of instructions, follow-up care, medications, Prescriptions given X 2, 00:01 Patient left the ED. jb4 Signatures: Dispatcher [employer] EDAL Lacy Devlin RN RN Naet Alvarado RN RN jb4 Tera Whitey, MD MD sp4
--- NOTE | 2023-08-26 11:55 | EKG ---
Test Date: 2023-08-25 Test Time: 20:43:48 Health Information Specialist: ADRIANA MEASUREMENT RESULTS: Intervals: Rate: 89 VA: 138 QRSD: 70 QT: 386 QTc: 469 [place]: P: 65 VA: 138 QRS: 64 T: 47 INTERPRETIVE STATEMENTS: Normal sinus rhythm Normal ECG Compared to ECG 02/21/2023 01:23:34 No significant changes Electronically Signed On 08-26-23 11:53:41 CDT by Peña Cruz
== END 2023-08-26 00:01 | disposition home or self-care (01) ==
LOC: ER 20:19
DX: R55 Syncope and collapse (principal); E11.65 Type 2 diabetes mellitus with hyperglycemia; G44.209 Tension-type headache, unspecified, not intractable
CPT/HCPCS: 36415; 70450; 71045; 72125; 80048; 80076; 83735; 83880; 84484; 85025; 85610; 93005; 96374; 96375; 99285; J1200; J2765; J7030

== ENCOUNTER → 2023-11-13 | Emergency (ER) | payer SELFPAY ==
[~2023-11-13] MED LIST: FLUCONAZOLE 100 MG TAB ONE; INSULIN REGULAR (HUMAN) 100 UNIT/ML ONE
--- OUTSIDE RECORDS SUMMARY | 2023-11-13 10:54 | XMS REPORT | Continuity of Care Document ---
Author Name Unknown Address [address] [facility] [address] [place] [address] [facility] thconnect Address [address] [facility] [address] [place] [address] Care Team Providers Care Cosmetic Counselor Name Role Phone PCP, PATIENT DOES NOT HAVE A Primary Care Physic hayden Unavailable GEORGIANA ROWE Attending Clinician Unavailable Georgiana Rowe NP Attending Clinician [phone] Rehana Cabrales Attending Clinician [phone] Allergies, Adverse Reactions, Alerts Allergy Name Allergy Type Status Severity Reaction(s) Onset Date Inactive Date Treating Clinician Comments Source NO KNOWN ALLERGIE S Drug Class Active [facility] Social History Social Habit Start Date Stop Date Quantity Comments Source Sex Assigned At 1970 00:00:00 1970 00:00:00 [facility] Smoking Status Start Date Stop Date Source Tobacco smoking consumption unknown [facility] Medications Ordered Medication Name Filled Medication Name Start Date Stop Date Current Medication? Ordering Clinician Indication Dosage Frequency Signature (SIG) Comments Components Source acetaminoph en (TYLENOL) tablet 650 mg 05-05 12:00: 00 05-05 12:02 :00 No 650mg 650 mg, Oral, ONCE, 1 dose, On Fri05/05/23 at 0700, ELDA [facility] Vital Signs Vital Name Observation Time Observation Value Comments S ource Systolic blood pressure 2023-05-05 11:00:00 108 mm[Hg] [facility] Diastolic blood pressure 2023-05-05 11:00:00 70 mm[Hg] [facility] Heart rate 2023-05-05 11:00:00 84 /min [facility] Body temperature 2023-05-05 11:00:00 36.61 Lucille [facility] Respiratory rate 2023-05-05 11:00:00 14 /min [facility] Oxygen saturation in Arterial blood by Pulse oximetry 2023-05-05 11:00:00 98 /min [facility] Body height 2023-05-04 22:15:00 62 cm [facility] Body weight 2023-05-04 22:15:00 81.647 kg [facility] BMI 2023-05-04 22:15:00 212.41 kg/m2 [facility] Procedures Procedure Date / Time Performed Performing Clinician Source POCT GLUCOSE(AGE >30DAYS) 2023-05-05 07:54:00 Georgiana Rowe [facility] POCT GLUCOSE (AUTOMATED) 2023-05-05 07:49:00 Lucas Rowe [facility] ASSIGNMENT OF BENEFITS 2023-05-04 23:34:08 Docto r Unassigned, [place] [facility] CONSENT/REFUSAL FOR DIAGNOSIS AND TREATMENT 2023-05-04 23:33:38 Doctor Unassigned, [place] [facility] TROPONIN I 2023-05-04 22:56:00 Georgiana Rowe [facility] COMP. METABOLIC PANEL (37683) 2023-05-04 22:56:00 Georgiana Rowe [facility] SALICYLATE 2023-05-04 22:56:00 Georgiana Rowe [facility] ETHANOL 2023-05-04 22:56:00 Georgiana Rowe [facility] CBC WITH DIFF 2023-05-04 22:56:00 Georgiana Rowe [facility] GLYCOSYLATED HEMOGLOBIN (A1C) 2023-05-04 22:56:00 Georgiana Rowe [facility] URINALYSIS 2023-05-04 22:56:00 Georgiana Rowe [facility] COVID-19 (ID NOW RAPID TESTING) 2023-05-04 22:56:00 Georgiana Rowe [facility] URINE DRUG (IMMUNOASSAY) - COMPREHENSIVE DRUG SCREEN W/O REFLEX 2023-05-04 22:56:00 Georgiana Rowe [facility] Encounters Start Date/Time End Date/Time Encounter Type Admission Type Attending [facility] Care Facility Care Department Encounter ID Source 2023-05-05 00:29:13 Outpatient [facility] [id number] [facility] 2023-05-04 22:17:26 Outpatient [facility] [id number] [facility] 2023-05-04 17:20:00 2023-05-05 08:28:00 Emergency X GEORGIANA ROWE [facility] ERT [id number] [facility] 2023-05-04 17:20:00 2023-05-05 08:28:00 Emergency Georgiana Rowe [facility] [id number] [facility] 2021-01-02 11:56:00 2021-01-02 20:07:00 Emergency Rehana Yeung [facility] [id number] 2021-01-02 11:32:00 2021-01-02 11:32:00 Emergency [facility] E[facility] [id number] [facility] Results Test Description Test Time Test Comments Results Result Co mments Source [facility]2023-05-05 07:51:17* Test Item Value Reference Range Interpretation Comme nts POCT GLU (test code = 6253753646) 217 mg/dL 70-110 H Lab Interpretation (test cod e = 05992-9) Abnormal [facility]cosylated Hemoglobin (A1C)2023-05-05 05:37:24* Test Item Value Reference Range Interpretation Comme nts HGB A1C (test code = 4548-4) 8.3 % 4.0-5.7 H JAYANT (test code = JAYANT) Reference RangesNormal: <5.7%Prediabetes: 5.7 - 6.4%Diabetes: > 6.5% Lab Interpretation (test code = 18681-9) Abnormal [facility]OP[facility] [id number] 23:42:11* Test Item Value Reference Range Interpretation Comme nts TROPONIN I (test code = 2849415276) 0.000 ng/mL <=0.034 JAYANT (test code = JAYANT) Reference (Normal) [...] to patient's use of biotin. Lab Interpretation (test code = 46019-6) Normal [facility]ACETAMINOPHEN2023-07-02 23:38:15* Test Item Value Reference Range Interpretation Comme nts ACETAMINOP (test code = 0910846737) 10.0-30.0 L JAYANT (test code = JAYANT) Toxic: Greater oral n 200 ug/mL @ 4 hour post ingestion or greater than 50 ug/mL @ 12 hour post ingestion Lab Interpretation (test code = 69484-6) Abnormal [facility]ALICYLATE2023-07-02 23:38:10 SALICYLATE<10mg/L05/04/2023 6:38 PM [facility]: ? Analgesic and Antipyretic Use ? 20- 100 mg/L ? ? Anti-Inflammatory Use ? 100-250 mg/L Toxic Range: ? Greater than 300 mg/LUnB[facility]anoETHANOL2023-07-02 23:27:37ALCOHOL<10mg/dL05/04/2023 6:27 PM [facility]<10 [id number] Toxic>100 Depression of FEED IN WORKER>400 [facility]. METABOLIC PANEL (21886)2023-05-04 23:24:32* Test Item Value Reference Range Interpretation Comme nts NA (test code = 8638411034) 140 mmol/L 135-145 K (test code = 6799207699) 3.8 mmol/L 3.5-5.0 CL (test code = 3433446639) 101 mmol/L 98-108 CO2 TOTAL (test code = 7904637568) 26 mmol/L 23-31 AGAP (test code = 0935106806) 13 2-16 BUN (test code = 7594978198) 15 mg/dL 7-23 GLUCOSE (test code = 1902052998) 264 mg/dL 70-110 H CREATININE (test code = 0411025072) 0.97 mg/dL 0.50-1.04 TOTAL BILI (test code = 9412659033) 0.5 mg/dL 0.1-1.1 CALCIUM (test code = 1238310928) 9.5 mg/dL 8.6-10.6 T PROTEIN (test code = 3337843612) 7.2 g/dL 6.3-8.2 ALBUMIN (test code = 7719482027) 4.2 g/dL 3.5-5.0 ALK PHOS (test code = 0474503011) 123 U/L 34-122 H ALTv (test code = 1742-6) 42 U/L 5-35 H AST(SGOT) (test code = 1994911497) 34 U/L 13-40 eGFR (test code = 1021541313) 60.3 mL/min/1.73m2 JAYANT (test code = JAYANT) Association of [...] or abnormalities in imaging tests). Lab Interpretation (test code = 13291-0) Abnormal [facility] WITH [id number] 23:13:09* Test Item Value Reference Range Interpretation Comme nts WBC (test code = 6690-2) 12.51 See_Comment H [uShare] The system which generated this result transmitted reference range: 4.30 - 11.10 10*3/?L. The reference range was not used to interpret this result as normal/abnormal. RBC (test code = 789-8) 4.29 See_Comment [uShare] The system which generated this result transmitted reference range: 3.93 - 5.25 10*6/?L. The reference range was not used to interpret this result as normal/abnormal. HGB (test code = 718-7) 12.5 g/dL 11.6-15.0 HCT (test code = 4544-3) 37.1 % 35.7-45.2 MCV (test code = 787-2) 86.5 fL 80.6-95.5 MCH (test code = 785-6) 29.1 pg 25.9-32.8 MCHC (test code = 786-4) 33.7 g/dL 31.6-35.1 RDW-SD (test code = 22957-9) 41.4 fL 39.0-49.9 RDW-CV (test code = 788-0) 13.3 % 12.0-15.5 PLT (test code = 777-3) 354 See_Comment [Automated messa ge] The system which generated this result transmitted reference range: 166 - 358 10*3/?L. The reference range was not used to interpret this result as normal/abnormal. MPV (test code = 88415-6) 10.2 fL 9.5-12.9 NRBC/100 WBC (test code = 0220324633) 0.0 See_Comment [Automated me ssage] The system which generated this result transmitted reference range: 0.0 - 10.0 /100 WBCs. The reference range was not used to interpret this result as normal/abnormal. NRBC x10^3 (test code = 5248916309) See_Comment [Automated messa ge] The system which generated this result transmitted reference range: 10*3/?L. The reference range was not used to interpret this result as normal/abnormal. GRAN MAT (NEUT) % (test code = 770-8) 65.5 % IMM GRAN % (test code = 3572642321) 0.40 % LYMPH % (test code = 736-9) 26.3 % MONO % (test code = 5905-5) 5.7 % EOS % (test code = 713-8) 1.6 % BASO % (test code = 706-2) 0.5 % GRAN MAT x10^3(ANC) (test code = 7248335720) 8.20 10*3/uL 1.88-7.09 H IMM GRAN x10^3 (test code = 3295809049) 0.05 10*3/uL 0.00-0.06 LYMPH x10^3 (test code = 731-0) 3.29 10*3/uL 1.32-3.29 MONO x10^3 (test code = 742-7) 0.71 10*3/uL 0.33-0.92 EOS x10^3 (test code = 711-2) 0.20 10*3/uL 0.03-0.39 BASO x10^3 (test code = 704-7) 0.06 10*3/uL 0.01-0.07 Lab Interpretation (test code = 61809-6) Abnormal [facility]"
[2023-11-13 12:03] LABS: Specific Gravity 1.026 (1.005-1.030); Urine Bacteria <20 /HPF (<20); Urine Bilirubin NEGATIVE (Negative); Urine Blood Negative (Negative); Urine Clarity Turbid (Clear); Urine Color Light-Yellow (Yellow); Urine Glucose 4+ (Over) (Negative); Urine Mucus Slight /HPF (None Seen); Urine Protein NEGATIVE (Negative); Urine RBC <5 /HPF (None Seen); Urine Urobilinogen Normal (Normal)
[2023-11-13 12:05] LABS: Potassium 3.9 mEq/L (3.5-5.1)
--- NOTE | 2023-11-13 13:22 | ER ---
Nurse's Notes [facility] Name: Sherri Best Age: 52 yrs Sex: Female : 1970 Arrival Date: 11/13/2023 Time: 10:51 Bed 20 Private MD: Diagnosis: UTI/ Urinary tract infection, site not specified;Vaginitis, vulvitis and vulvovaginitis in diseases classified elsewhere;Hyperglycemia, unspecified Presentation: 11/13 11:10 Chief complaint: Patient states: "My blood sugar has been high, about 329 and my vagina aa5 has been itchy for about 3 weeks now". Pt reports dark vaginal discharge. 11:10 Method Of Arrival: Ambulatory aa5 11:10 Coronavirus screen: At this time, the client does not indicate any symptoms associated aa5 with coronavirus-19. Ebola Screen: Patient denies travel to an Ebola-affected area in the 21 days before illness onset. Initial Sepsis Screen: Does the patient meet any 2 criteria? HR > 90 bpm. Does the patient have a suspected source of infection? Yes:. Risk Assessment: Do you want to hurt yourself or someone else? Patient reports no desire to harm self or others. Onset of symptoms was November 2023. 11:10 Acuity: LUIS A 3 aa5 Historical: - Allergies: 11:10 NKA; aa5 - PMHx: 11:10 Anxiety; Depression; Diabetes - NIDDM; Hypertension; aa5 - PSHx: 11:10 section; Cholecystectomy; uterine ablation; aa5 - Immunization history:: Adult Immunizations unknown. - Social history:: Smoking status: Patient denies any tobacco usage or history of. - Family history:: not pertinent. - Hospitalizations: : No recent hospitalization is reported. Screenin:05 [facility] ED Fall Risk Assessment (Adult) History of falling in the last 3 months, ph including since admission No falls in past 3 months (0 pts) Score/Fall Risk Level 0 - 2 = Low Risk Oriented to surroundings, Maintained a safe environment, Hourly rounding (assess needs \\T\\ fall precautionary measures) done. Abuse screen: Denies threats or abuse. Denies injuries from another. Nutritional screening: No deficits noted. Tuberculosis screening: No symptoms or risk factors identified. Assessment: 11:40 General: Appears in no apparent distress. comfortable, Behavior is calm, cooperative, ph appropriate for age. Pain: Complains of pain in pelvis. Neuro: Level of Consciousness is awake, alert, obeys commands, Oriented to person, place, time, situation. Cardiovascular: Capillary refill < 3 seconds in bilateral fingers Patient's skin is warm and dry. Respiratory: Airway is patent Respiratory effort is even, unlabored, Respiratory pattern is regular, symmetrical. : Reports urinary frequency, vaginal itching. Derm: Skin is pink, warm \\T\\ dry. 13:50 Neuro: Level of Consciousness is awake, alert, obeys commands, Oriented to person, aa5 place, time, situation. Respiratory: Airway is patent Respiratory effort is even, unlabored, Respiratory pattern is regular, symmetrical. Derm: Skin is dry, Skin is normal, Skin temperature is warm. Vital Signs: 11:10 BP 138 / 100; Pulse 99; Resp 18 S; Temp 98(TE); Pulse Ox 99% on R/A; Weight 84.82 kg aa5 (R); Height 5 ft. 2 in. (R); 13:50 BP 119 / 81; Pulse 88; Resp 18 S; Temp 97.8(TE); Pulse Ox 99% on R/A; aa5 11:10 Body Mass Index 34.20 (84.82 kg, 157.48 cm) aa5 ED Course: 10:55 Patient arrived in ED. im 10:57 Bobo Toure MD is Attending Physician. rn 11:10 Arm band placed on. aa5 11:12 Triage completed. aa5 11:23 Marnie Richards, RN is Primary Nurse. ph 11:40 Urinalysis w/ reflexes Sent. ph 12:06 Patient has correct armband on for positive identification. Call light in reach. Side ph rails up X 1. Pulse ox on. NIBP on. Door closed. Noise minimized. Warm blanket given. 13:50 No provider procedures requiring assistance completed. IV discontinued, intact, aa5 bleeding controlled, No redness/swelling at site. Pressure dressing applied. Administered Medications: 12:44 Drug: Insulin Regular Human Sub-Q 5 units Sub-Q once {Co-Signature: kd3 (Raysa Alvarez me1 RN).} Route: Sub-Q; Site: right upper arm; 12:44 Drug: Fluconazole PO 200 mg PO once Route: PO; me1 Medication: 12:06 VIS not applicable for this client. ph Outcome: 13:21 Discharge ordered by . rn 13:50 Discharged to home ambulatory, with family, aa5 13:50 Condition: stable 13:50 Discharge instructions given to patient, Instructed on discharge instructions, follow up and referral plans. medication usage, Demonstrated understanding of instructions, follow-up care, medications, Prescriptions given X 3, 13:57 Patient left the ED. aa5 Signatures: Bobo Toure MD MD rn Calderon, Audri RN RN aa5 Marnie Richards RN RN Katie Bhakta Michelle, RN RN me1 Raysa Alvarez RN kd3 Corrections: (The following items were deleted from the chart) 11:14 11:10 BP 138 / 100; Pulse 99bpm; Resp 18bpm; Spontaneous; Pulse Ox 99% RA; Temp 98F aa5 Temporal; aa5
--- NOTE | 2023-11-13 13:23 | EDPHYS ---
Physician Documentation [facility] Name: Sherri Best Age: 52 yrs Sex: Female : 1970 Arrival Date: 11/13/2023 Time: 10:51 Bed 20 Private MD: ED Physician Bobo Toure HPI: 11/13 11:27 This 52 yrs old Black Female presents to ER via Ambulatory with complaints of Vaginal rn Itching, High Blood Sugar. 11:27 The patient presents with Vaginal itching and dysuria. Onset: The symptoms/episode rn began/occurred 3 week(s) ago. Modifying factors: The symptoms are alleviated by nothing, the symptoms are aggravated by urinating. Severity of symptoms: At their worst the symptoms were mild, in the emergency department the symptoms are unchanged. The patient has not experienced similar symptoms in the past. Patient reports high blood sugar over the last few weeks, reports in the 300s. Takes metformin but is running out and is missing a lot of her doses, is only taking it once a day when she is supposed to take it twice a day. Patient reports 3 weeks of vaginal itching and dysuria. Increased urinary frequency. Has tried bdon-hlb-iidyhbl medication including witch radha and it is not helping. No fever or chills. No flank or abdominal pain.. Historical: - Allergies: 11:10 NKA; aa5 - PMHx: 11:10 Anxiety; Depression; Diabetes - NIDDM; Hypertension; aa5 - PSHx: 11:10 section; Cholecystectomy; uterine ablation; aa5 - Immunization history:: Adult Immunizations unknown. - Social history:: Smoking status: Patient denies any tobacco usage or history of. - Family history:: not pertinent. - Hospitalizations: : No recent hospitalization is reported. ROS: 11:27 Constitutional: Negative for fever, chills, and weight loss, Cardiovascular: Negative rn for chest pain, palpitations, and edema, Respiratory: Negative for shortness of breath, cough, wheezing, and pleuritic chest pain, Abdomen/GI: Negative for abdominal pain, nausea, vomiting, diarrhea, and constipation, Back: Negative for injury and pain, : Positive for vaginal itching and dysuria MS/Extremity: Negative for injury and deformity, Skin: Negative for injury, rash, and discoloration, Neuro: Negative for headache, weakness, numbness, tingling, and seizure, Exam: 11:27 Constitutional: This is a well developed, well nourished patient who is awake, alert, rn and in no acute distress. Cardiovascular: Regular rate and rhythm. No pulse deficits. Respiratory: No increased work of breathing, no retractions or nasal flaring. Vital Signs: 11:10 BP 138 / 100; Pulse 99; Resp 18 S; Temp 98(TE); Pulse Ox 99% on R/A; Weight 84.82 kg aa5 (R); Height 5 ft. 2 in. (R); 13:50 BP 119 / 81; Pulse 88; Resp 18 S; Temp 97.8(TE); Pulse Ox 99% on R/A; aa5 11:10 Body Mass Index 34.20 (84.82 kg, 157.48 cm) aa5 MDM: 10:57 Patient medically screened. rn 13:20 Differential diagnosis: urinary tract infection, vaginosis, vaginitis. Data reviewed: rn vital signs, nurses notes, lab test result(s), and as a result, I will discharge patient. Counseling: I had a detailed discussion with the patient and/or guardian regarding the historical points, exam findings, and any diagnostic results supporting the discharge/admit diagnosis, lab results, the need for outpatient follow up, to return to the emergency department if symptoms worsen or persist or if there are any questions or concerns that arise at home. Special discussion: I discussed with the patient/guardian in detail that at this point there is no indication for admission to the hospital. It is understood, however, that if the symptoms persist or worsen the patient needs to return immediately for re-evaluation. 11/13 11:15 Order name: Urinalysis w/ reflexes; Complete Time: 12:11 rn 11/13 11:15 Order name: Basic Metabolic Panel; Complete Time: 12:11 rn 11/13 11:15 Order name: IV Start; Complete Time: 11:40 rn Administered Medications: 12:44 Drug: Insulin Regular Human Sub-Q 5 units Sub-Q once {Co-Signature: kd3 (Raysa Alvarez me1 RN).} Route: Sub-Q; Site: right upper arm; 12:44 Drug: Fluconazole PO 200 mg PO once Route: PO; me1 Disposition Summary: 11/13/23 13:21 Discharge Ordered Notes: Location: Home rn Problem: new rn Symptoms: have improved rn Condition: Stable rn Diagnosis - UTI/ Urinary tract infection, site not specified rn - Vaginitis, vulvitis and vulvovaginitis in diseases classified elsewhere rn - Hyperglycemia, unspecified rn Followup: rn - With: Private Physician - When: As needed - Reason: Recheck today's complaints, Re-evaluation by your physician Discharge Instructions: - Discharge Summary Sheet rn - Urinary Tract Infection, Adult rn - Vaginitis rn Forms: - Medication Reconciliation Form rn - Thank You Letter rn - Antibiotic furnace feeder - Prescription Opioid Use rn - Patient Portal Instructions rn - Leadership Thank You Letter rn - Family Work Release aa5 Prescriptions: - Cipro 500 mg Oral Tablet - take 1 tablet ORAL route every 12 hours for 7 days; 14 tablet; Refills: 0, rn Product Selection Permitted - Fluconazole 150 mg Oral tablet - take 1 tablet ORAL route once daily for 3 days; 3 tablet; Refills: 0, Product rn Selection Permitted - Metformin 1,000 mg Oral tablet - take 1 tablet ORAL route every 12 hours with morning and evening meals; 60 rn tablet; Refills: 0, Product Selection Permitted Signatures: Dispatcher [employer] Bobo Upton MD MD rn Calderon, Audri, RN RN aa5 Carey Mcpherson RN RN me1 Raysa Alvarez RN kd3
[2023-11-13 16:45] VITALS: BP 138/100; TEMP 98; O2SAT 99
== END ==
LOC: ER 10:51
DX: N39.0 Urinary tract infection, site not specified (principal); N77.1 Vaginitis, vulvitis and vulvovaginitis in diseases classified elsewhere; E11.65 Type 2 diabetes mellitus with hyperglycemia; I10 Essential (primary) hypertension
CPT/HCPCS: 36415; 80048; 81001; 96372; 99284; J1815

== ENCOUNTER 2024-08-03 12:32 | Emergency (ER) | payer OTHER ==
--- OUTSIDE RECORDS SUMMARY | 2024-08-03 12:36 | XMS REPORT | Continuity of Care Document ---
Author Name Unknown Address [address] [place] [address] [facility] Address 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 Role Phone PCP, PATIENT DOES NOT HAVE A Primary Care Physic hayden Unavailable RAJ ROWE Attending Clinician Unavailable Raj Rowe NP Attending Clinician [phone] Rehana Cabrales Attending Clinician [phone] Allergies, Adverse Reactions, Alerts Allergy Name Allergy Type Status Severity Reaction(s) Onset Date Inactive Date Treating Clinician Comments Source NO KNOWN ALLERGIE S Drug Class Active [facility] Social History Social Habit Start Date Stop Date Quantity Comments Source Sex Assigned At 1970 00:00:00 1970 00:00:00 [facility] Smoking Status Start Date Stop Date Source Tobacco smoking consumption unknown [facility] Medications Ordered Medication Name Filled Medication Name Start Date Stop Date Current Medication? Ordering Clinician Indication Dosage Frequency Signature (SIG) Comments Components Source acetaminoph en (TYLENOL) tablet 650 mg 05-05 12:00: 00 05-05 12:02 :00 No 650mg 650 mg, Oral, ONCE, 1 dose, On Fri05/05/23 at 0700, ELDA [facility] Vital Signs Vital Name Observation Time Observation Value Comments S andre Systolic blood pressure 2023-05-05 11:00:00 108 mm[Hg] [facility] Diastolic blood pressure 2023-05-05 11:00:00 70 mm[Hg] [facility] Heart rate 2023-05-05 11:00:00 84 /min [facility] Body temperature 2023-05-05 11:00:00 36.61 Lucille [facility] Respiratory rate 2023-05-05 11:00:00 14 /min [facility] Oxygen saturation in Arterial blood by Pulse oximetry 2023-05-05 11:00:00 98 /min [facility] Body height 2023-05-04 22:15:00 62 cm [facility] Body weight 2023-05-04 22:15:00 81.647 kg [facility] BMI 2023-05-04 22:15:00 212.41 kg/m2 [facility] Procedures Procedure Date / Time Performed Performing Clinician Source POCT GLUCOSE(AGE >30DAYS) 2023-05-05 07:54:00 Raj Rowe [facility] POCT GLUCOSE (AUTOMATED) 2023-05-05 07:49:00 Lucas Rowe [facility] ASSIGNMENT OF BENEFITS 2023-05-04 23:34:08 Docto r Unassigned, Woody [facility] CONSENT/REFUSAL FOR DIAGNOSIS AND TREATMENT 2023-05-04 23:33:38 Doctor Unassigned, Woody [facility] TROPONIN I 2023-05-04 22:56:00 Raj Rowe [facility] COMP. METABOLIC PANEL ([id number]) 2023-05-04 22:56:00 Raj Rowe [facility] SALICYLATE 2023-05-04 22:56:00 Raj Rowe [facility] ETHANOL 2023-05-04 22:56:00 Raj Rowe [facility] CBC WITH DIFF 2023-05-04 22:56:00 Raj Rowe [facility] GLYCOSYLATED HEMOGLOBIN (A1C) 2023-05-04 22:56:00 Raj Rowe [facility] URINALYSIS 2023-05-04 22:56:00 Raj Rowe [facility] COVID-19 (ID NOW RAPID TESTING) 2023-05-04 22:56:00 Raj Rowe [facility] URINE DRUG (IMMUNOASSAY) - COMPREHENSIVE DRUG SCREEN W/O REFLEX 2023-05-04 22:56:00 Raj Rowe [facility] Encounters Start Date/Time End Date/Time Encounter Type Admission Type Attending [facility] Care Department Encounter ID Source 2023-05-05 00:29:13 Outpatient [facility] [id number] [facility] 2023-05-04 22:17:26 Outpatient [facility] [id number] [facility] 2023-05-04 17:20:00 2023-05-05 08:28:00 Emergency X ROBLESDONNARAJ [facility] ERT [id number] [facility] 2023-05-04 17:20:00 2023-05-05 08:28:00 Emergency Raj Rowe Yahaira [facility] [id number] [facility] 2021-01-02 11:56:00 2021-01-02 20:07:00 Emergency Rehana Yeung [facility] [id number] 2021-01-02 11:32:00 2021-01-02 11:32:00 Emergency X [facility] ERT [id number] [facility] Results Test Description Test Time Test Comments Results Result Co mments Source [facility]2023-05-05 07:51:17* Test Item Value Reference Range Interpretation Comme [facility] POCT GLU (test code = 1271610558) 217 mg/dL 70-110 H Lab Interpretation (test cod e = 08165-3) Abnormal [facility] Hemoglobin (A1C)2023-05-05 05:37:24* Test Item Value Reference Range Interpretation Comme nts HGB A1C (test code = 4548-4) 8.3 % 4.0-5.7 H JAYANT (test code = JAYANT) Reference RangesNormal: <5.7%Prediabetes: 5.7 - 6.4%Diabetes: > 6.5% Lab Interpretation (test code = 64292-5) Abnormal [facility]TR[facility] [id number] 23:42:11* Test Item Value Reference Range Interpretation Comme nts TROPONIN I (test code = 1815562081) 0.000 ng/mL <=0.034 JAYANT (test code = [...] of biotin. Lab Interpretation (test code = 95183-0) Normal [facility]ACETAMINOPHEN2023-07-02 23:38:15* Test Item Value Reference Range Interpretation Comme nts ACETAMINOP (test code = 2564814340) 10.0-30.0 L JAYANT (test code = JAYANT) Toxic: Greater oral n 200 ug/mL @ 4 hour post ingestion or greater than 50 ug/mL @ 12 hour post ingestion Lab Interpretation (test code = 15035-7) Abnormal [facility] HospitalSALICYLATE2023-07-02 23:38:10 SALICYLATE<10mg/L05/04/2023 6:38 PM [facility]: ? Analgesic and Antipyretic Use ? 20- 100 mg/L ? ? Anti-Inflammatory Use ? 100-250 mg/L Toxic Range: ? Greater than 300 mg/LUnHouston [facility] HospitalETHANOL2023-07-02 23:27:37ALCOHOL<10mg/dL05/04/2023 6:27 PM [facility]<10 [id number] Toxic>100 Depression of TELEVISION SCRIPT WRITER>400 [facility] METABOLIC PANEL ([id number])2023-05-04 23:24:32* Test Item Value Reference Range Interpretation Comme nts NA (test code = 4424171826) 140 mmol/L 135-145 K (test code = 3220818703) 3.8 mmol/L 3.5-5.0 CL (test code = 2284997855) 101 mmol/L 98-108 CO2 TOTAL (test code = 1962016377) 26 mmol/L 23-31 AGAP (test code = 6721759988) 13 2-16 BUN (test code = 4537730371) 15 mg/dL 7-23 GLUCOSE (test code = 6243396440) 264 mg/dL 70-110 H CREATININE (test code = 0679305373) 0.97 mg/dL 0.50-1.04 TOTAL BILI (test code = 0150816278) 0.5 mg/dL 0.1-1.1 CALCIUM (test code = 6052296153) 9.5 mg/dL 8.6-10.6 T PROTEIN (test code = 5242863333) 7.2 g/dL 6.3-8.2 ALBUMIN (test code = 5541574626) 4.2 g/dL 3.5-5.0 ALK PHOS (test code = 1122104798) 123 U/L 34-122 H ALTv (test code = 1742-6) 42 U/L 5-35 H AST(SGOT) (test code = 0232290761) 34 U/L 13-40 eGFR (test code = 6706145054) 60.3 mL/min/1.73m2 JAYANT (test code = JAYANT) [...] imaging tests). Lab Interpretation (test code = 79048-7) Abnormal [facility] WITH [id number] 23:13:09* Test Item Value Reference Range Interpretation Comme nts WBC (test code = 6690-2) 12.51 See_Comment H [Automated [employer]] The system which generated this result transmitted reference range: 4.30 - 11.10 10*3/?L. The reference range was not used to interpret this result as normal/abnormal. RBC (test code = 789-8) 4.29 See_Comment [[employer]] The system which generated this result transmitted [...] 33.7 g/dL 31.6-35.1 RDW-SD (test code = 57235-1) 41.4 fL 39.0-49.9 RDW-CV (test code = 788-0) 13.3 % 12.0-15.5 PLT (test code = 777-3) 354 See_Comment [Automated messa ge] The system which generated this result transmitted reference range: 166 - 358 10*3/?L. The reference range was not used to interpret this result as normal/abnormal. MPV (test code = 70560-6) 10.2 fL 9.5-12.9 NRBC/100 WBC (test code = 8766844258) 0.0 See_Comment [Automated me ssage] The system which generated this result transmitted reference range: 0.0 - 10.0 /100 WBCs. The reference range was not used to interpret this result as normal/abnormal. NRBC x10^3 (test code = 9222416154) See_Comment [Automated messa ge] The system which generated this result transmitted reference range: 10*3/?L. The reference range was not used to interpret this result as normal/abnormal. GRAN MAT (NEUT) % (test code = 770-8) 65.5 % IMM GRAN % (test code = 9966937520) 0.40 % LYMPH % (test code = 736-9) 26.3 % MONO % (test code = 5905-5) 5.7 % EOS % (test code = 713-8) 1.6 % BASO % (test code = 706-2) 0.5 % GRAN MAT x10^3(ANC) (test code = 6326932180) 8.20 10*3/uL 1.88-7.09 H IMM GRAN x10^3 (test code = 4608484052) 0.05 10*3/uL 0.00-0.06 LYMPH x10^3 (test code = 731-0) 3.29 10*3/uL 1.32-3.29 MONO x10^3 (test code = 742-7) 0.71 10*3/uL 0.33-0.92 EOS x10^3 (test code = 711-2) 0.20 10*3/uL 0.03-0.39 BASO x10^3 (test code = 704-7) 0.06 10*3/uL 0.01-0.07 Lab Interpretation (test code = 72812-3) Abnormal [facility]"
--- NOTE | 2024-08-03 14:06 | RAD REPORT ---
EXAMINATION: TWO VIEW CHEST XR CLINICAL INDICATION: Female, 53 years old. [facility] MAIN cough times 2 weeks Bed Name: [id number] TECHNIQUE: 2 view radiographs of the chest were performed. COMPARISON: 05/19/2024. FINDINGS: The lungs are well inflated and clear. No pneumothorax or sizable effusion. The heart is normal in si ze. Mediastinal contours are unremarkable. IMPRESSION: No acute or significant abnormalities.
[2024-08-03 14:18] LABS: Specific Gravity 1.029 (1.005-1.030)
[2024-08-03 14:19] LABS: Specific Gravity 1.029 (1.005-1.030); Urine Bilirubin NEGATIVE (Negative); Urine Blood Negative (Negative); Urine Clarity Clear (Clear); Urine Color Colorless (Yellow); Urine Glucose 4+ (Over) (Negative); Urine Ketones NEGATIVE (Negative); Urine Microscopic Reflex YN NO UMIC; Urine Nitrite NEGATIVE (Negative); Urine Protein NEGATIVE (Negative); Urine Urobilinogen Normal (Normal); Urine pH 5.5 (5.0-7.0)
[2024-08-03 14:45] LABS: SARS-CoV-2 Antigen CONTROL BLUE LINE VIS/BG OK; SARS-CoV-2 Antigen Rapid Res Negative (Negative)
--- NOTE | 2024-08-03 17:39 | ER ---
Nurse's Notes [facility] Name: Sherri Best Age: 53 yrs Sex: Female : 1970 Arrival Date: 08/03/2024 Time: 12:32 Bed 10 Private MD: Diagnosis: Otitis media in diseases classified elsewhere, left ear;Acute pharyngitis, unspecified;Acute vaginitis;Cough Presentation: 08/03 13:08 Chief complaint: Patient states: left ear pain x2 days, has been spraying peroxide in tm6 ear. dizziness, headaches, and sore throat for a few more days. Sores in vaginal area x2 weeks. Coronavirus screen: Client denies travel out of the [place] in the last 14 days. Ebola Screen: Patient negative for fever greater than or equal to 101.5 degrees Fahrenheit, and additional compatible Ebola Virus Disease symptoms Patient denies exposure to infectious person. Patient denies travel to an Ebola-affected area in the 21 days before illness onset. No symptoms or risks identified at this time. Initial Sepsis Screen: Does the patient meet any 2 criteria? HR > 90 bpm. Does the patient have a suspected source of infection? No. Patient's initial sepsis screen is negative. Risk Assessment: Do you want to hurt yourself or someone else? Patient reports no desire to harm self or others. Onset of symptoms is unknown. 13:08 Method Of Arrival: Ambulatory tm6 13:08 Acuity: LUIS A 4 tm6 Triage Assessment: 13:10 General: Appears in no apparent distress. Behavior is calm, cooperative. Pain: tm6 Complains of pain in left ear and neck. EENT: Reports pain in left ear, throat cough and sore throat. Neuro: Level of Consciousness is awake, alert, obeys commands, Oriented to person, place, time, situation. Cardiovascular: Patient's skin is warm and dry. Respiratory: Reports cough that is pain with cough. GI: No signs and/or symptoms were reported involving the gastrointestinal system. Abdomen is flat, non-distended. : Reports sores in vaginal area. Derm: No signs and/or symptoms reported regarding the dermatologic system. Musculoskeletal: No deficits noted. No signs and/or symptoms reported regarding the musculoskeletal system. 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 - Infectious Disease History:: Denies. - Social history:: Smoking status: Patient denies any tobacco usage or history of. Patient/guardian denies using alcohol. Screenin:07 [facility] ED Fall Risk Assessment (Adult) History of falling in the last 3 months, jb4 including since admission No falls in past 3 months (0 pts) Confusion or Disorientation No (0 pts) Intoxicated or Sedated No (0 pts) Impaired Gait No (0 pts) Mobility Assist Device Used No (0 pt) Altered Elimination No (0 pt) Score/Fall Risk Level 0 - 2 = Low Risk Oriented to surroundings, Maintained a safe environment. Abuse screen: Denies threats or abuse. Nutritional screening: No deficits noted. Tuberculosis screening: No symptoms or risk factors identified. Assessment: 16:55 Reassessment: Patient appears in no apparent distress at this time. Patient and/or jb4 family updated on plan of care and expected duration. Pain level reassessed. Patient is alert, oriented x 3, equal unlabored respirations, skin warm/dry/pink. 18:07 Reassessment: Patient appears in no apparent distress at this time. Patient and/or jb4 family updated on plan of care and expected duration. Pain level reassessed. Patient is alert, oriented x 3, equal unlabored respirations, skin warm/dry/pink. Vital Signs: 13:07 BP 130 / 87; Pulse 107; Resp 19; Temp 98.7(O); Pulse Ox 98% on R/A; MAP 99 mmHg; Weight tm6 84.82 kg; Height 5 ft. 2 in. ; Pain 7/10; 13:07 Body Mass Index 34.20 (84.82 kg, 157.48 cm) tm6 13:07 Pain Scale: Adult tm6 ED Course: 12:40 Patient arrived in ED. im 13:09 Triage completed. tm6 13:10 Arm band placed on right wrist. tm6 13:14 Bay Ni PA is PHCP. cp 13:14 Bay Olmstead MD is Attending Physician. cp 13:57 XRAY Chest Pa And Lat (2 Views) In Process Unspecified. EDMS 14:12 Urine collected: clean catch specimen, clear, COVID swab sent to lab. Flu and/or RSV tm3 swab sent to lab. Strep swab sent to lab. 16:53 Nate Alvarado, RN is Primary Nurse. jb4 18:07 Patient has correct armband on for positive identification. Bed in low position. Call jb4 light in reach. Side rails up X 1. Provided Education on: discharge instructions.. 18:07 No provider procedures requiring assistance completed. Patient did not have IV access jb4 during this emergency room visit. Administered Medications: 18:04 Drug: AZITHromycin PO 1 grams PO once Route: PO; jb4 18:04 Follow up: Response: Medication administered at discharge. jb4 18:05 Not Given (Other Intervention Used): rocephin1 grams IV at calculated rate once; Given jb4 slow IV push per pharmacy instructions 18:05 Drug: Rocephin (cefTRIAXone) IM 1 grams IM once Route: IM; Site: right gluteus; jb4 18:06 Follow up: Response: Medication administered at discharge. jb4 Medication: 18:07 VIS not applicable for this client. jb4 Outcome: 17:39 Discharge ordered by . cp 18:07 Discharged to home ambulatory, jb4 18:07 Condition: stable 18:07 Discharge instructions given to patient, Instructed on discharge instructions, follow up and referral plans. medication usage, Demonstrated understanding of instructions, follow-up care, medications, Prescriptions given X 3, 18:08 Patient left the ED. jb4 Signatures: Dispatcher [employer] EDLA Costa Hilton tm3 Bay Ni PA PA cp Nate Alvarado, RN RN jb4 Katie Bhakta Julian Meadows RN RN tm6 Corrections: (The following items were deleted from the chart) 13:10 13:08 Chief complaint: Patient states: left ear pain x2 days. dizziness, headaches, and tm6 sore throat for a few more days. Sores in vaginal area x2 weeks tm6
--- NOTE | 2024-08-03 17:39 | EDPHYS ---
Physician Documentation [facility] Name: Sherri Best Age: 53 yrs Sex: Female : 1970 Arrival Date: 08/03/2024 Time: 12:32 Bed 10 Private MD: Bay Hartmann HPI: 08/03 13:35 This 53 yrs old Black Female presents to ER via Ambulatory with complaints of cp Dizziness, Ear Pain, Difficulty Swallowing. 13:35 The patient presents with lightheadedness. Associated signs and symptoms: Pertinent cp positives: sore throat, cough, ear pain. 13:35 Onset: The symptoms/episode began/occurred last week. cp 13:35 Severity of symptoms: in the emergency department the symptoms are unchanged despite cp home interventions. Patient also c/o itching and rash in groin and vaginal area times 2 weeks. Reports spotting of blood but no vaginal discharge. Denies urinary symptoms. 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 - Infectious Disease History:: Denies. - Social history:: Smoking status: Patient denies any tobacco usage or history of. Patient/guardian denies using alcohol. ROS: 13:40 Constitutional: HX per hpi cp 13:40 ENT: Positive for ear pain, sore throat, cp 13:40 Cardiovascular: Negative for chest pain, 13:40 Respiratory: Positive for cough, 13:40 Abdomen/GI: Negative for vomiting, diarrhea, constipation, Exam: 13:45 Constitutional: The patient appears in no acute distress, alert, awake, non-toxic, well cp developed, well nourished, uncomfortable, 13:45 Head/Face: Normocephalic, atraumatic. cp 13:45 Eyes: Periorbital structures: appear normal, Conjunctiva: normal, no exudate, no injection, Sclera: no appreciated abnormality, Lids and lashes: appear normal, bilaterally, 13:45 ENT: External ear(s): are unremarkable, Ear canal(s): are normal, clear, TM's: bulging, on the left, erythema, that is moderate, on the left, Nose: is normal, Mouth: Lips: moist, Oral mucosa: moist, Posterior pharynx: Airway: no evidence of obstruction, patent, Tonsils: mild erythema, mild enlargement, no exudate, erythema, that is mild, Voice: is normal, 13:45 Neck: ROM/movement: is normal, is supple, without pain, no range of motions limitations, 13:45 Chest/axilla: Inspection: normal, 13:45 Cardiovascular: Rate: tachycardic, Rhythm: regular, Edema: is not appreciated, JVD: is not appreciated, 13:45 Respiratory: the patient does not display signs of respiratory distress, Respirations: normal, no use of accessory muscles, no retractions, labored breathing, is not present, Breath sounds: decreased breath sounds, are not appreciated, stridor, is not appreciated, + upper airway congestion. 13:45 Abdomen/GI: Inspection: abdomen appears normal, Palpation: abdomen is soft and non-tender, in all quadrants, 16:30 : Pelvic Exam: External exam: no erythema, no lesions, no ulcerations, Speculum exam: cp scant bleeding, mild off white discharge, discharge, white, the nurse was present for the exam, Sexual behavior: the patient is sexually active, Vital Signs: 13:07 BP 130 / 87; Pulse 107; Resp 19; Temp 98.7(O); Pulse Ox 98% on R/A; MAP 99 mmHg; Weight tm6 84.82 kg; Height 5 ft. 2 in. ; Pain 7/10; 13:07 Body Mass Index 34.20 (84.82 kg, 157.48 cm) tm6 13:07 Pain Scale: Adult tm6 MDM: 13:14 Patient medically screened. cp 15:00 Differential diagnosis: strep throat, vaginitis, sti, uti, influenza, pneumonia. cp 17:38 Data reviewed: vital signs, nurses notes, lab test result(s), radiologic studies, plain cp films, and as a result, I will discharge patient. 17:38 I considered the following discharge prescriptions or medication management in the emergency department Medications were administered in the Emergency Department. See MAR. Counseling: I had a detailed discussion with the patient and/or guardian regarding the historical points, exam findings, and any diagnostic results supporting the discharge/admit diagnosis, lab results, radiology results, to return to the emergency department if symptoms worsen or persist or if there are any questions or concerns that arise at home. 08/03 13:31 Order name: SARS RAPID; Complete Time: 15:07 cp 08/03 13:31 Order name: Influenza Screen (a \T\ B); Complete Time: 15:07 cp 08/03 13:31 Order name: Urinalysis w/ reflexes; Complete Time: 15:07 cp 08/03 15:07 Interpretation: Normal except: UGLUC 4+ (Over). cp 08/03 13:31 Order name: Test, Urine; Complete Time: 15:07 cp 08/03 13:31 Order name: Strep cp 08/03 14:46 Order name: Throat Culture EDMS 08/03 15:07 Order name: GC (Jovanni/Chl) Probe VAGINAL (Do not order if pt is under 13, order Culture cp instead) 08/03 16:34 Order name: Wet Prep; Complete Time: 17:35 cp 08/03 13:31 Order name: XRAY Chest Pa And Lat (2 Views); Complete Time: 15:07 cp 08/03 13:31 Order name: Pelvic Exam Setup; Complete Time: 16:43 cp Administered Medications: 18:04 Drug: AZITHromycin PO 1 grams PO once Route: PO; jb4 18:04 Follow up: Response: Medication administered at discharge. jb4 18:05 Not Given (Other Intervention Used): rocephin1 grams IV at calculated rate once; Given jb4 slow IV push per pharmacy instructions 18:05 Drug: Rocephin (cefTRIAXone) IM 1 grams IM once Route: IM; Site: right gluteus; jb4 18:06 Follow up: Response: Medication administered at discharge. jb4 Disposition Summary: 08/03/24 17:39 Discharge Ordered Notes: Location: Home cp Problem: new cp Symptoms: have improved cp Condition: Stable cp Diagnosis - Otitis media in diseases classified elsewhere, left ear cp - Acute pharyngitis, unspecified cp - Acute vaginitis cp - Cough cp Followup: cp - With: Private Physician - When: 5 - 6 days - Reason: symptoms continue Discharge Instructions: - Discharge Summary Sheet cp - Otitis Media, Adult cp - Pharyngitis cp - Sore Throat cp - Vaginitis cp - Cough, Adult cp Forms: - Medication Reconciliation Form cp - Antibiotic Education cp - Prescription Opioid Use cp - Patient Portal Instructions cp - Leadership Thank You Letter cp Prescriptions: - Bromfed DM 2-30-10 mg/5 mL Oral syrup - administer 10 milliliter ORAL route every 6-8 hours as needed for cough; 240 cp milliliter; Refills: 0, Product Selection Permitted - Clindamycin HCl 300 mg Oral Capsule - take 1 capsule ORAL route every 6 hours for 10 days; 40 capsule; Refills: 0, cp Product Selection Permitted - Zofran 4 mg Oral Tablet - take 1 tablet ORAL route every 12 hours As needed; 20 tablet; Refills: 0, cp Product Selection Permitted Signatures: Dispatcher [employer] EDMS Bay Ni PA PA cp Nate Alvarado, RN RN jb4 Julian Meadows RN RN tm6 Corrections: (The following items were deleted from the chart) 13:32 13:32 SARS-COV-2 Antigen Rapid+I.LAB.BRZ ordered. EDMS EDMS 13:32 13:32 Influenza Screen (A \T\ B)+BA.LAB.BRZ ordered. EDMS EDMS 13:32 13:32 Urinalysis+U.LAB.BRZ ordered. EDMS EDMS 13:32 13:32 Test, Urine+UC.LAB.BRZ ordered. EDMS EDMS 13:32 13:32 Group A Streptococcus Rapid Sc+BA.LAB.BRZ ordered. EDMS EDMS 08/04 13:33 13:32 Constitutional: HX per hpi cp cp
[2024-08-03] MEDS ORDERED: CEFTRIAXONE 1000 MG/VIAL ONE (17:49)
[2024-08-03] MEDS ORDERED: AZITHROMYCIN 250 MG TAB ONE (17:50)
[2024-08-03] MEDS ORDERED: WATER FOR INJ,STERILE 10 ML ONE (17:57)
[2024-08-03 19:20] VITALS: BP 130/87; TEMP 98.7; O2SAT 98
[2024-08-07 03:46] LABS: C.trachomatis RNA,TMA Not Detected (Not Detected); N.gonorrhoeae RNA,TMA Not Detected (Not Detected)
== END 2024-08-03 18:08 | disposition home or self-care (01) ==
LOC: ER 12:32
DX: H66.92 Otitis media, unspecified, left ear (principal); J02.9 Acute pharyngitis, unspecified; R05.9 Cough, unspecified; N76.0 Acute vaginitis
CPT/HCPCS: 36415; 71046; 81003; 81025; 87070; 87081; 87210; 87490; 87590; 87804; 87811; 96372; 99284; J0696

== ENCOUNTER 2024-11-01 17:03 | Emergency (ER) | payer OTHER ==
--- OUTSIDE RECORDS SUMMARY | 2024-11-01 17:06 | XMS REPORT | Continuity of Care Document ---
Author Name Unknown Address [address] [place] [address] [facility] thconnect Address [address] [place] [address] Care Team Providers Care Riveter Hand Name Role Phone PCP, PATIENT DOES NOT HAVE A Primary Care Physic hayden Unavailable GEORGIANA ROWE Attending Clinician Unavailable Georgiana Rowe NP Attending Clinician [phone] Rehana Cabrales Attending Clinician [phone] Allergies, Adverse Reactions, Alerts Allergy Name Allergy Type Status Severity Reaction(s) Onset Date Inactive Date Treating Clinician Comments Source NO KNOWN ALLERGIE S Drug Class Active [facility] Social History Social Habit Start Date Stop Date Quantity Comments Source Sex Assigned At 1970 00:00:00 1970 00:00:00 [facility] Smoking Status Start Date Stop Date Source Tobacco smoking consumption unknown [facility] Medications Ordered Medication Name Filled Medication Name Start Date Stop Date Current Medication? Ordering Clinician Indication Dosage Frequency Signature (SIG) Comments Components Source acetaminoph en (TYLENOL) tablet 650 mg 05-05 12:00: 00 05-05 12:02 :00 No 650mg 650 mg, Oral, ONCE, 1 dose, On Fri05/05/23 at 0700, ELDA [facility] Vital Signs Vital Name Observation Time Observation Value Comments S ource Systolic blood pressure 2023-05-05 11:00:00 108 mm[Hg] [facility] Diastolic blood pressure 2023-05-05 11:00:00 70 mm[Hg] [facility] Heart rate 2023-05-05 11:00:00 84 /min [facility] Body temperature 2023-05-05 11:00:00 36.61 Lucille [facility] Respiratory rate 2023-05-05 11:00:00 14 /min [facility] Oxygen saturation in Arterial blood by Pulse oximetry 2023-05-05 11:00:00 98 /min [facility] Body height 2023-05-04 22:15:00 62 cm [facility] Body weight 2023-05-04 22:15:00 81.647 kg [facility] BMI 2023-05-04 22:15:00 212.41 kg/m2 [facility] Procedures Procedure Date / Time Performed Performing Clinician Source POCT GLUCOSE(AGE >30DAYS) 2023-05-05 07:54:00 Georgiana Rowe [facility] POCT GLUCOSE (AUTOMATED) 2023-05-05 07:49:00 Lucas Rowe [facility] ASSIGNMENT OF BENEFITS 2023-05-04 23:34:08 Docto r Unassigned, [place] [facility] CONSENT/REFUSAL FOR DIAGNOSIS AND TREATMENT 2023-05-04 23:33:38 Doctor Unassigned, [place] [facility] TROPONIN I 2023-05-04 22:56:00 Georgiana Rowe [facility] COMP. METABOLIC PANEL ([id number]) 2023-05-04 22:56:00 Georgiana Rowe [facility] SALICYLATE 2023-05-04 22:56:00 Georgiana Rowe [facility] ETHANOL 2023-05-04 22:56:00 Georgiana Rowe [facility] CBC WITH DIFF 2023-05-04 22:56:00 Georgiana Rowe [facility] GLYCOSYLATED HEMOGLOBIN (A1C) 2023-05-04 22:56:00 Georgiana Rowe [facility] URINALYSIS 2023-05-04 22:56:00 Georgiana Rowe [facility] COVID-19 (ID NOW RAPID TESTING) 2023-05-04 22:56:00 Georgiana Rowe [facility] URINE DRUG (IMMUNOASSAY) - COMPREHENSIVE DRUG SCREEN W/O REFLEX 2023-05-04 22:56:00 Georgiana Rowe [facility] Encounters Start Date/Time End Date/Time Encounter Type Admission Type Attending [facility] Care Facility Care Department Encounter ID Source 2023-05-05 00:29:13 Outpatient [facility] [id number] [facility] 2023-05-04 22:17:26 Outpatient [facility] [id number] [facility] 2023-05-04 17:20:00 2023-05-05 08:28:00 Emergency X GEORGIANA ROWE [facility] ERT [id number] [facility] 2023-05-04 17:20:00 2023-05-05 08:28:00 Emergency Georgiana Rowe [facility] [id number] [facility] 2021-01-02 11:56:00 2021-01-02 20:07:00 Emergency Rehana Yeung S [facility] [id number] 2021-01-02 11:32:00 2021-01-02 11:32:00 Emergency X [facility] ERT [id number] [facility] Results Test Description Test Time Test Comments Results Result Co mments Source [facility]2023-05-05 07:51:17* Test Item Value Reference Range Interpretation Comme nts POCT GLU (test code = 0733929819) 217 mg/dL 70-110 H Lab Interpretation (test cod e = 62721-4) Abnormal [facility] Hemoglobin (A1C)2023-05-05 05:37:24* Test Item Value Reference Range Interpretation Comme nts HGB A1C (test code = 4548-4) 8.3 % 4.0-5.7 H JAYANT (test code = JAYANT) Reference RangesNormal: <5.7%Prediabetes: 5.7 - 6.4%Diabetes: > 6.5% Lab Interpretation (test code = 67926-5) Abnormal [facility] [id number] 23:42:11* Test Item Value Reference Range Interpretation Comme nts TROPONIN I (test code = 0967372115) 0.000 ng/mL <=0.034 JAYANT (test code = [...] of biotin. Lab Interpretation (test code = 00898-7) Normal [facility]EN2023-07-02 23:38:15* Test Item Value Reference Range Interpretation Comme nts ACETAMINOP (test code = 5618290991) 10.0-30.0 L JAYANT (test code = JAYANT) Toxic: Greater oral n 200 ug/mL @ 4 hour post ingestion or greater than 50 ug/mL @ 12 hour post ingestion Lab Interpretation (test code = 92199-8) Abnormal [facility]AL[facility]ATE2023-07-02 23:38:10 SALICYLATE<10mg/L05/04/2023 6:38 PM [facility] LAB[facility]ORYTherapeutic Range: ? Analgesic and Antipyretic Use ? 20- 100 mg/L ? ? Anti-Inflammatory Use ? 100-250 mg/L Toxic Range: ? Greater than 300 mg/LUnSaint Mark's Medical CenterETHANOL2023-07-02 23:27:37ALCOHOL<10mg/dL05/04/2023 6:27 PM [facility]<10 [id number] Toxic>100 Depression of WHEEL BRAIDER>400 [facility]. METABOLIC PANEL ([id number])2023-05-04 23:24:32* Test Item Value Reference Range Interpretation Comme nts NA (test code = 4377508776) 140 mmol/L 135-145 K (test code = 2256721507) 3.8 mmol/L 3.5-5.0 CL (test code = 7863215777) 101 mmol/L 98-108 CO2 TOTAL (test code = 8837181444) 26 mmol/L 23-31 AGAP (test code = 8854372509) 13 2-16 BUN (test code = 4649252261) 15 mg/dL 7-23 GLUCOSE (test code = 8436281401) 264 mg/dL 70-110 H CREATININE (test code = 9933148413) 0.97 mg/dL 0.50-1.04 TOTAL BILI (test code = 1883234135) 0.5 mg/dL 0.1-1.1 CALCIUM (test code = 5083395500) 9.5 mg/dL 8.6-10.6 T PROTEIN (test code = 3389793593) 7.2 g/dL 6.3-8.2 ALBUMIN (test code = 6619276685) 4.2 g/dL 3.5-5.0 ALK PHOS (test code = 8135485161) 123 U/L 34-122 H ALTv (test code = 1742-6) 42 U/L 5-35 H AST(SGOT) (test code = 0475619848) 34 U/L 13-40 eGFR (test code = 7330954843) 60.3 mL/min/1.73m2 JAYANT (test code = JAYANT) [...] imaging tests). Lab Interpretation (test code = 61272-7) Abnormal [facility] WITH [id number] 23:13:09* Test Item Value Reference Range Interpretation Comme nts WBC (test code = 6690-2) 12.51 See_Comment H [BRAND[employer]D - [employer].] The system which generated this result transmitted reference range: 4.30 - 11.10 10*3/?L. The reference range was not used to interpret this result as normal/abnormal. RBC (test code = 789-8) 4.29 See_Comment [[employer] - [employer].] The system which generated this result transmitted [...] 33.7 g/dL 31.6-35.1 RDW-SD (test code = 21087-8) 41.4 fL 39.0-49.9 RDW-CV (test code = 788-0) 13.3 % 12.0-15.5 PLT (test code = 777-3) 354 See_Comment [Automated messa ge] The system which generated this result transmitted reference range: 166 - 358 10*3/?L. The reference range was not used to interpret this result as normal/abnormal. MPV (test code = 72487-8) 10.2 fL 9.5-12.9 NRBC/100 WBC (test code = 6856878763) 0.0 See_Comment [Automated me ssage] The system which generated this result transmitted reference range: 0.0 - 10.0 /100 WBCs. The reference range was not used to interpret this result as normal/abnormal. NRBC x10^3 (test code = 5223948662) See_Comment [Automated messa ge] The system which generated this result transmitted reference range: 10*3/?L. The reference range was not used to interpret this result as normal/abnormal. GRAN MAT (NEUT) % (test code = 770-8) 65.5 % IMM GRAN % (test code = 7275901513) 0.40 % LYMPH % (test code = 736-9) 26.3 % MONO % (test code = 5905-5) 5.7 % EOS % (test code = 713-8) 1.6 % BASO % (test code = 706-2) 0.5 % GRAN MAT x10^3(ANC) (test code = 9829968191) 8.20 10*3/uL 1.88-7.09 H IMM GRAN x10^3 (test code = 1064608803) 0.05 10*3/uL 0.00-0.06 LYMPH x10^3 (test code = 731-0) 3.29 10*3/uL 1.32-3.29 MONO x10^3 (test code = 742-7) 0.71 10*3/uL 0.33-0.92 EOS x10^3 (test code = 711-2) 0.20 10*3/uL 0.03-0.39 BASO x10^3 (test code = 704-7) 0.06 10*3/uL 0.01-0.07 Lab Interpretation (test code = 21018-9) Abnormal [facility]"
--- NOTE | 2024-11-01 18:47 | EDPHYS ---
Physician Documentation [facility] Name: Sherri Best Age: 53 yrs Sex: Female : 1970 Arrival Date: 11/01/2024 Time: 17:03 Bed 12 Private MD: ED Physician Juanita Golden HPI: 11/01 18:49 This 53 yrs old Black Female presents to ER via Ambulatory with complaints of sores to dr5 vaginal area. 18:50 Onset: The symptoms/episode began/occurred 5 day(s) ago. Patient is a 53-year-old dr5 female with history of herpes, diabetes, hypertension coming with new sores to her lower abdominal / vaginal area. Pt reports she hasn't had any new sexual partners. Pt is uncontrolled diabetic.. 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 - Infectious Disease History:: Denies. - Social history:: Smoking status: Patient denies any tobacco usage or history of. ROS: 18:50 Constitutional: as per hpi dr5 Exam: 18:50 Constitutional: This is a well developed, well nourished patient who is awake, alert, dr5 and in no acute distress. Head/Face: Normocephalic, atraumatic. Eyes: Pupils equal round and reactive to light, extra-ocular motions intact. Lids and lashes normal. Conjunctiva and sclera are non-icteric and not injected. Cornea within normal limits. Periorbital areas with no swelling, redness, or edema. Chest/axilla: Normal chest wall appearance and motion. Nontender with no deformity. No lesions are appreciated. Cardiovascular: Regular rate and rhythm with a normal S1 and S2. Normal PMI, no JVD. No pulse deficits. Respiratory: Lungs have equal breath sounds bilaterally, clear to auscultation. No rales, rhonchi or wheezes noted. No increased work of breathing, no retractions or nasal flaring. Abdomen/GI: Soft, non-tender, non-distended 18:50 : CVA tenderness, is absent, Pelvic Exam: External exam: Cystic lesion noted in pubic area. Xochitl present during examination., no appreciated Bartholin's cyst, no ulcerations, no warts seen, a female hearing therapy teacher was present for the exam, Vital Signs: 18:19 BP 154 / 99; Pulse 111; Resp 17; Temp 97.3; Pulse Ox 100% ; Weight 83.46 kg; Height 5 jl7 ft. 2 in. ; Pain 6/10; 18:19 Body Mass Index 33.65 (83.46 kg, 157.48 cm) jl7 18:19 Pain Scale: Adult jl7 MDM: 18:29 Medical Screening Exam initiated dr5 18:50 Differential diagnosis: viral Infection, bacterial infection, Herpes, Cyst, Cellulitis. dr5 Data reviewed: vital signs, nurses notes. Care significantly affected by the following chronic conditions: Diabetes, Hypertension, Anxiety, depression, and herpes simplex. Care significantly affected by the following Social Determinants of Health: Poor access to healthcare and/or lack of insurance, Poor access to transportation, Problems related to employment. Scoring Tools. Counseling: I had a detailed discussion with the patient and/or guardian regarding the historical points, exam findings, and any diagnostic results supporting the discharge/admit diagnosis, the presence of at least one elevated blood pressure reading (>120/80) during this emergency department visit, the need for outpatient follow up, for definitive care, a family practitioner, to return to the emergency department if symptoms worsen or persist or if there are any questions or concerns that arise at home. ED course: Patient has mild amount of Alexandrea under her abdomen right above pubic area. Will give nystatin cream for that. Patient has tender cystic lesion to pubic area. Will cover for cellulitis with Keflex. 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 All questions answered.. Administered Medications: No medications were administered Disposition Summary: 11/01/24 18:46 Discharge Ordered Notes: Location: Home dr5 Condition: Stable dr5 Diagnosis - Cellulitis of other sites dr5 Followup: dr5 - With: Emergency Department - When: As needed - Reason: Worsening of condition Followup: dr5 - With: Private Physician - When: 1 - 2 days - Reason: Recheck today's complaints, Continuance of care, Re-evaluation by your physician Discharge Instructions: - Discharge Summary Sheet dr5 - Cellulitis, Adult dr5 Forms: - Medication Reconciliation Form dr5 - Antibiotic Education dr5 - Patient Portal Instructions dr5 - Leadership Thank You Letter dr5 Prescriptions: - nystatin 100,000 unit/gram Topical ointment - apply 1 application TOPICAL route 2 times per day for 5 days; 1 application; dr5 Refills: 0, Product Selection Permitted - Cephalexin 500 mg Oral Capsule - take 1 capsule ORAL route every 6 hours for 10 days; 40 capsule; Refills: 0, dr5 Product Selection Permitted Signatures: Vicente Chairez RN RN jl7 Maico Bryan, VETERINARY HOSPITAL ATTENDANT-C VETERINARY HOSPITAL ATTENDANT-Cdr5
--- NOTE | 2024-11-01 18:47 | ER ---
Nurse's Notes [facility] Name: Sherri Best Age: 53 yrs Sex: Female : 1970 Arrival Date: 11/01/2024 Time: 17:03 Bed 12 Private MD: Diagnosis: Cellulitis of other sites Presentation: 11/01 18:19 Chief complaint: Patient states: Blisters/sores to pelvic area, itchy and painful; hx jl7 of herpes. Coronavirus screen: At this time, the client does not indicate any symptoms associated with coronavirus-19. Ebola Screen: No symptoms or risks identified at this time. Initial Sepsis Screen: Does the patient meet any 2 criteria? No. Patient's initial sepsis screen is negative. Does the patient have a suspected source of infection? No. Patient's initial sepsis screen is negative. Risk Assessment: Do you want to hurt yourself or someone else? Patient reports no desire to harm self or others. Onset of symptoms is unknown. 18:19 Method Of Arrival: Ambulatory jl7 18:19 Acuity: LUIS A 4 jl7 Triage Assessment: 18:21 General: Appears in no apparent distress. uncomfortable, Behavior is calm, cooperative, jl7 appropriate for age. Pain: Complains of pain in pelvis Pain currently is 6 out of 10 on a pain scale. 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 - Infectious Disease History:: Denies. - Social history:: Smoking status: Patient denies any tobacco usage or history of. Screenin:56 Abuse screen: Denies threats or abuse. Denies injuries from another. Nutritional ss screening: No deficits noted. Tuberculosis screening: Never had TB. Assessment: 18:56 General: Appears in no apparent distress. comfortable, Behavior is calm, cooperative. ss Neuro: Level of Consciousness is awake, alert, obeys commands. Respiratory: Airway is patent Respiratory effort is even, unlabored, Respiratory pattern is regular, symmetrical. Derm: Skin is intact, is healthy with good turgor, Skin is pink, warm \T\ dry. Vital Signs: 18:19 BP 154 / 99; Pulse 111; Resp 17; Temp 97.3; Pulse Ox 100% ; Weight 83.46 kg; Height 5 7 ft. 2 in. ; Pain 6/10; 18:19 Body Mass Index 33.65 (83.46 kg, 157.48 cm) jl7 18:19 Pain Scale: Adult [facility] ED Course: 17:05 Patient arrived in ED. ra3 18:16 Maico Bryan FNP-C [facility]. [facility]5 18:16 Juanita Golden MD is Attending Physician. dr5 18:21 Triage completed. jl7 18:21 Arm band placed on right wrist. jl7 18:56 Patient has correct armband on for positive identification. Bed in low position. ss 18:56 No provider procedures requiring assistance completed. Patient did not have IV access ss during this emergency room visit. Administered Medications: No medications were administered Medication: 18:56 VIS not applicable for this client. ss Outcome: 18:46 Discharge ordered by . dr5 18:56 Discharged to home ambulatory, ss 18:56 Condition: good 18:56 Discharge instructions given to patient, Instructed on discharge instructions, follow up and referral plans. medication usage, Demonstrated understanding of instructions, follow-up care, medications, Prescriptions given X 2, 18:57 Patient left the ED. ss Signatures: Edith Barlow, RN RN Vicente Chairez RN RN Arlene High ra3 Maico Bryan FNP-C CHIMNEY SWEEPER-Cdr5
[2024-11-02 00:13] VITALS: BP 154/99; TEMP 97.3; O2SAT 100
== END 2024-11-01 18:57 | disposition home or self-care (01) ==
LOC: ER 17:03
DX: L03.818 Cellulitis of other sites (principal); F41.9 Anxiety disorder, unspecified; F32.A Depression, unspecified; E11.9 Type 2 diabetes mellitus without complications; I10 Essential (primary) hypertension; B00.9 Herpesviral infection, unspecified
CPT/HCPCS: 99283

== ENCOUNTER 2024-11-05 00:43 | Emergency (ER) | payer OTHER ==
--- OUTSIDE RECORDS SUMMARY | 2024-11-05 00:45 | XMS REPORT | Continuity of Care Document ---
Author Name Unknown Address [address] [facility] [address] [place] [address] [facility] thconnect Address [address] [facility] [place] [address] Care Team Providers Care Volunteer Services Coordinator Name Role Phone PCP, PATIENT DOES NOT HAVE A Primary Care Physic hayden Unavailable GEORGIANA ROWE Attending Clinician Unavailable Georgiana Rowe NP Attending Clinician [phone] Rehana Cabrales Attending Clinician [phone] Allergies, Adverse Reactions, Alerts Allergy Name Allergy Type Status Severity Reaction(s) Onset Date Inactive Date Treating Clinician Comments Source NO KNOWN ALLERGIE S Drug Class Active [facility] Social History Social Habit Start Date Stop Date Quantity Comments Source Sex Assigned At 1970 00:00:00 1970 00:00:00 [facility] Smoking Status Start Date Stop Date Source Tobacco smoking consumption unknown [facility] Medications Ordered Medication Name Filled Medication Name Start Date Stop Date Current Medication? Ordering Clinician Indication Dosage Frequency Signature (SIG) Comments Components Source acetaminoph en (TYLENOL) tablet 650 mg 05-05 12:00: 00 05-05 12:02 :00 No 650mg 650 mg, Oral, ONCE, 1 dose, On Fri05/05/23 at 0700, ELDA [facility] Vital Signs Vital Name Observation Time Observation Value Comments S ource Systolic blood pressure 2023-05-05 11:00:00 108 mm[Hg] [facility] Diastolic blood pressure 2023-05-05 11:00:00 70 mm[Hg] [facility] Heart rate 2023-05-05 11:00:00 84 /min [facility] Body temperature 2023-05-05 11:00:00 36.61 Lucille [facility] Respiratory rate 2023-05-05 11:00:00 14 /min [facility] Oxygen saturation in Arterial blood by Pulse oximetry 2023-05-05 11:00:00 98 /min [facility] Body height 2023-05-04 22:15:00 62 cm [facility] Body weight 2023-05-04 22:15:00 81.647 kg [facility] BMI 2023-05-04 22:15:00 212.41 kg/m2 [facility] Procedures Procedure Date / Time Performed Performing Clinician Source POCT GLUCOSE(AGE >30DAYS) 2023-05-05 07:54:00 Georgiana Rowe [facility] POCT GLUCOSE (AUTOMATED) 2023-05-05 07:49:00 Lucas Rowe [facility] ASSIGNMENT OF BENEFITS 2023-05-04 23:34:08 Docto r Unassigned, Evarts [facility] CONSENT/REFUSAL FOR DIAGNOSIS AND TREATMENT 2023-05-04 23:33:38 Doctor Unassigned, Evarts [facility] TROPONIN I 2023-05-04 22:56:00 Georgiana Rowe [facility] COMP. METABOLIC PANEL (11082) 2023-05-04 22:56:00 Georgiana Rowe [facility] SALICYLATE 2023-05-04 22:56:00 Georgiana Rowe [facility] ETHANOL 2023-05-04 22:56:00 Georgiana Rowe [facility] CBC WITH DIFF 2023-05-04 22:56:00 Georgiana Rowe [facility] GLYCOSYLATED HEMOGLOBIN (A1C) 2023-05-04 22:56:00 Georgiana Rowe [facility] URINALYSIS 2023-05-04 22:56:00 Georgiana Rowe [facility] COVID-19 (ID NOW RAPID TESTING) 2023-05-04 22:56:00 Georgiana Rowe [facility] URINE DRUG (IMMUNOASSAY) - COMPREHENSIVE DRUG SCREEN W/O REFLEX 2023-05-04 22:56:00 Georgiana Rowe [facility] Encounters Start Date/Time End Date/Time Encounter Type Admission Type Attending [facility] Care Department Encounter ID Source 2023-05-05 00:29:13 Outpatient [facility] [id number] [facility] 2023-05-04 22:17:26 Outpatient [facility] [id number] [facility] 2023-05-04 17:20:00 2023-05-05 08:28:00 Emergency X [facility] ERT [id number] [facility] 2023-05-04 17:20:00 2023-05-05 08:28:00 Emergency Georgiana Rowe [facility] [id number] [facility] 2021-01-02 11:56:00 2021-01-02 20:07:00 Emergency Rehana Yeung S [facility] [id number] 2021-01-02 11:32:00 2021-01-02 11:32:00 [facility] [id number] [facility] Results Test Description Test Time Test Comments Results Result Co mments Source [facility]2023-05-05 07:51:17* Test Item Value Reference Range Interpretation Comme nts POCT GLU (test code = 6909403186) 217 mg/dL 70-110 H Lab Interpretation (test cod e = 69370-0) Abnormal [facility]cosylated Hemoglobin (A1C)2023-05-05 05:37:24* Test Item Value Reference Range Interpretation Comme nts HGB A1C (test code = 4548-4) 8.3 % 4.0-5.7 H JAYANT (test code = JAYANT) Reference RangesNormal: <5.7%Prediabetes: 5.7 - 6.4%Diabetes: > 6.5% Lab Interpretation (test code = 74807-5) Abnormal [facility] [id number] 23:42:11* Test Item Value Reference Range Interpretation Comme nts TROPONIN I (test code = 1770448264) 0.000 ng/mL <=0.034 JAYANT (test code = [...] of biotin. Lab Interpretation (test code = 24782-7) Normal [facility]ET[facility]INOPHEN2023-07-02 23:38:15* Test Item Value Reference Range Interpretation Comme nts ACETAMINOP (test code = 4607991189) 10.0-30.0 L JAYANT (test code = JAYANT) Toxic: Greater oral n 200 ug/mL @ 4 hour post ingestion or greater than 50 ug/mL @ 12 hour post ingestion Lab Interpretation (test code = 37319-2) Abnormal [facility]ress[facility]ALICYLATE2023-07-02 23:38:10 SALICYLATE<10mg/L05/04/2023 6:38 PM [facility]: ? Analgesic and Antipyretic Use ? 20- 100 mg/L ? ? Anti-Inflammatory Use ? 100-250 mg/L Toxic Range: ? 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 METABOLIC PANEL (65741)2023-05-04 23:24:32* Test Item Value Reference Range Interpretation Comme nts NA (test code = 7643203089) 140 mmol/L 135-145 K (test code = 8726735024) 3.8 mmol/L 3.5-5.0 CL (test code = 4912047823) 101 mmol/L 98-108 CO2 TOTAL (test code = 1772405634) 26 mmol/L 23-31 AGAP (test code = 1863453384) 13 2-16 BUN (test code = 5162652302) 15 mg/dL 7-23 GLUCOSE (test code = 8781875642) 264 mg/dL 70-110 H CREATININE (test code = 4057627652) 0.97 mg/dL 0.50-1.04 TOTAL BILI (test code = 1446703634) 0.5 mg/dL 0.1-1.1 CALCIUM (test code = 0900162671) 9.5 mg/dL 8.6-10.6 T PROTEIN (test code = 1182635424) 7.2 g/dL 6.3-8.2 ALBUMIN (test code = 3534246401) 4.2 g/dL 3.5-5.0 ALK PHOS (test code = 0090606553) 123 U/L 34-122 H ALTv (test code = 1742-6) 42 U/L 5-35 H AST(SGOT) (test code = 7128742701) 34 U/L 13-40 eGFR (test code = 6999449882) 60.3 mL/min/1.73m2 JAYANT (test code = JAYANT) [...] imaging tests). Lab Interpretation (test code = 61670-3) Abnormal [facility] WITH [id number] 23:13:09* Test Item Value Reference Range Interpretation Comme nts WBC (test code = 6690-2) 12.51 See_Comment H [[employer]] The system which generated this result transmitted reference range: 4.30 - 11.10 10*3/?L. The reference range was not used to interpret this result as normal/abnormal. RBC (test code = 789-8) 4.29 See_Comment [[employer]] The system which generated this result transmitted [...] 33.7 g/dL 31.6-35.1 RDW-SD (test code = 89982-2) 41.4 fL 39.0-49.9 RDW-CV (test code = 788-0) 13.3 % 12.0-15.5 PLT (test code = 777-3) 354 See_Comment [Automated messa ge] The system which generated this result transmitted reference range: 166 - 358 10*3/?L. The reference range was not used to interpret this result as normal/abnormal. MPV (test code = 67658-6) 10.2 fL 9.5-12.9 NRBC/100 WBC (test code = 9734650092) 0.0 See_Comment [Automated me ssage] The system which generated this result transmitted reference range: 0.0 - 10.0 /100 WBCs. The reference range was not used to interpret this result as normal/abnormal. NRBC x10^3 (test code = 3834668143) See_Comment [Automated messa ge] The system which generated this result transmitted reference range: 10*3/?L. The reference range was not used to interpret this result as normal/abnormal. GRAN MAT (NEUT) % (test code = 770-8) 65.5 % IMM GRAN % (test code = 6792345728) 0.40 % LYMPH % (test code = 736-9) 26.3 % MONO % (test code = 5905-5) 5.7 % EOS % (test code = 713-8) 1.6 % BASO % (test code = 706-2) 0.5 % GRAN MAT x10^3(ANC) (test code = 1717994108) 8.20 10*3/uL 1.88-7.09 H IMM GRAN x10^3 (test code = 6312528058) 0.05 10*3/uL 0.00-0.06 LYMPH x10^3 (test code = 731-0) 3.29 10*3/uL 1.32-3.29 MONO x10^3 (test code = 742-7) 0.71 10*3/uL 0.33-0.92 EOS x10^3 (test code = 711-2) 0.20 10*3/uL 0.03-0.39 BASO x10^3 (test code = 704-7) 0.06 10*3/uL 0.01-0.07 Lab Interpretation (test code = 44608-6) Abnormal [facility]"
[2024-11-05 02:21] LABS: SARS-CoV-2 Antigen CONTROL BLUE LINE VIS/BG OK; SARS-CoV-2 Antigen Rapid Res Negative (Negative)
[2024-11-05] MEDS ORDERED: AZITHROMYCIN 250 MG TAB ONE (02:25)
[2024-11-05] MEDS ORDERED: IBUPROFEN 400 MG TAB ONE (02:25)
[2024-11-05] MEDS ORDERED: CODEINE 30MG/APAP 300MG TAB ONE (02:26)
[2024-11-05] MEDS ORDERED: GUAIFENESIN/DM 5 ML UCUP ONE (02:26)
--- NOTE | 2024-11-05 02:45 | EDPHYS ---
Physician Documentation [facility] Name: Sherri Bset Age: 53 yrs Sex: Female : 1970 Arrival Date: 11/05/2024 Time: 00:43 Bed 19 Private MD: ED Physician Luiz White HPI: 11/05 01:34 This 53 yrs old Black Female presents to ER via Ambulatory with complaints of Cough, sp4 Congestion, Sore Throat. 11/06 00:41 53-year-old presents with cough congestion and sore throat.. 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 - Infectious Disease History:: Denies. - Social history:: Smoking status: Patient denies any tobacco usage or history of. - Family history:: not pertinent. ROS: 11/06 00:41 Constitutional: Negative for fever, chills, and weight loss, positive cough, positive sp4 congestion, positive sore throat All other systems are negative, Exam: 00:41 Constitutional: This is a well developed, well nourished patient who is awake, alert, sp4 and in no acute distress. 00:41 Head/Face: Normocephalic, atraumatic. Eyes: Pupils equal round and reactive to light, sp4 extra-ocular motions intact. Lids and lashes normal. Conjunctiva and sclera are not injected. Cornea within normal limits. Periorbital areas with no swelling, redness, or edema. ENT: Nares patent. No nasal discharge, no septal abnormalities noted. Tympanic membranes are normal and external auditory canals are clear. Oropharynx with bilateral redness, irritation, bilateral streaky exudates Neck: Trachea midline, no thyromegaly or masses palpated, and no cervical lymphadenopathy. Supple, full range of motion without nuchal rigidity, or vertebral point tenderness. Chest/axilla: Normal chest wall appearance and motion. Nontender with no deformity. No lesions are appreciated. Cardiovascular: Regular rate and rhythm with a normal S1 and S2. No gallops, murmurs, or rubs. Normal PMI, no JVD. No pulse deficits. Respiratory: Lungs have equal breath sounds bilaterally, clear to auscultation and percussion. No rales, rhonchi or wheezes noted. No increased work of breathing, no retractions or nasal flaring. Abdomen/GI: Soft, with normal bowel sounds. No distension or tympany. No guarding or rebound. No evidence of tenderness throughout. Back: No spinal tenderness. No costovertebral tenderness. Skin: Warm, dry with normal turgor. Normal color with no rashes, no lesions, and no evidence of cellulitis. MS/ Extremity: Pulses equal, no cyanosis. Neurovascular intact. Full, normal range of motion. Neuro: Awake and alert, GCS 15, oriented to person, place, time, and situation. Cranial nerves II-XII grossly intact. Motor strength 5/5 in all extremities. Sensory grossly intact. Psych: Awake, alert, with orientation to person, place and time. Behavior, mood, and affect are within normal limits Vital Signs: 11/05 01:19 BP 124 / 92; Pulse 119; Resp 17; Temp 98.4(O); Pulse Ox 99% on R/A; Weight 83.46 kg; ss Height 5 ft. 2 in. ; Pain 7/10; 03:10 BP 126 / 91; Pulse 104; Resp 17; Pulse Ox 98% ; cp4 01:19 Body Mass Index 33.65 (83.46 kg, 157.48 cm) 01:19 Pain Scale: Adult ss [place] Coma Score: 11/06 00:41 Eye Response: spontaneous(4). Motor Response: obeys commands(6). Verbal Response: sp4 oriented(5). Total: 15. MDM: 11/05 01:35 Medical Screening Exam initiated sp4 11/06 00:44 Differential Diagnosis: Bronchitis Influenza Upper Respiratory Infection Sinusitis sp4 Pharyngitis Otitis Media. Data reviewed: vital signs, nurses notes, lab test result(s), finger stick glucose, urine drug screen, Blood sugar . Consideration of Admission/Observation Escalation of care including admission/observation considered. ED course: Patient has signs of pharyngitis we will provide prescription for Zithromax.. 11/05 01:20 Order name: SARS RAPID; Complete Time: 02:41 sb4 11/05 01:20 Order name: Flu; Complete Time: 02:41 sb4 11/05 01:20 Order name: Strep; Complete Time: 02:41 sb4 11/05 02:23 Order name: Throat Culture EDMS 11/05 02:09 Order name: Accucheck Blood Glucose; Complete Time: 02:33 sp4 Administered Medications: 11/05 02:33 Drug: AZITHromycin PO 500 mg PO once Route: PO; cp4 03:12 Follow up: Response: No adverse reaction cp4 02:33 Drug: Acetaminophen-Codeine PO (300 mg-30 mg) 2 tabs PO once; RASS on ADMIN: Combtv4, cp4 Very Agttd3, Agttd2, Rstlss1, AlertClm0, Drwsy-1, Lt Sdtn-2, Mod Sdtn-3, Dp Sdtn-4, UnArsble-5 Route: PO; 03:12 Follow up: Response: No adverse reaction; Pain is decreased cp4 02:34 Drug: Dextromethorphan-Guaifenesin PO Liquid 10 mg-100 mg/5 mL 20 ml PO once Route: PO; cp4 03:12 Follow up: Response: No adverse reaction cp4 02:34 Drug: Ibuprofen PO 800 mg PO once Route: PO; cp4 03:12 Follow up: Response: No adverse reaction; Pain is decreased cp4 Point of Care Testing: Blood Glucose: 02:54 Blood Glucose: 224 mg/dL; cp4 Ranges: Critical Glucose Levels:Adult <50 mg/dl or >400 mg/dl <40 mg/dl or >180 mg/dl Disposition Summary: 11/05/24 02:45 Discharge Ordered Notes: Location: Home sp4 Problem: new sp4 Symptoms: have improved sp4 Condition: Stable sp4 Diagnosis - Acute laryngopharyngitis sp4 - Acute pharyngitis, unspecified sp4 Followup: sp4 - With: Private Physician - When: 7 - 10 days - Reason: Recheck today's complaints Discharge Instructions: - Discharge Summary Sheet sp4 - Pharyngitis sp4 Forms: - Patient Portal Instructions sp4 Prescriptions: - dextromethorphan-guaifenesin 20-400 mg Oral tablet - take 1 tablet ORAL route every 6 hours PRN cough; 40 tablet; Refills: 0, sp4 Product Selection Permitted - Ibuprofen 600 mg Oral Tablet - take 1 tablet ORAL route every 6 hours As needed take with food; 30 tablet; sp4 Refills: 0, Product Selection Permitted - Zithromax Z-Yaya 250 mg Oral Tablet - take 1 tablet ORAL route as directed for 5 days Day 1 - take two (2) tablets sp4 one time. Day 2, 3, 4 , 5 take one (1) tablet once daily.; 6 tablet; Refills: 0, Product Selection Permitted Signatures: Dispatcher [employer] Edith Whipple RN RN ss Luiz White MD MD sp4 Yi Gonzales 4 Corrections: (The following items were deleted from the chart) 11/06 00:43 00:41 Constitutional: Negative for fever, chills, and weight loss, sp4 sp4
--- NOTE | 2024-11-05 02:45 | ER ---
Nurse's Notes [facility] Name: Sherri Best Age: 53 yrs Sex: Female : 1970 Arrival Date: 11/05/2024 Time: 00:43 Bed 19 Private MD: Diagnosis: Acute laryngopharyngitis;Acute pharyngitis, unspecified Presentation: 11/05 01:19 Chief complaint: Patient states: sore/ itchy throat, nasal congestion and a cough that ss began 2 days ago. Denies fever. Coronavirus screen: Client denies travel out of the [place] in the last 14 days. Ebola Screen: Patient denies exposure to infectious person. Patient denies travel to an Ebola-affected area in the 21 days before illness onset. Initial Sepsis Screen: Does the patient meet any 2 criteria? No. Patient's initial sepsis screen is negative. Does the patient have a suspected source of infection? No. Patient's initial sepsis screen is negative. Risk Assessment: Do you want to hurt yourself or someone else? Patient reports no desire to harm self or others. Onset of symptoms was November 03, 2024. 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 - Infectious Disease History:: Denies. - Social history:: Smoking status: Patient denies any tobacco usage or history of. - Family history:: not pertinent. Screenin:11 [facility] ED Fall Risk Assessment (Adult) History of falling in the last 3 months, cp4 including since admission No falls in past 3 months (0 pts) Confusion or Disorientation No (0 pts) Intoxicated or Sedated No (0 pts) Impaired Gait No (0 pts) Mobility Assist Device Used No (0 pt) Altered Elimination No (0 pt) Score/Fall Risk Level 0 - 2 = Low Risk Oriented to surroundings, Maintained a safe environment, Assessed \T\ reinforced patient's understanding of fall precautions, Hourly rounding (assess needs \T\ fall precautionary measures) done. Abuse screen: Denies threats or abuse. Nutritional screening: No deficits noted. Tuberculosis screening: No symptoms or risk factors identified. Assessment: 02:11 General: Appears in no apparent distress. uncomfortable, Behavior is calm, cooperative, cp4 appropriate for age. Pain: Denies pain. Neuro: Level of Consciousness is awake, alert, obeys commands, Oriented to person, place, time, situation. Cardiovascular: Patient's skin is warm and dry. Respiratory: Airway is patent Respiratory effort is even, unlabored, Breath sounds are clear bilaterally. Respiratory: Reports cough that is non-productive. GI: No signs and/or symptoms were reported involving the gastrointestinal system. : No signs and/or symptoms were reported regarding the genitourinary system. EENT: No signs and/or symptoms were reported regarding the EENT system. Derm: No signs and/or symptoms reported regarding the dermatologic system. Musculoskeletal: No signs and/or symptoms reported regarding the musculoskeletal system. Vital Signs: 01:19 BP 124 / 92; Pulse 119; Resp 17; Temp 98.4(O); Pulse Ox 99% on R/A; Weight 83.46 kg; ss Height 5 ft. 2 in. ; Pain 7/10; 03:10 BP 126 / 91; Pulse 104; Resp 17; Pulse Ox 98% ; cp4 01:19 Body Mass Index 33.65 (83.46 kg, 157.48 cm) ss 01:19 Pain Scale: Adult ss [place] Coma Score: 11/06 00:41 Eye Response: spontaneous(4). Motor Response: obeys commands(6). Verbal Response: sp4 oriented(5). Total: 15. ED Course: 11/05 00:57 Patient arrived in ED. jj6 01:20 Triage completed. ss 01:20 Arm band placed on right wrist. ss 01:34 Luiz White MD is Attending Physician. sp4 02:10 Yi Gonzales is Primary Nurse. cp4 02:11 Bed in low position. Call light in reach. Side rails up X 1. cp4 02:11 No provider procedures requiring assistance completed. Patient did not have IV access cp4 during this emergency room visit. 03:11 Provided Education on: pharyngitis.. cp4 Administered Medications: 02:33 Drug: AZITHromycin PO 500 mg PO once Route: PO; cp4 03:12 Follow up: Response: No adverse reaction cp4 02:33 Drug: Acetaminophen-Codeine PO (300 mg-30 mg) 2 tabs PO once; RASS on ADMIN: Combtv4, cp4 Very Agttd3, Agttd2, Rstlss1, AlertClm0, Drwsy-1, Lt Sdtn-2, Mod Sdtn-3, Dp Sdtn-4, UnArsble-5 Route: PO; 03:12 Follow up: Response: No adverse reaction; Pain is decreased cp4 02:34 Drug: Dextromethorphan-Guaifenesin PO Liquid 10 mg-100 mg/5 mL 20 ml PO once Route: PO; cp4 03:12 Follow up: Response: No adverse reaction cp4 02:34 Drug: Ibuprofen PO 800 mg PO once Route: PO; cp4 03:12 Follow up: Response: No adverse reaction; Pain is decreased cp4 Medication: 02:11 VIS not applicable for this client. cp4 Point of Care Testing: Blood Glucose: 02:54 Blood Glucose: 224 mg/dL; cp4 Ranges: Outcome: 02:45 Discharge ordered by . sp4 03:11 Discharged to home ambulatory, cp4 03:11 Condition: stable 03:11 Discharge instructions given to patient, Instructed on discharge instructions, follow up and referral plans. medication usage, Demonstrated understanding of instructions, follow-up care, medications, Prescriptions given X 3, 03:12 Patient left the ED. cp4 Signatures: Edith Barlow RN RN Tracy Velázquezj6 Luiz White MD MD sp4 Potter, Christina cp4
[2024-11-05 10:08] VITALS: TEMP 98.4
[2024-11-05 10:09] VITALS: BP 126/91; O2SAT 98
== END 2024-11-05 03:12 | disposition home or self-care (01) ==
LOC: ER 00:43
DX: J06.0 Acute laryngopharyngitis (principal); R05.9 Cough, unspecified; Z11.52 Encounter for screening for COVID-19; Z28.310 Unvaccinated for COVID-19
CPT/HCPCS: 36415; 87070; 87081; 87804; 87811; 99283

== ENCOUNTER 2025-02-11 14:17 | Emergency (ER) | payer OTHER ==
--- OUTSIDE RECORDS SUMMARY | 2025-02-11 14:21 | XMS REPORT | Continuity of Care Document ---
Author Name Unknown Address [address] [place] [address] [facility] Address 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 Social History Social Habit Start Date Stop Date Quantity Comments Source Sex Assigned At 1970 00:00:00 1970 00:00:00 [facility] Smoking Status Start Date Stop Date Source Tobacco smoking consumption unknown [facility] Medications Ordered Medication Name Filled Medication Name Start Date Stop Date Current Medication? Ordering Clinician Indication Dosage Frequency Signature (SIG) Comments Components Source acetaminoph en (TYLENOL) tablet 650 mg 05-05 12:00: 00 05-05 12:02 :00 No 650mg 650 mg, Oral, ONCE, 1 dose, On Fri05/05/23 at 0700, ELDA [facility] Vital Signs Vital Name Observation Time Observation Value Comments S ource Systolic blood pressure 2023-05-05 11:00:00 108 mm[Hg] [facility] Diastolic blood pressure 2023-05-05 11:00:00 70 mm[Hg] [facility] Heart rate 2023-05-05 11:00:00 84 /min [facility] Body temperature 2023-05-05 11:00:00 36.61 Lucille [facility] Respiratory rate 2023-05-05 11:00:00 14 /min [facility] Oxygen saturation in Arterial blood by Pulse oximetry 2023-05-05 11:00:00 98 /min [facility] Body height 2023-05-04 22:15:00 62 cm [facility] Body weight 2023-05-04 22:15:00 81.647 kg [facility] BMI 2023-05-04 22:15:00 212.41 kg/m2 [facility] Procedures Procedure Date / Time Performed Performing Clinician Source POCT GLUCOSE(AGE >30DAYS) 2023-05-05 07:54:00 Georgiana Rowe [facility] POCT GLUCOSE (AUTOMATED) 2023-05-05 07:49:00 Lucas Rowe [facility] ASSIGNMENT OF BENEFITS 2023-05-04 23:34:08 Docto r Unassigned, [place] [facility] CONSENT/REFUSAL FOR DIAGNOSIS AND TREATMENT 2023-05-04 23:33:38 Doctor Unassigned, [place] [facility] TROPONIN I 2023-05-04 22:56:00 Georgiana Rowe [facility] COMP. METABOLIC PANEL ([id number]) 2023-05-04 22:56:00 Georgiana Rowe [facility] SALICYLATE 2023-05-04 22:56:00 Georgiana [facility] ETHANOL 2023-05-04 22:56:00 Georgiana Rowe [facility] CBC WITH DIFF 2023-05-04 22:56:00 Georgiana Rowe [facility] GLYCOSYLATED HEMOGLOBIN (A1C) 2023-05-04 22:56:00 Georgiana Rowe [facility] URINALYSIS 2023-05-04 22:56:00 Georgiana Rowe [facility] COVID-19 (ID NOW RAPID TESTING) 2023-05-04 22:56:00 Georgiana Rowe [facility] URINE DRUG (IMMUNOASSAY) - COMPREHENSIVE DRUG SCREEN W/O REFLEX 2023-05-04 22:56:00 Georgiana Rowe [facility] Encounters Start Date/Time End Date/Time Encounter Type Admission Type Attending [facility] Care Department Encounter ID Source 2023-05-05 00:29:13 Outpatient [facility] [id number] [facility] 2023-05-04 22:17:26 Outpatient [facility] [id number] [facility] 2023-05-04 17:20:00 2023-05-05 08:28:00 Emergency X GEORGIANA ROWE [facility] ERT [id number] [facility] 2023-05-04 17:20:00 2023-05-05 08:28:00 Emergency Georgiana Rowe [facility] [id number] [facility] 2021-01-02 11:56:00 2021-01-02 20:07:00 Emergency Rehana Yeung [facility] [id number] 2021-01-02 11:32:00 2021-01-02 11:32:00 Emergency X [facility] ERT [id number] [facility] Results Test Description Test Time Test Comments Results Result Co mments Source [facility]2023-05-05 07:51:17* Test Item Value Reference Range Interpretation Comme nts POCT GLU (test code = 7380911894) 217 mg/dL 70-110 H Lab Interpretation (test cod e = 18808-1) Abnormal [facility] HospitalGlycosylated Hemoglobin (A1C)2023-05-05 05:37:24* Test Item Value Reference Range Interpretation Comme nts HGB A1C (test code = 4548-4) 8.3 % 4.0-5.7 H JAYANT (test code = JAYANT) Reference RangesNormal: <5.7%Prediabetes: 5.7 - 6.4%Diabetes: > 6.5% Lab Interpretation (test code = 63800-9) Abnormal [facility] [id number] 23:42:11* Test Item Value Reference Range Interpretation Comme nts TROPONIN I (test code = 6996317628) 0.000 ng/mL <=0.034 JAYANT (test code = [...] of biotin. Lab Interpretation (test code = 81457-3) Normal [facility] HospitalACETAMINOPHEN2023-07-02 23:38:15* Test Item Value Reference Range Interpretation Comme nts ACETAMINOP (test code = 0628361487) 10.0-30.0 L JAYANT (test code = JAYANT) Toxic: Greater oral n 200 ug/mL @ 4 hour post ingestion or greater than 50 ug/mL @ 12 hour post ingestion Lab Interpretation (test code = 25067-0) Abnormal [facility] HospitalSALICYLATE2023-07-02 23:38:10 SALICYLATE<10mg/L05/04/2023 6:38 PM [facility]ORYThe[facility] Range: ? Analgesic and Antipyretic Use ? 20- 100 mg/L ? ? Anti-Inflammatory Use ? 100-250 mg/L Toxic Range: ? Greater than 300 mg/LUnBaylor Scott & [facility] Round RockETHANOL2023-07-02 23:27:37ALCOHOL<10mg/dL05/04/2023 6:27 PM [facility]THE [facility]<10 [id number] Toxic>100 Depression of QUARTER SUPERVISOR>400 Fatalities ReportedB[facility] Scott and [facility]. METABOLIC PANEL (48143)2023-05-04 23:24:32* Test Item Value Reference Range Interpretation Comme nts NA (test code = 6751861467) 140 mmol/L 135-145 K (test code = 5955998263) 3.8 mmol/L 3.5-5.0 CL (test code = 8973200533) 101 mmol/L 98-108 CO2 TOTAL (test code = 4482885055) 26 mmol/L 23-31 AGAP (test code = 4593527947) 13 2-16 BUN (test code = 0958088612) 15 mg/dL 7-23 GLUCOSE (test code = 1603641926) 264 mg/dL 70-110 H CREATININE (test code = 0822060730) 0.97 mg/dL 0.50-1.04 TOTAL BILI (test code = 2635051389) 0.5 mg/dL 0.1-1.1 CALCIUM (test code = 1423824270) 9.5 mg/dL 8.6-10.6 T PROTEIN (test code = 1796150674) 7.2 g/dL 6.3-8.2 ALBUMIN (test code = 0082702726) 4.2 g/dL 3.5-5.0 ALK PHOS (test code = 8618431168) 123 U/L 34-122 H ALTv (test code = 1742-6) 42 U/L 5-35 H AST(SGOT) (test code = 0193531854) 34 U/L 13-40 eGFR (test code = 5077624880) 60.3 mL/min/1.73m2 JAYANT (test code = JAYANT) [...] imaging tests). Lab Interpretation (test code = 37050-0) Abnormal [facility] WITH [id number] 23:13:09* Test Item Value Reference Range Interpretation Comme nts WBC (test code = 6690-2) 12.51 See_Comment H [[employer]] The system which generated this result transmitted reference range: 4.30 - 11.10 10*3/?L. The reference range was not used to interpret this result as normal/abnormal. RBC (test code = 789-8) 4.29 See_Comment [[employer]] The system which generated this result transmitted [...] 33.7 g/dL 31.6-35.1 RDW-SD (test code = 44642-7) 41.4 fL 39.0-49.9 RDW-CV (test code = 788-0) 13.3 % 12.0-15.5 PLT (test code = 777-3) 354 See_Comment [Automated messa ge] The system which generated this result transmitted reference range: 166 - 358 10*3/?L. The reference range was not used to interpret this result as normal/abnormal. MPV (test code = 04922-1) 10.2 fL 9.5-12.9 NRBC/100 WBC (test code = 6188535153) 0.0 See_Comment [Automated me ssage] The system which generated this result transmitted reference range: 0.0 - 10.0 /100 WBCs. The reference range was not used to interpret this result as normal/abnormal. NRBC x10^3 (test code = 6912046876) See_Comment [Automated messa ge] The system which generated this result transmitted reference range: 10*3/?L. The reference range was not used to interpret this result as normal/abnormal. GRAN MAT (NEUT) % (test code = 770-8) 65.5 % IMM GRAN % (test code = 6288176273) 0.40 % LYMPH % (test code = 736-9) 26.3 % MONO % (test code = 5905-5) 5.7 % EOS % (test code = 713-8) 1.6 % BASO % (test code = 706-2) 0.5 % GRAN MAT x10^3(ANC) (test code = 2598699881) 8.20 10*3/uL 1.88-7.09 H IMM GRAN x10^3 (test code = 6744809704) 0.05 10*3/uL 0.00-0.06 LYMPH x10^3 (test code = 731-0) 3.29 10*3/uL 1.32-3.29 MONO x10^3 (test code = 742-7) 0.71 10*3/uL 0.33-0.92 EOS x10^3 (test code = 711-2) 0.20 10*3/uL 0.03-0.39 BASO x10^3 (test code = 704-7) 0.06 10*3/uL 0.01-0.07 Lab Interpretation (test code = 76265-7) Abnormal [facility]"
--- NOTE | 2025-02-11 14:48 | EDPHYS ---
Physician Documentation [facility] Name: Sherri Best Age: 54 yrs Sex: Female : 1970 Arrival Date: 02/11/2025 Time: 14:17 Bed IW3 Private MD: ED Physician Abhijeet Kearney HPI: 02/11 14:44 Chief Complaint: Concerns about high blood pressure and medication management. History jr11 of Present Illness: The patient was informed of having very high blood pressure during a recent eye exam, described as "stroke level." However, subsequent readings taken in the ER showed blood pressure to be around 130/80 mmHg, which is within normal range. The patient reports being out of her blood pressure medication for approximately two months and is about to run out of her diabetes medication. She admits to not checking her blood sugar at home due to not knowing how to do it and acknowledges not managing her diabetes well. The patient is unsure of the exact name of her blood pressure medication. In the ER, her blood sugar was noted at 256 mg/dL. The patient is concerned about her medication management and seeks refills. Review of Systems: - Cardiovascular: Reports high blood pressure during an eye exam. - Endocrine: Reports difficulty managing blood sugar levels and lack of blood sugar monitoring at home. ROS otherwise negative. . Historical: - Allergies: 14:33 NKA; aa5 - PMHx: 14:33 Anxiety; Depression; Diabetes - NIDDM; Herpes simplex; Hypertension; aa5 - PSHx: 14:33 section; Cholecystectomy; uterine ablation; aa5 Exam: 14:44 Constitutional: This is a well developed, well nourished patient who is awake, alert, jr11 and in no acute distress. Head/Face: Normocephalic, atraumatic. Eyes: Extra-ocular motions intact. Lids and lashes normal. Conjunctiva and sclera are non-icteric and not injected. Cornea within normal limits. Periorbital areas with no swelling, redness, or edema. ENT: Nares patent. No nasal discharge, no septal abnormalities noted. Oropharynx with no redness, swelling, or masses, exudates, or evidence of obstruction, uvula midline. Mucous membranes moist. Neck: Trachea midline, no thyromegaly or masses palpated, and no cervical lymphadenopathy. Supple, full range of motion without nuchal rigidity, or vertebral point tenderness. No Meningismus. Chest/axilla: Normal chest wall appearance and motion. Nontender with no deformity. No lesions are appreciated. Respiratory: Lungs have equal breath sounds bilaterally, clear to auscultation and percussion. No rales, rhonchi or wheezes noted. No increased work of breathing, no retractions or nasal flaring. Abdomen/GI: Soft, non-tender, with normal bowel sounds. No distension or tympany. No guarding or rebound. No evidence of tenderness throughout. Back: No spinal tenderness. No costovertebral tenderness. Full range of motion. Skin: Warm, dry with normal turgor. Normal color with no rashes, no lesions, and no evidence of cellulitis. MS/ Extremity: Pulses equal, no cyanosis. Neurovascular intact. Full, normal range of motion. Neuro: Awake and alert, GCS 15, oriented to person, place, time, and situation. No gross motor or sensory deficits. Vital Signs: 14:33 BP 133 / 95; Pulse 105; Resp 18 S; Temp 97.5(TE); Pulse Ox 100% on R/A; Weight 84.82 kg aa5 (R); Height 5 ft. 2 in. (R); 14:38 BP 131 / 92; aa5 14:33 Body Mass Index 34.20 (84.82 kg, 157.48 cm) aa5 MDM: 14:42 Medical Screening Exam initiated jr11 14:44 Differential diagnosis: Medical Decision Makin. Essential hypertension - likely due jr11 to medication noncompliance. 2. Type 2 diabetes mellitus - poorly controlled due to lack of medication and monitoring. 3. White coat syndrome - possible explanation for elevated blood pressure at eye exam. 4. Stroke - ruled out as current blood pressure is not at stroke level. NIHSS=0 5. Anxiety - contributing factor to elevated blood pressure readings. Plan: - Refill medications for hypertension and diabetes. - Educate the patient on the importance of medication adherence. - Provide instructions on how to monitor blood sugar levels at home. - Schedule follow-up for blood pressure and blood sugar monitoring. - Discuss lifestyle modifications to improve blood pressure and blood sugar control. Consider lab work however there is no signs of endorgan dysfunction, will refill medication, she does not know the name, so I will prescribe Norvasc 10. Blood pressure mildly elevated here. She does have a history of anxiety. Spoke to music department chair office, blood pressure was in the 170s, it should also not give her any concern for stroke. Patient states her headache is mild, consider CT head but denies worst or thunderclap. Patient to keep a blood pressure log and follow-up PCP. 02/11 14:56 Order name: Glucose, Ancillary Testing; Complete Time: 14:58 EDMS Administered Medications: 15:19 Not Given (Physician Discretion): [id number] mg PO once hb Point of Care Testing: Blood Glucose: 14:43 Blood Glucose: 256 mg/dL; aa5 Ranges: Critical Glucose Levels:Adult <50 mg/dl or >400 mg/dl <40 mg/dl or >180 mg/dl Disposition Summary: 02/11/25 14:48 Discharge Ordered Notes: [facility]: [facility] Condition: Stable jr Diagnosis - Essential (primary) hypertension jr11 Discharge Instructions: - Discharge Summary Sheet jr11 - Hypertension, Adult jr11 - DASH Eating Plan jr11 Forms: - Medication Reconciliation Form jr11 - Antibiotic Education jr11 - Prescription Opioid Use jr11 - Patient Portal Instructions jr11 - Leadership Thank You Letter jr11 Prescriptions: - glipizide 5 mg Oral Tablet, Extended Release 24 hr - take 1 tablet ORAL route daily; 30 tablet; Refills: 0, Product Selection jr11 Permitted - Norvasc 10 mg Oral Tablet - take 1 tablet ORAL route once daily; 30 tablet; Refills: 0, Product Selection jr11 Permitted Signatures: Karolyn Kitchen RN RN aa5 Abhijeet Kearney MD MD jr11 Lacy Devlin RN
--- NOTE | 2025-02-11 14:48 | ER ---
Nurse's Notes [facility] Name: Sherri Best Age: 54 yrs Sex: Female : 1970 Arrival Date: 02/11/2025 Time: 14:17 Bed IW3 Private MD: Diagnosis: Essential (primary) hypertension Presentation: 02/11 14:33 Chief complaint: Patient states: "I was at the eye doctor and they sent me here for aa5 very high blood pressure". Pt reports "I've been out of my blood pressure pills for 2 months now and I am about to run out of my diabetic medicine too". Pt reports headache and feeling lightheaded. Pt reports cough x 2 weeks ago. Coronavirus screen: At this time, the client does not indicate any symptoms associated with coronavirus-19. Ebola Screen: Patient denies travel to an Ebola-affected area in the 21 days before illness onset. Initial Sepsis Screen: Does the patient meet any 2 criteria? No. Patient's initial sepsis screen is negative. Does the patient have a suspected source of infection? No. Patient's initial sepsis screen is negative. Risk Assessment: Do you want to hurt yourself or someone else? Patient reports no desire to harm self or others. Onset of symptoms was February 11, 2025. 14:33 Method Of Arrival: Ambulatory aa5 14:33 Acuity: LUIS A 3 aa5 14:41 Chief complaint:. Note Pt spoke to eye doctor office and reported BP was 177/102, Dr. nelson Kearney aware. Historical: - Allergies: 14:33 NKA; aa5 - PMHx: 14:33 Anxiety; Depression; Diabetes - NIDDM; Herpes simplex; Hypertension; aa5 - PSHx: 14:33 section; Cholecystectomy; uterine ablation; aa5 Assessment: 15:18 Neuro: Level of Consciousness is awake, alert, obeys commands, Oriented to person, aa5 place, time, situation. Respiratory: Airway is patent Respiratory effort is even, unlabored, Respiratory pattern is regular, symmetrical. Derm: Skin is dry, Skin is normal, Skin temperature is warm. Vital Signs: 14:33 BP 133 / 95; Pulse 105; Resp 18 S; Temp 97.5(TE); Pulse Ox 100% on R/A; Weight 84.82 kg aa5 (R); Height 5 ft. 2 in. (R); 14:38 BP 131 / 92; aa5 14:33 Body Mass Index 34.20 (84.82 kg, 157.48 cm) aa5 ED Course: 14:21 Patient arrived in ED. cj3 14:33 Abhijeet Kearney MD is Attending Physician. jr11 14:33 Arm band placed on. aa5 14:35 Triage completed. aa5 15:18 No provider procedures requiring assistance completed. Patient did not have IV access aa5 during this emergency room visit. Administered Medications: 15:19 Not Given (Physician Discretion): [id number] mg PO once hb Point of Care Testing: Blood Glucose: 14:43 Blood Glucose: 256 mg/dL; aa5 Ranges: Outcome: 14:48 Discharge ordered by . jr11 15:18 Discharged to home ambulatory, with family, aa5 15:18 Condition: stable 15:18 Discharge instructions given to patient, Instructed on discharge instructions, follow up and referral plans. medication usage, Demonstrated understanding of instructions, follow-up care, medications, Prescriptions given X 2, 15:19 Patient left the ED. hb Signatures: Karolyn Kitchen RN RN aa5 Lacy Devlin RN RN Abhijeet Kearney MD MD jr11 Abby Vences cj3 Corrections: (The following items were deleted from the chart) 14:36 14:33 Chief complaint: Patient states: "I was at the eye doctor and they sent me here aa5 for high blood pressure". Pt reports "I've been out of my blood pressure pills for 2 months now and I am about to run out of my diabetic medicine too". Pt reports headache and feeling lightheaded. aa5 14:36 14:33 Chief complaint: Patient states: "I was at the eye doctor and they sent me here aa5 for high blood pressure". Pt reports "I've been out of my blood pressure pills for 2 months now and I am about to run out of my diabetic medicine too". Pt reports headache and feeling lightheaded. Pt reports cough x 2 weeks ago. aa5
[2025-02-11 15:23] VITALS: TEMP 97.5; O2SAT 100
[2025-02-11 15:25] VITALS: BP 131/92
== END 2025-02-11 15:19 | disposition home or self-care (01) ==
LOC: ER 14:17
DX: I10 Essential (primary) hypertension (principal)
CPT/HCPCS: 82947; 99283

== ENCOUNTER 2025-08-01 20:27 | Inpatient (IN) | payer OTHER ==
--- OUTSIDE RECORDS SUMMARY | 2025-08-01 20:40 | XMS REPORT | Continuity of Care Document ---
Author Name Unknown Address [address] [place] [address] [facility] Address 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 Name Role Phone PCP, PATIENT DOES NOT HAVE A Primary Care Physic hayden Unavailable GEORGIANA ROWE Attending Clinician Unavailable Georgiana Rowe NP Attending Clinician [phone] Rehana Cabrales Attending Clinician [phone] Allergies, Adverse Reactions, Alerts Allergy Name Allergy Type Status Severity Reaction(s) Onset Date Inactive Date Treating Clinician Comments Source NO KNOWN ALLERGIE S Drug Class Active [facility] Social History Social Habit Start Date Stop Date Quantity Comments Source Sex Assigned At 1970 00:00:00 1970 00:00:00 [facility] Smoking Status Start Date Stop Date Source Tobacco smoking consumption unknown [facility] Medications Ordered Medication Name Filled Medication Name Start Date Stop Date Current Medication? Ordering Clinician Indication Dosage Frequency Signature (SIG) Comments Components Source acetaminoph en (TYLENOL) tablet 650 mg 05-05 12:00: 00 05-05 12:02 :00 No 650mg 650 mg, Oral, ONCE, 1 dose, On Fri05/05/23 at 0700, ELDA [facility] Vital Signs Vital Name Observation Time Observation Value Comments S ource Systolic blood pressure 2023-05-05 11:00:00 108 mm[Hg] [facility] Diastolic blood pressure 2023-05-05 11:00:00 70 mm[Hg] [facility] Heart rate 2023-05-05 11:00:00 84 /min [facility] Body temperature 2023-05-05 11:00:00 36.61 Lucille [facility] Respiratory rate 2023-05-05 11:00:00 14 /min [facility] Oxygen saturation in Arterial blood by Pulse oximetry 2023-05-05 11:00:00 98 /min [facility] Body height 2023-05-04 22:15:00 62 cm [facility] Body weight 2023-05-04 22:15:00 81.647 kg [facility] BMI 2023-05-04 22:15:00 212.41 kg/m2 [facility] Procedures Procedure Date / Time Performed Performing Clinician Source POCT GLUCOSE(AGE >30DAYS) 2023-05-05 07:54:00 Georgiana Rowe [facility] POCT GLUCOSE (AUTOMATED) 2023-05-05 07:49:00 Lucas Rowe [facility] ASSIGNMENT OF BENEFITS 2023-05-04 23:34:08 Docto r Unassigned, [place] [facility] CONSENT/REFUSAL FOR DIAGNOSIS AND TREATMENT 2023-05-04 23:33:38 Doctor Unassigned, [place] [facility] TROPONIN I 2023-05-04 22:56:00 Georgiana Rowe [facility] COMP. METABOLIC PANEL ([id number]) 2023-05-04 22:56:00 Goergiana Rowe [facility] SALICYLATE 2023-05-04 22:56:00 Georgiana Rowe [facility] ETHANOL 2023-05-04 22:56:00 Georgiana Rowe [facility] CBC WITH DIFF 2023-05-04 22:56:00 Georgiana Rowe [facility] GLYCOSYLATED HEMOGLOBIN (A1C) 2023-05-04 22:56:00 Georgiana Rowe [facility] URINALYSIS 2023-05-04 22:56:00 Georgiana Rowe [facility] COVID-19 (ID NOW RAPID TESTING) 2023-05-04 22:56:00 Georgiana Rowe [facility] URINE DRUG (IMMUNOASSAY) - COMPREHENSIVE DRUG SCREEN W/O REFLEX 2023-05-04 22:56:00 Georgiana Rowe [facility] Encounters Start Date/Time End Date/Time Encounter Type Admission Type Attending [facility] Care Facility Care Department Encounter ID Source 2023-05-05 00:29:13 Outpatient [facility] [id number] [facility] 2023-05-04 22:17:26 Outpatient [facility] [id number] [facility] 2023-05-04 17:20:00 2023-05-05 08:28:00 Emergency X [facility]BL[facility] ERT [id number] [facility] 2023-05-04 17:20:00 2023-05-05 08:28:00 Emergency Georgiana Rowe Yahaira [facility] [id number] [facility] 2021-01-02 11:56:00 2021-01-02 20:07:00 Emergency Rehana Yeung [facility] [id number] 2021-01-02 11:32:00 2021-01-02 11:32:00 Emergency X [facility] ERT [id number] [facility] Results Test Description Test Time Test Comments Results Result Co mments Source [facility]2023-05-05 07:51:17* Test Item Value Reference Range Interpretation Comme nts POCT GLU (test code = 1203876266) 217 mg/dL 70-110 H Lab Interpretation (test cod e = 90148-0) [facility]normal [facility] (A1C)2023-05-05 05:37:24* Test Item Value Reference Range Interpretation Comme nts HGB A1C (test code = 4548-4) 8.3 % 4.0-5.7 H JAYANT (test code = JAYANT) Reference RangesNormal: <5.7%Prediabetes: 5.7 - 6.4%Diabetes: > 6.5% Lab Interpretation (test code = 94088-9) [facility]normal [facility] [id number] 23:42:11* Test Item Value Reference Range Interpretation Comme nts TROPONIN I (test code = 3461569867) 0.000 ng/mL <=0.034 JAYANT (test code = [...] of biotin. Lab Interpretation (test code = 65010-9) Normal [facility]2023-07-02 23:38:15* Test Item Value Reference Range Interpretation Comme nts ACETAMINOP (test code = 1792894042) 10.0-30.0 L JAYANT (test code = JAYANT) Toxic: Greater oral n 200 ug/mL @ 4 hour post ingestion or greater than 50 ug/mL @ 12 hour post ingestion Lab Interpretation (test code = 11931-0) [facility]normal [facility]2023-07-02 23:38:10 SALICYLATE<10mg/L05/04/2023 6:38 PM [facility] LABORATORYTherapeutic Range: ? Analgesic and Antipyretic Use ? 20- 100 mg/L ? ? Anti-Inflammatory Use ? 100-250 mg/L Toxic Range: ? Greater than 300 mg/LUnHarris 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 METABOLIC PANEL ([id number])2023-05-04 23:24:32* Test Item Value Reference Range Interpretation Comme nts NA (test code = 3588920478) 140 mmol/L 135-145 K (test code = 4263385919) 3.8 mmol/L 3.5-5.0 CL (test code = 7221269393) 101 mmol/L 98-108 CO2 TOTAL (test code = 9994907080) 26 mmol/L 23-31 AGAP (test code = 0284103292) 13 2-16 BUN (test code = 6195970498) 15 mg/dL 7-23 GLUCOSE (test code = 3256553747) 264 mg/dL 70-110 H CREATININE (test code = 3851428024) 0.97 mg/dL 0.50-1.04 TOTAL BILI (test code = 3593900370) 0.5 mg/dL 0.1-1.1 CALCIUM (test code = 9441492872) 9.5 mg/dL 8.6-10.6 T PROTEIN (test code = 5568468157) 7.2 g/dL 6.3-8.2 ALBUMIN (test code = 9663611497) 4.2 g/dL 3.5-5.0 ALK PHOS (test code = 3946128897) 123 U/L 34-122 H ALTv (test code = 1742-6) 42 U/L 5-35 H AST(SGOT) (test code = 9091426495) 34 U/L 13-40 eGFR (test code = 6734056099) 60.3 mL/min/1.73m2 JAYANT (test code = JAYANT) [...] imaging tests). Lab Interpretation (test code = 97405-2) Abnormal [facility] WITH [id number] 23:13:09* Test Item Value Reference Range Interpretation Comme nts WBC (test code = 6690-2) 12.51 See_Comment H [Automated [employer]] The system which generated this result transmitted reference range: 4.30 - 11.10 10*3/?L. The reference range was not used to interpret this result as normal/abnormal. RBC (test code = 789-8) 4.29 See_Comment [[employer]] The system which generated this result transmitted [...] 33.7 g/dL 31.6-35.1 RDW-SD (test code = 37128-5) 41.4 fL 39.0-49.9 RDW-CV (test code = 788-0) 13.3 % 12.0-15.5 PLT (test code = 777-3) 354 See_Comment [Automated messa ge] The system which generated this result transmitted reference range: 166 - 358 10*3/?L. The reference range was not used to interpret this result as normal/abnormal. MPV (test code = 45471-4) 10.2 fL 9.5-12.9 NRBC/100 WBC (test code = 7885517979) 0.0 See_Comment [Automated me ssage] The system which generated this result transmitted reference range: 0.0 - 10.0 /100 WBCs. The reference range was not used to interpret this result as normal/abnormal. NRBC x10^3 (test code = 6827124697) See_Comment [Automated messa ge] The system which generated this result transmitted reference range: 10*3/?L. The reference range was not used to interpret this result as normal/abnormal. GRAN MAT (NEUT) % (test code = 770-8) 65.5 % IMM GRAN % (test code = 6192065658) 0.40 % LYMPH % (test code = 736-9) 26.3 % MONO % (test code = 5905-5) 5.7 % EOS % (test code = 713-8) 1.6 % BASO % (test code = 706-2) 0.5 % GRAN MAT x10^3(ANC) (test code = 9216707797) 8.20 10*3/uL 1.88-7.09 H IMM GRAN x10^3 (test code = 6712719755) 0.05 10*3/uL 0.00-0.06 LYMPH x10^3 (test code = 731-0) 3.29 10*3/uL 1.32-3.29 MONO x10^3 (test code = 742-7) 0.71 10*3/uL 0.33-0.92 EOS x10^3 (test code = 711-2) 0.20 10*3/uL 0.03-0.39 BASO x10^3 (test code = 704-7) 0.06 10*3/uL 0.01-0.07 Lab Interpretation (test code = 28697-6) Abnormal [facility]"
[2025-08-01 21:05] LABS: Absolute Lymphocytes (CBC) 4.7 K/uL (0.7-4.9); Hematocrit 41.5 % (36.0-45.0); Hemoglobin 14.0 g/dL (12.0-15.0); MCH 28.4 pg (27.0-35.0); MCHC 33.6 g/dL (32.0-36.0); MCV 84.4 fL (80-100); MPV 8.6 fL (7.6-11.3); Nucleated RBC Absolute Count 0.0 (0-0); Nucleated Red Blood Cells % 0.1 % (0-0); RBC Red Blood Cell Count 4.92 M/uL (3.86-4.86); White Blood Count 12.80 thou/uL (4.3-10.9)
[2025-08-01 21:12] LABS: PT Prothrombin Time 12.8 SECONDS (10-13.0); Protime INR 1.14
[2025-08-01 21:13] LABS: Urine Microscopic Reflex YN NO UMIC
[2025-08-01] MEDS ORDERED: MORPHINE 4 MG/ML SYR ONE (21:15)
[2025-08-01] MEDS ORDERED: ONDANSETRON 4 MG/2 ML VIAL ONE (21:15)
[2025-08-01] MEDS ORDERED: NA CHLORIDE 0.9% 1,000 ML ONE (21:16)
[2025-08-01] MEDS ORDERED: FAMOTIDINE 20 MG/2 ML VIAL IV ONE (21:16)
[2025-08-01 21:28] LABS: ALT/SGPT 35 U/L (13-56); AST/SGOT 17 U/L (15-37); Albumin 3.5 g/dL (3.4-5.0); Albumin/Globulin Ratio 0.8 (1.1-1.8); Alkaline Phosphatase 150 U/L (45-117); Anion Gap 11.0 mEq/L (5.0-15.0); BUN Blood Urea Nitrogen 19 mg/dL (7-18); Globulin 4.6 g/dL (2.3-3.5); Lipase 39 U/L (13-75); Potassium 4.0 mEq/L (3.5-5.1); Troponin High Sensitivity 4.1 pg/mL (<58.9)
[2025-08-01 21:29] LABS: Bilirubin Indirect, Calculated 0.0 mg/dL (0.2-0.8); Magnesium 2.1 mg/dL (1.6-2.4); NT PRO-BNP < 5 pg/mL (<125)
[2025-08-01 21:33] LABS: Glucose Level 477 mg/dL (74-106)
--- NOTE | 2025-08-01 21:33 | RAD REPORT ---
Procedure: Chest Single View HISTORY: Chest pain COMPARISON: May 2025 FINDINGS: The lungs appear clear of acute infiltrate. No significant pleural effusion noted. The heart is normal size. IMPRESSION: No acute abnormality is displayed.
[2025-08-01 22:10] LABS: METHAMPHETAM NEGATIVE (NEGATIVE); THC Cannibis NEGATIVE (NEGATIVE)
--- NOTE | 2025-08-01 22:10 | EDPHYS ---
Physician Documentation [facility] Name: Sherri Best Age: 54 yrs Sex: Female : 1970 Arrival Date: 08/01/2025 Time: 20:37 Bed 14 Private MD: ED Physician Bay Olmstead HPI: 08/01 21:17 This 54 yrs old Black Female presents to ER via EMS with complaints of Chest Pain. leigh ann 21:17 The patient or guardian reports chest pain that is located primarily in the anterior leigh ann chest wall, left. Onset: 2 day(s) ago. The pain radiates to the left shoulder, Associated signs and symptoms: Pertinent positives: cough. The chest pain is described as sharp. Modifying factors: The symptoms are alleviated by nothing. the symptoms are aggravated by nothing. Severity of pain: At its worst the pain was moderate in the emergency department the pain is unchanged. The patient has not experienced similar symptoms in the past. DEVIL DOG: 20:51 LMP N/A - Hysterectomy, Not me1 Historical: - Allergies: 20:51 NKA; me1 - Home Meds: 08/02 01:42 out of insulin and BP meds [Active]; Glipizide Oral [Active]; kt5 - PMHx: 08/01 20:51 Anxiety; Depression; Diabetes - NIDDM; Herpes simplex; Hypertension; me1 - PSHx: 20:51 section; Cholecystectomy; uterine ablation; me1 - Immunization history:: Adult Immunizations up to date. - Infectious Disease History:: Denies. - Social history:: Smoking status: Patient denies any tobacco usage or history of. ROS: 21:18 Constitutional: Negative for fever, chills, and weight loss, Eyes: Negative for injury, leigh ann pain, redness, and discharge, ENT: Negative for injury, pain, and discharge, Neck: Negative for injury, pain, and swelling, Respiratory: Negative for shortness of breath, cough, wheezing, and pleuritic chest pain, Abdomen/GI: Negative for abdominal pain, nausea, vomiting, diarrhea, and constipation, Back: Negative for injury and pain, : Negative for injury, bleeding, discharge, and swelling, MS/Extremity: Negative for injury and deformity, Skin: Negative for injury, rash, and discoloration, Neuro: Negative for headache, weakness, numbness, tingling, and seizure, Psych: Negative for depression, anxiety, suicide ideation, homicidal ideation, and hallucinations, Allergy/Immunology: Negative for hives, rash, and allergies, Endocrine: Negative for neck swelling, polydipsia, polyuria, polyphagia, and marked weight changes, Hematologic/Lymphatic: Negative for swollen nodes, abnormal bleeding, and unusual bruising, 21:18 Cardiovascular: Positive for chest pain, of the chest, 21:18 Respiratory: Positive for cough, with no reported sputum, Exam: 21:18 Constitutional: This is a well developed, well nourished patient who is awake, alert, leigh ann and in no acute distress. Head/Face: Normocephalic, atraumatic. Eyes: Pupils equal round and reactive to light, extra-ocular motions intact. Lids and lashes normal. Conjunctiva and sclera are non-icteric and not injected. Cornea within normal limits. Periorbital areas with no swelling, redness, or edema. ENT: Nares patent. No nasal discharge, no septal abnormalities noted. Tympanic membranes are normal and external auditory canals are clear. Oropharynx with no redness, swelling, or masses, exudates, or evidence of obstruction, uvula midline. Mucous membranes moist. Neck: Trachea midline, no thyromegaly or masses palpated, and no cervical lymphadenopathy. Supple, full range of motion without nuchal rigidity, or vertebral point tenderness. No Meningismus. Chest/axilla: Normal chest wall appearance and motion. Nontender with no deformity. No lesions are appreciated. Respiratory: Lungs have equal breath sounds bilaterally, clear to auscultation and percussion. No rales, rhonchi or wheezes noted. No increased work of breathing, no retractions or nasal flaring. Abdomen/GI: Soft, non-tender, with normal bowel sounds. No distension or tympany. No guarding or rebound. No evidence of tenderness throughout. Back: No spinal tenderness. No costovertebral tenderness. Full range of motion. Skin: Warm, dry with normal turgor. Normal color with no rashes, no lesions, and no evidence of cellulitis. MS/ Extremity: Pulses equal, no cyanosis. Neurovascular intact. Full, normal range of motion., bilateral aka Neuro: Awake and alert, GCS 15, oriented to person, place, time, and situation. Cranial nerves II-XII grossly intact. Motor strength 5/5 in all extremities. Sensory grossly intact. Cerebellar exam normal. Normal gait. 21:18 Cardiovascular: Rate: tachycardic, actual rate is 124 bpm, Rhythm: regular, Pulses: Pulses are 4+ in bilateral radial, brachial, femoral, popliteal, posterior tibial and and dorsalis pedis arteries.. Heart sounds: normal, Edema: is not appreciated, JVD: is not appreciated, 21:18 ECG was reviewed by the Attending Physician. Vital Signs: 20:43 BP 135 / 95; Pulse 124; Resp 19; Temp 98; Pulse Ox 99% ; Weight 85.73 kg; Height 5 ft. me1 2 in. ; Pain 7/10; 21:23 BP 125 / 88; Pulse 114; Resp 20; Pulse Ox 96% ; kt5 21:51 BP 123 / 82; Pulse 107; Resp 18; Pulse Ox 97% ; Pain 0/10; kt5 23:44 BP 138 / 97; Pulse 90; Resp 18; Pulse Ox 97% ; kt5 08/02 00:09 BP 116 / 71; Pulse 104; Resp 16; Temp 98.2; Pulse Ox 97% ; Pain 0/10; kt5 01:19 BP 126 / 69; Pulse 94; Resp 18; Temp 98.6; Pulse Ox 99% ; Pain 0/10; kt5 08/01 20:43 Body Mass Index 34.57 (85.73 kg, 157.48 cm) [facility] 08/01 20:43 Pain Scale: Adult me 21:51 Pain Scale: Adult kt5 08/02 00:09 Pain Scale: Adult kt 01:19 Pain Scale: Adult kt5 MDM: 08/01 20:43 Medical Screening Exam initiated leigh ann 21:20 Differential diagnosis: abnormal EKG, acute myocardial infarction, acute pericarditis, leigh ann anxiety, chest wall pain, cholecystitis, Cholelithiasis costochondritis, esophagitis, gastritis, herpes zoster, myocarditis, pancreatitis, peptic ulcer disease, pericarditis, pleurisy, pulmonary embolus, stable angina, thoracic aortic disection, unstable angina. Differential Diagnosis altered mental status, sepsis, flu. HEART Score: History: Slightly Suspicious (0), ECG: Non specific repolarization disturbance / LBTB / PM (1), Age: > 45 and < 65 years (1), Risk Factors: > or = 3 Risk factors for atherosclerotic disease (2), [Hypercholesterolemia] [Hypertension] [DM] [+ Family HX] [Obesity] Troponin: < or = 1 x Normal Limit (0). The patient was given aspirin in the Emergency Department. APRIL Risk Score: 1 - Three or more CAD risk factors, TOTAL SCORE = 1. Data reviewed: vital signs, nurses notes, EMS record, lab test result(s), EKG, radiologic studies, CT scan, plain films. Consideration of Admission/Observation Patient was admitted/placed on observation. Escalation of care including admission/observation considered. I considered the following discharge prescriptions or medication management in the emergency department Medications were administered in the Emergency Department. See MAR. Independent interpretation of the following test(s) in the Emergency Department EKG: See my EKG interpretation above. Test considered but Not performed: Ultrasound NO 2 D ECHO. 08/01 20:45 Order name: Basic Metabolic Panel; Complete Time: 21:58 [facility] 08/01 20:45 Order name: CBC with Diff; Complete Time: 21:21 [facility] 08/01 20:45 Order name: LFT's; Complete Time: 21:58 [facility] 08/01 20:45 Order name: Magnesium; Complete Time: 21:58 [facility] 08/01 20:45 Order name: NT PRO-BNP; Complete Time: 21:58 [facility] 08/01 20:45 Order name: PT-INR; Complete Time: 21:21 [facility] 08/01 20:45 Order name: Troponin HS; Complete Time: 21:58 [facility] 08/01 20:45 Order name: Lipase; Complete Time: 21:58 [facility] 08/01 20:45 Order name: UA Rfx Ramon Cult if indicated; Complete Time: 21:21 [facility] 08/01 21:09 Order name: UDS [facility] 08/01 21:21 Order name: TSH [facility] 08/02 00:32 Order name: Glucose, Ancillary Testing EDMS 08/01 20:45 Order name: XRAY Chest (1 view); Complete Time: 21:58 [facility] 08/01 21:09 Order name: CT Aorta for Dissection [facility] 08/01 20:45 Order name: EKG; Complete Time: 20:45 [facility] 08/01 20:45 Order name: Cardiac monitoring; Complete Time: 20:59 [facility] 08/01 20:45 Order name: EKG - Nurse/Tech; Complete Time: 20:59 [facility] 08/01 20:45 Order name: IV Saline Lock; Complete Time: 20:59 [facility] 08/01 20:45 Order name: Labs collected and sent; Complete Time: : [facility] 08/01 20:45 Order name: O2 Per Protocol; Complete Time: : [facility] 08/01 20:45 Order name: O2 Sat Monitoring; Complete Time: 20:59 [facility] EC:18 Rate is 125 beats/min. Rhythm is regular. QRS Cushing is Normal. LA interval is normal. [facility] QRS interval is normal. QT interval is normal. No Q waves. T waves are Normal. No ST changes noted. Clinical impression: Sinus tachycardia and No evidence of ischemia. Interpreted by me. Reviewed by me. Administered Medications: 21:08 Not Given (Duplicate Order): aspirinchewable tablet 162 mg PO once kt5 21:23 Drug: Famotidine IVP 20 mg IVP once; dilute with 10 mL 0.9% NaCl; give over 2 minutes kt5 Route: IVP; Site: right forearm; 22:47 Follow up: Response: No adverse reaction; Nausea is decreased kt5 21:23 Drug: NS 0.9% IV 500 ml 500 ml IV at 1 bolus once; to be given as a bolus over 30 kt5 minutes Volume: 500 ml; Route: IV; Rate: 1 bolus; Site: right forearm; 22:46 Follow up: IV Status: Completed infusion; IV Intake: 500ml kt5 21:23 Drug: morphine IVP or IV 4 mg IVP once over 4 mins Route: IVP; Infused Over: 4 mins; kt5 Site: right forearm; 22:46 Follow up: Response: No adverse reaction; Pain is decreased kt5 21:30 Drug: NS 0.9% IV 1000 ml IV at 125 ml/hr once; to be given as a bolus over 60 minutes kt5 Route: IV; Rate: 125 ml/hr; Site: right forearm; 21:41 Drug: Ondansetron IVP 4 mg IVP once; over 2 minutes Route: IVP; Site: right forearm; kt5 22:46 Follow up: Response: No adverse reaction; Nausea is decreased kt5 22:38 Drug: Insulin Regular Human IVP 8 units IVP once {Co-Signature: [email or web address] (Ana Pineda kt5 RN).} Route: IVP; Site: right forearm; 08/02 00:22 Follow up: Response: No adverse reaction; Blood sugar is lowered kt5 08/01 22:38 Drug: Insulin Glargine Sub-Q 30 units Sub-Q once {Co-Signature: kelvin (Ana Pineda kt5 RN).} Route: Sub-Q; Site: abdomen; 08/02 00:22 Follow up: Response: No adverse reaction; Blood sugar is lowered kt5 01:19 Not Given (bp): [id number] mg PO once kt5 Disposition Summary: 08/01/25 22:09 Hospitalization Ordered Notes: Hospitalization Status: Observation leigh ann Provider: Bridger Toure cha Location: Telemetry/MedSurg (observation) leigh ann Condition: Stable leigh ann Problem: new leigh ann Symptoms: have improved leigh ann Bed/Room Type: Standard [facility] Room Assignment: 205(08/01/25 23:49) [facility] Diagnosis - Chest pain, unspecified leigh ann - Type 2 diabetes mellitus with hyperglycemia leigh ann - Tachycardia, unspecified leigh ann Forms: - Medication Reconciliation Form leigh ann - SBAR form leigh ann - Leadership Thank You Letter leigh ann Signatures: Dispatcher [employer] EDBay Bauer MD MD cha Eddleman, Michelle, RN RN meCassy Quiles [facility] Susan Barajas RN RN kt5 Ana Pineda RN al5 Corrections: (The following items were deleted from the chart) 08/01 20:45 20:45 BASIC METABOLIC PANEL+C.LAB.BRZ ordered. EDMS EDMS 20:45 20:45 CBC+H.LAB.BRZ ordered. EDMS EDMS 20:45 20:45 HEPATIC FUNCTION+C.LAB.BRZ ordered. EDMS EDMS 20:45 20:45 MAGNESIUM+C.LAB.BRZ ordered. EDMS EDMS 20:45 20:45 PROBNP+C.LAB.BRZ ordered. EDMS EDMS 20:45 20:45 PROTIME (+INR)+COAG.LAB.BRZ ordered. EDMS EDMS 20:45 20:45 Troponin High Sensitivity+C.LAB.BRZ ordered. EDMS EDMS 20:45 20:45 LIPASE+C.LAB.BRZ ordered. EDMS EDMS 20:45 20:45 UA Rfx Ramon Cult if indicated+U.LAB.BRZ ordered. EDMS EDMS 21:22 21:22 THYROID STIMULAT HORMONE+ROXYBRZ ordered. EDMS EDMS 23:49 22:09 leigh ann ly
--- NOTE | 2025-08-01 22:10 | ER ---
Nurse's Notes [facility] Name: Sherri Best Age: 54 yrs Sex: Female : 1970 Arrival Date: 08/01/2025 Time: 20:37 Bed 14 Private MD: Diagnosis: Chest pain, unspecified;Type 2 diabetes mellitus with hyperglycemia;Tachycardia, unspecified Presentation: 08/01 20:43 Chief complaint: EMS states: toned out for midsternal cp that started about 30 mins me1 ago. "stabbing" and radiates to her back. 08/12. Reports she was coughing earlier today from a "scratchy throat". BGL 393. 20g RFA with NS infusing. ASA 324mg PO administered. HR was 144, on arrival to ED HR is 118. Out of HTN and DM meds for one month. Coronavirus screen: Client denies travel out of the [place] in the last 14 days. Ebola Screen: No symptoms or risks identified at this time. Initial Sepsis Screen: Does the patient meet any 2 criteria? HR > 90 bpm. Does the patient have a suspected source of infection? No. Patient's initial sepsis screen is negative. Risk Assessment: Do you want to hurt yourself or someone else? Patient reports no desire to harm self or others. Onset of symptoms was August 01, 2025 at 20:20. 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 - Infectious Disease History:: Denies. - Social history:: Smoking status: Patient denies any tobacco usage or history of. Screenin:06 [facility] ED Fall Risk Assessment (Adult) History of falling in the last 3 months, kt5 including since admission No falls in past 3 months (0 pts) Confusion or Disorientation No (0 pts) Intoxicated or Sedated No (0 pts) Impaired Gait No (0 pts) Mobility Assist Device Used No (0 pt) Altered Elimination No (0 pt) Score/Fall Risk Level 0 - 2 = Low Risk Oriented to surroundings, Maintained a safe environment. Abuse screen: Denies threats or abuse. Nutritional screening: No deficits noted. Tuberculosis screening: No symptoms or risk factors identified. Assessment: 21:00 General: Appears in no apparent distress. uncomfortable, Behavior is calm, cooperative, kt5 appropriate for age. Pain: Complains of pain in anterior aspect of left upper chest and left breast Pain radiates to left scapular area and left subscapular area Pain currently is 6 out of 10 on a pain scale. Quality of pain is described as sharp, Pain began suddenly. Neuro: No deficits noted. Lemons Agitation-Sedation Scale (RASS): 0 - Alert and Calm. Cardiovascular: Reports chest pain, shortness of breath, Heart tones S1 S2 present Capillary refill < 3 seconds Clubbing of nail beds is absent JVD is absent Pulses are all present. Edema is absent. Chest pain is described as Pain is 6 out of 10 on a pain scale. quality is sharp, radiates back began suddenly, episodes are continuous. Respiratory: No deficits noted. Airway is patent Trachea midline Respiratory effort is even, labored, Respiratory pattern is regular, symmetrical, Breath sounds are clear bilaterally. GI: No deficits noted. No signs and/or symptoms were reported involving the gastrointestinal system. Abdomen is round non-distended, Bowel sounds present X 4 quads. Abd is soft and non tender X 4 quads. : No deficits noted. No signs and/or symptoms were reported regarding the genitourinary system. EENT: No deficits noted. No signs and/or symptoms were reported regarding the EENT system. Derm: Skin is intact, Skin is dry, Skin is pink, warm \\T\\ dry. normal. Musculoskeletal: No deficits noted. No signs and/or symptoms reported regarding the musculoskeletal system. 21:06 General: tech at bs for pcxr. kt5 21:51 Reassessment: Patient appears in no apparent distress at this time. Patient and/or kt5 family updated on plan of care and expected duration. Pain level reassessed. Patient is alert, oriented x 3, equal unlabored respirations, skin warm/dry/pink. Patient states feeling better. Patient states symptoms have improved. 22:49 General: admit md at for eval. kt5 23:00 Reassessment: Patient appears in no apparent distress at this time. Patient and/or kt5 family updated on plan of care and expected duration. Pain level reassessed. Patient is alert, oriented x 3, equal unlabored respirations, skin warm/dry/pink. pt eating and drinking w/o complications Patient states feeling better. Patient states symptoms have improved. 23:02 General: pt up ambulating to rr w/o complications. kt5 23:44 Reassessment: Patient appears in no apparent distress at this time. Patient and/or kt5 family updated on plan of care and expected duration. Pain level reassessed. Patient is alert, oriented x 3, equal unlabored respirations, skin warm/dry/pink. Patient states feeling better. Patient states symptoms have improved. 08/02 00:21 General: BS 262. kt5 00:25 Reassessment: Patient appears in no apparent distress at this time. Patient and/or kt5 family updated on plan of care and expected duration. Pain level reassessed. Patient is alert, oriented x 3, equal unlabored respirations, skin warm/dry/pink. pt sitting in bed eating [employer], educated pt on blood sugar levels and food to eat with high bs, verbalized understanding Patient states feeling better. Patient states symptoms have improved. 01:19 Reassessment: Patient appears in no apparent distress at this time. Patient and/or kt5 family updated on plan of care and expected duration. Pain level reassessed. Patient is alert, oriented x 3, equal unlabored respirations, skin warm/dry/pink. Patient denies pain at this time. Patient states feeling better. Patient states symptoms have improved. Vital Signs: 08/01 20:43 BP 135 / 95; Pulse 124; Resp 19; Temp 98; Pulse Ox 99% ; Weight 85.73 kg; Height 5 ft. me1 2 in. ; Pain 7/10; 21:23 BP 125 / 88; Pulse 114; Resp 20; Pulse Ox 96% ; kt5 21:51 BP 123 / 82; Pulse 107; Resp 18; Pulse Ox 97% ; Pain 0/10; kt5 23:44 BP 138 / 97; Pulse 90; Resp 18; Pulse Ox 97% ; kt5 08/02 00:09 BP 116 / 71; Pulse 104; Resp 16; Temp 98.2; Pulse Ox 97% ; Pain 0/10; kt5 01:19 BP 126 / 69; Pulse 94; Resp 18; Temp 98.6; Pulse Ox 99% ; Pain 0/10; kt5 08/01 20:43 Body Mass Index 34.57 (85.73 kg, 157.48 cm) me1 08/01 20:43 Pain Scale: Adult me1 21:51 Pain Scale: Adult kt5 08/02 00:09 Pain Scale: Adult kt5 01:19 Pain Scale: Adult kt5 ED Course: 08/01 20:41 Patient arrived in ED. kt5 20:43 Bay Olmstead MD is Attending Physician. [facility] 20:51 Triage completed. me1 20:51 Arm band placed on Patient placed in an exam room. me1 20:56 Susan Barajas, ALMA is Primary Nurse. kt5 20:59 EKG done, by chemistry technologist. reviewed by Bay Olmstead MD. ts3 20:59 Initial lab(s) drawn, by earthmoving labourer, sent to lab. Maintain EMS IV. Dressing intact. Site ts3 clean \\T\\ dry. Flushed with 10 mL NS. 21:00 Urine collected: clean catch specimen, sent to lab. ts3 21:06 Bed in low position. Call light in reach. Side rails up X 1. Client placed on kt5 continuous cardiac and pulse oximetry monitoring. NIBP monitoring applied. commis chef on. Door closed. Noise minimized. Warm blanket given. Pillow given. 21:06 No provider procedures requiring assistance completed. kt5 21:18 XRAY Chest (1 view) In Process Unspecified. EDMS 21:44 UDS Sent. kt5 22:05 Bridger Toure MD is Hospitalizing Provider. [facility] 22:11 CT Aorta for Dissection In Process Unspecified. EDIL 08/02 01:42 Provided Education on: admission. kt5 01:43 Patient maintains SpO2 saturation greater than 95% on room air. kt5 Administered Medications: 08/01 21:08 Not Given (Duplicate Order): aspirinchewable tablet 162 mg PO once kt5 21:23 Drug: Famotidine IVP 20 mg IVP once; dilute with 10 mL 0.9% NaCl; give over 2 minutes kt5 Route: IVP; Site: right forearm; 22:47 Follow up: Response: No adverse reaction; Nausea is decreased kt5 21:23 Drug: NS 0.9% IV 500 ml 500 ml IV at 1 bolus once; to be given as a bolus over 30 kt5 minutes Volume: 500 ml; Route: IV; Rate: 1 bolus; Site: right forearm; 22:46 Follow up: IV Status: Completed infusion; IV Intake: 500ml kt5 21:23 Drug: morphine IVP or IV 4 mg IVP once over 4 mins Route: IVP; Infused Over: 4 mins; kt5 Site: right forearm; 22:46 Follow up: Response: No adverse reaction; Pain is decreased kt5 21:30 Drug: NS 0.9% IV 1000 ml IV at 125 ml/hr once; to be given as a bolus over 60 minutes kt5 Route: IV; Rate: 125 ml/hr; Site: right forearm; 21:41 Drug: Ondansetron IVP 4 mg IVP once; over 2 minutes Route: IVP; Site: right forearm; kt5 22:46 Follow up: Response: No adverse reaction; Nausea is decreased kt5 22:38 Drug: Insulin Regular Human IVP 8 units IVP once {Co-Signature: kelvin (Ana Pineda RN).} Route: IVP; Site: right forearm; 08/02 00:22 Follow up: Response: No adverse reaction; Blood sugar is lowered kt5 08/01 22:38 Drug: Insulin Glargine Sub-Q 30 units Sub-Q once {Co-Signature: kelvin (Ana Pineda RN).} Route: Sub-Q; Site: abdomen; 08/02 00:22 Follow up: Response: No adverse reaction; Blood sugar is lowered kt5 01:19 Not Given (bp): [id number] mg PO once kt5 Medication: 08/01 21:06 VIS not applicable for this client. kt5 Intake: 22:46 IV: 500ml; Total: 500ml. kt5 Outcome: 22:09 Decision to Hospitalize by Provider. [facility] 08/02 01:20 Admitted to Tele accompanied by tech, via wheelchair, kt5 Condition: improved 01:43 Patient left the ED. kt5 Signatures: Dispatcher [employer] Bay Donald MD MD cha Eddleman, Michelle, RN RN me1 Mary Sands ts3 Ssuan Barajas RN RN kt5 Ana Pineda RN al5 Corrections: (The following items were deleted from the chart) 08/01 21:00 20:59 Maintain EMS IV. Dressing intact. Site clean \\T\\ dry. Flushed with 10 mL NS ts3 ts3 22:48 21:23 NS 0.9% IV 1000 ml IV at 125 ml/hr in right forearm kt5 kt5 22:48 22:45 Response: No adverse reaction; IV Status: Completed infusion; IV Intake: 500ml [id number] 08/02 01:41 01:41 NS 0.9% IV 1000 ml IV at 125 ml/hr in right forearm kt5 kt5
--- NOTE | 2025-08-01 22:28 | RAD REPORT ---
EXAM: CTA of the chest, abdomen and pelvis HISTORY: Chest and abdominal pain COMPARISON: CT abdomen 2022 TECHNIQUE: Multiple contiguous axial images were obtained a CTA of the chest and abdomen with contras t per aortic dissection protocol. Sagittal and coronal 3-D MIP reformats were performed. 100 cc Isovue-370 administered intravenously.Automated exposure control, adjustment of the mA and kV accordi ng to the patient size, and iterative reconstruction. Unless otherwise specified, incidental findings do not require dedicated imaging follow-up. FINDINGS: An aortic dissection not seen. No aortic aneurysm Celiac, SMA and HARSHAD do not demonstrate a significant abnormality. Renal arteries do not demonstrate a significant abnormality. Subcentimeter left thyroid nodule probably benign. Lungs are clear Hepatomegaly. Fatty infiltration of liver. Cholecystectomy. The spleen, pancreas, adrenals, kidneys and bladder do not demonstrate a significant abnormality No evidence of diverticulitis. Normal appendix. Calcification left pelvis unchanged measuring 2 cm. IMPRESSION: No evidence of an aortic dissection
[2025-08-01] MEDS ORDERED: INSULIN GLARGINE 100 UNIT/ML SQ ONE (22:31)
[2025-08-01] MEDS ORDERED: INSULIN REGULAR (HUMAN) 100 UNIT/ML ONE (22:32)
[2025-08-01] MEDS ORDERED: NITROGLYCERIN 0.4 MG/TAB SL PRN (23:36)
--- NOTE | 2025-08-01 23:43 | P.HP ---
Certification for Inpatient Patient admitted to: Observation With expected LOS: <2 Midnights Patient will require the following post-hospital care: None Practitioner: I am a practitioner with admitting privileges, knowledge of patient current condition, hospital course, and medical plan of care. Services: Services provided to patient in accordance with Admission requirements found in Title 42 Section 412.3 of the Code of Federal Regulations Patient History Date of Service: 08/02/25 Reason for admission: Chest pain. History of Present Illness: Patient is a 54-year-old female with past medical history of type 2 diabetes mellitus, essential hypertension, who presents to the ER complaining of severe chest pain radiating to her back with mild associated shortness of breath. Patient states her chest pain started yesterday in the afternoon and lasted about 10 minutes, describes her chest pain as sharp, and pressure type of pain. Patient states she had a reoccurrence of her chest pain again today around 8 PM, with associated shortness of breath, radiates to her left upper back, describes her chest pain again as tight, sharp, and pressure type of pain which she states was consistent prompting her to report to ER. When inquired about her blood sugar, patient appears to be noncompliance in managing her diabetes. During admission assessment, patient endorses chest pain but denies of any shortness of breath at this time. Course in ER. (1) CT dissection. Impression: No evidence of aortic dissection. (2) chest x-ray. Impression: No acute abnormalities is displayed. Allergies No Known Drug Allergies Allergy (Verified 08/02/25 01:34) Unknown - Past Medical/Surgical History Diabetic: No -: depression -: Hypertension -: Diabetes mellitus type 2 -: uterine ablasion Psychosocial/ Personal History: Patient lives at home with her children, currently unemployed - Family History Mother -: Hypertension - Social History Alcohol use: Yes CD- Drugs: No Caffeine use: Yes Place of Residence: Home Review of Systems 10-point ROS is otherwise unremarkable Cardiovascular: Chest Pain Physical Examination - Physical Exam General: Alert, In no apparent distress, Oriented x3 HEENT: Atraumatic, Normocephalic, PERRLA, Mucous membr. moist/pink Neck: Supple, 2+ carotid pulse no bruit, No LAD, Without JVD or thyroid abnormality Respiratory: Clear to auscultation bilaterally, Normal air movement Cardiovascular: No edema, Normal pulses, Regular rate/rhythm, Normal S1 S2, Abnormal S3, No gallops, No rubs, No murmurs Capillary refill: <2 Seconds Gastrointestinal: Normal bowel sounds, Soft and benign, Non-distended, W/out hepatomegaly, No ascites, No tenderness, No masses, No rebound, No guarding Musculoskeletal: No clubbing, No swelling, No contractures, No erythema, No tenderness, No warmth Integumentary: No rashes, No breakdown, No significant lesion, No tendern ess/swelling, No erythema, No warmth, No cyanosis Neurological: Normal gait, Normal speech, Normal strength at 5/5 x4 extr, Normal tone, Sensation intact, Cranial nerves 3-12 intact, Normal reflexes 2+, Normal affect Lymphatics: No axilla or inguinal lymphadenopathy - Studies Laboratory Data (last 24 hrs) 08/01/25 08/01/25 08/01/25 20:55 20:55 20:55 WBC 12.80 H Hgb 14.0 Hct 41.5 Plt Count 349 PT 12.8 INR 1.14 Sodium 133 L Potassium 4.0 BUN 19 H Creatinine 1.09 H Glucose 477 H* Magnesium 2.1 Total Bilirubin 0.2 AST 17 ALT 35 Alkaline Phosphatase 150 H Lipase 39 Female Exam - Breasts Breasts: Normal configuration, Normal contours, Symmetrical Assessment and Plan - Plan Patient admitted to observation with diagnosis of chest pain. (1) chest pain. -Nitro sublingual 0.4 mg as needed every 5 minutes x 3. -Morphine 4 mg IV as needed every 4 as. -Serial troponin every 8 hours x 3. -Order echo. -EKG every 8 hours x 3. -Consult balance bridge inspector. (2) DVT prophylaxis. -Lovenox 40 mg subcu daily. (3)Chronic type 2 diabetes mellitus. -Order A1c to evaluate patient current diabetic status. -ACHS with moderate sliding scale coverage. -Medication to be resumed after reconciliation done. (4)Explained entire treatment plan to the patient, solicited questions answered and voiced understanding. Discharge Plan: Jail Plan to discharge in: 48 Hours - Advance Directives Does patient have a Living Will: No Does patient have a Durable POA for Healthcare: No - Code Status/Comfort Care Code Status Assessed: Yes Code Status: Full Code Critical Care: Yes Time Spent Managing Pts Care (In Minutes): 55
[2025-08-02] MEDS ORDERED: METOPROLOL TAR 50 MG TAB ONE (00:07)
[2025-08-02 01:35] VITALS: BMI 32.0
[2025-08-02] MEDS: guaiFENesin 100 MG/5 ML UCUP PO PRN (02:31)
[2025-08-02] MEDS: MORPHINE 4 MG/ML SYR IV PRN (02:31)
[2025-08-02 05:03] LABS: Absolute Lymphocytes (CBC) 4.8 K/uL (0.7-4.9); Hematocrit 38.4 % (36.0-45.0); Hemoglobin 12.8 g/dL (12.0-15.0); MCH 28.1 pg (27.0-35.0); MCHC 33.4 g/dL (32.0-36.0); MCV 84.1 fL (80-100); MPV 8.4 fL (7.6-11.3); Nucleated RBC Absolute Count 0.0 (0-0); Nucleated Red Blood Cells % 0.1 % (0-0); RBC Red Blood Cell Count 4.57 M/uL (3.86-4.86); White Blood Count 12.70 thou/uL (4.3-10.9)
[2025-08-02 05:05] LABS: Anion Gap 7.2 mEq/L (5.0-15.0); BUN Blood Urea Nitrogen 13.0 mg/dL (7-18); Glucose Level 331.0 mg/dL (74-106); Potassium 4.2 mEq/L (3.5-5.1)
[2025-08-02] MEDS: INSULIN REGULAR (HUMAN) 100 UNIT/ML SQ SCH (07:30)
[2025-08-02] MEDS: ASPIRIN EC 81 MG TAB PO SCH (08:26)
[2025-08-02] MEDS: ENOXAPARIN 40 MG/0.4 ML SQ SCH (08:26)
--- NOTE | 2025-08-02 09:33 | P.CNS ---
Date of Consult: 08/02/25 Reason for Consult: Chest pain Requesting Physician: lonny linares Chief Complaint: Chest pain. History of Present Illness: 54-year-old female with PMH HTN, DM 2, anxiety/depression, who presented to the ED yesterday for chest pain. Patient reports sharp left-sided chest discomfort that lasted approximately 1 hour prior to arrival, relieved with morphine in the ED. Pain radiates to the back. Endorses intermittent sharp chest pains for the past 2 days, which are unrelated to activity. Admits to having social stressors at home. Denies family history of premature coronary disease. Denies smoking. ECG showed PVC. NT proBNP and high-sensitivity cardiac troponin negative. Hyperglycemic with BG 477. CT chest/abdomen negative for aortic dissection. Patient denies any prior cardiovascular workup. Allergies No Known Drug Allergies Allergy (Verified 08/02/25 01:34) Unknown - Past Medical/Surgical History Diabetic: Yes -: depression -: Hypertension -: Diabetes mellitus type 2 -: uterine ablasion -: c. section -: cholecystectomy Psychosocial/ Personal History: Patient lives at home with her children, currently unemployed - Family History Mother Medical History: Hypertension - Social History Smoking Status: Never smoker, Unknown if ever smoked Alcohol use: Yes CD- Drugs: No Caffeine use: Yes Place of Residence: Home Physical Examination Temp Pulse Resp BP Pulse Ox 97.9 F 84 15 124/71 96 08/02/25 08:00 08/02/25 08:00 08/02/25 09:08 08/02/25 08:00 08/02/25 08:00 General: Alert, Oriented x3 HEENT: Atraumatic, Normocephalic, EOMI Neck: JVD not distended Respiratory: Clear to auscultation bilaterally Cardiovascular: No edema, Normal S1 S2, No murmurs Capillary refill: <2 Seconds Gastrointestinal: Normal bowel sounds Musculoskeletal: No clubbing, No swelling Integumentary: No rashes Neurological: Normal speech Laboratory Data (last 24 hrs) 08/01/25 08/01/25 08/01/25 20:55 20:55 20:55 WBC 12.80 H Hgb 14.0 Hct 41.5 Plt Count 349 PT 12.8 INR 1.14 Sodium 133 L Potassium 4.0 BUN 19 H Creatinine 1.09 H Glucose 477 H* Magnesium 2.1 Total Bilirubin 0.2 AST 17 ALT 35 Alkaline Phosphatase 150 H Lipase 39 Imagings Data: ECG and imaging reviewed - Problems (1) Chest pain Current Visit: Yes Status: Acute Plan: Unlikely ACS. Atypical symptoms. Possibly MSK related. However, given the patient's risk factors, further ischemic evaluation is recommended. Recommend stress MPI. Follow-up echocardiogram. Agree with aspirin 81 mg daily. In diabetes patients age 4075, guidelines recommend at least moderate-intensity statin, and high-intensity statin if multiple risk factors are present. Obtain hemoglobin A1c and lipid profile. Qualifiers: Chest pain type: unspecified Qualified Code(s): R07.9 - Chest pain, unspecified (2) Obesity (BMI 30.0-34.9) Current Visit: Yes Status: Chronic Plan: Reinforce dietary modification, exercise, weight loss; consider referral to product delivery specialist or weight management program. (3) Type 2 diabetes mellitus with hyperglycemia Current Visit: No Status: Acute Plan: Reinforce glycemic control. Consider SGLT2 inhibitor or GLP-1 receptor agonist if not contraindicated. Follow-up hemoglobin A1c. Qualifiers: Diabetes mellitus attendant lodging facilities insulin use: without attendant lodging facilities use Qualified Code(s): E11.65 - Type 2 diabetes mellitus with hyperglycemia (4) Essential hypertension Current Visit: Yes Status: Chronic Plan: Per history. Blood pressure is well-controlled. Blood pressure goal <130/80 mmHg. Conclusions/Impression: Thank you for the consult. Please call with any questions.
[2025-08-02] MEDS ORDERED: REGADENOSON 0.4 MG/5 ML SYR IV ONE (13:13)
--- NOTE | 2025-08-02 14:32 | RAD REPORT ---
EXAM: Nuclear medicine cardiac perfusion examination with ejection fraction HISTORY: RSCI. Chest pain TECHNIQUE: Rest images: 10.4 mCi technetium 99m sestamibi Stress images: 30.1 mCi of technetium 99m sestamibi; Lexiscan COMPARISON: None FINDINGS: Tomographic images: No reversible perfusion defects. Small fixed defect along the anterior wall mid t o apical segments suggesting remote infarct. Gated images: Normal wall motion and ejection fraction of 71%. EDV: 63 mL ESV: 18 mL TID: 0.94 IMPRESSION: No scintigraphic evidence of myocardial ischemia. Moderate fixed defect along the anterior wall mid to apical segments suggesting remote infarct. Left ventricular ejection fraction:71%
[2025-08-02] MEDS: ONDANSETRON 4 MG/2 ML VIAL IV ONE (18:11)
[2025-08-02] MEDS ORDERED: MORPHINE 2 MG/ML SYR IV PRN (18:48)
--- NOTE | 2025-08-02 18:51 | P.PN ---
Subjective Date of Service: 08/02/25 Chief Complaint: Chest pain. Patient complaining of intermittent chest pain. She also experience nausea after stress test. Physical Examination - Vital Signs Temperature: 98.0 F Blood Pressure: 137/87 Pulse: 98 Respirations: 15 Pulse Ox (%): 95 - Studies Laboratory Data (last 24 hrs) 08/01/25 08/01/25 08/01/25 20:55 20:55 20:55 WBC 12.80 H Hgb 14.0 Hct 41.5 Plt Count 349 PT 12.8 INR 1.14 Sodium 133 L Potassium 4.0 BUN 19 H Creatinine 1.09 H Glucose 477 H* Magnesium 2.1 Total Bilirubin 0.2 AST 17 ALT 35 Alkaline Phosphatase 150 H Lipase 39 Assessment And Plan - Plan Physical examination General: Alert and oriented x3, NAD, HEENT: Conjunctiva not pale, anicteric sclera Neck: Supple, no elevated JVD Heart: Heart sounds 1 and 2 normal, regular rhythm, normal rate, no pedal edema Lungs: Clear to auscultation bilaterally, adequate breath sounds bilaterally, no rhonchi or crackles. Abdomen: Soft, nondistended, nontender, normal bowel sounds. Extremities: No tenderness, no deformity Skin: Normal skin turgor, no rash, no nodules or ulcers. Neuro: No focal motor deficit. Normal speech. Psychiatry: Normal mood, no agitation. Assessment and plan chest pain Nuclear stress test demonstrated remote infarct. Cardiology input appreciated. Dr. Marin is planning cardiac catheterization tomorrow Continue IV morphine as needed Echocardiogram is pending Aspirin. Type 2 diabetes ACHS with moderate sliding scale coverage. DVT prophylaxis: Lovenox
[2025-08-03 06:05] LABS: Absolute Lymphocytes (CBC) 2.9 K/uL (0.7-4.9); Hematocrit 38.0 % (36.0-45.0); Hemoglobin 12.9 g/dL (12.0-15.0); MCH 28.5 pg (27.0-35.0); MCHC 34.0 g/dL (32.0-36.0); MCV 83.7 fL (80-100); MPV 8.2 fL (7.6-11.3); Nucleated RBC Absolute Count 0.0 (0-0); Nucleated Red Blood Cells % 0.0 % (0-0); RBC Red Blood Cell Count 4.54 M/uL (3.86-4.86); White Blood Count 11.00 thou/uL (4.3-10.9)
[2025-08-03 06:28] LABS: Anion Gap 8.8 mEq/L (5.0-15.0); BUN Blood Urea Nitrogen 10.0 mg/dL (7-18); Glucose Level 276.0 mg/dL (74-106)
[2025-08-03 06:49] LABS: Potassium 3.8 mEq/L (3.5-5.1)
--- NOTE | 2025-08-03 08:07 | P.PN ---
Subjective Date of Service: 08/03/25 Chief Complaint: Chest pain. No acute events overnight. Stress test performed yesterday shows moderate fixed anterior defect (mid to apical). Since patient is still having intermittent chest discomfort, she would like to proceed with further invasive management. Physical Examination - Vital Signs Temperature: 98.0 F Blood Pressure: 118/67 Pulse: 95 Respirations: 18 Pulse Ox (%): 100 - Physical Exam General: Alert, Oriented x3, Other (Anxious) HEENT: Atraumatic, Normocephalic, EOMI Neck: JVD not distended Respiratory: Clear to auscultation bilaterally Cardiovascular: No edema, Normal S1 S2, No murmurs Capillary refill: <2 Seconds Gastrointestinal: Normal bowel sounds Musculoskeletal: No clubbing, No swelling Integumentary: No rashes Neurological: Normal speech - Studies Reviewed Imagings Data: Reviewed Medications List Reviewed: Yes Assessment And Plan - Current Problems (Diagnosis) (1) Chest pain Current Visit: Yes Status: Acute Plan: Stress MPI 08/02/2025 shows fixed anterior mid to apical scar. Patient continues to be symptomatic. Given the patient's symptoms, risk factors, further ischemic evaluation is recommended. I discussed the indication, risks, benefits, and alternatives of coronary angiography, left heart catheterization, and possible percutaneous coronary intervention with the patient. Risks reviewed included bleeding, vascular injury, infection, allergic reaction, arrhythmia, myocardial infarction, stroke, emergency surgery, and . The patient verbalized understanding, had the opportunity to ask questions, and provided informed consent. Continue aspirin and statin. Follow-up echocardiogram. Obtain hemoglobin A1c and lipid profile. Further recommendations pending results of cardiac catheterization. Qualifiers: Chest pain type: unspecified Qualified Code(s): R07.9 - Chest pain, unspecified (2) Obesity (BMI 30.0-34.9) Current Visit: Yes Status: Chronic Plan: Reinforce dietary modification, exercise, weight loss; consider referral to national secretary or weight management program. (3) Type 2 diabetes mellitus with hyperglycemia Current Visit: No Status: Acute Plan: Uncontrolled. Reinforce glycemic control. Consider addition of SGLT2 inhibitor or GLP-1 receptor agonist if not contraindicated. Follow-up hemoglobin A1c. Qualifiers: Diabetes mellitus shelter insulin use: without ferry terminal supervisor use Qualified Code(s): E11.65 - Type 2 diabetes mellitus with hyperglycemia (4) Essential hypertension Current Visit: Yes Status: Chronic Plan: Per history. Blood pressure is well-controlled. Blood pressure goal <130/80 mmHg. (5) Abnormal cardiovascular stress test Current Visit: Yes Status: Acute
[2025-08-03] MEDS: INSULIN GLARGINE 100 UNIT/ML SQ SCH (08:57)
[2025-08-03 12:07] VITALS: TEMP 98.5
[2025-08-03] MEDS ORDERED: FENTANYL CITR 100 MCG/2 ML ONE (12:22)
[2025-08-03] MEDS ORDERED: NA CHLORIDE 0.9% 500 ML ONE (12:23)
[2025-08-03] MEDS ORDERED: MIDAZOLAM HCL 2 MG/2 ML INJ ONE (12:23)
[2025-08-03 13:09] VITALS: O2SAT 98
[2025-08-03] MEDS ORDERED: HEPA 1000U/500MLS 2,000 UNIT/1,000 ML BAG IV ONE (13:44)
[2025-08-03] MEDS ORDERED: HEPARIN 5000 UNIT/ML 1 ML VIAL ONE (13:44)
[2025-08-03] MEDS ORDERED: LIDOCAINE 1% 20 ML MDV ONE (13:44)
[2025-08-03] MEDS ORDERED: VERAPAMIL HCL 10 MG/4 ML VIAL IV ONE (13:53)
--- NOTE | 2025-08-03 14:59 | P.OP ---
Date of Service: 08/03/25 Procedures Performed: Coronary angiography Left heart catheterization Left ventriculography Moderate sedation Indication: R07.9: Chest pain, unspecified R94.30: Abnormal result of cardiovascular function study, unspecified I25.119: Atherosclerotic heart disease of [place] coronary artery with unspecified angina pectoris Pre-procedure Diagnosis: Abnormal result of cardiovascular function study, unspecified Post-procedure Diagnosis: Nonobstructive coronary artery disease. Consent: Informed consent was obtained after discussion of risks, benefits, and alternatives. Sedation and Anesthesia: ASA Classification II. Moderate sedation was provided using IV midazolam 1 mg and IV fentanyl 25 mcg. Sedation began at 2:04 PM and ended at 2:26 PM, for a total duration of 24 min. Continuous hemodynamic, respiratory, pulse oximetry, and level of consciousness monitoring was performed throughout the procedure in accordance with hospital policy. The patient tolerated sedation well without adverse events. Procedure Description: The patient was prepped and draped in the usual sterile fashion, and a procedural time-out confirmed patient identity, procedure, and site. Vascular access was obtained via the right radial artery using a 6 Slovak sheath. A 6 Slov[place] JR4 diagnostic catheter was advanced over a wire under fluoroscopic guid ance to the left ventricle, left heart catheterization and left ventriculography was performed, LVEDP was measured at 4 mmHg. LVEF 65-70% with no significant regional wall motion abnormalities in the MARI projection. The catheter was slowly pulled back across the aortic valve and any trans-aortic gradient was assessed. Selective RCA angiography was performed, after which the catheter was exchanged for a 6 Slovak JL 3.5 catheter and selective angiography of the LM, LAD, and LCx arteries was obtained in standard projections. At the conclusion of the procedure all catheters and the sheath were removed, hemostasis was achieved with TR band, and the patient tolerated the procedure without immediate complications. Coronary Findings: - Right dominant system. - Left Main (LM): Large-caliber vessel with no significant disease. - Left Anterior Descending (LAD): Proximal segment mild < 30% stenosis. The remainder of the LAD and its diagonal branches are free of disease. - Ramus intermedius (RI): Large caliber branching vessel with no significant disease. - Left Circumflex (LCx): Moderate to large caliber nondominant vessel with several OM branches. There is no significant disease noted. - Right Coronary Artery (RCA): Large-caliber dominant vessel with no significant disease. Complications: None. Estimated Blood Loss: <10 mL. Post-procedure Plan: It appears that the stress test is a false positive, likely breast attenuation artifact. The patient will be monitored in the recovery area per protocol. Continue guideline-directed medical therapy including aspirin 81 mg daily and moderate intensity statin. Aggressive lifestyle and risk factor modification. Patient may follow-up with me in the office in 2-4 weeks. Follow-up closely with PCP for optimization of her diabetes.
--- NOTE | 2025-08-03 15:50 | P.DS ---
Admission Date: 08/03/25 Discharge Date: 08/03/25 Disposition: [facility]/HOME HEALTH CARE Discharge Condition: FAIR Reason for Admission: Chest pain. Brief History of Present Illness: 54-year-old female with past medical history of type 2 diabetes mellitus, essential hypertension, presented to the ER complaining of multiple episodes of chest pain radiating to her back with mild associated shortness of breath. Patient has diabetes mellitus but has been noncompliant with her diabetic treatment. In the ER, CT dissection showed no evidence of aortic dissection. Chest x-ray showed no acute abnormality. Initial troponin negative. EKG did not show any ischemic changes. Patient was hospitalized for ACS rule out. Hospital Course: Diagnosis Atypical chest pain Diabetes mellitus type 2 Hypertriglyceridemia Patient admitted to the medical floor, troponin trended negative. She was evaluated by cardiology Dr. Adkins recommended nuclear stress test. Nuclear stress test showed some fixed defect. Dr. Adkins performed cardiac catheterization and patient found to have normal coronary arteries. Patient noted to have elevated blood sugar readings during the hospital stay. B lood sugar was managed with insulin sliding scale and Lantus insulin. Patient reported she has been taking glipizide for her diabetes. She declined insulin therapy stating she cannot inject herself insulin. She is high risk for noncompliance with insulin therapy. Patient prescribed glimepiride and metformin for outpatient diabetes management. She is also prescribed aspirin and statin. Her lipid profile showed significantly elevated triglyceride likely related to uncontrolled diabetes. Patient is prescribed fenofibrate for hypertriglyceridemia treatment. Compliance to medications emphasized. Patient is informed she may follow-up as [facility] for primary care. Patient also informed to monitor her blood sugar at least once daily and that she may need her diabetes medications doses adjusted if her fingerstick glucose stays above 200. Patient deemed stable for discharge per cardiology. Vital Signs/Physical Exam: Temp Pulse Resp BP Pulse Ox 98.5 F 102 H 12 129/86 97 08/03/25 12:00 08/03/25 12:30 08/03/25 12:30 08/03/25 12:30 08/03/25 12:00 General: Alert, In no apparent distress, Oriented x3 HEENT: Mucous membr. moist/pink, Sclerae nonicteric Neck: Supple, JVD not distended Respiratory: Clear to auscultation bilaterally, Normal air movement Cardiovascular: No edema, Regular rate/rhythm, Normal S1 S2 Gastrointestinal: Normal bowel sounds, Soft and benign, Non-distended, No tenderness Musculoskeletal: No swelling, No tenderness Integumentary: No rashes, No cyanosis Neurological: Normal strength at 5/5 x4 extr, Cranial nerves 3-12 intact Laboratory Data at Discharge: WBC 11.00 thou/uL (4.3-10.9) H 08/03/25 05:34 Hgb 12.9 g/dL (12.0-15.0) 08/03/25 05:34 Hct 38.0 % (36.0-45.0) 08/03/25 05:34 Plt Count 339 thou/uL (152-406) 08/03/25 05:34 PT 12.8 SECONDS (10-13.0) 08/01/25 20:55 INR 1.14 08/01/25 20:55 Sodium 137 mEq/L (136-145) 08/03/25 05:34 Potassium 3.8 mEq/L (3.5-5.1) 08/03/25 05:34 BUN 10 mg/dL (7-18) 08/03/25 05:34 Creatinine 0.79 mg/dL (0.55-1.02) 08/03/25 05:34 Glucose 276 mg/dL (74-106) H 08/03/25 05:34 Magnesium 2.1 mg/dL (1.6-2.4) 08/01/25 20:55 Total Bilirubin 0.2 mg/dL (0.2-1.0) 08/01/25 20:55 AST 17 U/L (15-37) 08/01/25 20:55 ALT 35 U/L (13-56) 08/01/25 20:55 Alkaline Phosphatase 150 U/L (45-117) H 08/01/25 20:55 Lipase 39 U/L (13-75) 08/01/25 20:55 Home Medications: Alcohol Antiseptic Pads [Alcohol Wipes] 1 each TP DAILY #1 box 08/03/25 Aspirin [Aspirin EC 81 MG] 81 mg PO DAILY #30 tab 08/03/25 Atorvastatin Calcium [Lipitor] 40 mg PO BEDTIME #30 tab 08/03/25 Blood Sugar Diagnostic [Glucose Test Strip] 1 each MC DAILY #30 strip 08/03/25 Blood-Glucose Meter [Blood Glucose Monitoring] 1 each MC DAILY #1 kit 08/03/25 Fenofibrate Nanocrystallized [Fenofibrate] 145 mg PO DAILY #30 tab 08/03/25 Glimepiride 2 mg PO DAILY #30 tab 08/03/25 Lancets 1 each MC DAILY #100 ea 08/03/25 Metformin HCl 500 mg PO BID #60 tab 08/03/25 Swab [Cotton Swabs] 1 each MC DAILY #1 box 08/03/25 New Medications: Alcohol Antiseptic Pads [Alcohol Wipes] 1 each TP DAILY #1 box Aspirin [Aspirin EC 81 MG] 81 mg PO DAILY #30 tab Blood-Glucose Meter [Blood Glucose Monitoring] 1 each MC DAILY #1 kit Swab [Cotton Swabs] 1 each MC DAILY #1 box Fenofibrate Nanocrystallized [Fenofibrate] 145 mg PO DAILY #30 tab Glimepiride 2 mg PO DAILY #30 tab Blood Sugar Diagnostic [Glucose Test Strip] 1 each MC DAILY #30 strip Lancets 1 each MC DAILY #100 ea Atorvastatin Calcium [Lipitor] 40 mg PO BEDTIME #30 tab Metformin HCl 500 mg PO BID #60 tab Physician Discharge Instructions: Please follow-up at [facility] for primary care. Compliance to medications emphasized. Patient is informed she may follow-up as [facility] for primary care. Patient also informed to monitor her blood sugar at least once daily and that she may need a higher diabetes medications adjusted if her fingerstick glucose consistently stays above 200. Diabetic diet recommended. Followup: NONE,NONE [Primary Care Provider] - 1-2 Weeks Time spent managing pt's care (in minutes): 34
[2025-08-03 16:18] LABS: HDL Cholesterol 27 mg/dL (40-60)
[2025-08-03 17:00] VITALS: BP 118/74
--- NOTE | 2025-08-16 08:54 | TREADPHA ---
DX: CHEST PAIN Date of Study: 08/02/2025 Ht: 5' 2 " Wt: 175 lb 0 oz Consulting Physician: MONTY BROWN MD MEDICATIONS: ASPIRIN, LOVENOX, NOVOLIN R, MORPHINE, NITROSTAT HISTORY: 54 YEAR OLD FEMALE WITH COMPLAINTS OF CHEST PAIN. HISTORY OF HYPERTENSION, DIABETES MELLITUS, HYPERLIPIDEMIA, CHOLESTEROL PHYSICIAL EXAMINATION: RESTING B.P.: 145/90 RESTING H.R.: 96 RESTING EKG: SINUS RHYTHM WITH PREMATURE VENTRICULAR COMPLEXES PROTOCOL: PHARMACOLOGICAL EXERCISE TIME: 3:30 B.P. AT PEAK STRESS: 101/72 IMPRESSION: LEXISCAN INJECTED. CARDIOLITE INJECTED - SEE NUCLEAR MEDICINE REPORT. NO CHEST PAIN. NO VENTRICULAR TACHYCARDIA, ARRHYTHMIAS NOTED. OCCASIONAL PREMATURE VENTRICULAR COMPLEXES THROUGHOUT. CAFFEINE PROVIDED.
== END 2025-08-03 17:30 | disposition home health service (06) | DRG 192 ==
LOC: ER 20:37 → ERHOLD 23:34 → 2ND 08-02 01:00 → OBSVTOIN 08-03 15:49
PROVIDERS: ADMIT Hospitalist; ATTEND Internal Medicine
PROC: 4A023N7 Measurement of Cardiac Sampling and Pressure, Left Heart, Percutaneous Approach (ICD-10-PCS; principal; 2025-08-03)
PROC: B2111ZZ Fluoroscopy of Multiple Coronary Arteries using Low Osmolar Contrast (ICD-10-PCS; 2025-08-03)
PROC: B2151ZZ Fluoroscopy of Left Heart using Low Osmolar Contrast (ICD-10-PCS; 2025-08-03)
DX: R07.89 Other chest pain (principal); I10 Essential (primary) hypertension; E11.65 Type 2 diabetes mellitus with hyperglycemia; E66.9 Obesity, unspecified; E78.1 Pure hyperglyceridemia; I49.3 Ventricular premature depolarization; I25.10 Atherosclerotic heart disease of native coronary artery without angina pectoris; R00.0 Tachycardia, unspecified; Z79.4 Long term (current) use of insulin; Z79.84 Long term (current) use of oral hypoglycemic drugs; Z90.49 Acquired absence of other specified parts of digestive tract; Z90.710 Acquired absence of both cervix and uterus; Z56.0 Unemployment, unspecified; Z86.73 Personal history of transient ischemic attack (TIA), and cerebral infarction without residual deficits; Z68.32 Body mass index [BMI] 32.0-32.9, adult; Z91.199 Patient's noncompliance with other medical treatment and regimen due to unspecified reason; Z79.82 Long term (current) use of aspirin; Z79.899 Other long term (current) drug therapy
CPT/HCPCS: 36005; 36415; 71045; 71275; 74175; 76937; 78452; 80048; 80061; 80076; 80307; 81003; 82947; 83690; 83735; 83880; 84443; 84484; 85025; 85610; 93005; 93017; 93306; 93458; 96361; 96372; 96374; 96375; 99152; 99285; A9500; C1893; G0378; J1644; J1650; J1815; J2003; J2250; J2405; J2785; J3010; J7030; J7040; Q9966; Q9967